=== PATIENT | male | born 1965 | race Caucasian/White ===

== ENCOUNTER 2017-10-17 20:46 | Inpatient (IN) ==
--- NOTE | 2017-10-17 21:05 | ED ---
HPI General Chief complaint: Abdominal Pain Stated complaint: Evac/Leg Pain Time Seen by Provider: 10/17/17 20:58 Source: patient and EMS Mode of arrival: EMS Limitations: no limitations History of Present Illness HPI narrative: 52-year-old male presents to the emergency department by EMS transport from home due to complaint of severe left lower extremity pain and inability to ambulate with walker assistance. Patient reportedly has had 3 weeks of progressively worsening back pain and left lower extremity pain. Patient has been under the care of his primary care provider his pain management doctor and sports medicine provider. Patient is undergone epidural injections and nerve block injections without symptom relief. Patient is on chronic pain medication. Patient states that in July he had a trip and fall over his dog without any known injury at the time other than some mild mid back pain subsequently had been doing fairly well until progressive worsening of bilateral hip pain and low back pain and left lower extremity pain. Patient is noted some swelling to the left lower extremity. Patient was seen by his pain management doctor this week and had an injection for pain management. Patient does not report any fever or chills nausea vomiting chest pain abdominal pain does complain of some mild shortness of breath. Patient was able to get up with a walker to go the bathroom as recently as last night but fell at the bedside at that time and since then has had increasing pain. Household family members helped him to stand upright and get back to the bed. Patient does not think he hit his head but does not know states he did not have loss of consciousness but everything hurt since that fall. Today he has been able to ambulate with his walker to the bathroom a couple different times with this evening pain was increasing and decided come to the emergency room as he is not getting any relief or improvement of his symptoms. Related Data Home Medications Medication Instructions Recorded Confirmed amlodipine 10 mg PO DAILY 09/30/17 10/17/17 atorvastatin 40 mg PO HS 09/30/17 10/17/17 cabergoline 0.5 mg PO WEEKLY 09/30/17 10/17/17 duloxetine 60 mg PO HS 09/30/17 10/17/17 hydrocodone-acetaminophen 1 tab PO TID PRN 09/30/17 10/17/17 losartan 50 mg PO DAILY 09/30/17 10/17/17 meloxicam 15 mg PO HS 09/30/17 10/17/17 tamsulosin 0.4 mg PO 2XWEEK 09/30/17 10/17/17 tizanidine 4 mg PO HS 09/30/17 10/17/17 triamterene-hydrochlorothiazid 1 cap PO DAILY 09/30/17 10/17/17 Previous Rx's Medication Instructions Recorded ibuprofen 600 mg PO QID PRN #10 tab 09/30/17 Allergies Allergy/AdvReac Type Severity Reaction Status Date / Time penicillin G Allergy Mild Swelling Verified 09/30/17 03:33 of Lip/Tongue/Throat lisinopril AdvReac Mild HEADACHE Verified 09/30/17 03:34 Review of Systems ROS: all other systems reviewed are negative [facility] Medical History Medical History Pituitary abnormality (Acute) Hypertension (Acute) High cholesterol (Acute) Chronic pain (Acute) Surgical History Surgical History Hx of tonsillectomy (Acute) H/O laminectomy (Acute) Social History Social History Substance History: No History of Abuse Second Hand Smoke Exposure: Yes Smoking Status: Current every day smoker Tobacco Type: Cigarettes How Often Do You Have a Drink Containing Alcohol: Monthly or less Recent Travel in [facility] within the Last 8 Weeks: No Recent Out of Country Travel within the Last 8 Weeks: No Immunization History Tetanus Immunization: >5 Years Hx Influenza Vaccine This Season: Yes Exam Narrative Exam Narrative: GENERAL: Well-nourished, well-developed patient. GCS 15. No acute distress no respiratory distress SKIN: Focused skin assessment warm/dry. HEAD: Normocephalic. EYES: No scleral icterus. No injection or drainage. NECK: Supple, trachea midline. No JVD or lymphadenopathy. CARDIOVASCULAR: Regular rate and rhythm without murmurs, gallops, or rubs. RESPIRATORY: Breath sounds equal bilaterally. No accessory muscle use. GASTROINTESTINAL: Abdomen soft, non-tender, nondistended. MUSCULOSKELETAL: No cyanosis, or edema. Patient able to demonstrate straight leg raising to right lower extremity. Patient reports unable to lift his left leg secondary to leg pain and hip pain. Bilateral dorsalis pedis pulses 2+ to palpation capillary refill brisk and less than 2 seconds per digit bilaterally mild swelling of the left lower extremity and calf pain with dorsiflexion and plantarflexion of all of the left foot. Pelvic rock stable. BACK: Nontender without obvious deformity. No CVA tenderness. Course Initial Documented Vital Signs Temperature 98.2 F 10/17/17 20:52 Pulse Rate 100 H 10/17/17 20:52 Respiratory Rate 20 10/17/17 20:52 Blood Pressure 120/70 10/17/17 20:52 Pulse Oximetry 96 10/17/17 20:52 Last Documented Vital Signs Temperature 98.0 F 10/17/17 20:55 Pulse Rate 110 H 10/17/17 20:55 Respiratory Rate 20 10/17/17 20:55 Blood Pressure 146/67 H 10/17/17 20:55 Pulse Oximetry 98 10/17/17 20:55 Medical Decision Making MDM Narrative Medical decision making narrative: 52-year-old male with progressively worsening back pain and left lower extremity pain 3 weeks. Patient undergoing epidural injections by pain management being followed by primary care and sports medicine providers has had MRI was recently seen 10/02/17 for same complaint imaging studies revealed no acute process and now returns after non- syncopal slip and fall onto the floor by his bed last night. Patient has been up today ambulating with walker as his only mode of ambulation with assistance. Due to persistent pain decided to come to the emergency room tonight. Imaging studies ordered. Patient administered Toradol. Patient takes morphine daily. Imaging studies --no acute fractures large left knee effusion Discussed with DR Clement admit to Dr Heredia Medical Screen Exam Complete: Yes Emergency Medical Condition: Yes Differential Diagnosis Differential Diagnosis: Lumbar disc disease, sciatica, DVT; no findings for limb ischemia or cauda equina Medical Records Medical records reviewed: Yes I reviewed the patient's medical records. Imaging Data Radiologist's impression: Venous Doppler Study 10/17/17 20:58 CONCLUSION: 1. The study is negative for lower extremity deep venous thrombosis. Lumbar Spine X-Ray 10/17/17 21:00 CONCLUSION: Chronic changes. Pelvis X-Ray 10/17/17 21:00 CONCLUSION: No definite fracture is identified for technique. Femur X-Ray 10/18/17 01:02 CONCLUSION: 1. No fracture is identified. 2. Large knee joint effusion. 3. Recent MRI performed on 10/12/2017 documented severe edema in the proximal thigh. Tibia/Fibula X-Ray 10/18/17 01:02 CONCLUSION: Large knee joint effusion. No acute osseous abnormality is visualized. Discharge Plan Discharge Disposition Patient Disposition: 30 Still Patient Discharge Condition Condition: Stable Discharge Details Diagnosis: Intractable pain, Chronic pain, Effusion of left knee, Intractable neuropathic pain of lower extremity Physicians Team ED Provider: Paradise Agarwal Primary Care Provider: Rell Walls Attending Provider: Mirza Heredia Status ED Status: Admitted Patient
--- NOTE | 2017-10-17 21:59 | XR ---
EXAM DATE: 10/17/2017 9:56 PM EDT AGE/SEX: 52 years / Male INDICATIONS: Trauma, Patient Fell CLINICAL DATA: This is the patient's initial encounter. Patient reports that signs and symptoms have been present for 2 months and indicates a pain score of 10/10. MEDICAL/SURGICAL HISTORY: None. . L1 laminectomy. COMPARISON: No prior exams available for comparison. FINDINGS: No definite fractures, or dislocations are identified. No definite lytic or sclerotic les ion is seen. The joint spaces are well maintained. There are chronic calcifications bilaterally in the region of the acetabular labrum. CONCLUSION: No definite fracture is identified for technique. Electronically signed by: True Allen MD 10/17/2017 9:58 PM EDT
--- NOTE | 2017-10-17 22:09 | XR ---
EXAM DATE: 10/17/2017 10:00 PM EDT AGE/SEX: 52 years / Male INDICATIONS: Low back pain, post fall CLINICAL DATA: This is the patient's initial encounter. Patient reports that signs and symptoms have been present for 2 months and indicates a pain score of 10/10. MEDICAL/SURGICAL HISTORY: None. . L1 laminectomy. COMPARISON: No prior exams available for comparison. FINDINGS: No appreciable compression deformities, spondylolisthesis, or spondylolysis is seen. Slight degenerative changes are seen with mild osteophyte formation and hypertrophic change. There is moder ate facet arthrosis L5-S1 bilaterally. CONCLUSION: Chronic changes. Electronically signed by: True Allen MD 10/17/2017 10:07 PM EDT
[2017-10-17] MEDS ORDERED: Ketorolac Inj 30 MG/ML (IVP) Vial IV.PUSH ONE (22:13)
--- NOTE | 2017-10-17 22:40 | US ---
EXAM DATE: 10/17/2017 10:37 PM EDT AGE/SEX: 52 years / Male INDICATIONS: Left lower leg pain. CLINICAL DATA: This is the patient's initial encounter. Patient reports that signs and symptoms have been present for 3 weeks and indicates a pain score of 10/10. MEDICAL/SURGICAL HISTORY: Hypercholesterolemia. Hypertension. Chronic pain. Pituitary abnormal ity. Tonsillectomy. Laminectomy. COMPARISON: No prior exams available for comparison. TECHNIQUE: Venous ultrasound of both lower extremities was performed from the inguinal ligament to t he proximal calf. Real-time, color Doppler and spectral tracing, compression and augmentation techni ques were used. FINDINGS: Normal compression of the deep venous system from the inguinal region to the proximal calf . No echogenic clot is seen. Normal response of the venous system to augmentation and respiration. CONCLUSION: 1. The study is negative for lower extremity deep venous thrombosis. Electronically signed by: True Allen MD 10/17/2017 10:38 PM EDT
--- NOTE | 2017-10-18 01:45 | XR ---
EXAM DATE: 10/18/2017 1:39 AM EDT AGE/SEX: 52 years / Male INDICATIONS: Left leg pain after falling. CLINICAL DATA: This is the patient's initial encounter. Patient reports that signs and symptoms have been present for 4 - 6 days and indicates a pain score of 4/10. MEDICAL/SURGICAL HISTORY: None. None. COMPARISON: TLI, MR HIP W/O CONTRAST, LEFT, 10/12/2017. . FINDINGS: 4 views of the left femur demonstrate no fracture or dislocation. A large joint effusion is identifie d at the knee joint. Mineralization is normal. Acetabular osteophytes are present at the hip joint. V isualized pelvic bones demonstrate no acute finding. No soft tissue abnormality is identified. CONCLUSION: 1. No fracture is identified. 2. Large knee joint effusion. 3. Recent MRI performed on 10/12/2017 documented severe edema in the proximal thigh. Electronically signed by: Aditya Rodriguez MD 10/18/2017 1:43 AM EDT
--- NOTE | 2017-10-18 01:47 | XR ---
EXAM DATE: 10/18/2017 1:40 AM EDT AGE/SEX: 52 years / Male INDICATIONS: Left leg pain after falling. CLINICAL DATA: This is the patient's initial encounter. Patient reports that signs and symptoms have been present for 4 - 6 days and indicates a pain score of 4/10. MEDICAL/SURGICAL HISTORY: None. None. COMPARISON: No prior exams available for comparison. FINDINGS: 4 views of the left leg demonstrate no fracture or dislocation. Mineralization is within normal limit s. There is a large knee joint effusion. No soft tissue abnormality or radiopaque foreign body is félix ntified. CONCLUSION: Large knee joint effusion. No acute osseous abnormality is visualized. Electronically signed by: Aditya Rodriguez MD 10/18/2017 1:46 AM EDT
--- NOTE | 2017-10-18 07:35 | P.HP ---
<Raymond Wood - Last Filed: 10/18/17 18:45> History of Present Illness Primary Care Physician: Rell Walls MD, PhD - Diagnosis (1) Effusion of left knee PMFSH - Medical History Medical History: Medical History (Last Reviewed 10/18/17 @ 11:01 by Jonathon Dolan MD) Pituitary abnormality (Acute) Hypertension (Acute) High cholesterol (Acute) Chronic pain (Acute) - Surgical History Surgical History: Surgical History (Last Reviewed 10/18/17 @ 11:01 by Jonathon Dolan MD) Hx of tonsillectomy (Acute) H/O laminectomy (Acute) Medications and Allergies Allergies Allergy/AdvReac Type Severity Reaction Status Date / Time penicillin G Allergy Mild Swelling Verified 09/30/17 03:33 of Lip/Tongue/Throat lisinopril AdvReac Mild HEADACHE Verified 09/30/17 03:34 Home Medications Medication Instructions Recorded Confirmed Type amlodipine 10 mg PO DAILY 09/30/17 10/17/17 History atorvastatin 40 mg PO HS 09/30/17 10/17/17 History cabergoline 0.5 mg PO WEEKLY 09/30/17 10/17/17 History duloxetine 60 mg PO HS 09/30/17 10/17/17 History hydrocodone-acetaminophen 1 tab PO TID PRN 09/30/17 10/17/17 History losartan 50 mg PO BID 09/30/17 10/18/17 History tamsulosin 0.4 mg PO 2XWEEK 09/30/17 10/17/17 History tizanidine 12 mg PO HS 09/30/17 10/18/17 History triamterene-hydrochlorothiazid 1 cap PO DAILY 09/30/17 10/17/17 History morphine 15 mg PO Q12H 10/18/17 10/18/17 History tizanidine 8 mg PO DAILY 10/18/17 10/18/17 History Active Medications: Active Medications Hydrocodone Bitart/Acetaminophen (Alexis 10/325) 1 tab PO Q8H PRN PRN Reason: Pain 1-10 Al Hydroxide/Mg Hydroxide (Milk Of Magnesia Liq) 30 ml PO Q12H PRN PRN Reason: Mild Constipation Atorvastatin Calcium (Lipitor) 40 mg PO HS [facility] Duloxetine HCl (Cymbalta) 60 mg PO HS [facility] Sodium Chloride (Ns Inj) 500 mls @ 0 mls/hr IV.SIG BOLUS [facility] Last Infusion: 10/18/17 12:50 Dose: Infused Sodium Chloride (Ns Inj) 1,000 mls @ 100 mls/hr IV.CONT .Q10H [facility] Stop: 10/18/17 22:32 Last Infusion: 10/18/17 17:51 Dose: 0 mls/hr Sodium Chloride (Ns Inj) 500 mls @ 500 mls/hr IV.SIG ONCE ONE Stop: 10/18/17 19:59 Last Admin: 10/18/17 18:00 Dose: 500 mls/hr Aztreonam 1,000 mg/ Sodium (Chloride) 100 mls @ 200 mls/hr IV.SIG Q8H [facility] Daptomycin 580 mg/ Sodium (Chloride) 100 mls @ 200 mls/hr IV.SIG ONCE ONE Stop: 10/18/17 19:11 Morphine Sulfate (Oramorph Sr) 15 mg PO Q12H [facility] Last Admin: 10/18/17 12:08 Dose: Not Given Ondansetron HCl (Zofran Inj) 4 mg IV.PUSH Q6H PRN PRN Reason: NAUSEA OR VOMITING Pt Own Med ( (Cabergoline 0.5 Mg )) 0 each PO Mo [facility] Senna/Docusate Sodium (Mary-Colace) 1 tab PO BID [facility] Last Admin: 10/18/17 12:31 Dose: 1 tab Sodium Polystyrene Sulfonate (Kayexalate Liq) 15 gm PO ONCE ONE Stop: 10/18/17 18:33 Tamsulosin HCl (Flomax) 0.4 mg PO MoFr [facility] Last Admin: 10/18/17 12:32 Dose: 0.4 mg Tizanidine HCl (Zanaflex) 8 mg PO DAILY [facility] Last Admin: 10/18/17 12:32 Dose: 8 mg Tizanidine HCl (Zanaflex) [address] [facility] Exam Vital signs: Vital Signs 10/17/17 20:52 10/17/17 20:55 10/18/17 00:55 Temperature 98.2 F 98.0 F 98.6 F Pulse Rate 100 H 110 H 89 Respiratory Rate 20 20 20 Blood Pressure 120/70 146/67 H 136/72 Pulse Oximetry 96 98 10/18/17 06:09 10/18/17 08:00 10/18/17 11:24 Temperature 97.7 F 98.3 F Pulse Rate 71 63 Respiratory Rate 20 16 16 Blood Pressure 87/53 L 76/47 L Pulse Oximetry 96 93 L 10/18/17 11:40 10/18/17 11:41 10/18/17 13:00 Temperature Pulse Rate Respiratory Rate Blood Pressure 80/60 L 84/62 L 89/46 L Pulse Oximetry 10/18/17 13:05 10/18/17 16:00 10/18/17 16:38 Temperature 97.9 F Pulse Rate 64 Respiratory Rate 16 Blood Pressure 78/48 L 91/52 L 73/42 L Pulse Oximetry 94 L 10/18/17 17:10 10/18/17 17:11 Temperature Pulse Rate Respiratory Rate Blood Pressure 86/59 L 73/49 L Pulse Oximetry Intake & Output 10/17/17 10/18/17 10/18/17 18:59 06:59 18:59 Intake Total 500 / 500 Balance 500 / 500 Weight 136.078 kg 97.069 kg Intake: IV 500 / 500 NS Inj 500 ML @ Wide Open IV. 500 / 500 SIG BOLUS [facility] Rx#:[id number] Other: # Voids 1 Weight On Admission 97.069 kg Results - Labs CBC & Chem 7: 10/18/17 11:40 10/18/17 16:34 Labs: Laboratory Results - last 24 hr 10/18/17 10/18/17 10/18/17 11:40 11:40 11:40 WBC 12.7 H RBC 3.57 L Hgb 10.0 L Hct 30.7 L MCV 86.0 MCH 28.1 MCHC 32.7 RDW 14.0 Plt Count 365 MPV 7.6 Neut % (Auto) 94.3 H Lymph % (Auto) 2.5 L [place] % (Auto) 3.0 Eos % (Auto) 0.2 Baso % (Auto) 0.0 Neut # (Auto) 12.0 H Lymph # (Auto) 0.3 L [place] # (Auto) 0.4 Eos # (Auto) 0.0 Baso # (Auto) 0.0 WBC Differential . Differential Comment Auto diff final Sodium 138 Potassium 5.4 H Chloride 105 Carbon Dioxide 23.1 Anion Gap 10 BUN 81 H Creatinine 1.94 H Estimated GFR 36 L Random Glucose 209 H Calcium 8.9 Total Creatine Kinase 37 L C-Reactive Protein Synovial Crystals 10/18/17 10/18/17 10/18/17 16:34 16:34 16:34 WBC RBC Hgb Hct MCV MCH MCHC RDW Plt Count MPV Neut % (Auto) Lymph % (Auto) [place] % (Auto) Eos % (Auto) Baso % (Auto) Neut # (Auto) Lymph # (Auto) [place] # (Auto) Eos # (Auto) Baso # (Auto) WBC Differential Differential Comment Sodium 136 Cancelled Potassium 5.7 H Cancelled Chloride 105 Cancelled Carbon Dioxide 23.1 Cancelled Anion Gap 8 Cancelled BUN 82 H Cancelled Creatinine 2.08 H Cancelled Estimated GFR 33 L Cancelled Random Glucose 203 H Cancelled Calcium 8.7 Cancelled Total Creatine Kinase C-Reactive Protein 22.00 H Synovial Crystals 10/18/17 17:35 WBC RBC Hgb Hct MCV MCH MCHC RDW Plt Count MPV Neut % (Auto) Lymph % (Auto) [place] % (Auto) Eos % (Auto) Baso % (Auto) Neut # (Auto) Lymph # (Auto) [place] # (Auto) Eos # (Auto) Baso # (Auto) WBC Differential Differential Comment Sodium Potassium Chloride Carbon Dioxide Anion Gap BUN Creatinine Estimated GFR Random Glucose Calcium Total Creatine Kinase C-Reactive Protein Synovial Crystals None - Imaging Impressions Venous Doppler Study 10/17/17 20:58 CONCLUSION: 1. The study is negative for lower extremity deep venous thrombosis. Lumbar Spine X-Ray 10/17/17 21:00 CONCLUSION: Chronic changes. Pelvis X-Ray 10/17/17 21:00 CONCLUSION: No definite fracture is identified for technique. Femur X-Ray 10/18/17 01:02 CONCLUSION: 1. No fracture is identified. 2. Large knee joint effusion. 3. Recent MRI performed on 10/12/2017 documented severe edema in the proximal thigh. Tibia/Fibula X-Ray 10/18/17 01:02 CONCLUSION: Large knee joint effusion. No acute osseous abnormality is visualized. Caprini VTE Risk Assessment Caprini Risk Assessment Model: Point Value = 1 Point Value = 2 Point Value = 3 Point Value = 5 Age 41-60 Minor surgery BMI > 25 kg/m2 Swollen legs Varicose veins or History of unexplained or recurrent spontaneous Oral contraceptives or hormone replacement Sepsis (< 1 month) Serious lung disease, including pneumonia (< 1 month) Abnormal pulmonary function Acute myocardial infarction Congestive heart failure (< 1 month) History of inflammatory bowel disease Medical patient at bed rest Age 61-74 Arthroscopic surgery Major open surgery (> 45 min) Laparoscopic surgery (> 45 min) Malignancy Confined to bed (> 72 hours) Immobilizing plaster cast Central venous access Age >= 75 History of VTE Family history of VTE Factor V Leiden Prothrombin [id number] Lupus anticoagulant Anticardiolipin antibodies Elevated serum homocysteine Heparin-induced thrombocytopenia Other congenital or acquired thrombophilia Stroke (< 1 month) Elective arthroplasty Hip, pelvis, or leg fracture Acute spinal cord injury (< 1 month) Prophylaxis Regimen: Total Risk Factor Score Risk Level Prophylaxis Regimen 0-1 Low Early ambulation 2 Moderate Order ONE of the following: *Sequential Compression Device (SCD) *Heparin 5000 units SQ BID 3-4 Higher Order ONE of the following medications: *Heparin 5000 units SQ TID *Enoxaparin/Lovenox 40 mg SQ daily (WT < 150 kg, CrCl > 30 mL/min) *Enoxaparin/Lovenox 30 mg SQ daily (WT < 150 kg, CrCl > 10-29 mL/min) *Enoxaparin/Lovenox 30 mg SQ BID (WT < 150 kg, CrCl > 30 mL/min) AND/OR *Sequential Compression Device (SCD) 5 or more Highest Order ONE of the following medications: *Heparin 5000 units SQ TID (Preferred with Epidurals) *Enoxaparin/Lovenox 40 mg SQ daily (WT < 150 kg, CrCl > 30 mL/min) *Enoxaparin/Lovenox 30 mg SQ daily (WT < 150 kg, CrCl > 10-29 mL/min) *Enoxaparin/Lovenox 30 mg SQ BID (WT < 150 kg, CrCl > 30 mL/min) AND *Sequential Compression Device (SCD) Assessment and Plan - Assessment (1) Effusion of left knee Code(s): M25.462 - Effusion, left knee Status: Acute Plan: The exam, history, and the medical decision-making described in the above note were completed with the assistance of the mid-level provider. I reviewed and agree with the findings presented. I attest that I had a [id number] encounter with the patient on the same day, and personally performed and documented my assessment and findings in the medical record. atiya. baseline bun/cr 39/1.1 on 10/04 ..could be related to hypotension/atn, sepsis from septic knee, dehydration, atn from nsaids(was using motrin 800mg bid plus meloxicam, then later celebrex. Pt describing recent falls with lightheaded spells prior..probably was hypotensive Reviewed Lumbar mri with Dr Dolan. no need to repeat. But pt described some pain higher in thoracic spine and after discussion with Dr Dolan we decided to order MRI T spine to exclude any spinal pathology to account for darby sx's. Left knee effusion. no obvious direct trauma or overlying disruption of skin. Unclear why he has this effusion but need to exclude septic knee given the persistent hypotension. Dr Herrera just came by and drained 60cc of "chocolate milk" type fluid. sent for analysis I will emperically give dapto for gpc and aztreonam for gnr cover until blood and knee cx's return. I will avoid vanco/rocephin given the atiya and pcn allergy in past. I spoke to his . I want to move him to ICU overnight for closer observation given peristent hypotension despite IV NS boluses today. Leather Production Worker agrees. Orders written. <Pura Talamantes W - Last Filed: 10/19/17 10:51> History of Present Illness Primary Care Physician: Rell Walls MD, PhD Chief Complaint: Lower back pain and left lower extremity pain 3 weeks History of Present Illness: This is a 52-year-old male patient with past medical history which includes hypertension, hyperlipidemia, anxiety/depression, BPH, hyperprolactinemia and chronic lower back pain, lumbar degenerative disc disease with long-term current use of opioid analgesic. Patient presents to the emergency department by EMS transport from home due to complaint of severe left lower extremity pain. Patient reportedly has had 3 weeks of progressively worsening back pain and left lower extremity pain. Patient has been under the care of his primary care provider Dr. Walls and his pain management Dr. Bridges and sports medicine Dr. Dickson. Patient is undergone epidural injections and nerve block injections without symptom relief. Patient is on chronic Morphine ER 15 mg BID and Alexis 10-325 mg Q8H. Patient states that in July he had a trip and fall over his dog without any known injury at the time other than some mild mid back pain. Patient was seen by his pain management doctor this week and had an injection for pain management. Patient fell at his bedside 10/16/17 walking with his walker to go the bathroom and since then has had increasing pain. Household family members helped him to stand upright and get back to the bed. Patient denies head trauma and states he did not have loss of consciousness but everything hurt since that fall. Yesterday he has been able to ambulate with his walker to the bathroom a couple different times with this evening pain was increased and decided come to the emergency room as he is not getting any relief or improvement of his symptoms. Patient denies fever, chills, nausea, vomiting or chest pain. PMH: hypertension, hyperlipidemia, anxiety/depression, BPH, hyperprolactinemia chronic lower back pain, lumbar degenerative disc disease with long-term current use of opioid analgesic. PSxH: Colonoscopy, EGD Lumbar laminectomy L1-L2 laminectomy 12/13/2015 cervical thoracic and lumbar spinal injections by sports medicine Nerve block paravertebral facet joint Tonsillectomy adenoidectomy Social history: Patient is lives with his Rare EtOH use Denies tobacco use now or in the past Family medical history: Reviewed and noncontributory - Diagnosis (1) Effusion of left knee Review of Systems All other systems reviewed negative except as stated in HPI PMFSH - History History Provided By: Patient - Medical History Medical History: Medical History (Last Reviewed 10/18/17 @ 11:01 by Jonathon Dolan MD) Pituitary abnormality (Acute) Hypertension (Acute) High cholesterol (Acute) Chronic pain (Acute) - Surgical History Surgical History: Surgical History (Last Reviewed 10/18/17 @ 11:01 by Jonathon Dolan MD) Hx of tonsillectomy (Acute) H/O laminectomy (Acute) - Tobacco History Second Hand Smoke Exposure: Yes Tobacco Use In Past 30 Days: Yes Smoking Status: Current every day smoker Tobacco Type: Cigarettes - Alcohol History How Often Do You Have a Drink Containing Alcohol: Monthly or less - Substance Use History Substance History: No History of Abuse - Travel History Recent Travel in the [facility] Within the Last 8 Weeks: No Recent Travel Out of the Country Within the Last 8 Weeks: No - Immunization History Tetanus Immunization: >5 Years Hx Influenza Vaccine This Season: Yes Medications and Allergies Active Medications: Active Medications Hydrocodone Bitart/Acetaminophen (Alexis 10/325) 1 tab PO Q8H PRN PRN Reason: Pain Amlodipine Besylate (Norvasc) 10 mg PO DAILY [facility] Atorvastatin Calcium (Lipitor) 40 mg PO HS [facility] Duloxetine HCl (Cymbalta) 60 mg PO HS [facility] Losartan Potassium (Cozaar) 50 mg PO DAILY [facility] Tamsulosin HCl (Flomax) 0.4 mg PO 2XWEEK [facility] Triamterene/HCTZ (Dyazide 37.5/25 Mg) 1 cap PO DAILY [facility] Exam Vital signs: Vital Signs 10/17/17 20:52 10/17/17 20:55 10/18/17 00:55 Temperature 98.2 F 98.0 F 98.6 F Pulse Rate 100 H 110 H 89 Respiratory Rate 20 20 20 Blood Pressure 120/70 146/67 H 136/72 Pulse Oximetry 96 98 10/18/17 06:09 Temperature Pulse Rate Respiratory Rate 20 Blood Pressure Pulse Oximetry Intake & Output 10/17/17 10/18/17 10/18/17 18:59 06:59 18:59 Weight 136.078 kg Narrative: GENERAL: This is a well-nourished, well-developed patient, in no apparent distress. CARDIOVASCULAR: Regular rate and rhythm RESPIRATORY: Clear to auscultation. Breath sounds equal bilaterally. GASTROINTESTINAL: Abdomen soft, non-tender, nondistended. Normal active bowel sounds MUSCULOSKELETAL: edema noted left lower extremity and left knee NEURO: Alert & Oriented. Moves all ext x4. LLE weaker than right Results - Labs CBC & Chem 7: 10/19/17 04:23 10/19/17 04:23 - Imaging Impressions Venous Doppler Study 10/17/17 20:58 CONCLUSION: 1. The study is negative for lower extremity deep venous thrombosis. Lumbar Spine X-Ray 10/17/17 21:00 CONCLUSION: Chronic changes. Pelvis X-Ray 10/17/17 21:00 CONCLUSION: No definite fracture is identified for technique. Femur X-Ray 10/18/17 01:02 CONCLUSION: 1. No fracture is identified. 2. Large knee joint effusion. 3. Recent MRI performed on 10/12/2017 documented severe edema in the proximal thigh. Tibia/Fibula X-Ray 10/18/17 01:02 CONCLUSION: Large knee joint effusion. No acute osseous abnormality is visualized. Caprini VTE Risk Assessment Caprini VTE Risk Assessment: No/Low Risk (score <= 1) Caprini Risk Assessment Model: Point Value = 1 Point Value = 2 Point Value = 3 Point Value = 5 Age 41-60 Minor surgery BMI > 25 kg/m2 Swollen legs Varicose veins or History of unexplained or recurrent spontaneous Oral contraceptives or hormone replacement Sepsis (< 1 month) Serious lung disease, including pneumonia (< 1 month) Abnormal pulmonary function Acute myocardial infarction Congestive heart failure (< 1 month) History of inflammatory bowel disease Medical patient at bed rest Age 61-74 Arthroscopic surgery Major open surgery (> 45 min) Laparoscopic surgery (> 45 min) Malignancy Confined to bed (> 72 hours) Immobilizing plaster cast Central venous access Age >= 75 History of VTE Family history of VTE Factor V Leiden Prothrombin [id number] Lupus anticoagulant Anticardiolipin antibodies Elevated serum homocysteine Heparin-induced thrombocytopenia Other congenital or acquired thrombophilia Stroke (< 1 month) Elective arthroplasty Hip, pelvis, or leg fracture Acute spinal cord injury (< 1 month) Prophylaxis Regimen: Total Risk Factor Score Risk Level Prophylaxis Regimen 0-1 Low Early ambulation 2 Moderate Order ONE of the following: *Sequential Compression Device (SCD) *Heparin 5000 units SQ BID 3-4 Higher Order ONE of the following medications: *Heparin 5000 units SQ TID *Enoxaparin/Lovenox 40 mg SQ daily (WT < 150 kg, CrCl > 30 mL/min) *Enoxaparin/Lovenox 30 mg SQ daily (WT < 150 kg, CrCl > 10-29 mL/min) *Enoxaparin/Lovenox 30 mg SQ BID (WT < 150 kg, CrCl > 30 mL/min) AND/OR *Sequential Compression Device (SCD) 5 or more Highest Order ONE of the following medications: *Heparin 5000 units SQ TID (Preferred with Epidurals) *Enoxaparin/Lovenox 40 mg SQ daily (WT < 150 kg, CrCl > 30 mL/min) *Enoxaparin/Lovenox 30 mg SQ daily (WT < 150 kg, CrCl > 10-29 mL/min) *Enoxaparin/Lovenox 30 mg SQ BID (WT < 150 kg, CrCl > 30 mL/min) AND *Sequential Compression Device (SCD) Assessment and Plan - Assessment (1) Effusion of left knee Code(s): M25.462 - Effusion, left knee Status: Acute Plan: This is a 52-year-old male patient with past medical history which includes hypertension, hyperlipidemia, anxiety/depression, BPH, hyperprolactinemia and chronic lower back pain, lumbar degenerative disc disease with long-term current use of opioid analgesic. Patient presents to the emergency department by EMS transport from home due to complaint of severe left lower extremity pain. Patient has been under the care of his primary care provider Dr. Walls and his pain management Dr. Bridges and sports medicine Dr. Dickson. Patient is undergone epidural injections and nerve block injections without symptom relief. Patient is on chronic Morphine ER 15 mg BID and Alexis 10-325 mg Q8H. Patient fell at his bedside 10/16/17 walking with his walker to go the bathroom and since then has had increasing pain. Chronic lower back pain, Now with decreased mobility Lumbar degenerative disc disease with long-term current use of opioid analgesic Left knee effusion Venous Doppler Study 10/17/17 The study is negative for lower extremity deep venous thrombosis. Lumbar Spine X-Ray 10/17/17 Chronic changes. Pelvis X-Ray 10/17/17 No definite fracture is identified for technique. Femur X-Ray 10/18/17 1. No fracture is identified. 2. Large knee joint effusion. 3. Recent MRI performed on 10/12/2017 documented severe edema in the proximal thigh. Tibia/Fibula X-Ray 10/18/17 Large knee joint effusion. No acute osseous abnormality is visualized. Continue patient's home pain management regimen with morphine ER15 mg twice daily and Alexis 10/325 every 8 hours as needed for breakthrough pain Outpatient lumbar MRI reviewed by Dr. Dolan MRI thoracic spine- ordered and pending consult Neurosurgery Consult orthopedic surgery for evaluation and possible drainage of left knee effusion Consult physical therapy Hypertension currently hypotensive, patient asymptomatic Stat CBC and BMP- pending Hold patient's home amlodipine 10 mg p.o. daily, losartan 50 mg, triamterene hydrochlorothiazide daily 500ml NS bolus Nurse to recheck BP after bolus and call if SBP < 100 transfer to med/surg floor Hyperlipidemia Continue patient's home atorvastatin Anxiety/depression Continue patient's home fluoxetine 60 mg p.o. nightly BPH Continue patient's home tamsulosin Hyperprolactinemia Continue patient's home cabergoline weekly DVT prophylaxis with teds and SCDs
[2017-10-18] MEDS ORDERED: CABERGOLINE 0.5 MG PO SCH (09:00)
[2017-10-18] MEDS ORDERED: amLODIPine 10 MG Tablet PO SCH (09:00)
--- NOTE | 2017-10-18 11:09 | P.CONNS ---
History of Present Illness Service: neurosurgery Consult date: 10/18/17 Requesting Physician: Paradise Agarwal Reason for Consult: intractable pain Primary Care Provider: Rell Walls MD, PhD Chief Complaint: Lower back pain and left lower extremity pain 3 weeks History of Present Illness: This is a 52-year-old male patient with history of arterial hypertension, hyperlipidemia, anxiety/depression, BPH, hyperprolactinemia and chronic lower back pain, due to lumbar degenerative disc disease and a schwanoma, opioid analgesic dependency and tolerance, who presents to the emergency department brought in by EMS with severe left lower extremity pain. He reports 3 weeks of progressively worsening back pain and left lower extremity pain. Patient has been managed by his primary care provider Dr. Walls and Dr. Bridges from pain management and Dr. Dickson. He has undergone epidural injections and nerve block injections without symptom relief. He is taking Morphine ER 15 mg BID and [place] 10-325 mg Q8H. He reports that in July he suffered a fall when he tripped over his dog. At that time he experienced mild mid back pain. Patient was seen by his pain management doctor this week and had an injection for pain management. He then fell again at his bedside on 10/16/17, walking with his walker to go the bathroom and since then has reports increasing, intractable pain. Household family members helped him to stand upright and get back to the bed. He denies any head trauma and states he did not have loss of consciousness. No seizure activity. No tongue bitting. No incontinence of stool or urine. Yesterday he has been able to ambulate with his walker to the bathroom but by the evening, his pain was increased and decided come to the emergency room as he is not getting any relief of his symptoms. Patient denies fever, chills, nausea, vomiting or chest pain. Denies incontinence of stool or urine. Denies tingling and numbness on his eft lower extremity. Neurosurgery consultation was requested. His family history was reviewed and it is not contributory to the present admission Review of Systems All other systems reviewed negative except as stated in HPI Constitutional: Denies anorexia, Denies body ache(s), Denies chills, Denies daytime sleepiness, Denies excessive sweating, Denies fatigue, Denies fever(s), Denies headache(s), Denies increased appetite, Denies lack of energy, Denies malaise, Denies night sweats, Denies weakness, Denies weight gain, Denies weight loss, Denies other Eyes: Denies blind spots, Denies blurry vision, Denies bulging eyes, Denies change in vision, Denies double vision, Denies discharge, Denies dry eyes, Denies floaters, Denies irritation, Denies itchy eyes, Denies loss of vision, Denies pain, Denies requires corrective lenses, Denies sensitivity to light, Denies other Ears, Nose, Mouth, and Throat: Denies abnormal hearing, Denies bleeding gums, Denies bad breath, Denies change in voice, Denies dental pain, Denies difficulty swallowing, Denies dizziness, Denies dry mouth, Denies ear discharge , Denies ear pain, Denies facial pain, Denies headache(s), Denies hearing loss, Denies hoarseness, Denies lip swelling, Denies nosebleed, Denies mouth lesions, Denies mouth pain, Denies nasal congestion, Denies nasal discharge, Denies nasal obstruction, Denies nasal trauma, Denies neck lump, Denies neck pain, Denies nose pain, Denies pain with swallowing, Denies poor balance, Denies post nasal drip, Denies ringing in the ears, Denies sinus pain, Denies sinus pressure , Denies sore throat, Denies throat swelling, Denies tongue swelling, Denies other Cardiovascular: Denies chest pain, Denies chest pain at rest, Denies chest pain with activity, Denies excessive sweating, Denies fainting, Denies fast heart rate, Denies foot swelling, Denies generalized swelling, Denies irregular heart rhythm, Denies leg pain with activity, Denies leg sores, Denies leg swelling, Denies lightheadedness, Denies radiating jaw, neck or arm pain, Denies rapid, pounding, or irregular heartbeat, Denies shortness of breath, Denies shortness of breath with activity, Denies shortness of breath when lying down, Denies shortness of breath causing sudden awakening, Denies slow heart rate, Denies other Respiratory: Denies change in phlegm color, Denies chest congestion, Denies cough, Denies coughing up blood, Denies excessive phlegm production, Denies pain on inspiration, Denies pain with cough, Denies shortness of breath, Denies shortness of breath with activity, Denies snoring, Denies stridor, Denies wheezing, Denies other Gastrointestinal: Denies abdominal pain, Denies belching, Denies black, tarry stools, Denies bloating, Denies bright, red blood in stools, Denies change in bowel habits, Denies constant urge to pass stool, Denies change in stools, Denies coffee ground vomit, Denies constipation, Denies cramping, Denies difficulty swallowing, Denies excessive passing of gas, Denies feeling full early, Denies heartburn, Denies incontinent of stools, Denies loose stools, Denies nausea, Denies pain with swallowing, Denies vomiting, Denies vomiting blood, Denies other Genitourinary: Denies blood in semen, Denies blood in urine, Denies decreased urination, Denies difficulty urinating, Denies difficulty with ejaculations, Denies erectile dysfunction, Denies genital lesions, Denies genital pain, Denies painful urination, Denies side pain, Denies frequent nighttime urination , Denies painful ejaculations, Denies penile discharge, Denies scrotal swelling , Denies testicle lump, Denies testicle pain, Denies urinary frequency, Denies urinary hesitancy, Denies urinary incontinence, Denies urinary urgency, Denies other Musculoskeletal: Reports radiating pain into limb, Denies abnormal walking, Denies back pain, Denies body aches, Denies decreased muscle mass, Denies deformity, Denies joint pain, Denies joint swelling, Denies limited joint movement, Denies loss of height, Denies muscle cramps, Denies muscle weakness, Denies neck pain, Denies numbness, Denies stiffness, Denies tingling, Denies other Skin/Breast: Denies acne, Denies bleeding lesions, Denies boil, Denies breast swelling, Denies breast skin changes, Denies breast pain, Denies breast lump, Denies change in breast shape, Denies change in hair, Denies change in skin color, Denies changing lesions, Denies dry skin, Denies excessive hair growth, Denies hair loss, Denies itching, Denies lesions, Denies nail changes, Denies new lesions, Denies nipple discharge, Denies non-healing lesions, Denies redness , Denies sensitivity to light, Denies rash, Denies skin pain, Denies skin ulcer , Denies sores, Denies stretch ortega, Denies unusual bruising, Denies wounds, Denies yellowing of the skin, Denies other Neurologic: Denies abnormal hearing, Denies abnormal movements, Denies abnormal speech, Denies abnormal walking, Denies behavioral changes, Denies burning sensations, Denies confusion, Denies dizziness, Denies fainting, Denies frequent falls, Denies headache(s), Denies lack of coordination, Denies localized weakness, Denies loss of vision, Denies memory loss, Denies numbness, Denies other visual disturbances, Denies radiating pain, Denies restless legs, Denies convulsions, Denies seizure-like activity, Denies sensory deficit, Denies tingling, Denies tingling/numbness/burning sensations, Denies tremor(s), Denies unsteadiness, Denies weakness, Denies other Psychiatric: Denies abnormal sleep pattern, Denies anxiety, Denies behavioral changes, Denies change in appetite, Denies change in sex drive, Denies confusion , Denies depression, Denies difficulty concentrating, Denies hearing things others do not hear, Denies hopelessness, Denies irritability, Denies lack of enjoyment, Denies memory loss, Denies mood swings, Denies panic attacks, Denies paranoia, Denies seeing things others do not see, Denies sensing things others do not sense, Denies tactile hallucinations, Denies thoughts of hurting/killing others, Denies thoughts of hurting/killing yourself, Denies other Endocrine: Denies cold intolerance, Denies excessive sweating, Denies flushing, Denies heat intolerance, Denies increased hunger, Denies increased thirst, Denies increased urination, Denies rapid, pounding, or irregular heartbeat, Denies other Hematologic/Lymphatic: Denies easy bleeding, Denies easy bruising, Denies enlarged lymph nodes, Denies other Allergic/Immunologic: Denies GI upset with certain foods, Denies hives, Denies itchy eyes, Denies lip swelling, Denies seasonal runny nose, Denies throat swelling, Denies tongue swelling, Denies wheezing, Denies other PMFSH - Medical History Medical History: Medical History (Last Reviewed 10/18/17 @ 11:01 by Jonathon Dolan MD) Pituitary abnormality (Acute) Hypertension (Acute) High cholesterol (Acute) Chronic pain (Acute) - Surgical History Surgical History: Surgical History (Last Reviewed 10/18/17 @ 11:01 by Jonathon Dolan MD) Hx of tonsillectomy (Acute) H/O laminectomy (Acute) - Tobacco History Second Hand Smoke Exposure: Yes Tobacco Use In Past 30 Days: Yes Smoking Status: Current every day smoker Tobacco Type: Cigarettes - Alcohol History How Often Do You Have a Drink Containing Alcohol: Monthly or less - Substance Use History Substance History: No History of Abuse - Travel History Recent Travel in the [place] Within the Last 8 Weeks: No Recent Travel Out of the Country Within the Last 8 Weeks: No - Immunization History Tetanus Immunization: >5 Years Hx Influenza Vaccine This Season: Yes Medications and Allergies Active Medications: Active Medications Hydrocodone Bitart/Acetaminophen ([place] 10/325) 1 tab PO Q8H PRN PRN Reason: Pain 1-10 Al Hydroxide/Mg Hydroxide (Milk Of Liza Solis) 30 ml PO Q12H PRN PRN Reason: Mild Constipation Amlodipine Besylate (Norvasc) 10 mg PO DAILY EMILIO Atorvastatin Calcium (Lipitor) 40 mg PO HS EMILIO Duloxetine HCl (Cymbalta) 60 mg PO HS EMILIO Losartan Potassium (Cozaar) 50 mg PO DAILY EMILIO Morphine Sulfate (Oramorph Sr) 15 mg PO Q12H EMILIO Ondansetron HCl (Zofran Inj) 4 mg IV.PUSH Q6H PRN PRN Reason: NAUSEA OR VOMITING Pt Own Med ( (Cabergoline 0.5 Mg )) 0 each PO Mo EMILIO Senna/Docusate Sodium (Mary-Colace) 1 tab PO BID EMILIO Tamsulosin HCl (Flomax) 0.4 mg PO MoFr EMILIO Tizanidine HCl (Zanaflex) 8 mg PO DAILY EMILIO Tizanidine HCl (Zanaflex) 12 mg PO HS EMILIO Triamterene/HCTZ (Dyazide 37.5/25 Mg) 1 cap PO DAILY EMILIO Allergies Allergy/AdvReac Type Severity Reaction Status Date / Time penicillin G Allergy Mild Swelling Verified 09/30/17 03:33 of Lip/Tongue/Throat lisinopril AdvReac Mild HEADACHE Verified 09/30/17 03:34 Home Medications Medication Instructions Recorded Confirmed Type amlodipine 10 mg PO DAILY 09/30/17 10/17/17 History atorvastatin 40 mg PO HS 09/30/17 10/17/17 History cabergoline 0.5 mg PO WEEKLY 09/30/17 10/17/17 History duloxetine 60 mg PO HS 09/30/17 10/17/17 History hydrocodone-acetaminophen 1 tab PO TID PRN 09/30/17 10/17/17 History losartan 50 mg PO BID 09/30/17 10/18/17 History tamsulosin 0.4 mg PO 2XWEEK 09/30/17 10/17/17 History tizanidine 12 mg PO HS 09/30/17 10/18/17 History triamterene-hydrochlorothiazid 1 cap PO DAILY 09/30/17 10/17/17 History morphine 15 mg PO Q12H 10/18/17 10/18/17 History tizanidine 8 mg PO DAILY 10/18/17 10/18/17 History Exam Vital signs: Vital Signs 10/17/17 20:52 10/17/17 20:55 10/18/17 00:55 Temperature 98.2 F 98.0 F 98.6 F Pulse Rate 100 H 110 H 89 Respiratory Rate 20 20 20 Blood Pressure 120/70 146/67 H 136/72 Pulse Oximetry 96 98 10/18/17 06:09 10/18/17 08:00 Temperature 97.7 F Pulse Rate 71 Respiratory Rate 20 16 Blood Pressure 87/53 L Pulse Oximetry 96 Intake & Output 10/17/17 10/18/17 10/18/17 18:59 06:59 18:59 Weight 136.078 kg Narrative: The patient is alert, awake. Comfortable, in no acute distress. Speech is fluent. Cranial nerve examination: pupils to be equal, round and reactive to light. Extra-ocular movements are intact. Facial motor and sensory function are normal and symmetrical. Gross hearing appears intact. Sternocleidomastoid and trapezius muscles are symmetrical. Other cranial nerves are intact. Neck is soft and supple with a good range of motion without pain. Muscle strength is normal in all muscle groups of both upper and lower extremities. Sensory examination is intact to light touch and pin prick in both the upper and lower extremities. Deep tendon reflexes are symmetrical in both upper and lower extremities. There is a bilateral plantar flexion response. Cerebellar examination is unremarkable, without deficits. Lungs are clear Heart regular rhythm is regular rate Skin warm and dry MUSCULOSKELETAL: edema noted left lower extremity and left knee Results - Laboratory Findings CBC and BMP: 10/18/17 11:40 10/18/17 11:40 Assessment and Plan - Plan 52 year old male with increasing pain since a fall . I reviewed his clinical and radiologicval studies, including Venous Doppler Study 10/17/17 20:58 CONCLUSION: 1. The study is negative for lower extremity deep venous thrombosis. Lumbar Spine X-Ray 10/17/17 21:00 CONCLUSION: Chronic changes. Pelvis X-Ray 10/17/17 21:00 CONCLUSION: No definite fracture is identified for technique. Femur X-Ray 10/18/17 01:02 CONCLUSION: 1. No fracture is identified. 2. Large knee joint effusion. 3. Recent MRI performed on 10/12/2017 documented severe edema in the proximal thigh. Tibia/Fibula X-Ray 10/18/17 01:02 CONCLUSION: Large knee joint effusion. No acute osseous abnormality is visualized. Effusion of left knee Code(s): M25.462 - Effusion, left knee Status: Acute Chronic lower back pain, lumbar degenerative disc disease with long-term current use of opioid analgesic He has been under the care of his primary care provider Dr. Walls and his pain management Dr. Bridges and sports medicine Dr. Dickson. Patient is undergone epidural injections and nerve block injections without symptom relief. Patient is on chronic Morphine ER 15 mg BID and [place] 10-325 mg Q8H. Xrays may not be appropriated for his workup and they could miss a subtle fracture. I reviewed his prior MRI done prior to his fall.he has multilevel degenerative disk disease, and an incidental schwanoma on his right side., which is stable and asymptomatic, and unrelated to the lower extremity pain and edema. he does not have axial pain which would suggest a fracture. Consider a follow up MRI of the thoracic spine electively, as he reports his pain as higher An EMG and nerve conduction velocities study could be beneficial Continue patient's home pain management regimen with morphine ER15 mg twice daily and [place] 10/325 every 8 hours as needed for breakthrough pain Consult physical therapy Left knee effusion Consider consulting orthopedics. MRI left knee Pelvis X-Ray 10/17/17 No definite fracture is identified for technique. Femur X-Ray 10/18/17 1. No fracture is identified. 2. Large knee joint effusion. 3. Recent MRI performed on 10/12/2017 documented severe edema in the proximal thigh. Tibia/Fibula X-Ray 10/18/17 Large knee joint effusion. No acute osseous abnormality is visualized. Hypertension Continue patient's home amlodipine 10 mg p.o. daily, losartan 50 mg, triamterene hydrochlorothiazide daily Hyperlipidemia Continue patient's home atorvastatin Anxiety/depression Continue patient's home fluoxetine 60 mg p.o. nightly BPH Continue patient's home tamsulosin Hyperprolactinemia Continue patient's home cabergoline weekly ID. Monitor for sigs of infection Protonix for stress ulcer prophylaxis DVT prophylaxis with teds and SCDs. Venous Doppler Study 10/17/17 The study is negative for lower extremity deep venous thrombosis. Caprini VTE Risk Assessment Caprini VTE Risk Assessment: No/Low Risk (score <= 1) Caprini Risk Assessment Model: Point Value = 1 Point Value = 2 Point Value = 3 Point Value = 5 Age 41-60 Minor surgery BMI > 25 kg/m2 Swollen legs Varicose veins or History of unexplained or recurrent spontaneous Oral contraceptives or hormone replacement Sepsis (< 1 month) Serious lung disease, including pneumonia (< 1 month) Abnormal pulmonary function Acute myocardial infarction Congestive heart failure (< 1 month) History of inflammatory bowel disease Medical patient at bed rest Age 61-74 Arthroscopic surgery Major open surgery (> 45 min) Laparoscopic surgery (> 45 min) Malignancy Confined to bed (> 72 hours) Immobilizing plaster cast Central venous access Age >= 75 History of VTE Family history of VTE Factor V Leiden Prothrombin [id number] Lupus anticoagulant Anticardiolipin antibodies Elevated serum homocysteine Heparin-induced thrombocytopenia Other congenital or acquired thrombophilia Stroke (< 1 month) Elective arthroplasty Hip, pelvis, or leg fracture Acute spinal cord injury (< 1 month) Prophylaxis Regimen: Total Risk Factor Score Risk Level Prophylaxis Regimen 0-1 Low Early ambulation 2 Moderate Order ONE of the following: *Sequential Compression Device (SCD) *Heparin 5000 units SQ BID 3-4 Higher Order ONE of the following medications: *Heparin 5000 units SQ TID *Enoxaparin/Lovenox 40 mg SQ daily (WT < 150 kg, CrCl > 30 mL/min) *Enoxaparin/Lovenox 30 mg SQ daily (WT < 150 kg, CrCl > 10-29 mL/min) *Enoxaparin/Lovenox 30 mg SQ BID (WT < 150 kg, CrCl > 30 mL/min) AND/OR *Sequential Compression Device (SCD) 5 or more Highes t Order ONE of the following medications: *Heparin 5000 units SQ TID (Preferred with Epidurals) *Enoxaparin/Lovenox 40 mg SQ daily (WT < 150 kg, CrCl > 30 mL/min) *Enoxaparin/Lovenox 30 mg SQ daily (WT < 150 kg, CrCl > 10-29 mL/min) *Enoxaparin/Lovenox 30 mg SQ BID (WT < 150 kg, CrCl > 30 mL/min) AND *Sequential Compression Device (SCD)
[2017-10-18] MEDS ORDERED: Sodium Chlor 0.9% Inj 500 ML IV.SIG SCH (12:00)
[2017-10-18 12:06] LABS: Eos % (Auto) 0.2 % (0.0-4.0); Hematocrit 30.7 % (39.0-51.0); Lymph # (Auto) 0.3 th/mm3 (1.0-4.8); Lymph % (Auto) 2.5 % (9.0-44.0); Mean Corpuscular HGB Conc 32.7 % (32.0-36.0); Mean Corpuscular Hemoglobin 28.1 pg (27.0-34.0); Mean Platelet Volume 7.6 fL (7.0-11.0); Mono # (Auto) 0.4 th/mm3 (0.0-0.9); Neut % (Auto) 94.3 % (16.0-70.0); Platelet Count 365 th/mm3 (150-450); Red Blood Count 3.57 mil/mm3 (4.50-5.90); White Blood Count 12.7 th/mm3 (4.0-11.0)
[2017-10-18] MEDS: Morphine Sulfate 15 MG SR Tablet PO SCH ×2 (12:08→20:57)
[2017-10-18 12:19] LABS: Calcium 8.9 mg/dL (8.5-10.1); Carbon Dioxide 23.1 meq/L (21.0-32.0); Potassium 5.4 meq/L (3.5-5.1)
[2017-10-18] MEDS: Senna/Docusate Sodium 8.6/50 MG Tablet PO SCH ×2 (12:31→20:58)
[2017-10-18] MEDS ORDERED: Sod Chloride 0.9% Inj 1,000 ML IV.CONT SCH (12:33)
[2017-10-18] MEDS ORDERED: Lidocaine PF 1% Inj 30 ML Vial ONE (17:08)
[2017-10-18 17:18] LABS: Potassium 5.7 meq/L (3.5-5.1)
[2017-10-18 17:35] LABS: Calcium 8.7 mg/dL (8.5-10.1); Carbon Dioxide 23.1 meq/L (21.0-32.0)
--- NOTE | 2017-10-18 17:42 | P.CONOP ---
[facility] Orthopedics Consult Note - [facility] Consult date: 10/18/17 Requesting physician: Pura Talamantes Consult reason: joint pain Chief complaint: intractable pain, LLE knee effusion, chronic Narrative: This is a 52-year-old male patient with past medical history which includes hypertension, hyperlipidemia, anxiety/depression, BPH, hyperprolactinemia and chronic lower back pain, lumbar degenerative disc disease with long-term current use of opioid analgesic. Patient presents to the emergency department by EMS transport from home due to complaint of severe left lower extremity pain. Patient reportedly has had 3 weeks of progressively worsening back pain and left lower extremity pain. Patient has been under the care of his primary care provider Dr. Walls and his pain management Dr. Bridges and sports medicine Dr. Dickson. Patient is undergone epidural injections and nerve block injections without symptom relief. Patient is on chronic Morphine ER 15 mg BID and [place] 10-325 mg Q8H. Patient states that in July he had a trip and fall over his dog without any known injury at the time other than some mild mid back pain. Patient was seen by his pain management doctor this week and had an injection for pain management. Patient fell at his bedside 10/16/17 walking with his walker to go the bathroom and since then has had increasing pain. Household family members helped him to stand upright and get back to the bed. Patient denies head trauma and states he did not have loss of consciousness but everything hurt since that fall. Yesterday he has been able to ambulate with his walker to the bathroom a couple different times with this evening pain was increased and decided come to the emergency room as he is not getting any relief or improvement of his symptoms. He did undergo x-ray evaluation with no acute findings noted although a large knee effusion was seen. Orthopedic consultation was requested for aspiration. Patient denies fever, chills, nausea, vomiting or chest pain. Review of Systems All other systems reviewed negative except as stated in [facility] - History History Provided By: Patient, Significant Other - Medical History Medical History: Medical History (Last Reviewed 10/18/17 @ 11:01 by Jonathon Dolan MD) Pituitary abnormality (Acute) Hypertension (Acute) High cholesterol (Acute) Chronic pain (Acute) - Surgical History Surgical History: Surgical History (Last Reviewed 10/18/17 @ 11:01 by Jonathon Dolan MD) Hx of tonsillectomy (Acute) H/O laminectomy (Acute) - Tobacco History Second Hand Smoke Exposure: No Tobacco Use In Past 30 Days: Yes Smoking Status: Never smoker Tobacco Type: Cigarettes - Alcohol History How Often Do You Have a Drink Containing Alcohol: 2 to 3 times a week - Substance Use History Substance History: No History of Abuse - Travel History Recent Travel in the [place] Within the Last 8 Weeks: No Recent Travel Out of the Country Within the Last 8 Weeks: No - Immunization History Tetanus Immunization: >5 Years Hx Influenza Vaccine This Season: Yes Medications and Allergies Active Medications: Active Medications Hydrocodone Bitart/Acetaminophen ([place] 10/325) 1 tab PO Q8H PRN PRN Reason: Pain 1-10 Al Hydroxide/Mg Hydroxide (Milk Of Magnsigrid Liq) 30 ml PO Q12H PRN PRN Reason: Mild Constipation Atorvastatin Calcium (Lipitor) 40 mg PO HS [facility] Duloxetine HCl (Cymbalta) 60 mg PO HS [facility] Sodium Chloride (Ns Inj) 500 mls @ 0 mls/hr IV.SIG BOLUS [facility] Last Infusion: 10/18/17 12:50 Dose: Infused Sodium Chloride (Ns Inj) 1,000 mls @ 100 mls/hr IV.CONT .Q10H [facility] Stop: 10/18/17 22:32 Last Admin: 10/18/17 13:07 Dose: 100 mls/hr Morphine Sulfate (Oramorph Sr) 15 mg PO Q12H [facility] Last Admin: 10/18/17 12:08 Dose: Not Given Ondansetron HCl (Zofran Inj) 4 mg IV.PUSH Q6H PRN PRN Reason: NAUSEA OR VOMITING Pt Own Med ( (Cabergoline 0.5 Mg )) 0 each PO Mo [facility] Senna/Docusate Sodium (Mary-Colace) 1 tab PO BID [facility] Last Admin: 10/18/17 12:31 Dose: 1 tab Tamsulosin HCl (Flomax) 0.4 mg PO MoFr [facility] Last Admin: 10/18/17 12:32 Dose: 0.4 mg Tizanidine HCl (Zanaflex) 8 mg PO DAILY [facility] Last Admin: 10/18/17 12:32 Dose: 8 mg Tizanidine HCl (Zanaflex) 12 mg PO HS [facility] Allergies Allergy/AdvReac Type Severity Reaction Status Date / Time penicillin G Allergy Mild Swelling Verified 09/30/17 03:33 of Lip/Tongue/Throat lisinopril AdvReac Mild HEADACHE Verified 09/30/17 03:34 Home Medications Medication Instructions Recorded Confirmed Type amlodipine 10 mg PO DAILY 09/30/17 10/17/17 History atorvastatin 40 mg PO HS 09/30/17 10/17/17 History cabergoline 0.5 mg PO WEEKLY 09/30/17 10/17/17 History duloxetine 60 mg PO HS 09/30/17 10/17/17 History hydrocodone-acetaminophen 1 tab PO TID PRN 09/30/17 10/17/17 History losartan 50 mg PO BID 09/30/17 10/18/17 History tamsulosin 0.4 mg PO 2XWEEK 09/30/17 10/17/17 History tizanidine 12 mg PO HS 09/30/17 10/18/17 History triamterene-hydrochlorothiazid 1 cap PO DAILY 09/30/17 10/17/17 History morphine 15 mg PO Q12H 10/18/17 10/18/17 History tizanidine 8 mg PO DAILY 10/18/17 10/18/17 History Exam Vital signs: Vital Signs 10/17/17 20:52 10/17/17 20:55 10/18/17 00:55 Temperature 98.2 F 98.0 F 98.6 F Pulse Rate 100 H 110 H 89 Respiratory Rate 20 20 20 Blood Pressure 120/70 146/67 H 136/72 Pulse Oximetry 96 98 10/18/17 06:09 10/18/17 08:00 10/18/17 11:24 Temperature 97.7 F 98.3 F Pulse Rate 71 63 Respiratory Rate 20 16 16 Blood Pressure 87/53 L 76/47 L Pulse Oximetry 96 93 L 10/18/17 11:40 10/18/17 11:41 10/18/17 13:00 Temperature Pulse Rate Respiratory Rate Blood Pressure 80/60 L 84/62 L 89/46 L Pulse Oximetry 10/18/17 13:05 10/18/17 16:00 10/18/17 16:38 Temperature 97.9 F Pulse Rate 64 Respiratory Rate 16 Blood Pressure 78/48 L 91/52 L 73/42 L Pulse Oximetry 94 L Intake & Output 10/17/17 10/18/17 10/18/17 18:59 06:59 18:59 Intake Total 500 / 500 Balance 500 / 500 Weight 136.078 kg 97.069 kg Intake: IV 500 / 500 NS Inj 500 ML @ Wide Open IV. 500 / 500 SIG BOLUS [facility] Rx#:[id number] Other: # Voids 2 Weight On Admission 97.069 kg - Constitutional no acute distress - Routine HEENT Exam Head: Present: normocephalic - Routine Extremities Exam Present: pulses intact, normal capillary refill, joint swelling. Absent: cyanosis, clubbing, edema, calf tenderness, Yesi's sign - Detailed Lower Extremity Exam Hip: Bilateral normal inspection, Bilateral full ROM Upper leg: Left: swelling (Distal thigh) Knee: Left normal inspection, Left joint effusion, Left tenderness, Left intact knee extension, Left decreased ROM, Left pain with active ROM, Left pain with passive ROM Comments: There is no erythema or increased warmth. His examination limited secondary to guarding. He has no obvious ligamentous instability. - Routine Skin Exam Present: intact - Routine Neurological Exam Present: alert, oriented X3. Absent: sensory deficit, motor deficit Results - Labs Result Diagrams: 10/18/17 11:40 10/18/17 11:40 Labs: Laboratory Results - last 24 hr 10/18/17 10/18/17 10/18/17 11:40 11:40 11:40 WBC 12.7 H RBC 3.57 L Hgb 10.0 L Hct 30.7 L MCV 86.0 MCH 28.1 MCHC 32.7 RDW 14.0 Plt Count 365 MPV 7.6 Neut % (Auto) 94.3 H Lymph % (Auto) 2.5 L [place] % (Auto) 3.0 Eos % (Auto) 0.2 Baso % (Auto) 0.0 Neut # (Auto) 12.0 H Lymph # (Auto) 0.3 L [place] # (Auto) 0.4 Eos # (Auto) 0.0 Baso # (Auto) 0.0 WBC Differential . Differential Comment Auto diff final Sodium 138 Potassium 5.4 H Chloride 105 Carbon Dioxide 23.1 Anion Gap 10 BUN 81 H Creatinine 1.94 H Estimated GFR 36 L Random Glucose 209 H Calcium 8.9 Total Creatine Kinase 37 L - Diagnostic results Imaging: Impressions Venous Doppler Study 10/17/17 20:58 CONCLUSION: 1. The study is negative for lower extremity deep venous thrombosis. Lumbar Spine X-Ray 10/17/17 21:00 CONCLUSION: Chronic changes. Pelvis X-Ray 10/17/17 21:00 CONCLUSION: No definite fracture is identified for technique. Femur X-Ray 10/18/17 01:02 CONCLUSION: 1. No fracture is identified. 2. Large knee joint effusion. 3. Recent MRI performed on 10/12/2017 documented severe edema in the proximal thigh. Tibia/Fibula X-Ray 10/18/17 01:02 CONCLUSION: Large knee joint effusion. No acute osseous abnormality is visualized. Knee x-ray: image reviewed Assessment and Plan - Problem List (1) Chronic pain Code(s): G89.29 - Other chronic pain Status: Acute (2) Effusion of left knee Code(s): M25.462 - Effusion, left knee Status: Acute (3) Intractable neuropathic pain of lower extremity Code(s): G57.90 - Unspecified mononeuropathy of unspecified lower limb Status : Acute (4) Pituitary abnormality Code(s): E23.7 - Disorder of pituitary gland, unspecified Status: Acute (5) Hypertension Code(s): I10 - Essential (primary) hypertension Status: Acute - Assessment and Plan The findings were discussed. The patient's clinical picture does not suggest a septic joint however the fluid is concerning. As above it will be sent for culture and sensitivity, Gram stain, cell count and crystal exam. Depending on the results for the disposition will be rendered and may require surgical debridement if it represents a septic joint. They acknowledge full understanding. Date of procedure: 10/18/17 Pre-op diagnosis: Effusion left knee Post-op diagnosis: same Procedure: Left knee aspiration After sterile prep with Betadine and alcohol the knee was aspirated of approximately 60 cc of fluid with the appearance of chocolate milk. It will be sent for culture, Gram stain, cell count and crystal exam. Anesthesia: local Surgeon: Raymond Herrera Pathology: other (Culture and sensitivity, Gram stain, cell count, crystal exam) Condition: stable Disposition: no change (The possibility of a septic joint was discussed with the patient and his . Further disposition will be rendered upon results.)
[2017-10-18] MEDS ORDERED: Sodium Polystyrene Sulfonate/Sorbitol Liq 15 GM/60 ML UDC PO ONE (18:32)
[2017-10-18] MEDS ORDERED: Sodium Chlor 0.9% Inj 500 ML IV.SIG ONE (19:00)
[2017-10-18] MEDS ORDERED: SODIUM CHLOR 0.9% IV.SIG ONE (20:00)
[2017-10-18] MEDS ORDERED: DAPTOMYCIN IV.SIG ONE (20:00)
[2017-10-18] MEDS ORDERED: Sodium Chlor 0.9% Inj 500 ML IV.SIG PRN (21:01)
[2017-10-18 21:30] LABS: Appearance,Synovial Fluid Marked (Clear); Color,Synovial Fluid Brown (Straw); Neutrophils,Synovial Fluid 100 % (0-25)
[2017-10-18] MEDS: Duloxetine 60 MG DR Capsule PO SCH (22:22)
[2017-10-19 05:00] LABS: Hematocrit 31.3 % (39.0-51.0); Hemoglobin 10.4 gm/dL (13.0-17.0); Mean Corpuscular HGB Conc 33.1 % (32.0-36.0); Mean Corpuscular Hemoglobin 28.4 pg (27.0-34.0); Mean Corpuscular Volume 85.8 fL (80.0-100.0); Mean Platelet Volume 7.3 fL (7.0-11.0); Platelet Count 369 th/mm3 (150-450); Red Blood Count 3.65 mil/mm3 (4.50-5.90); Red Cell Distribution Width 14.4 % (11.6-17.2); White Blood Count 12.2 th/mm3 (4.0-11.0)
[2017-10-19 05:24] LABS: Calcium 8.7 mg/dL (8.5-10.1)
[2017-10-19 06:59] LABS: Eosinophils 1 % (0-4); Lymphocytes 5 % (9-44); Metamyelocytes 1 % (0-1); Monocytes 1 % (0-8); Myelocytes 1 % (0-0); Platelet Estimate Normal (Normal); Platelet Morphology Normal (Normal)
[2017-10-19] MEDS: Morphine Sulfate 15 MG SR Tablet PO SCH (08:14)
[2017-10-19] MEDS: Senna/Docusate Sodium 8.6/50 MG Tablet PO SCH (08:15)
--- NOTE | 2017-10-19 08:33 | P.PNIM ---
Subjective Interval history: pt c/o more left knee and leg pain. difficulty dorsi/plantar flexion of left foot more sciatica type pain on right also no sob. Physical Exam Vital signs: Vital Signs 10/18/17 11:24 10/18/17 11:40 10/18/17 11:41 Temperature 98.3 F Pulse Rate 63 Respiratory Rate 16 Blood Pressure 76/47 L 80/60 L 84/62 L Pulse Oximetry 93 L 10/18/17 13:00 10/18/17 13:05 10/18/17 16:00 Temperature 97.9 F Pulse Rate 64 Respiratory Rate 16 Blood Pressure 89/46 L 78/48 L 91/52 L Pulse Oximetry 94 L 10/18/17 16:38 10/18/17 17:10 10/18/17 17:11 Temperature Pulse Rate Respiratory Rate Blood Pressure 73/42 L 86/59 L 73/49 L Pulse Oximetry 10/18/17 20:00 10/19/17 00:00 10/19/17 04:00 Temperature 97.8 F 97.7 F 97.8 F Pulse Rate 67 78 85 Respiratory Rate 13 25 H 14 Blood Pressure 84/52 L 102/74 108/71 Pulse Oximetry 96 10/19/17 04:32 10/19/17 06:30 Temperature Pulse Rate Respiratory Rate 14 25 H Blood Pressure Pulse Oximetry Intake & Output 10/18/17 10/19/17 10/19/17 18:59 06:59 18:59 Intake Total 1000 / 1000 1560 / 1560 Output Total 1650 / 1650 Balance 1000 / 1000 -90 / -90 Weight 97.069 kg 100.6 kg Intake: IV 1000 / 1000 1200 / 1200 NS Inj 1,000 ML @ 100 mls/hr IV 1000 / 1000 .CONT .Q10H EM[facility] Rx#:[id number] Azactam Inj 1,000 MG In NS Inj 100 / 100 100 ML @ 200 mls/hr IV.SIG Q8H [facility] Rx#:[id number] Cubicin Inj 580 MG In NS Inj 100 / 100 100 ML @ 200 mls/hr IV.SIG ONCE ONE Rx#:[id number] NS Inj 500 ML @ 500 mls/hr IV. 1000 / 1000 SIG ONCE ONE Rx#:[id number] Oral 360 / 360 Output: Urine 1650 / 1650 Other: # Voids 1 Weight On Admission 97.069 kg heart reg lung cta abd s/nt ext left knee effusion. left thigh/knee tenderness pain with plantar and dorsiflexion on left foot. ice pack over the left knee. Results - Labs CBC & Chem 7: 10/19/17 04:23 10/19/17 04:23 Laboratory Results - last 24 hr 10/18/17 10/18/17 10/18/17 11:40 11:40 11:40 WBC 12.7 H RBC 3.57 L Hgb 10.0 L Hct 30.7 L MCV 86.0 MCH 28.1 MCHC 32.7 RDW 14.0 Plt Count 365 MPV 7.6 Prelim Diff (Auto) Neut % (Auto) 94.3 H Lymph % (Auto) 2.5 L [place] % (Auto) 3.0 Eos % (Auto) 0.2 Baso % (Auto) 0.0 Neut # (Auto) 12.0 H Lymph # (Auto) 0.3 L [place] # (Auto) 0.4 Eos # (Auto) 0.0 Baso # (Auto) 0.0 WBC Differential . Seg Neuts % (Manual) Band Neuts % (Manual) Lymphocytes % (Manual) Monocytes % (Manual) Eosinophils % (Manual) Metamyelocytes % (Man) Myelocytes % (Man) Abs Neuts (Manual) Differential Comment Auto diff final Platelet Estimate Platelet Morphology Sodium 138 Potassium 5.4 H Chloride 105 Carbon Dioxide 23.1 Anion Gap 10 BUN 81 H Creatinine 1.94 H Estimated GFR 36 L Random Glucose 209 H Calcium 8.9 Total Creatine Kinase 37 L C-Reactive Protein Urine Eosinophils Ur Random Sodium Synovial Color Synovial Appearance Synovial RBC Synovial Nuc Cells Synovial Neutrophils Synovial Crystals 10/18/17 10/18/17 10/18/17 16:34 16:34 16:34 WBC RBC Hgb Hct MCV MCH MCHC RDW Plt Count MPV Prelim Diff (Auto) Neut % (Auto) Lymph % (Auto) [place] % (Auto) Eos % (Auto) Baso % (Auto) Neut # (Auto) Lymph # (Auto) [place] # (Auto) Eos # (Auto) Baso # (Auto) WBC Differential Seg Neuts % (Manual) Band Neuts % (Manual) Lymphocytes % (Manual) Monocytes % (Manual) Eosinophils % (Manual) Metamyelocytes % (Man) Myelocytes % (Man) Abs Neuts (Manual) Differential Comment Platelet Estimate Platelet Morphology Sodium 136 Cancelled Potassium 5.7 H Cancelled Chloride 105 Cancelled Carbon Dioxide 23.1 Cancelled Anion Gap 8 Cancelled BUN 82 H Cancelled Creatinine 2.08 H Cancelled Estimated GFR 33 L Cancelled Random Glucose 203 H Cancelled Calcium 8.7 Cancelled Total Creatine Kinase C-Reactive Protein 22.00 H Urine Eosinophils Ur Random Sodium Synovial Color Synovial Appearance Synovial RBC Synovial Nuc Cells Synovial Neutrophils Synovial Crystals 10/18/17 10/18/17 10/18/17 17:35 17:35 21:00 WBC RBC Hgb Hct MCV MCH MCHC RDW Plt Count MPV Prelim Diff (Auto) Neut % (Auto) Lymph % (Auto) [place] % (Auto) Eos % (Auto) Baso % (Auto) Neut # (Auto) Lymph # (Auto) [place] # (Auto) Eos # (Auto) Baso # (Auto) WBC Differential Seg Neuts % (Manual) Band Neuts % (Manual) Lymphocytes % (Manual) Monocytes % (Manual) Eosinophils % (Manual) Metamyelocytes % (Man) Myelocytes % (Man) Abs Neuts (Manual) Differential Comment Platelet Estimate Platelet Morphology Sodium Potassium Chloride Carbon Dioxide Anion Gap BUN Creatinine Estimated GFR Random Glucose Calcium Total Creatine Kinase C-Reactive Protein Urine Eosinophils Ur Random Sodium 42 Synovial Color Brown H Synovial Appearance Marked H Synovial RBC 7500 H Synovial Nuc Cells 891977 H Synovial Neutrophils 100 H Synovial Crystals None 10/18/17 10/19/17 10/19/17 21:00 04:23 04:23 WBC 12.2 H RBC 3.65 L Hgb 10.4 L Hct 31.3 L MCV 85.8 MCH 28.4 MCHC 33.1 RDW 14.4 Plt Count 369 MPV 7.3 Prelim Diff (Auto) Manual diff required Neut % (Auto) Lymph % (Auto) [place] % (Auto) Eos % (Auto) Baso % (Auto) Neut # (Auto) Lymph # (Auto) [place] # (Auto) Eos # (Auto) Baso # (Auto) WBC Differential Manual diff final Seg Neuts % (Manual) 68 Band Neuts % (Manual) 23 H Lymphocytes % (Manual) 5 L Monocytes % (Manual) 1 Eosinophils % (Manual) 1 Metamyelocytes % (Man) 1 Myelocytes % (Man) 1 H Abs Neuts (Manual) 11.3 H Differential Comment . Platelet Estimate Normal Platelet Morphology Normal Sodium 140 Potassium 5.0 Chloride 107 Carbon Dioxide 22.0 Anion Gap 11 BUN 71 H Creatinine 1.53 H Estimated GFR 48 L Random Glucose 160 H Calcium 8.7 Total Creatine Kinase C-Reactive Protein Urine Eosinophils None seen Ur Random Sodium Synovial Color Synovial Appearance Synovial RBC Synovial Nuc Cells Synovial Neutrophils Synovial Crystals Assessment and Plan - Assessment (1) Effusion of left knee Code(s): M25.462 - Effusion, left knee Status: Acute Plan: This is a 52-year-old male patient with past medical history which includes hypertension, hyperlipidemia, anxiety/depression, BPH, hyperprolactinemia and chronic lower back pain, lumbar degenerative disc disease with long-term current use of opioid analgesic. Patient presents to the emergency department by EMS transport from home due to complaint of severe left lower extremity pain. Patient has been under the care of his primary care provider Dr. Walls and his pain management Dr. Bridges and sports medicine Dr. Dickson. Patient is undergone epidural injections and nerve block injections without symptom relief. Patient is on chronic Morphine ER 15 mg BID and [place] 10-325 mg Q8H. Patient fell at his bedside 10/16/17 walking with his walker to go the bathroom and since then has had increasing pain. Left knee effusion Venous Doppler Study 10/17/17 The study is negative for lower extremity deep venous thrombosis. Femur X-Ray 10/18/17 1. No fracture is identified. 2. Large knee joint effusion. 3. Recent MRI performed on 10/12/2017 documented severe edema in the proximal thigh. Tibia/Fibula X-Ray 10/18/17 Large knee joint effusion. No acute osseous abnormality is visualized. Arthrocentesis left knee 10/18. 60cc "chocolate milk" colored fluid Continue patient's home pain management regimen with morphine ER15 mg twice daily and [place] 10/325 prn breakthrough pain dilaudid f/u left knee fluid gs/cx. f/u blood cx's Pt given daptomycin and aztreonam to cover broadly possible septic knee and sepsis. Ortho following. Acute on Chronic back pain with lower ext sciatica type sx's Outpt lumbar MRI reviewed with DR Dolan from 10/04 MRI thoracic spine ordered and pending to exclude spinal pathology that could account for his lower ext sx's pain control as above. PT evaluation Hypotension Pt with persistent hypotension on 10/18. moved to ICU for closer monitoring Could be related to dehydration/volume depletion. Consider sepsis. holding his 3 bp meds. cautious use of pain meds. ALEXANDREA could be related to heavy nsaid use(motrin, celebrex, mobic) , hypotension, dehydration, sepsis. baseline bun/cr 39/1.1 on 10/04 hold arb and diuretic cont ivf renal consulted urine eos and urine na noted renal u/s pending. renal dose abx. avoided vanco due to poor renal function yesterday. Hypertension holding losartan, norvasc,triamterene hydrochlorothiazide see above Hyperlipidemia Continue patient's home atorvastatin Anxiety/depression Continue patient's home fluoxetine 60 mg p.o. nightly BPH Continue patient's home tamsulosin Hyperprolactinemia Continue patient's home cabergoline weekly
--- NOTE | 2017-10-19 09:46 | US ---
EXAM DATE: 10/19/2017 9:40 AM EDT AGE/SEX: 52 years / Male INDICATIONS: Increased Bun and Creatinine. CLINICAL DATA: This is the patient's initial encounter. Patient reports that signs and symptoms have been present for 1 day and indicates a pain score of 7/10. MEDICAL/SURGICAL HISTORY: . Hypercholesterol. HTN. Pituitary abnormality. Tonsillectomy. [place] inectomy, COMPARISON: No prior exams available for comparison. MEASUREMENTS: Right Kidney:__10.9 x 5.1 x 5.7 cm Left Kidney:__13.0 x 5.4 x 7.0 cm FINDINGS: Right Kidney: Normal echotexture and cortical thickness. No mass or hydronephrosis. Left Kidney: Normal echotexture and cortical thickness. No mass or hydronephrosis. Bladder: Within normal limits given the degree of distension. Other: None. CONCLUSION: 1. Normal renal sonogram. Electronically signed by: Ravin Arce MD 10/19/2017 9:44 AM EDT
--- NOTE | 2017-10-19 10:04 | P.PNOP ---
Subjective Interval history: POD #1 Left knee aspiration Pt awake and alert. Finishing breakfast. Admits to continued pain in left knee. Pt in ICU d/t concern for sepsis. Physical Exam Vital signs: Vital Signs 10/18/17 11:24 10/18/17 11:40 10/18/17 11:41 Temperature 98.3 F Pulse Rate 63 Respiratory Rate 16 Blood Pressure 76/47 L 80/60 L 84/62 L Pulse Oximetry 93 L 10/18/17 13:00 10/18/17 13:05 10/18/17 16:00 Temperature 97.9 F Pulse Rate 64 Respiratory Rate 16 Blood Pressure 89/46 L 78/48 L 91/52 L Pulse Oximetry 94 L 10/18/17 16:38 10/18/17 17:10 10/18/17 17:11 Temperature Pulse Rate Respiratory Rate Blood Pressure 73/42 L 86/59 L 73/49 L Pulse Oximetry 10/18/17 20:00 10/19/17 00:00 10/19/17 04:00 Temperature 97.8 F 97.7 F 97.8 F Pulse Rate 67 78 85 Respiratory Rate 13 25 H 14 Blood Pressure 84/52 L 102/74 108/71 Pulse Oximetry 96 10/19/17 04:32 10/19/17 06:30 10/19/17 08:23 Temperature Pulse Rate Respiratory Rate 14 25 H 20 Blood Pressure Pulse Oximetry Intake & Output 10/18/17 10/19/17 10/19/17 18:59 06:59 18:59 Intake Total 1000 / 1000 1560 / 1560 Output Total 1650 / 1650 Balance 1000 / 1000 -90 / -90 Weight 97.069 kg 100.6 kg Intake: IV 1000 / 1000 1200 / 1200 NS Inj 1,000 ML @ 100 mls/hr IV 1000 / 1000 .CONT .Q10H [facility] Rx#:[id number] Azactam Inj 1,000 MG In NS Inj 100 / 100 100 ML @ 200 mls/hr IV.SIG Q8H [facility] Rx#:[id number] Cubicin Inj 580 MG In NS Inj 100 / 100 100 ML @ 200 mls/hr IV.SIG ONCE ONE Rx#:[id number] NS Inj 500 ML @ 500 mls/hr IV. 1000 / 1000 SIG ONCE ONE Rx#:[id number] Oral 360 / 360 Output: Urine 1650 / 1650 Other: # Voids 1 Weight On Admission 97.069 kg Narrative: Hip: Bilateral normal inspection, Bilateral full ROM Upper leg: Left: swelling (Distal thigh) Knee: Left normal inspection, Left joint effusion, Left tenderness, Left intact knee extension, Left decreased ROM, Left pain with active ROM, Left pain with passive ROM Comments: There is no erythema or increased warmth. His examination limited secondary to guarding. He has no obvious ligamentous instability. Results - Labs CBC & Chem 7: 10/19/17 04:23 10/19/17 04:23 Laboratory Results - last 24 hr 10/18/17 10/18/17 10/18/17 11:40 11:40 11:40 WBC 12.7 H RBC 3.57 L Hgb 10.0 L Hct 30.7 L MCV 86.0 MCH 28.1 MCHC 32.7 RDW 14.0 Plt Count 365 MPV 7.6 Prelim Diff (Auto) Neut % (Auto) 94.3 H Lymph % (Auto) 2.5 L [place] % (Auto) 3.0 Eos % (Auto) 0.2 Baso % (Auto) 0.0 Neut # (Auto) 12.0 H Lymph # (Auto) 0.3 L [place] # (Auto) 0.4 Eos # (Auto) 0.0 Baso # (Auto) 0.0 WBC Differential . Seg Neuts % (Manual) Band Neuts % (Manual) Lymphocytes % (Manual) Monocytes % (Manual) Eosinophils % (Manual) Metamyelocytes % (Man) Myelocytes % (Man) Abs Neuts (Manual) Differential Comment Auto diff final Platelet Estimate Platelet Morphology Sodium 138 Potassium 5.4 H Chloride 105 Carbon Dioxide 23.1 Anion Gap 10 BUN 81 H Creatinine 1.94 H Estimated GFR 36 L Random Glucose 209 H Calcium 8.9 Total Creatine Kinase 37 L C-Reactive Protein Urine Eosinophils Ur Random Sodium Synovial Color Synovial Appearance Synovial RBC Synovial Nuc Cells Synovial Neutrophils Synovial Crystals 10/18/17 10/18/17 10/18/17 16:34 16:34 16:34 WBC RBC Hgb Hct MCV MCH MCHC RDW Plt Count MPV Prelim Diff (Auto) Neut % (Auto) Lymph % (Auto) [place] % (Auto) Eos % (Auto) Baso % (Auto) Neut # (Auto) Lymph # (Auto) [place] # (Auto) Eos # (Auto) Baso # (Auto) WBC Differential Seg Neuts % (Manual) Band Neuts % (Manual) Lymphocytes % (Manual) Monocytes % (Manual) Eosinophils % (Manual) Metamyelocytes % (Man) Myelocytes % (Man) Abs Neuts (Manual) Differential Comment Platelet Estimate Platelet Morphology Sodium 136 Cancelled Potassium 5.7 H Cancelled Chloride 105 Cancelled Carbon Dioxide 23.1 Cancelled Anion Gap 8 Cancelled BUN 82 H Cancelled Creatinine 2.08 H Cancelled Estimated GFR 33 L Cancelled Random Glucose 203 H Cancelled Calcium 8.7 Cancelled Total Creatine Kinase C-Reactive Protein 22.00 H Urine Eosinophils Ur Random Sodium Synovial Color Synovial Appearance Synovial RBC Synovial Nuc Cells Synovial Neutrophils Synovial Crystals 10/18/17 10/18/17 10/18/17 17:35 17:35 21:00 WBC RBC Hgb Hct MCV MCH MCHC RDW Plt Count MPV Prelim Diff (Auto) Neut % (Auto) Lymph % (Auto) [place] % (Auto) Eos % (Auto) Baso % (Auto) Neut # (Auto) Lymph # (Auto) [place] # (Auto) Eos # (Auto) Baso # (Auto) WBC Differential Seg Neuts % (Manual) Band Neuts % (Manual) Lymphocytes % (Manual) Monocytes % (Manual) Eosinophils % (Manual) Metamyelocytes % (Man) Myelocytes % (Man) Abs Neuts (Manual) Differential Comment Platelet Estimate Platelet Morphology Sodium Potassium Chloride Carbon Dioxide Anion Gap BUN Creatinine Estimated GFR Random Glucose Calcium Total Creatine Kinase C-Reactive Protein Urine Eosinophils Ur Random Sodium 42 Synovial Color Brown H Synovial Appearance Marked H Synovial RBC 7500 H Synovial Nuc Cells [id number] H Synovial Neutrophils 100 H Synovial Crystals None 10/18/17 10/19/17 10/19/17 21:00 04:23 04:23 WBC 12.2 H RBC 3.65 L Hgb 10.4 L Hct 31.3 L MCV 85.8 MCH 28.4 MCHC 33.1 RDW 14.4 Plt Count 369 MPV 7.3 Prelim Diff (Auto) Manual diff required Neut % (Auto) Lymph % (Auto) [place] % (Auto) Eos % (Auto) Baso % (Auto) Neut # (Auto) Lymph # (Auto) [place] # (Auto) Eos # (Auto) Baso # (Auto) WBC Differential Manual diff final Seg Neuts % (Manual) 68 Band Neuts % (Manual) 23 H Lymphocytes % (Manual) 5 L Monocytes % (Manual) 1 Eosinophils % (Manual) 1 Metamyelocytes % (Man) 1 Myelocytes % (Man) 1 H Abs Neuts (Manual) 11.3 H Differential Comment . Platelet Estimate Normal Platelet Morphology Normal Sodium 140 Potassium 5.0 Chloride 107 Carbon Dioxide 22.0 Anion Gap 11 BUN 71 H Creatinine 1.53 H Estimated GFR 48 L Random Glucose 160 H Calcium 8.7 Total Creatine Kinase C-Reactive Protein Urine Eosinophils None seen Ur Random Sodium Synovial Color Synovial Appearance Synovial RBC Synovial Nuc Cells Synovial Neutrophils Synovial Crystals - Imaging Impressions Abdomen/Bladder Ultrasound 10/19/17 00:00 CONCLUSION: 1. Normal renal sonogram. Assessment and Plan - Problem List (1) Chronic pain Code(s): G89.29 - Other chronic pain Status: Acute (2) Effusion of left knee Code(s): M25.462 - Effusion, left knee Status: Acute (3) Intractable neuropathic pain of lower extremity Code(s): G57.90 - Unspecified mononeuropathy of unspecified lower limb Status : Acute (4) Pituitary abnormality Code(s): E23.7 - Disorder of pituitary gland, unspecified Status: Acute (5) Hypertension Code(s): I10 - Essential (primary) hypertension Status: Acute - Assessment and Plan The findings were discussed with the patient. Results of left knee aspiration are concerning for a septic joint, WBC over 78k with a left shift. Recommendations are given for surgical management, to allow for mobilization and pain control; Left knee arthroscopic irrigation and debridement. The nature of the planned surgical procedure, the risks, the benefits as well as postoperative expectations have been discussed with the patient in detail. In addition, alternatives of the treatment and risks were discussed. The patient acknowledges full understanding and consents to it. NPO after breakfast. Pt marked. Consents on chart.
--- NOTE | 2017-10-19 10:14 | P.PNNS ---
Subjective Interval history: 10/19: continues to complain of left knee pain, left thigh pain, generalized weakness in both legs. denies urinary incontinence, c/o constipation. found with left knee effusion s/p arthrocentesis pending cultures. MRI thoracic spine pending. <Cindy Banks - Last Filed: 10/19/17 10:15> Physical Exam Vital signs: Vital Signs 10/18/17 11:24 10/18/17 11:40 10/18/17 11:41 Temperature 98.3 F Pulse Rate 63 Respiratory Rate 16 Blood Pressure 76/47 L 80/60 L 84/62 L Pulse Oximetry 93 L 10/18/17 13:00 10/18/17 13:05 10/18/17 16:00 Temperature 97.9 F Pulse Rate 64 Respiratory Rate 16 Blood Pressure 89/46 L 78/48 L 91/52 L Pulse Oximetry 94 L 10/18/17 16:38 10/18/17 17:10 10/18/17 17:11 Temperature Pulse Rate Respiratory Rate Blood Pressure 73/42 L 86/59 L 73/49 L Pulse Oximetry 10/18/17 20:00 10/19/17 00:00 10/19/17 04:00 Temperature 97.8 F 97.7 F 97.8 F Pulse Rate 67 78 85 Respiratory Rate 13 25 H 14 Blood Pressure 84/52 L 102/74 108/71 Pulse Oximetry 96 10/19/17 04:32 10/19/17 06:30 10/19/17 08:23 Temperature Pulse Rate Respiratory Rate 14 25 H 20 Blood Pressure Pulse Oximetry Intake & Output 10/18/17 10/19/17 10/19/17 18:59 06:59 18:59 Intake Total 1000 / 1000 1560 / 1560 Output Total 1650 / 1650 Balance 1000 / 1000 -90 / -90 Weight 97.069 kg 100.6 kg Intake: IV 1000 / 1000 1200 / 1200 NS Inj 1,000 ML @ 100 mls/hr IV 1000 / 1000 .CONT .Q10H [facility] Rx#:[id number] Azactam Inj 1,000 MG In NS Inj 100 / 100 100 ML @ 200 mls/hr IV.SIG Q8H [facility] Rx#:[id number] Cubicin Inj 580 MG In NS Inj 100 / 100 100 ML @ 200 mls/hr IV.SIG ONCE ONE Rx#:[id number] NS Inj 500 ML @ 500 mls/hr IV. 1000 / 1000 SIG ONCE ONE Rx#:[id number] Oral 360 / 360 Output: Urine 1650 / 1650 Other: # Voids 1 Weight On Admission 97.069 kg Narrative: GENERAL: In bed in no acute distress. SKIN: Warm and dry. HEAD: Normocephalic. EYES: No scleral icterus. No injection or drainage. NECK: Supple, trachea midline. No JVD or lymphadenopathy. CARDIOVASCULAR: Regular rate and rhythm RESPIRATORY: Breath sounds equal bilaterally. No accessory muscle use. GASTROINTESTINAL: Abdomen soft, non-tender, nondistended. MUSCULOSKELETAL: No cyanosis, or edema. NEURO: Awake, alert, speech fluent. follows commands without difficulties. pupils equal, facial motor symmetric. moves upper extremities well. grossly 3/5 lower extremities. <Cindy Banks - Last Filed: 10/19/17 10:15> Vital signs: Vital Signs 10/21/17 12:00 10/21/17 14:00 10/21/17 15:45 Temperature 99.0 F Pulse Rate 130 H 132 H Respiratory Rate 17 18 Blood Pressure Pulse Oximetry 94 L 10/21/17 16:00 10/21/17 18:00 10/21/17 20:00 Temperature 98.0 F 98.2 F Pulse Rate 108 H 88 96 H Respiratory Rate 15 13 Blood Pressure 98/57 L 108/62 Pulse Oximetry 93 L 94 L 10/21/17 21:00 10/21/17 22:00 10/22/17 00:00 Temperature 98.1 F Pulse Rate 74 74 Respiratory Rate 24 23 Blood Pressure 85/53 L Pulse Oximetry 95 10/22/17 02:00 10/22/17 04:00 10/22/17 06:00 Temperature 98.2 F Pulse Rate 74 78 83 Respiratory Rate 15 Blood Pressure 120/59 L Pulse Oximetry 94 L 10/22/17 08:00 10/22/17 10:00 Temperature 98.4 F Pulse Rate 79 77 Respiratory Rate 14 Blood Pressure 148/76 H Pulse Oximetry 99 Intake & Output 10/21/17 10/22/17 10/22/17 18:59 06:59 18:59 Intake Total 2500 / 2500 1136 / 1136 Output Total 950 / 950 700 / 700 Balance 1550 / 1550 436 / 436 Weight 100.1 kg Intake: IV 2500 / 2500 1136 / 1136 NS Inj 1,000 ML @ 100 mls/hr IV 2400 / 2400 1000 / 1000 .CONT .Q10H [facility] Rx#:[id number] Pitressin Inj 40 UNIT In NS Inj 36 / 36 98 ML @ 0.2 UNITS/MIN 30 mls/ hr IV.CONT CONT [facility] Rx#: [id number] Maxipime Inj 2,000 MG In NS Inj 100 / 100 100 / 100 100 ML @ 200 mls/hr IV.SIG Q12H [facility] Rx#:[id number] Output: Urine 925 / 925 650 / 650 Wound Drainage 50 / 50 Hemovac 50 / 50 Other: # Voids 2 2 Date of Last Bowel Movement 10/21/17 10/21/17 10/21/17 # Bowel Movements 1 Narrative: GENERAL: Mr Rosales is in no acute distress. SKIN: Warm and dry. HEAD: Normocephalic. EYES: No scleral icterus. No injection or drainage. NECK: Supple, trachea midline. No JVD or lymphadenopathy. CARDIOVASCULAR: Regular rate and rhythm RESPIRATORY: Breath sounds equal bilaterally. No accessory muscle use. GASTROINTESTINAL: Abdomen soft, non-tender, nondistended. MUSCULOSKELETAL: No cyanosis, or edema. NEURO: Awake, alert, speech fluent. follows commands without difficulties. pupils equal, facial motor symmetric. moves upper extremities well. grossly 3/5 lower extremities due to give away secondary to pain. <Jonathon Dolan - Last Filed: 10/22/17 11:15> Assessment and Plan - Plan Impression: 52 y/o male with back pain and left knee pain chronic low back pain - has been under the care of his primary care provider Dr. Walls and his pain management Dr. Bridges and sports medicine Dr. Dickson. on chronic Morphine ER 15 mg BID and [place] 10-325 mg Q8H. large left knee joint effusion Venous Doppler Study 10/17/17 20:58 CONCLUSION: 1. The study is negative for lower extremity deep venous thrombosis. Lumbar Spine X-Ray 10/17/17 21:00 CONCLUSION: Chronic changes. Pelvis X-Ray 10/17/17 21:00 CONCLUSION: No definite fracture is identified for technique. Femur X-Ray 10/18/17 01:02 CONCLUSION: 1. No fracture is identified. 2. Large knee joint effusion. 3. Recent MRI performed on 10/12/2017 documented severe edema in the proximal thigh. Tibia/Fibula X-Ray 10/18/17 01:02 CONCLUSION: Large knee joint effusion. No acute osseous abnormality is visualized. Plan: pending MRI Thoracic spine orthopedic management of left knee joint effusion PT cont home pain regimen for pain control An EMG and nerve conduction velocities study could be beneficial Protonix for stress ulcer prophylaxis DVT prophylaxis with teds and SCDs <Cindy Banks - Last Filed: 10/19/17 10:15> - Plan Lumbar Spine X-Ray 10/17/17 21:00 CONCLUSION: Chronic changes. Pelvis X-Ray 10/17/17 21:00 CONCLUSION: No definite fracture is identified for technique. Femur X-Ray 10/18/17 01:02 CONCLUSION: 1. No fracture is identified. 2. Large knee joint effusion. 3. Recent MRI performed on 10/12/2017 documented severe edema in the proximal thigh. Tibia/Fibula X-Ray 10/18/17 01:02 CONCLUSION: Large knee joint effusion. No acute osseous abnormality is visualized. Neuro: neuro checks in a serial fashion. Recommend MRI of his knee, as he has a large amount of fluid. he may need aspiration from his knee to rule out infection. He reports pain not into his lumbar spine but rather into his thoracic spine. Recommend MRI thoracic spine His shwanoma is unrelated to his current symptoms Pulmonary: Continue aggressive pulmonary toilette, nasotracheal suction, and breathing treatments with nebulizers. Daily PT and OT Renal: Continue to monitor closely urine output, BUN and creatinine Endocrine: Continue to Monitor serial Acu checks and SSI as needed in detail ID continue to monitor for signs of infection Continue Protonix for stress ulcer prophylaxis Continue Christos hose and SCD's for DVT prophylaxis Further recommendations will be provided depending on the patient's clinical evaluation and follow up studies. discussed with primary phtsician The exam, history, and the medical decision-making described in the above note were completed with the assistance of the mid-level provider. I reviewed and agree with the findings presented. I attest that I had a [id number] encounter with the patient on the same day, and personally performed and documented my assessment and findings in the medical record. <Jonathon Dolan - Last Filed: 10/22/17 11:15>
[2017-10-19] MEDS: HYDROmorphone PF Inj 2 MG/ML Vial IV.PUSH PRN ×3 (11:19→17:22)
[2017-10-19] MEDS ORDERED: Sodium Chloride 0.45 % Inj 1,000 ML IV.CONT SCH (12:15)
--- NOTE | 2017-10-19 12:27 | P.CONNP ---
History of Present Illness Service: Nephrology Consult date: 10/19/17 Reason for Consult: ALEXANDREA Primary Care Provider: Rell Walls MD, PhD Chief Complaint: Lower back pain and left lower extremity pain 3 weeks History of Present Illness: This is a 52 y/o male who has chronic pain, anxiety, BPH who came to ER for leg pain. He was in renal failure on arrival. Creatinine was 1.9, increased to 2.50 , is 1.5 today. He is awake and alert, not in distress. No baseline labs are available. He is making urine. Prior to admission he was taking Mobic, Motrin, and Celebrex. He denies vomiting or diarrhea. He is a full code. We were consulted for management. He has been seen by ID and ortho, is currently on Aztreonam. Review of Systems All other systems reviewed negative except as stated in HPI PMFSH - History History Provided By: Patient - Medical History Medical History: Medical History (Last Reviewed 10/18/17 @ 11:01 by Jonathon Dolan MD) Pituitary abnormality (Acute) Hypertension (Acute) High cholesterol (Acute) Chronic pain (Acute) - Surgical History Surgical History: Surgical History (Last Reviewed 10/18/17 @ 11:01 by Jonathon Dolan MD) Hx of tonsillectomy (Acute) H/O laminectomy (Acute) - Tobacco History Second Hand Smoke Exposure: Yes Tobacco Use In Past 30 Days: Yes Smoking Status: Current every day smoker Tobacco Type: Cigarettes - Alcohol History How Often Do You Have a Drink Containing Alcohol: Monthly or less - Substance Use History Substance History: No History of Abuse - Travel History Recent Travel in the [place] Within the Last 8 Weeks: No Recent Travel Out of the Country Within the Last 8 Weeks: No - Immunization History Tetanus Immunization: >5 Years Hx Influenza Vaccine This Season: Yes Medications and Allergies Active Medications: Active Medications Hydrocodone Bitart/Acetaminophen ([place] 10/325) 1 tab PO Q4H PRN PRN Reason: Pain 1-10 Last Admin: 10/19/17 06:30 Dose: 1 tab Al Hydroxide/Mg Hydroxide (Milk Of Magnesia Liq) 30 ml PO Q12H PRN PRN Reason: Mild Constipation Atorvastatin Calcium (Lipitor) 40 mg PO HS [facility] Last Admin: 10/18/17 20:57 Dose: 40 mg Duloxetine HCl (Cymbalta) 60 mg PO HS [facility] Last Admin: 10/18/17 22:22 Dose: 60 mg Hydromorphone HCl (Dilaudid Pf Inj) 1 mg IV.PUSH Q3H PRN PRN Reason: breakthrough pain over 7 Last Admin: 10/19/17 11:19 Dose: 1 mg Sodium Chloride (Ns Inj) 500 mls @ 0 mls/hr IV.SIG BOLUS [facility] Last Infusion: 10/18/17 12:50 Dose: Infused Sodium Chloride (Ns Inj) 500 mls @ 500 mls/hr IV.SIG .Q1H PRN PRN Reason: MAP <60 Sodium Chloride (1/2 Normal Saline Inj) 1,000 mls @ 42 mls/hr IV.CONT .[id number] [facility] Morphine Sulfate (Oramorph Sr) 15 mg PO Q12H [facility] Last Admin: 10/19/17 08:14 Dose: 15 mg Ondansetron HCl (Zofran Inj) 4 mg IV.PUSH Q6H PRN PRN Reason: NAUSEA OR VOMITING Pt Own Med ( (Cabergoline 0.5 Mg )) 0 each PO Mo [facility] Senna/Docusate Sodium (Mary-Colace) 1 tab PO BID [facility] Last Admin: 10/19/17 08:15 Dose: 1 tab Tamsulosin HCl (Flomax) 0.4 mg PO MoFr [facility] Last Admin: 10/18/17 12:32 Dose: 0.4 mg Tizanidine HCl (Zanaflex) 8 mg PO DAILY [facility] Last Admin: 10/19/17 08:15 Dose: 8 mg Tizanidine HCl (Zanaflex) 12 mg PO [facility] Last Admin: 10/18/17 22:22 Dose: 12 mg Allergies Allergy/AdvReac Type Severity Reaction Status Date / Time penicillin G Allergy Mild Swelling Verified 09/30/17 03:33 of Lip/Tongue/Throat lisinopril AdvReac Mild HEADACHE Verified 09/30/17 03:34 Home Medications Medication Instructions Recorded Confirmed Type amlodipine 10 mg PO DAILY 09/30/17 10/17/17 History atorvastatin 40 mg PO HS 09/30/17 10/17/17 History cabergoline 0.5 mg PO WEEKLY 09/30/17 10/17/17 History duloxetine 60 mg PO HS 09/30/17 10/17/17 History hydrocodone-acetaminophen 1 tab PO TID PRN 09/30/17 10/17/17 History losartan 50 mg PO BID 09/30/17 10/18/17 History tamsulosin 0.4 mg PO 2XWEEK 09/30/17 10/17/17 History tizanidine 12 mg PO HS 09/30/17 10/18/17 History triamterene-hydrochlorothiazid 1 cap PO DAILY 09/30/17 10/17/17 History morphine 15 mg PO Q12H 10/18/17 10/18/17 History tizanidine 8 mg PO DAILY 10/18/17 10/18/17 History Exam Vital signs: Vital Signs 10/18/17 13:00 10/18/17 13:05 10/18/17 16:00 Temperature 97.9 F Pulse Rate 64 Respiratory Rate 16 Blood Pressure 89/46 L 78/48 L 91/52 L Pulse Oximetry 94 L 10/18/17 16:38 10/18/17 17:10 10/18/17 17:11 Temperature Pulse Rate Respiratory Rate Blood Pressure 73/42 L 86/59 L 73/49 L Pulse Oximetry 10/18/17 20:00 10/19/17 00:00 10/19/17 04:00 Temperature 97.8 F 97.7 F 97.8 F Pulse Rate 67 78 85 Respiratory Rate 13 25 H 14 Blood Pressure 84/52 L 102/74 108/71 Pulse Oximetry 96 10/19/17 04:32 10/19/17 06:30 10/19/17 08:23 Temperature Pulse Rate Respiratory Rate 14 25 H 20 Blood Pressure Pulse Oximetry 10/19/17 11:20 Temperature Pulse Rate Respiratory Rate 22 Blood Pressure Pulse Oximetry Intake & Output 10/18/17 10/19/17 10/19/17 18:59 06:59 18:59 Intake Total 1000 / 1000 1560 / 1560 Output Total 1650 / 1650 Balance 1000 / 1000 -90 / -90 Weight 97.069 kg 100.6 kg Intake: IV 1000 / 1000 1200 / 1200 NS Inj 1,000 ML @ 100 mls/hr IV 1000 / 1000 .CONT .Q10H [facility] Rx#:[id number] Azactam Inj 1,000 MG In NS Inj 100 / 100 100 ML @ 200 mls/hr IV.SIG Q8H [facility] Rx#:[id number] Cubicin Inj 580 MG In NS Inj 100 / 100 100 ML @ 200 mls/hr IV.SIG ONCE ONE Rx#:[id number] NS Inj 500 ML @ 500 mls/hr IV. 1000 / 1000 SIG ONCE ONE Rx#:[id number] Oral 360 / 360 Output: Urine 1650 / 1650 Other: # Voids 1 Weight On Admission 97.069 kg - Constitutional no acute distress, obese, cooperative - Routine HEENT Exam Head: Present: normocephalic - Routine Neck Exam Present: supple, full ROM - Routine Respiratory Exam Present: CTA bilaterally. Absent: accessory muscle use - Routine Cardiovascular Exam Present: RRR, S1, S2. Absent: murmur - Routine Abdominal Exam Present: soft, normoactive bowel sounds - Routine Extremities Exam Present: edema, full ROM, pulses intact Comments: minor edema left knee - Routine Skin Exam Present: intact, dry, warm - Routine Neurological Exam Present: alert, oriented X3, CN II-XII intact, moving all extremities Results - Lab Results 10/19/17 04:23 10/19/17 04:23 Most recent lab results Calcium 8.7 mg/dL (8.5-10.1) 10/19/17 04:23 - Image Kidney/bladder ultrasound: report reviewed Assessment and Plan - Assessment (1) ALEXANDREA (acute kidney injury) Code(s): N17.9 - Acute kidney failure, unspecified Status: Acute Plan: ALEXANDREA most likely due to infection and NSAID use. HE was also hypotensive, may have suffered renal hypoperfusion injury. Currently improving. BP is better. Imaging negative for obstruction. PO fluids encouraged. Avoid nephrotoxic agents. Repeat labs in AM. UA ordered. (2) Effusion of left knee Code(s): M25.462 - Effusion, left knee Status: Acute Plan: s/p left knee aspiration Ortho following.
[2017-10-19] MEDS ORDERED: Vancomycin Consult Pharmacy OTHER PRN (14:50)
[2017-10-19] MEDS ORDERED: Metoprolol Inj 5 MG/5 ML Vial IV.PUSH PRN (15:59)
[2017-10-19] MEDS ORDERED: Sodium Chlor 0.9% Inj 500 ML IV.SIG ONE ×2 (16:39→16:44)
--- NOTE | 2017-10-19 17:59 | ECHRPT ---
Indication: Sepsis Possible Endocarditis CONCLUSIONS The left ventricular systolic function is hyperdynamic with an estimated ejection fraction in the ra nge of 65- 70%. Normal left ventricular size. Mild concentric left ventricular hypertrophy. No regional wall motion abnormalities are present. There is trace tricuspid valve regurgitation. The estimated pulmonary arterial pressure is 29.5 mmHg. There is a trivial pericardial effusion present. BP: / HR: Rhythm: MEASUREMENTS (Male / Female) Normal Values Technical Quality:Fair 2D ECHO LV Diastolic Diameter PLAX 5.1 cm 4.2 - 5.9 / 3.9 - 5.3 cm LV Systolic Diameter PLAX 3.5 cm IVS Diastolic Thickness 1.1 cm 0.6 - 1.0 / 0.6 - 0.9 cm LVPW Diastolic Thickness 1.2 cm 0.6 - 1.0 / 0.6 - 0.9 cm LV Relative Wall Thickness 0.5 LVOT Diameter 2.0 cm Aortic Root Diameter 3.0 cm LA Systolic Diameter LX 3.0 cm 3.0 - 4.0 / 2.7 - 3.8 cm DOPPLER AV Peak Velocity 189.0 cm/s AV Peak Gradient 14.3 mmHg LVOT Peak Velocity 143.0 cm/s LVOT Peak Gradient 8.2 mmHg AV Area Cont Eq pk 2.4 cm Mitral E Point Velocity 100.0 cm/s Mitral A Point Velocity 56.3 cm/s Mitral E to A Ratio 1.8 LV E' Lateral Velocity 12.2 cm/s Mitral E to LV E' Lateral Ratio 8.2 LV E' Septal Velocity 9.5 cm/s Mitral E to LV E' Septal Ratio 10.5 TR Peak Velocity 221.0 cm/s TR Peak Gradient 20.0 mmHg Right Atrial Pressure 10.0 mmHg Pulmonary Artery Systolic Pressu 29.5 mmHg Right Ventricular Systolic Press 29.5 mmHg PV Peak Velocity 205.0 cm/s PV Peak Gradient 16.8 mmHg FINDINGS LEFT VENTRICLE The left ventricular systolic function is hyperdynamic with an estimated ejection fraction in the ra nge of 65- 70%. Normal left ventricular size. Mild concentric left ventricular hypertrophy. No regional wall motion abnormalities are present. RIGHT VENTRICLE Normal right ventricular size and systolic function. LEFT ATRIUM The left atrial size is normal. RIGHT ATRIUM The right atrial size is normal. ATRIAL SEPTUM Normal atrial septal thickness without atrial level shunting by limited color doppler interrogation. AORTA The aortic root and proximal ascending aorta are normal in size on limited imaging. MITRAL VALVE Structurally normal mitral valve. No mitral valve stenosis or regurgitation. AORTIC VALVE Trileaflet aortic valve. No aortic valve stenosis or regurgitation. TRICUSPID VALVE Structurally normal tricuspid valve. There is trace tricuspid valve regurgitation. The estimated pulmonary arterial pressure is 29.5 mmHg. PULMONARY VALVE No pulmonary valve regurgitation or stenosis. VESSELS The inferior vena cava is normal in size. PERICARDIUM There is a trivial pericardial effusion present. Humphrey Martin MD, FACC (Electronically Signed) Final Date:19 October 2017 17:57
[2017-10-19] MEDS ORDERED: Metoprolol Tartrate 50 MG Tablet PO SCH (21:00)
[2017-10-19] MEDS ORDERED: Lidocaine PF 1% Inj 5 ML Syringe INFILTRATN ONE (21:55)
[2017-10-19] MEDS ORDERED: Phenylephrine/NS 1000 MCG/10ML Syringe IV.PUSH ONE (21:55)
[2017-10-19] MEDS ORDERED: Metoprolol Inj 5 MG/5 ML Vial IV.PUSH ONE (21:55)
[2017-10-19] MEDS ORDERED: *Meperidine Inj 25 MG/ML Vial PERIprocedural Use ONLY ONE (22:50)
--- NOTE | 2017-10-19 22:51 | P.OP ---
- Preoperative Diagnosis (1) Septic arthritis of knee, left - Postoperative Diagnosis (1) Septic arthritis of knee, left Date of procedure: 10/19/17 Procedure: Left knee arthroscopy, irrigation & debridement, synovectomy, chondroplasty Anesthesia: ELEUTERIO Surgeon: Raymond Herrera MD Manager Staffing: OR staff Estimated blood loss (mL): 50 Tourniquet time (min): 56 Pathology: other (Culture and sensitivity) Operation and Findings: Indications: This 52-year-old male has a several month history of left knee pain. It was initially related to an injury. Because of increasing pain he presented to the emergency department recently. An aspiration completed revealed a significantly elevated white count in the fluid aspirate with cultures pending at the present time. Recommendations are for arthroscopic lavage and debridement. Procedure and findings: The patient was taken to the operative suite and after undergoing an adequate level of general anesthesia was kept supine on the operating table. He maintained his regular antibiotic schedule. The left lower extremity was prepped and draped in usual sterile fashion with alcohol and Hibiclens. Standard arthroscopic portals were established with a superior medial inflow portal. A large cloudy joint effusion was evacuated. Cultures were taken. Distention of the joint was maintained with arthroscopic pump. 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 There is diffuse synovitis in the suprapatellar pouch. Copious amounts of irrigant with antibiotics was lavaged to the joint. A complete synovectomy was completed in the suprapatellar pouch, medial lateral gutters and anterior aspect of the joint. Under direct vision and anteromedial aspect portal was established. Medial compartment revealed evidence of grade III and IV chondromalacia. The meniscus was intact. The intercondylar notch was inspected. He had a deficiency of the anterior cruciate ligament with a few lax fibers remaining. Lateral compartment similarly showed chondromalacia and an intact lateral meniscus. After thorough debridement with copious amounts of antibiotic irrigant and synovectomy the instrument taste was removed. A Hemovac drain was left in place. The portals were sutured. Sterile dressings were applied, the patient was awakened, transferred to the hospital bed and taken to the recovery room in stable condition.
[2017-10-19] MEDS ORDERED: *morphine SULFATE 10 MG/ML PERIprocedure ONLY ONE (22:56)
[2017-10-19] MEDS ORDERED: fentaNYL Citrate Inj 100 MCG/2 ML Ampul ONE (23:01)
[2017-10-19] MEDS ORDERED: *morphine SULFATE 4 MG/ML PERIprocedure ONLY ONE (23:17)
[2017-10-20] MEDS: Senna/Docusate Sodium 8.6/50 MG Tablet PO SCH ×3 (01:00→20:20)
[2017-10-20] MEDS: Duloxetine 60 MG DR Capsule PO SCH ×2 (01:00→20:21)
[2017-10-20] MEDS: Morphine Sulfate 15 MG SR Tablet PO SCH ×3 (01:00→20:21)
[2017-10-20] MEDS: HYDROmorphone PF Inj 2 MG/ML Vial IV.PUSH PRN (01:00)
[2017-10-20 04:16] LABS: Hematocrit 33.9 % (39.0-51.0); Mean Corpuscular HGB Conc 32.4 % (32.0-36.0); Mean Corpuscular Hemoglobin 28.1 pg (27.0-34.0); Mean Corpuscular Volume 86.7 fL (80.0-100.0); Mean Platelet Volume 7.6 fL (7.0-11.0); Platelet Count 385 th/mm3 (150-450); Red Blood Count 3.91 mil/mm3 (4.50-5.90); White Blood Count 21.9 th/mm3 (4.0-11.0)
[2017-10-20 04:39] LABS: Calcium 8.4 mg/dL (8.5-10.1); Carbon Dioxide 21.3 meq/L (21.0-32.0); Potassium 5.6 meq/L (3.5-5.1)
[2017-10-20] MEDS ORDERED: Sodium Polystyrene Sulfonate/Sorbitol Liq 15 GM/60 ML UDC PO ONE (09:00)
[2017-10-20] MEDS ORDERED: Gadobutrol PF 10 MMOL/10 ML Vial (for RAD) IV.SIG ONE (09:34)
[2017-10-20 09:54] LABS: Lymphocytes 1 % (9-44); Metamyelocytes 1 % (0-1); Monocytes 3 % (0-8)
[2017-10-20 09:55] LABS: Platelet Estimate Normal (Normal); Platelet Morphology Normal (Normal)
[2017-10-20 09:56] LABS: Toxic Granulation 1+; Toxic Vacuolation Present
--- NOTE | 2017-10-20 10:17 | MR ---
EXAM DATE: 10/20/2017 9:48 AM EDT AGE/SEX: 52 years / Male INDICATIONS: Pain. CLINICAL DATA: This is the patient's subsequent encounter. Patient reports that signs and symptoms h ave been present for 1 day and indicates a pain score of 4/10. MEDICAL/SURGICAL HISTORY: Hypertension. Pituitary gland tumor. Discectomy, lumbar. Tonsillect sharon. Left knee debridement. COMPARISON: PO[facility], MR THORACIC SPINE W/O CONTRAST, 06/03/2017.. . TECHNIQUE: Multiplanar, multisequence MRI of the thoracic spine was performed without and with 9 ml Gadavist (gadobutrol) contrast as a single exam dose. FINDINGS: Vertebrae: Abnormal signal involving the marrow of T7 and T8. This is low in signal on T1 and high i n signal on T2. No vertebral body collapse observed at any level. The remaining marrow signal is homo geneous.. Alignment: Normal. Cord: Normal position and configuration. Post Contrast: There is abnormal enhancement involving the marrow and disc space at T7-T8. This is a new finding from the prior MRI. No paraspinal fluid collections.. Tiny bilateral pleural effusions. T1-T2: The thecal sac has a normal diameter. No evidence of disc bulge or protrusion. T2-T3: The thecal sac has a normal diameter. No evidence of disc bulge or protrusion. T3-T4: The thecal sac has a normal diameter. No evidence of disc bulge or protrusion. T4-T5: The thecal sac has a normal diameter. No evidence of disc bulge or protrusion. T5-T6: The thecal sac has a normal diameter. No evidence of disc bulge or protrusion. T6-T7: The thecal sac has a normal diameter. No evidence of disc bulge or protrusion. T7-T8: The thecal sac has a normal diameter. No evidence of disc bulge or protrusion. T8-T9: The thecal sac has a normal diameter. No evidence of disc bulge or protrusion. T9-T10: The thecal sac has a normal diameter. No evidence of disc bulge or protrusion. T10-T11: The thecal sac has a normal diameter. No evidence of disc bulge or protrusion. T11-T12: The thecal sac has a normal diameter. No evidence of disc bulge or protrusion. T12-L1: The thecal sac has a normal diameter. No evidence of disc bulge or protrusion. CONCLUSION: 1. Discitis with osteomyelitis involving T7-T8. No paraspinal fluid collections or vertebral body co llapse at this point. 2. Small bilateral pleural effusions. Electronically signed by: Devin Ambrocio MD 10/20/2017 10:16 AM EDT
[2017-10-20] MEDS ORDERED: Sodium Chlor 0.9% Inj 500 ML IV.SIG ONE ×2 (10:58→12:45)
--- NOTE | 2017-10-20 11:37 | P.PNOP ---
Subjective Interval history: Pt sitting upright in chair. BP dropped and RN at bedside. Pt still in critical care unit. RN admits MRI of T spine found discitis with osteomyelitis of T7/T8. Physical Exam Vital signs: Vital Signs 10/19/17 12:00 10/19/17 15:00 10/19/17 16:00 Temperature 99.6 F 99.6 F Pulse Rate 96 H 140 H Respiratory Rate 13 20 14 Blood Pressure 99/63 L 130/63 Pulse Oximetry 96 93 L 10/19/17 17:20 10/19/17 17:23 10/19/17 20:00 Temperature Pulse Rate Respiratory Rate 24 24 16 Blood Pressure Pulse Oximetry 10/19/17 22:44 10/19/17 23:15 10/19/17 23:30 Temperature 97.7 F 97.7 F 98.4 F Pulse Rate 124 H 118 H 118 H Respiratory Rate 14 14 14 Blood Pressure 118/71 114/68 122/72 Pulse Oximetry 94 L 94 L 94 L 10/20/17 04:00 10/20/17 08:00 Temperature 98.6 F Pulse Rate 93 H Respiratory Rate 21 23 Blood Pressure 96/61 L Pulse Oximetry 96 Intake & Output 10/19/17 10/20/17 10/20/17 18:59 06:59 18:59 Intake Total 440 / 440 1400 / 1400 Output Total 1000 / 1000 775 / 775 Balance -560 / -560 625 / 625 Weight 100.9 kg Intake: IV 600 / 600 Zyvox 600 mg Premix 300 ML @ 600 / 600 300 mls/hr IV.SIG Q12H [facility] Rx#: [id number] Oral 440 / 440 0 / 0 Anesthesia Amount 800 / 800 Output: Urine 1000 / 1000 725 / 725 Estimated Blood Loss 50 / 50 Other: Date of Last Bowel Movement 10/19/17 10/19/17 Narrative: Dressing dry and intact. drain in place. Tender to palpation with mild swelling around incision site and upper thigh. Appropriate range of motion expected post operatively. Freely able to move distal digits. No calf pain. Negative Yesi's sign. Good cap refill. 2+ pedal pulses. Neurovascular intact. Results - Labs CBC & Chem 7: 10/20/17 03:20 10/20/17 03:50 Laboratory Results - last 24 hr 10/20/17 10/20/17 03:20 03:50 WBC 21.9 H D RBC 3.91 L Hgb 11.0 L Hct 33.9 L MCV 86.7 MCH 28.1 MCHC 32.4 RDW 14.0 Plt Count 385 MPV 7.6 Prelim Diff (Auto) Manual diff required WBC Differential Manual diff final Seg Neuts % (Manual) 43 Band Neuts % (Manual) 52 H Lymphocytes % (Manual) 1 L Monocytes % (Manual) 3 Metamyelocytes % (Man) 1 Abs Neuts (Manual) 21.0 H Differential Comment . Toxic Granulation 1+ H Toxic Vacuolation Present H Platelet Estimate Normal Platelet Morphology Normal Sodium 140 Potassium 5.6 H Chloride 107 Carbon Dioxide 21.3 Anion Gap 12 BUN 56 H Creatinine 1.94 H Estimated GFR 36 L Random Glucose 179 H Calcium 8.4 L Microbiology 10/18/17 20:20 Blood - Peripheral Aerobic Blood Culture - Preliminary No growth in 2 days 10/18/17 20:20 Blood - Peripheral Anaerobic Blood Culture - Preliminary No growth in 2 days 10/18/17 20:40 Blood - Peripheral Aerobic Blood Culture - Preliminary No growth in 2 days 10/18/17 20:40 Blood - Peripheral Anaerobic Blood Culture - Preliminary No growth in 2 days 10/18/17 17:35 Fluid - Synovial Fluid Gram Stain - Final 10/18/17 17:35 Fluid - Synovial Fluid Body Fluid Culture - Final Viridans streptococcus grp 10/19/17 22:10 Wound - Knee Fungal Smear - Final No fungal elements seen 10/19/17 22:10 Wound - Knee Gram Stain - Final - Imaging Impressions Thoracic Spine MRI 10/20/17 00:00 CONCLUSION: 1. Discitis with osteomyelitis involving T7-T8. No paraspinal fluid collections or vertebral body collapse at this point. 2. Small bilateral pleural effusions. - Procedures Left knee arthroscopy, irrigation & debridement, synovectomy, chondroplasty Assessment and Plan - Problem List (1) Chronic pain Code(s): G89.29 - Other chronic pain Status: Acute (2) Effusion of left knee Code(s): M25.462 - Effusion, left knee Status: Acute (3) Intractable neuropathic pain of lower extremity Code(s): G57.90 - Unspecified mononeuropathy of unspecified lower limb Status : Acute (4) Pituitary abnormality Code(s): E23.7 - Disorder of pituitary gland, unspecified Status: Acute (5) Hypertension Code(s): I10 - Essential (primary) hypertension Status: Acute - Assessment and Plan POD #1 Left knee arthroscopy, irrigation & debridement, synovectomy, chondroplasty Ortho status stable Daily dressing changes POD #2 D/C drain when <30cc a shift ASA for DVT prophylaxis Cx of synovial fluid grew out strep. Abx per ID. Discharge planning
--- NOTE | 2017-10-20 13:19 | ECG ---
Date Performed: 10/19/2017 Time Performed: 15:42:58 PTAGE: 52 years EKG: --- Warning: Data quality may affect interpretation --- Sinus tachycardia with PVC(s). Infe rior/lateral ST-T changes may be due to myocardial ischemia Abnormal ECG NO PREVIOUS TRACING DOCTOR: Humphrey Martin Interpretating Date/Time 10/20/2017 13:15:41
--- NOTE | 2017-10-20 13:45 | P.PNNP ---
Subjective Interval history: Renal function is worse. He is hyperkalemic. Non oliguric overnight but minimal urine output this AM. Hypotensive. <Tiffany Decker - Last Filed: 10/20/17 13:41> Physical Exam Vital signs: Vital Signs 10/19/17 15:00 10/19/17 16:00 10/19/17 17:20 Temperature 99.6 F Pulse Rate 140 H Respiratory Rate 20 14 24 Blood Pressure 130/63 Pulse Oximetry 93 L 10/19/17 17:23 10/19/17 20:00 10/19/17 22:44 Temperature 97.7 F Pulse Rate 124 H Respiratory Rate 24 16 14 Blood Pressure 118/71 Pulse Oximetry 94 L 10/19/17 23:15 10/19/17 23:30 10/20/17 04:00 Temperature 97.7 F 98.4 F 98.6 F Pulse Rate 118 H 118 H 93 H Respiratory Rate 14 14 21 Blood Pressure 114/68 122/72 96/61 L Pulse Oximetry 94 L 94 L 96 10/20/17 08:00 Temperature 97.6 F Pulse Rate 106 H Respiratory Rate 23 Blood Pressure 91/56 L Pulse Oximetry Intake & Output 10/19/17 10/20/17 10/20/17 18:59 06:59 18:59 Intake Total 440 / 440 1400 / 1400 Output Total 1000 / 1000 775 / 775 Balance -560 / -560 625 / 625 Weight 100.9 kg Intake: IV 600 / 600 Zyvox 600 mg Premix 300 ML @ 600 / 600 300 mls/hr IV.SIG Q12H [facility] Rx#: [id number] Oral 440 / 440 0 / 0 Anesthesia Amount 800 / 800 Output: Urine 1000 / 1000 725 / 725 Estimated Blood Loss 50 / 50 Other: Date of Last Bowel Movement 10/19/17 10/19/17 - Constitutional no acute distress, disheveled, cooperative - Routine HEENT Exam Head: Present: normocephalic - Routine Neck Exam Present: supple, full ROM - Routine Respiratory Exam Present: CTA bilaterally - Routine Cardiovascular Exam Present: S1, S2 - Routine Abdominal Exam Present: soft, normoactive bowel sounds - Routine Extremities Exam Present: pulses intact, normal capillary refill Comments: s/p I&D left knee yesterday, wrapped - Routine Skin Exam Present: dry, warm - Routine Neurological Exam Present: alert, oriented X3, CN II-XII intact, moving all extremities - Detailed Neurological Exam: Coma Scale Eye Opening: Spontaneous Verbal Response: Oriented Motor Response: Obey commands [place] Coma Scale Total: 15 <Tiffany Decker - Last Filed: 10/20/17 13:41> Vital signs: Vital Signs 10/21/17 00:00 10/21/17 03:20 10/21/17 04:00 Temperature 98.2 F 98.3 F Pulse Rate 102 H 104 H Respiratory Rate 20 12 12 Blood Pressure 125/74 104/66 Pulse Oximetry 94 L 94 L 10/21/17 08:00 10/21/17 09:20 10/21/17 10:00 Temperature 97.8 F Pulse Rate 96 H 102 H Respiratory Rate 12 22 Blood Pressure 137/66 Pulse Oximetry 94 L 10/21/17 12:00 10/21/17 14:00 10/21/17 15:45 Temperature 99.0 F Pulse Rate 130 H 132 H Respiratory Rate 17 18 Blood Pressure Pulse Oximetry 94 L 10/21/17 16:00 10/21/17 18:00 Temperature 98.0 F Pulse Rate 108 H 88 Respiratory Rate 15 Blood Pressure 98/57 L Pulse Oximetry 93 L Intake & Output 10/21/17 10/21/17 10/22/17 06:59 18:59 06:59 Intake Total 1100 / 1100 2500 / 2500 36 / 36 Output Total 175 / 175 950 / 950 Balance 925 / 925 1550 / 1550 36 / 36 Weight 101.8 kg Intake: IV 1100 / 1100 2500 / 2500 36 / 36 NS Inj 1,000 ML @ 100 mls/hr IV 1000 / 1000 2400 / 2400 .CONT .Q10H [facility] Rx#:[id number] Pitressin Inj 40 UNIT In NS Inj 36 / 36 98 ML @ 0.2 UNITS/MIN 30 mls/ hr IV.CONT CONT [facility] Rx#: [id number] Maxipime Inj 2,000 MG In NS Inj 100 / 100 100 / 100 100 ML @ 200 mls/hr IV.SIG Q12H [facility] Rx#:[id number] Output: Urine 925 / 925 Wound Drainage 175 / 175 25 / 25 Hemovac 175 / 175 25 / 25 Other: # Voids 5 2 Date of Last Bowel Movement 10/21/17 10/21/17 # Bowel Movements 3 1 <Satish Crowley - Last Filed: 10/21/17 20:37> Assessment and Plan - Assessment (1) ALEXANDREA (acute kidney injury) Code(s): N17.9 - Acute kidney failure, unspecified Status: Acute Plan: ALEXANDREA most likely due to infection and NSAID use. H Recent decline in renal function may be due to hypotension. Ordered Kayexalate for hyperkalemia. IVF to continue when IV access is obtained. Awaiting UA. Imaging negative for obstruction. PO fluids encouraged. Avoid nephrotoxic agents. Repeat labs daily. (2) Effusion of left knee Code(s): M25.462 - Effusion, left knee Status: Acute Plan: s/p left knee aspiration Ortho following. I&D yesterday. On Daptomycin. <Tiffany Decker - Last Filed: 10/20/17 13:41> - Assessment (1) ALEXANDREA (acute kidney injury) Code(s): N17.9 - Acute kidney failure, unspecified Status: Acute (2) Effusion of left knee Code(s): M25.462 - Effusion, left knee Status: Acute - Attending Attestation patient was seen and examined. on 10/20/17. Agree with above assessment and plan. Monitor urine output, continue IVF. Avoid nephrotoxic agents, avoid hypotension. <Satish Crowley - Last Filed: 10/21/17 20:37>
[2017-10-20] MEDS ORDERED: SODIUM CHLOR 0.9% IV.SIG SCH (14:00)
[2017-10-20] MEDS ORDERED: DAPTOMYCIN IV.SIG SCH (14:00)
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
--- NOTE | 2017-10-20 14:39 | P.PNNS ---
Subjective Interval history: 10/20: s/p debridement of left knee with ortho, + cultures. MRI T spine showed osteomyelitis, discitis. <Cindy Banks - Last Filed: 10/21/17 16:39> Physical Exam Vital signs: Vital Signs 10/19/17 15:00 10/19/17 16:00 10/19/17 17:20 Temperature 99.6 F Pulse Rate 140 H Respiratory Rate 20 14 24 Blood Pressure 130/63 Pulse Oximetry 93 L 10/19/17 17:23 10/19/17 20:00 10/19/17 22:44 Temperature 97.7 F Pulse Rate 124 H Respiratory Rate 24 16 14 Blood Pressure 118/71 Pulse Oximetry 94 L 10/19/17 23:15 10/19/17 23:30 10/20/17 04:00 Temperature 97.7 F 98.4 F 98.6 F Pulse Rate 118 H 118 H 93 H Respiratory Rate 14 14 21 Blood Pressure 114/68 122/72 96/61 L Pulse Oximetry 94 L 94 L 96 10/20/17 08:00 Temperature 97.6 F Pulse Rate 106 H Respiratory Rate 23 Blood Pressure 91/56 L Pulse Oximetry Intake & Output 10/19/17 10/20/17 10/20/17 18:59 06:59 18:59 Intake Total 440 / 440 1400 / 1400 Output Total 1000 / 1000 775 / 775 Balance -560 / -560 625 / 625 Weight 100.9 kg Intake: IV 600 / 600 Zyvox 600 mg Premix 300 ML @ 600 / 600 300 mls/hr IV.SIG Q12H [facility] Rx#: [id number] Oral 440 / 440 0 / 0 Anesthesia Amount 800 / 800 Output: Urine 1000 / 1000 725 / 725 Estimated Blood Loss 50 / 50 Other: Date of Last Bowel Movement 10/19/17 10/19/17 Narrative: GENERAL: In bed in no acute distress. SKIN: Warm and dry. HEAD: Normocephalic. EYES: No scleral icterus. No injection or drainage. NECK: Supple, trachea midline. No JVD or lymphadenopathy. CARDIOVASCULAR: Regular rate and rhythm RESPIRATORY: Breath sounds equal bilaterally. No accessory muscle use. GASTROINTESTINAL: Abdomen soft, non-tender, nondistended. MUSCULOSKELETAL: No cyanosis, or edema. Left knee bandaged with drain in place. NEURO: Awake, alert, speech fluent. follows commands without difficulties. pupils equal, facial motor symmetric. moves upper extremities well. grossly 3/5 lower extremities. <Cindy Banks - Last Filed: 10/21/17 16:39> Vital signs: Vital Signs 10/27/17 20:00 10/28/17 00:00 10/28/17 01:55 Temperature 98 F 98.0 F Pulse Rate 98 H 77 Respiratory Rate 18 18 18 Blood Pressure 150/76 H 114/73 Pulse Oximetry 96 97 10/28/17 04:00 10/28/17 08:00 10/28/17 12:00 Temperature 98.1 F 97.8 F 98.2 F Pulse Rate 75 90 85 Respiratory Rate 18 17 17 Blood Pressure 147/77 H 155/81 H 143/75 H Pulse Oximetry 95 97 96 Intake & Output 10/27/17 10/28/17 10/28/17 18:59 06:59 18:59 Intake Total 1500 / 1500 1200 / 1200 Output Total 825 / 825 800 / 800 Balance 675 / 675 400 / 400 Weight 111.3 kg Intake: IV 1100 / 1100 1200 / 1200 NS Inj 1,000 ML @ 100 mls/hr IV 1000 / 1000 1000 / 1000 .CONT .Q10H [facility] Rx#:[id number] Cubicin Inj 1,000 MG In NS Inj 100 / 100 100 ML @ 200 mls/hr IV.SIG Q24H [facility] Rx#:[id number] Rocephin Inj 2,000 MG In NS Inj 100 / 100 100 / 100 100 ML @ 200 mls/hr IV.SIG Q12H [facility] Rx#:[id number] Oral 400 / 400 Output: Urine 825 / 825 800 / 800 Other: Date of Last Bowel Movement 10/26/17 # Bowel Movements 1 Narrative: NEUROLOGICAL EXAMINATION GENERAL: mr Rosales is In bed in no acute distress. SKIN: Warm and dry. HEAD: Normocephalic. EYES: No scleral icterus. No injection or drainage. NECK: Supple, trachea midline. No JVD or lymphadenopathy. CARDIOVASCULAR: Regular rate and rhythm RESPIRATORY: Breath sounds equal bilaterally. No accessory muscle use. GASTROINTESTINAL: Abdomen soft, non-tender, nondistended. MUSCULOSKELETAL: No cyanosis, or edema. Left knee bandaged with drain in place. NEURO: Awake, alert, speech fluent. follows commands without difficulties. pupils equal, facial motor symmetric. moves upper extremities well. good strenght in his lower extremities. <Jonathon Dolan - Last Filed: 10/28/17 16:21> Assessment and Plan - Plan Impression: 52 y/o male with back pain and left knee pain chronic low back pain - has been under the care of his primary care provider Dr. Walls and his pain management Dr. Bridges and sports medicine Dr. Dickson. on chronic Morphine ER 15 mg BID and [place] 10-325 mg Q8H. Septic knee Osteomyelitis, Discitis at T7-T8, no epidural abscess seen, no significant stenosis or cord compression Thoracic Spine MRI 10/20/17 00:00 CONCLUSION: 1. Discitis with osteomyelitis involving T7-T8. No paraspinal fluid collections or vertebral body collapse at this point. 2. Small bilateral pleural effusions. Venous Doppler Study 10/17/17 20:58 CONCLUSION: 1. The study is negative for lower extremity deep venous thrombosis. Lumbar Spine X-Ray 10/17/17 21:00 CONCLUSION: Chronic changes. Pelvis X-Ray 10/17/17 21:00 CONCLUSION: No definite fracture is identified for technique. Femur X-Ray 10/18/17 01:02 CONCLUSION: 1. No fracture is identified. 2. Large knee joint effusion. 3. Recent MRI performed on 10/12/2017 documented severe edema in the proximal thigh. Tibia/Fibula X-Ray 10/18/17 01:02 CONCLUSION: Large knee joint effusion. No acute osseous abnormality is visualized. Plan: MRI Thoracic spine reviewed by Dr. Dolan, nonoperative management start TLSO when out of bed cont antibiotics treatment per ID orthopedic management of left knee joint effusion <Cindy Banks - Last Filed: 10/21/17 16:39> - Plan MEDICAL DECISION MAKING Neuro: Continue neuro checks in a serial fashion. MRI thoracic spine with discitis. non operative treatment with IV antibiotics His lumbar shwanoma is unrelated to his current symptoms STATUS POST debridement of his knee infection Pulmonary: Continue aggressive pulmonary toilette, nasotracheal suction, and breathing treatments with nebulizers. Daily PT and OT Renal: Continue to monitor closely urine output, BUN and creatinine Endocrine: Continue to Monitor serial Acu checks and SSI as needed in detail ID continue to monitor for signs of infection Continue Protonix for stress ulcer prophylaxis Continue Christos hose and SCD's for DVT prophylaxis The exam, history, and the medical decision-making described in the above note were completed with the assistance of the mid-level provider. I reviewed and agree with the findings presented. I attest that I had a [id number] encounter with the patient on the same day, and personally performed and documented my assessment and findings in the medical record. <Jonathon Dolan - Last Filed: 10/28/17 16:21>
[2017-10-20] MEDS ORDERED: Midazolam Inj 5 MG/ML 1 ML Vial ONE (14:45)
--- NOTE | 2017-10-20 15:14 | P.PNIM ---
Subjective Interval history: pt became hypotensive again after getting up with PT Physical Exam Vital signs: Vital Signs 10/19/17 16:00 10/19/17 17:20 10/19/17 17:23 Temperature 99.6 F Pulse Rate 140 H Respiratory Rate 14 24 24 Blood Pressure 130/63 Pulse Oximetry 93 L 10/19/17 20:00 10/19/17 22:44 10/19/17 23:15 Temperature 97.7 F 97.7 F Pulse Rate 124 H 118 H Respiratory Rate 16 14 14 Blood Pressure 118/71 114/68 Pulse Oximetry 94 L 94 L 10/19/17 23:30 10/20/17 04:00 10/20/17 08:00 Temperature 98.4 F 98.6 F 97.6 F Pulse Rate 118 H 93 H 106 H Respiratory Rate 14 21 23 Blood Pressure 122/72 96/61 L 91/56 L Pulse Oximetry 94 L 96 10/20/17 12:00 Temperature 97.7 F Pulse Rate 75 Respiratory Rate 23 Blood Pressure 72/45 L Pulse Oximetry Intake & Output 10/19/17 10/20/17 10/20/17 18:59 06:59 18:59 Intake Total 440 / 440 1400 / 1400 Output Total 1000 / 1000 775 / 775 Balance -560 / -560 625 / 625 Weight 100.9 kg Intake: IV 600 / 600 Zyvox 600 mg Premix 300 ML @ 600 / 600 300 mls/hr IV.SIG Q12H [facility] Rx#: [id number] Oral 440 / 440 0 / 0 Anesthesia Amount 800 / 800 Output: Urine 1000 / 1000 725 / 725 Estimated Blood Loss 50 / 50 Other: Date of Last Bowel Movement 10/19/17 10/19/17 heart reg lung cta abd s/nt ext left knee swelling/drain Results - Labs CBC & Chem 7: 10/20/17 03:20 10/20/17 03:50 Laboratory Results - last 24 hr 10/20/17 10/20/17 03:20 03:50 WBC 21.9 H D RBC 3.91 L Hgb 11.0 L Hct 33.9 L MCV 86.7 MCH 28.1 MCHC 32.4 RDW 14.0 Plt Count 385 MPV 7.6 Prelim Diff (Auto) Manual diff required WBC Differential Manual diff final Seg Neuts % (Manual) 43 Band Neuts % (Manual) 52 H Lymphocytes % (Manual) 1 L Monocytes % (Manual) 3 Metamyelocytes % (Man) 1 Abs Neuts (Manual) 21.0 H Differential Comment . Toxic Granulation 1+ H Toxic Vacuolation Present H Platelet Estimate Normal Platelet Morphology Normal Sodium 140 Potassium 5.6 H Chloride 107 Carbon Dioxide 21.3 Anion Gap 12 BUN 56 H Creatinine 1.94 H Estimated GFR 36 L Random Glucose 179 H Calcium 8.4 L Microbiology 10/19/17 22:10 Wound - Knee Gram Stain - Final 10/19/17 22:10 Wound - Knee Wound Culture - Preliminary 10/18/17 17:35 Fluid - Synovial Fluid Gram Stain - Final 10/18/17 17:35 Fluid - Synovial Fluid Body Fluid Culture - Preliminary Viridans streptococcus grp 10/18/17 20:20 Blood - Peripheral Aerobic Blood Culture - Preliminary No growth in 2 days 10/18/17 20:20 Blood - Peripheral Anaerobic Blood Culture - Preliminary No growth in 2 days 10/18/17 20:40 Blood - Peripheral Aerobic Blood Culture - Preliminary No growth in 2 days 10/18/17 20:40 Blood - Peripheral Anaerobic Blood Culture - Preliminary No growth in 2 days 10/19/17 22:10 Wound - Knee Fungal Smear - Final No fungal elements seen - Imaging Impressions Thoracic Spine MRI 10/20/17 00:00 CONCLUSION: 1. Discitis with osteomyelitis involving T7-T8. No paraspinal fluid collections or vertebral body collapse at this point. 2. Small bilateral pleural effusions. - Procedures Left knee arthroscopy, irrigation & debridement, synovectomy, chondroplasty Assessment and Plan - Assessment (1) Effusion of left knee Code(s): M25.462 - Effusion, left knee Status: Acute Plan: This is a 52-year-old male patient with past medical history which includes hypertension, hyperlipidemia, anxiety/depression, BPH, hyperprolactinemia and chronic lower back pain, lumbar degenerative disc disease with long-term current use of opioid analgesic. Patient presents to the emergency department by EMS transport from home due to complaint of severe left lower extremity pain. Patient has been under the care of his primary care provider Dr. Walls and his pain management Dr. Bridges and sports medicine Dr. Dickson. Patient is undergone epidural injections and nerve block injections without symptom relief. Patient is on chronic Morphine ER 15 mg BID and [place] 10-325 mg Q8H. Patient fell at his bedside 10/16/17 walking with his walker to go the bathroom and since then has had increasing pain. Chronic lower back pain, Now with decreased mobility Lumbar degenerative disc disease with long-term current use of opioid analgesic Left knee effusion Venous Doppler Study 10/17/17 The study is negative for lower extremity deep venous thrombosis. Lumbar Spine X-Ray 10/17/17 Chronic changes. Pelvis X-Ray 10/17/17 No definite fracture is identified for technique. Femur X-Ray 10/18/17 1. No fracture is identified. 2. Large knee joint effusion. 3. Recent MRI performed on 10/12/2017 documented severe edema in the proximal thigh. Tibia/Fibula X-Ray 10/18/17 Large knee joint effusion. No acute osseous abnormality is visualized. Continue patient's home pain management regimen with morphine ER15 mg twice daily and [place] 10/325 every 8 hours as needed for breakthrough pain Outpatient lumbar MRI reviewed by Dr. Dolan -Arthrocentesis_ 10/18 60cc "chocolate milk" color fluid. - 10/19/17 ...Left knee arthroscopy, irrigation & debridement, synovectomy, chondroplasty -MRI thoracic spine- 1. Discitis with osteomyelitis involving T7-T8. No paraspinal fluid collections or vertebral body collapse at this point. 2. Small bilateral pleural effusions. -left knee cultures 10/18 arthrocentesis. strep viridans. -change back to daptomycin -discussed with ID. will add cefepime. T7 and T8 discitis and osteo reviewed images with Dr Dolan. no surgery. spoke with ID. consult for CT guided bx disc for cx/path. above abx. Hypertension hx currently hypotensive, patient asymptomatic Hold patient's home amlodipine 10 mg p.o. daily, losartan 50 mg, triamterene hydrochlorothiazide daily spoke with olive picker. pt failing to respond to fluid boluses. will get central line for pressors. Hyperlipidemia Continue patient's home atorvastatin Anxiety/depression Continue patient's home fluoxetine 60 mg p.o. nightly BPH Continue patient's home tamsulosin Hyperprolactinemia Continue patient's home cabergoline weekly DVT prophylaxis with teds and SCDs
--- NOTE | 2017-10-20 15:38 | XR ---
EXAM DATE: 10/20/2017 3:32 PM EDT AGE/SEX: 52 years / Male INDICATIONS: Central line placement CLINICAL DATA: This is the patient's initial encounter. Patient reports that signs and symptoms have been present for 1 day and indicates a pain score of 0/10. MEDICAL/SURGICAL HISTORY: None. None. COMPARISON: No prior exams available for comparison. FINDINGS: Right IJ central line with tip at the atriocaval junction. No significant pneumothorax. Visualized miguelangel ngs are clear. Cardiomediastinal contours are within normal limits for portable technique. Bony thora x is intact. CONCLUSION: 1. Right IJ central line in good position without pneumothorax. Electronically signed by: Orion Gallagher MD 10/20/2017 3:37 PM EDT
[2017-10-20] MEDS: Sod Chloride 0.9% Inj 1,000 ML IV.CONT SCH ×2 (15:40→20:29)
[2017-10-20 16:10] LABS: Albumin 1.1 g/dL (3.4-5.0)
[2017-10-20 16:11] LABS: Total Protein 4.8 g/dL (6.4-8.2)
--- NOTE | 2017-10-20 16:28 | P.CONCC ---
History of Present Illness Service: critical care medicine Consult date: 10/20/17 Requesting Physician: Raymond Wood Reason for Consult: SEPTIC SHOCK Primary Care Provider: Rell Walls MD, PhD Chief Complaint: Lower back pain and left lower extremity pain 3 weeks History of Present Illness: 52-year-old male with a medical history significant for hypertension, hyperlipidemia, chronic low back pain with lumbar degenerative disc disease with chronic opioid analgesic use who presented to the ER with severe left upper extremity pain with worsening back pain. Patient had undergone epidural injections and nerve block injections without improvement as outpatient. He is on morphine ER 15 mg twice daily and [place] 10/325 mg every 8 hourly. Patient reportedly fell at his bedside on 10/16 while using his walker with increasing pain. On evaluation in the ER on 10/18 he was noted to have a large left knee effusion on imaging studies and was evaluated by orthopedics Dr. Herrera who aspirated knee which showed elevated white cells. Patient underwent I&D with synovectomy and chondroplasty on 10/19 under general anesthesia for septic arthritis left knee by Dr. Herrera, tolerated procedure well was subsequently transferred to ICU for hypotension. He is growing strep noted on's from aspirated knee fluid. He was on IV antibiotics and has received multiple fluid boluses over the last 48 hours however remained hypotensive. He has also had an elevation of his creatinine for which nephrology has evaluated the patient. ID consult was requested today and patient has been evaluated by Dr. Freitas on the morning from ID. Patient systolic blood pressure was in the 70s and he was given 2 L normal saline bolus and I emergently placed a right IJ central line for initiation of pressors. Levo fed and vasopressin drips were ordered. Patient is awake and alert, complaining of significant pain in his back however not in any respiratory distress currently. Review of Systems All other systems reviewed negative except as stated in HPI PMFSH - History History Provided By: Patient - Medical History Medical History: Medical History (Last Reviewed 10/20/17 @ 07:48 by Samir Rob) Pituitary abnormality (Acute) Hypertension (Acute) High cholesterol (Acute) Chronic pain (Acute) - Surgical History Surgical History: Surgical History (Last Reviewed 10/20/17 @ 07:48 by Samir Rob) Hx of tonsillectomy (Acute) H/O laminectomy (Acute) - Tobacco History Second Hand Smoke Exposure: Yes Tobacco Use In Past 30 Days: Yes Smoking Status: Current every day smoker Tobacco Type: Cigarettes - Alcohol History How Often Do You Have a Drink Containing Alcohol: Monthly or less - Substance Use History Substance History: No History of Abuse - Travel History Recent Travel in the [place] Within the Last 8 Weeks: No Recent Travel Out of the Country Within the Last 8 Weeks: No - Immunization History Tetanus Immunization: >5 Years Hx Influenza Vaccine This Season: Yes Medications and Allergies Active Medications: Active Medications Hydrocodone Bitart/Acetaminophen ([place] 10/325) 1 tab PO Q4H PRN PRN Reason: Pain 1-10 Last Admin: 10/19/17 17:23 Dose: 1 tab Al Hydroxide/Mg Hydroxide (Milk Of Magnsigrid Liq) 30 ml PO Q12H PRN PRN Reason: Mild Constipation Aspirin (Aspirin Chew) 81 mg PO BID [facility] Last Admin: 10/20/17 08:44 Dose: 81 mg Atorvastatin Calcium (Lipitor) 40 mg PO [facility] Last Admin: 10/20/17 01:00 Dose: 40 mg Duloxetine HCl (Cymbalta) 60 mg PO HS [facility] Last Admin: 10/20/17 01:00 Dose: 60 mg Heparin Sodium (Porcine) (Heparin Inj) 5,000 units SQ Q12HR [facility] Hydromorphone HCl (Dilaudid Pf Inj) 1 mg IV.PUSH Q3H PRN PRN Reason: breakthrough pain over 7 Last Admin: 10/20/17 01:00 Dose: 1 mg Sodium Chloride (Ns Inj) 500 mls @ 0 mls/hr IV.SIG BOLUS [facility] Last Infusion: 10/18/17 12:50 Dose: Infused Sodium Chloride (Ns Inj) 500 mls @ 500 mls/hr IV.SIG .Q1H PRN PRN Reason: MAP <60 Sodium Chloride (Ns Inj) 1,000 mls @ 100 mls/hr IV.CONT .Q10H [facility] Last Admin: 10/20/17 15:40 Dose: 100 mls/hr Daptomycin 580 mg/ Sodium (Chloride) 100 mls @ 200 mls/hr IV.SIG Q24H [facility] Last Admin: 10/20/17 13:38 Dose: 200 mls/hr Norepinephrine Bitartrate (Levophed-Dextrose 4 Mg/250 Ml Drip) 4 mg in 250 mls @ 7.5 mls/hr IV.SIG TITRATE PRN; Protocol PRN Reason: Per Protocol Vasopressin 40 unit/ Sodium (Chloride) 100 mls @ 30 mls/hr IV.CONT CONT [facility]; Protocol Sodium Chloride (Ns Inj) 1,000 mls @ 0 mls/hr IV.SIG BOLUS ONE Stop: 10/20/17 14:30 Daptomycin 500 mg/ Sodium (Chloride) 100 mls @ 200 mls/hr IV.SIG ONCE ONE Stop: 10/20/17 15:07 Daptomycin 1,000 mg/ Sodium (Chloride) 100 mls @ 200 mls/hr IV.SIG Q48H [facility] Cefepime HCl 2,000 mg/ Sodium (Chloride) 100 mls @ 200 mls/hr IV.SIG Q8H [facility] Miscellaneous Information ([facility] [place] [facility]) 1 each OTHER UNSCH PRN PRN Reason: SEE LABEL COMMENTS Stop: 10/20/17 23:28 Morphine Sulfate (Oramorph Sr) 15 mg PO Q12H [facility] Last Admin: 10/20/17 08:42 Dose: 15 mg Ondansetron HCl (Zofran Inj) 4 mg IV.PUSH Q6H PRN PRN Reason: NAUSEA OR VOMITING Pt Own Med ( (Cabergoline 0.5 Mg )) 0 each PO Mo [facility] Senna/Docusate Sodium (Mary-Colace) 1 tab PO BID [facility] Last Admin: 10/20/17 11:23 Dose: Not Given Tamsulosin HCl (Flomax) 0.4 mg PO MoFr [facility] Last Admin: 10/18/17 12:32 Dose: 0.4 mg Terbutaline Sulfate (Brethine Inj) 1 mg SQ UNSCH PRN PRN Reason: For Extravasation Tizanidine HCl (Zanaflex) 8 mg PO DAILY [facility] Last Admin: 10/20/17 08:43 Dose: 8 mg Tizanidine HCl (Zanaflex) 12 mg PO [facility] Last Admin: 10/20/17 01:00 Dose: 12 mg Allergies Allergy/AdvReac Type Severity Reaction Status Date / Time penicillin G Allergy Mild Swelling Verified 09/30/17 03:33 of Lip/Tongue/Throat lisinopril AdvReac Mild HEADACHE Verified 09/30/17 03:34 Home Medications Medication Instructions Recorded Confirmed Type amlodipine 10 mg PO DAILY 09/30/17 10/17/17 History atorvastatin 40 mg PO HS 09/30/17 10/17/17 History cabergoline 0.5 mg PO WEEKLY 09/30/17 10/17/17 History duloxetine 60 mg PO HS 09/30/17 10/17/17 History hydrocodone-acetaminophen 1 tab PO TID PRN 09/30/17 10/17/17 History losartan 50 mg PO BID 09/30/17 10/18/17 History tamsulosin 0.4 mg PO 2XWEEK 09/30/17 10/17/17 History tizanidine 12 mg PO HS 09/30/17 10/18/17 History triamterene-hydrochlorothiazid 1 cap PO DAILY 09/30/17 10/17/17 History morphine 15 mg PO Q12H 10/18/17 10/18/17 History tizanidine 8 mg PO DAILY 10/18/17 10/18/17 History Physical Exam Vital signs: Vital Signs 10/19/17 17:20 10/19/17 17:23 10/19/17 20:00 Temperature Pulse Rate Respiratory Rate 24 24 16 Blood Pressure Pulse Oximetry 10/19/17 22:44 10/19/17 23:15 10/19/17 23:30 Temperature 97.7 F 97.7 F 98.4 F Pulse Rate 124 H 118 H 118 H Respiratory Rate 14 14 14 Blood Pressure 118/71 114/68 122/72 Pulse Oximetry 94 L 94 L 94 L 10/20/17 04:00 10/20/17 08:00 10/20/17 12:00 Temperature 98.6 F 97.6 F 97.7 F Pulse Rate 93 H 106 H 75 Respiratory Rate 21 23 23 Blood Pressure 96/61 L 91/56 L 72/45 L Pulse Oximetry 96 Intake & Output 10/19/17 10/20/17 10/20/17 18:59 06:59 18:59 Intake Total 440 / 440 1400 / 1400 Output Total 1000 / 1000 775 / 775 Balance -560 / -560 625 / 625 Weight 100.9 kg Intake: IV 600 / 600 Zyvox 600 mg Premix 300 ML @ 600 / 600 300 mls/hr IV.SIG Q12H [facility] Rx#: [id number] Oral 440 / 440 0 / 0 Anesthesia Amount 800 / 800 Output: Urine 1000 / 1000 725 / 725 Estimated Blood Loss 50 / 50 Other: Date of Last Bowel Movement 10/19/17 10/19/17 Narrative: HEENT/Neuro: No pallor or icterus, tongue moist, TORO, Awake alert oriented 3 , nonfocal grossly, moving all 4 extremities the limited movement of left lower extremity due to recent surgery Neck: No JVD Chest/pulmonary: CTA bilaterally Cardiovascular: S1-S2 regular no gallop or murmur GI/abdomen: Soft, nontender, bowel sounds present Extremities: Warm bilaterally, no edema. Dressing around left knee surgical site with drain in place Assessment and Plan - Assessment and Plan Plan: 52-year-old male with: Septic shock Left knee septic arthritis status post arthroscopy I&D Discitis/osteomyelitis T7-8 History of prolactinoma History of hypertension Chronic pain Plan: Neuro: Continue pain medications including narcotics as needed. Neurosurgery following for T7/8 discitis/osteomyelitis. Cardiovascular: 2 L normal saline bolus ordered. Vasopressin low-dose/Levophed for pressor support as needed. Check lactic acid. Pulmonary: Supplemental O2 as needed GI/liver: P.o. diet as tolerated Renal/: IV hydration, strict intake output, monitor and replete electrodes, follow BN creatinine. Nephrology following for elevated creatinine. ID: Strep viridans growing from knee aspirate. ID consult by Dr. Ruffin for adjusting antibiotics, being switched to Daptomycin/ Cefepime IV. Follow- up cultures. Patient is being scheduled for biopsy/ cultures for T7-8 diskitis / osteomyelitis. Endocrine: Watch for hyperglycemia, SSI for glycemic control if needed. Check cortisol level. Patient has a history of prolactinoma. Prophylaxis: SCDs/subcu heparin. Right IJ central line placed 10/20 Condition critical Time spent on critical care excluding procedures 45 minutes
--- NOTE | 2017-10-20 16:29 | P.PCN ---
Date of procedure: 10/20/17 Pre-op diagnosis: Septic shock Post-op diagnosis: same Procedure: PROCEDURE PERFORMED Right internal jugular vein central venous catheter placement under ultrasound guidance. INFORMED CONSENT Informed consent obtained from patient and documented on chart. ANESTHESIA 1% Lidocaine for local infiltration anesthesia. PROCEDURE After sterile prepping and draping using 1% lidocaine for local infiltration anesthesia, the right internal jugular vein was visualized using an ultrasound vessel finder and under direct visualization was cannulated using an introducer Angiocath with dark non-pulsatile blood return. An Angiocath was advanced into the internal jugular vein without any resistance and the needle was then removed. Blood return was confirmed through the Angiocath following which a guidewire was passed through the Angiocath into the right internal jugular vein without any resistance and the Angiocath was then removed. After making a skin dixie and dilation of tract, a 20 cm antimicrobial coated triple lumen catheter was passed over the guidewire by modified Seldinger technique into the right internal jugular vein up to the 19 cm gilbert and the guidewire was then removed. Good blood return obtained through all three ports which were then flushed and capped. After securing the catheter in place with a StatLock, a Bio-occlusive dressing with Biopatch was applied to the site. The patient tolerated the procedure well with no immediate complications noted. A postprocedure chest x-ray was ordered and reviewed with good placement of right IJ central venous catheter with tip overlying SVC. No pneumothorax on post-procedure film.
[2017-10-20] MEDS ORDERED: Sod Chloride 0.9% Inj 1,000 ML IV.SIG ONE (16:30)
[2017-10-20] MEDS ORDERED: SODIUM CHLOR 0.9% IV.SIG ONE (17:30)
[2017-10-20] MEDS ORDERED: DAPTOMYCIN IV.SIG ONE (17:30)
[2017-10-20 18:20] LABS: Hepatitis A IgM Antibody Nonreactive (Nonreactive); Hepatitits B Surface Antigen Nonreactive (Nonreactive)
[2017-10-20] MEDS ORDERED: Diatrizoate Meglum/Diatrizoate Sod Liq 9 ML UDC PO ONE (18:45)
[2017-10-20 19:05] LABS: INR 1.1 Ratio; Prothrombin Time 10.7 sec (9.8-11.6)
[2017-10-20] MEDS: Heparin - SQ 10,000 UNITS/ML Vial SQ SCH (20:20)
[2017-10-21] MEDS: HYDROmorphone PF Inj 2 MG/ML Vial IV.PUSH PRN ×3 (02:51→15:09)
--- NOTE | 2017-10-21 03:06 | CT ---
EXAM DATE: 10/21/2017 2:41 AM EDT AGE/SEX: 52 years / Male INDICATIONS: Abdominal pain. Evaluate for abscess. CLINICAL DATA: This is the patient's initial encounter. Patient reports that signs and symptoms have been present for 1 day and indicates a pain score of 10/10. MEDICAL/SURGICAL HISTORY: Hypertension. thoracic spinal abscess Discectomy, lumbar. RADIATION DOSE: 19.90 CTDI (mGy) ; Combined studies COMPARISON: No prior exams available for comparison. TECHNIQUE: Multiple contiguous axial images were obtained through the abdomen. Images were obtained using multiple row detector helical technique. Using automated exposure control and adjustment of the mA and/or kV according to patient size, radiation dose was kept as low as reasonably achievable to o btain optimal diagnostic quality images. DICOM format image data is available electronically for rev iew and comparison. FINDINGS: Lower chest: Please refer to chest CT report for description of the supradiaphragmatic findings. Hepatobiliary: No focal liver lesion is identified on this noncontrast examination. No calcified gall stones are present. Kidneys: No hydronephrosis, stone, or mass. Adrenal Glands: Within normal limits. Spleen: Within normal limits. Pancreas: Within normal limits. Vascular: The aorta is nonaneurysmal. There is mild atherosclerotic disease. Bowel/Mesentery: The stomach and small bowel demonstrate no abnormality. No acute colon abnormality i s seen. There is no free intraperitoneal air or fluid. Abdominal Wall: There is a small fat-containing umbilical hernia. Mild subcutaneous edema is present along the flanks. Retroperitoneum: No lymphadenopathy. Bladder: No wall thickening or mass. Reproductive: Within normal limits. Inguinal: No lymphadenopathy or hernia. Musculoskeletal: No acute osseous abnormality is identified. There are degenerative changes of the miguelangel mbar spine. CONCLUSION: 1. No acute abnormality is identified within the abdomen or pelvis on this noncontrast examination. No abscess is visualized, as questioned. 2. Mild atherosclerotic disease. Electronically signed by: Aditya Rodriguez MD 10/21/2017 3:05 AM EDT
--- NOTE | 2017-10-21 03:12 | CT ---
EXAM DATE: 10/21/2017 2:41 AM EDT AGE/SEX: 52 years / Male INDICATIONS: Chest pain. Evaluate for abscess. CLINICAL DATA: This is the patient's initial encounter. Patient reports that signs and symptoms have been present for 1 day and indicates a pain score of 10/10. MEDICAL/SURGICAL HISTORY: Hypertension. thoracic spinal abscess Discectomy, lumbar. RADIATION DOSE: 19.90 CTDI (mGy) ; Combined studies COMPARISON: [facility] – [place], [place], MR THORACIC SPINE W & W/O CON, 10/20/2017. . TECHNIQUE: Multiple contiguous axial images were obtained through the chest without contrast. Image s were obtained in suspended respiration using multiple row detector helical technique. Using automa klaus exposure control and adjustment of the mA and/or kV according to patient size, radiation dose was kept as low as reasonably achievable to obtain optimal diagnostic quality images. DICOM format imag e data is available electronically for review and comparison. FINDINGS: Lungs: No consolidation or pneumothorax. There is respiratory motion artifact with mild atelectasis in the lower lobes. Mediastinum: The heart and great vessels demonstrate no acute abnormality. No lymphadenopathy is id entified. There is coronary artery calcification. Trace pericardial fluid is present. Right IJ line d istal tip is at the cavoatrial junction. Pleurae: There is trace right pleural fluid. No pleural thickening is present. Axillae: No lymphadenopathy. Musculoskeletal: There is endplate irregularity and decreased disc height at T7-T8. Remaining levels demonstrate degenerative change. There is mild soft tissue density in the posterior mediastinum naif cent to the endplate irregularity. Other: Please refer to abdomen and pelvis CT report for description of the subdiaphragmatic findings . CONCLUSION: 1. Endplate irregularity and decreased disc height at T7-T8 with abnormal soft tissue in the adjacen t prevertebral region on the right. Findings are consistent with a discitis and osteomyelitis documen klaus on yesterday's thoracic spine MRI. 2. No other source for infection is identified. Electronically signed by: Aditya Rodriguez MD 10/21/2017 3:11 AM EDT
[2017-10-21] MEDS: Vasopressin Inj 40 UNIT in Sodium Chlor 0.9% Inj 98 ML IV.CONT SCH ×2 (06:17→19:11)
[2017-10-21] MEDS: Sod Chloride 0.9% Inj 1,000 ML IV.CONT SCH ×3 (08:49→18:37)
[2017-10-21] MEDS: Heparin - SQ 10,000 UNITS/ML Vial SQ SCH ×2 (09:20→20:30)
[2017-10-21 09:41] LABS: Calcium 7.3 mg/dL (8.5-10.1); Carbon Dioxide 19.1 meq/L (21.0-32.0); Potassium 4.3 meq/L (3.5-5.1)
[2017-10-21 09:58] LABS: Total Protein 4.6 g/dL (6.4-8.2)
[2017-10-21] MEDS ORDERED: fentaNYL Citrate Inj 250 MCG/5 ML Ampul ONE (10:05)
--- NOTE | 2017-10-21 11:24 | P.PNNP ---
Subjective Interval history: Going down for MRI. Renal function improved. He is non oliguric. BP better. <Tiffany Decker - Last Filed: 10/21/17 11:18> Physical Exam Vital signs: Vital Signs 10/20/17 12:00 10/20/17 16:00 10/20/17 20:00 Temperature 97.7 F 97.7 F 97.9 F Pulse Rate 75 75 92 H Respiratory Rate 23 23 22 Blood Pressure 72/45 L 85/50 L 112/66 Pulse Oximetry 94 L 10/21/17 00:00 10/21/17 03:20 10/21/17 04:00 Temperature 98.2 F 98.3 F Pulse Rate 102 H 104 H Respiratory Rate 20 12 12 Blood Pressure 125/74 104/66 Pulse Oximetry 94 L 94 L 10/21/17 09:20 Temperature Pulse Rate Respiratory Rate 22 Blood Pressure Pulse Oximetry Intake & Output 10/20/17 10/21/17 10/21/17 18:59 06:59 18:59 Intake Total 640 / 640 1100 / 1100 1000 / 1000 Output Total 1000 / 1000 175 / 175 Balance -360 / -360 925 / 925 1000 / 1000 Weight 101.8 kg Intake: IV 200 / 200 1100 / 1100 1000 / 1000 NS Inj 1,000 ML @ 100 mls/hr IV 1000 / 1000 1000 / 1000 .CONT .Q10H [facility] Rx#:[id number] Maxipime Inj 2,000 MG In NS Inj 100 / 100 100 / 100 100 ML @ 200 mls/hr IV.SIG Q8H EM[facility] Rx#:[id number] Cubicin Inj 580 MG In NS Inj 100 / 100 100 ML @ 200 mls/hr IV.SIG Q24H EM[facility]IO Rx#:[id number] Oral 440 / 440 Output: Urine 1000 / 1000 Wound Drainage 175 / 175 Hemovac 175 / 175 Other: # Voids 5 Date of Last Bowel Movement 10/19/17 10/21/17 # Bowel Movements 3 - Constitutional no acute distress, cooperative - Routine HEENT Exam Head: Present: normocephalic - Routine Neck Exam Present: supple, full ROM - Routine Respiratory Exam Present: CTA bilaterally. Absent: accessory muscle use - Routine Cardiovascular Exam Present: RRR, S1, S2 - Routine Abdominal Exam Present: soft, normoactive bowel sounds - Routine Extremities Exam Absent: edema Comments: left knee wrapped. - Routine Skin Exam Present: dry, warm - Routine Neurological Exam Present: alert, oriented X3, CN II-XII intact, moving all extremities <Tiffany Decker - Last Filed: 10/21/17 11:18> Vital signs: Vital Signs 10/21/17 00:00 10/21/17 03:20 10/21/17 04:00 Temperature 98.2 F 98.3 F Pulse Rate 102 H 104 H Respiratory Rate 20 12 12 Blood Pressure 125/74 104/66 Pulse Oximetry 94 L 94 L 10/21/17 08:00 10/21/17 09:20 10/21/17 10:00 Temperature 97.8 F Pulse Rate 96 H 102 H Respiratory Rate 12 22 Blood Pressure 137/66 Pulse Oximetry 94 L 10/21/17 12:00 10/21/17 14:00 10/21/17 15:45 Temperature 99.0 F Pulse Rate 130 H 132 H Respiratory Rate 17 18 Blood Pressure Pulse Oximetry 94 L 10/21/17 16:00 10/21/17 18:00 Temperature 98.0 F Pulse Rate 108 H 88 Respiratory Rate 15 Blood Pressure 98/57 L Pulse Oximetry 93 L Intake & Output 10/21/17 10/21/17 10/22/17 06:59 18:59 06:59 Intake Total 1100 / 1100 2500 / 2500 36 / 36 Output Total 175 / 175 950 / 950 Balance 925 / 925 1550 / 1550 36 / 36 Weight 101.8 kg Intake: IV 1100 / 1100 2500 / 2500 36 / 36 NS Inj 1,000 ML @ 100 mls/hr IV 1000 / 1000 2400 / 2400 .CONT .Q10H [facility] Rx#:[id number] Pitressin Inj 40 UNIT In NS Inj 36 / 36 98 ML @ 0.2 UNITS/MIN 30 mls/ hr IV.CONT CONT [facility] Rx#: [id number] Maxipime Inj 2,000 MG In NS Inj 100 / 100 100 / 100 100 ML @ 200 mls/hr IV.SIG Q12H [facility]IO Rx#:[id number] Output: Urine 925 / 925 Wound Drainage 175 / 175 25 / 25 Hemovac 175 / 175 25 / 25 Other: # Voids 5 2 Date of Last Bowel Movement 10/21/17 10/21/17 # Bowel Movements 3 1 <Satish Crowley - Last Filed: 10/21/17 21:36> Assessment and Plan - Assessment (1) ALEXANDREA (acute kidney injury) Code(s): N17.9 - Acute kidney failure, unspecified Status: Acute Plan: ALEXANDREA most likely due to infection and NSAID use. Renal function has improved. Repeat potassium is better. Imaging negative for obstruction. PO fluids encouraged. Avoid hypotension. Avoid nephrotoxic agents. Repeat labs daily. (2) Effusion of left knee Code(s): M25.462 - Effusion, left knee Status: Acute Plan: s/p left knee aspiration Ortho following. I&D yesterday. On Daptomycin. - Plan Renal function improved. Provided UA is unremarkable, we will sign off at this time. <Tiffany Decker - Last Filed: 10/21/17 11:18> - Assessment (1) ALEXANDREA (acute kidney injury) Code(s): N17.9 - Acute kidney failure, unspecified Status: Acute (2) Effusion of left knee Code(s): M25.462 - Effusion, left knee Status: Acute - Attending Attestation patient was seen and examined. Renal function has improved. We will sign off at this time. <Satish Crowley - Last Filed: 10/21/17 21:36>
--- NOTE | 2017-10-21 11:42 | P.RAD ---
Post Procedure Progress Note - Procedure Information Procedure Date: 10/21/17 Supervising Radiologist: Orion Gallagher MD Estimated blood loss (mL): 0 Anesthesia: Conscious Sedation - Plan of Activity Patient to Unit: ROPU Patient Condition: Good See PACS Report for procedural detail/treatment.
[2017-10-21] MEDS ORDERED: Gadobutrol PF 10 MMOL/10 ML Vial (for RAD) IV.SIG ONE (12:13)
--- NOTE | 2017-10-21 12:46 | MR ---
EXAM DATE: 10/21/2017 12:32 PM EDT AGE/SEX: 52 years / Male INDICATIONS: Osteomyelitis. CLINICAL DATA: This is the patient's subsequent encounter. Patient reports that signs and symptoms h ave been present for 3 days and indicates a pain score of 4/10. MEDICAL/SURGICAL HISTORY: Hypertension. Pituitary tumor. Discectomy, lumbar. Tonsillectomy. L eft knee debridement. COMPARISON: No prior exams available for comparison. TECHNIQUE: Multiplanar, multisequence MRI examination of the lumbar spine was performed without and with 9 ml Gadavist (gadobutrol) contrast as a single exam dose. FINDINGS: Sagittal images demonstrate normal vertebral body alignment and curvature. No focal areas of marrow r eplacement are identified. The conus terminates normally. Axial images were performed from T12-L1 thr ough L5-S1.There is a hemangioma in the vertebral body at L2. T12-L1: No significant abnormalities identified. L1-L2: On the right at L1-L2 there is a extradural enhancing soft tissue mass measuring 1.9 x 1.2 cm similar to the prior study characteristic of schwannoma or neurofibroma. This compromises the exitin g right L1 nerve root and expands the foramen. There is mild annular bulge of the disc. There is mild facet arthritis bilaterally. There is mild spinal canal stenosis. L2-L3: There is broad-based annular bulge of disc. There is moderate facet arthritis bilaterally wit h ligamentum flavum hypertrophy. There is mild to moderate spinal canal stenosis. There is mild fuentes ral foraminal narrowing bilaterally. L3-L4: There is mild annular bulge of the disc. There is mild facet arthritis and ligamentum flavum hypertrophy bilaterally. There is mild to moderate spinal canal stenosis. There is mild neural fora beronica narrowing bilaterally. L4-L5: There is mild annular bulge of the disc. There is moderate facet arthritis bilaterally with l igamentum flavum hypertrophy. There is moderate spinal canal stenosis. There is mild neural foramina l narrowing bilaterally. L5-S1: No significant abnormalities identified. CONCLUSION: Multilevel spinal canal stenosis most prominent at L4-L5 moderate nature. 1.9 x 1.2 cm mass in the neural foramen on the right as seen on the prior examination characteristic of schwannoma or neurofibroma compromising the nerve root exit zone and lateral recess. The findings are similar to the prior exam. There are no findings of osteomyelitis Electronically signed by: Herbert Rudolph MD 10/21/2017 12:44 PM EDT
--- NOTE | 2017-10-21 13:16 | P.PNCC ---
Subjective Subjective Remarks/Hospital Course: 10/20: 52-year-old male with a medical history significant for hypertension, hyperlipidemia, chronic low back pain with lumbar degenerative disc disease with chronic opioid analgesic use who presented to the ER with severe left upper extremity pain with worsening back pain. Patient had undergone epidural injections and nerve block injections without improvement as outpatient. He is on morphine ER 15 mg twice daily and Sharon 10/325 mg every 8 hourly. Patient reportedly fell at his bedside on 10/16 while using his walker with increasing pain. On evaluation in the ER on 10/18 he was noted to have a large left knee effusion on imaging studies and was evaluated by orthopedics Dr. Herrera who aspirated knee which showed elevated white cells. Patient underwent I&D with synovectomy and chondroplasty on 10/19 under general anesthesia for septic arthritis left knee by Dr. Herrera, tolerated procedure well was subsequently transferred to ICU for hypotension. He is growing strep noted on's from aspirated knee fluid. He was on IV antibiotics and has received multiple fluid boluses over the last 48 hours however remained hypotensive. He has also had an elevation of his creatinine for which nephrology has evaluated the patient. ID consult was requested today and patient has been evaluated by Dr. Freitas on the morning from ID. Patient systolic blood pressure was in the 70s and he was given 2 L normal saline bolus and I emergently placed a right IJ central line for initiation of pressors. Levo fed and vasopressin drips were ordered. Patient is awake and alert, complaining of significant pain in his back however not in any respiratory distress currently. 10/21: Resting comfortably in bed. On low-dose vasopressin. Not in any acute distress. Objective Vital Signs / I&O: Vital Signs 10/20/17 16:00 10/20/17 20:00 10/21/17 00:00 Temperature 97.7 F 97.9 F 98.2 F Pulse Rate 75 92 H 102 H Respiratory Rate 23 22 20 Blood Pressure 85/50 L 112/66 125/74 Pulse Oximetry 94 L 94 L 10/21/17 03:20 10/21/17 04:00 10/21/17 09:20 Temperature 98.3 F Pulse Rate 104 H Respiratory Rate 12 12 22 Blood Pressure 104/66 Pulse Oximetry 94 L Intake & Output 10/20/17 10/21/17 10/21/17 18:59 06:59 18:59 Intake Total 640 / 640 1100 / 1100 1000 / 1000 Output Total 1000 / 1000 175 / 175 Balance -360 / -360 925 / 925 1000 / 1000 Weight 101.8 kg Intake: IV 200 / 200 1100 / 1100 1000 / 1000 NS Inj 1,000 ML @ 100 mls/hr IV 1000 / 1000 1000 / 1000 .CONT .Q10H [facility] Rx#:[id number] Maxipime Inj 2,000 MG In NS Inj 100 / 100 100 / 100 100 ML @ 200 mls/hr IV.SIG Q8H [facility] Rx#:[id number] Cubicin Inj 580 MG In NS Inj 100 / 100 100 ML @ 200 mls/hr IV.SIG Q24H [facility] Rx#:[id number] Oral 440 / 440 Output: Urine 1000 / 1000 Wound Drainage 175 / 175 Hemovac 175 / 175 Other: # Voids 5 Date of Last Bowel Movement 10/19/17 10/21/17 # Bowel Movements 3 Result Diagrams: 10/20/17 03:20 10/21/17 05:18 Imaging: Venous Doppler Study 10/17/17 20:58 CONCLUSION: 1. The study is negative for lower extremity deep venous thrombosis. Lumbar Spine X-Ray 10/17/17 21:00 CONCLUSION: Chronic changes. Pelvis X-Ray 10/17/17 21:00 CONCLUSION: No definite fracture is identified for technique. Femur X-Ray 10/18/17 01:02 CONCLUSION: 1. No fracture is identified. 2. Large knee joint effusion. 3. Recent MRI performed on 10/12/2017 documented severe edema in the proximal thigh. Tibia/Fibula X-Ray 10/18/17 01:02 CONCLUSION: Large knee joint effusion. No acute osseous abnormality is visualized. Abdomen/Bladder Ultrasound 10/19/17 00:00 CONCLUSION: 1. Normal renal sonogram. Thoracic Spine MRI 10/20/17 00:00 CONCLUSION: 1. Discitis with osteomyelitis involving T7-T8. No paraspinal fluid collections or vertebral body collapse at this point. 2. Small bilateral pleural effusions. Chest X-Ray 10/20/17 15:06 CONCLUSION: 1. Right IJ central line in good position without pneumothorax. Lumbar Spine MRI 10/21/17 00:00 CONCLUSION: Multilevel spinal canal stenosis most prominent at L4-L5 moderate nature. 1.9 x 1.2 cm mass in the neural foramen on the right as seen on the prior examination characteristic of schwannoma or neurofibroma compromising the nerve root exit zone and lateral recess. The findings are similar to the prior exam. There are no findings of osteomyelitis Abdomen/Pelvis CT 10/21/17 00:03 CONCLUSION: 1. No acute abnormality is identified within the abdomen or pelvis on this noncontrast examination. No abscess is visualized, as questioned. 2. Mild atherosclerotic disease. Chest CT 10/21/17 00:03 CONCLUSION: 1. Endplate irregularity and decreased disc height at T7-T8 with abnormal soft tissue in the adjacent prevertebral region on the right. Findings are consistent with a discitis and osteomyelitis documented on yesterday's thoracic spine MRI. 2. No other source for infection is identified. Objective Remarks: HEENT/Neuro: No pallor or icterus, tongue moist, TORO, Awake alert oriented 3 , nonfocal grossly, moving all 4 extremities the limited movement of left lower extremity due to recent surgery Neck: No JVD Chest/pulmonary: CTA bilaterally Cardiovascular: S1-S2 regular no gallop or murmur GI/abdomen: Soft, nontender, bowel sounds present Extremities: Warm bilaterally, no edema. Dressing around left knee surgical site with drain in place Assessment and Plan - Assessment and Plan Plan: 52-year-old male with: Septic shock Left knee septic arthritis status post arthroscopy I&D Discitis/osteomyelitis T7-8 History of prolactinoma History of hypertension Chronic pain Plan: Neuro: Continue pain medications including narcotics as needed. Neurosurgery following for T7/8 discitis/osteomyelitis. Cardiovascular: 2 L normal saline bolus ordered. Vasopressin low-dose/Levophed for pressor support as needed. Check lactic acid. Pulmonary: Supplemental O2 as needed GI/liver: P.o. diet as tolerated Renal/: IV hydration, strict intake output, monitor and replete electrolytes, follow BUN creatinine. Nephrology following for elevated creatinine. ID: Strep viridans growing from knee aspirate. ID consult by Dr. Ruffin for adjusting antibiotics, being switched to Daptomycin/ Cefepime IV. Follow- up cultures. Patient is being scheduled for biopsy/ cultures for T7-8 diskitis / osteomyelitis and LP. Endocrine: Watch for hyperglycemia, SSI for glycemic control if needed. Check cortisol level. Patient has a history of prolactinoma. Prophylaxis: SCDs/subcu heparin. Right IJ central line placed 10/20 Condition critical Time spent on critical care excluding procedures 30 minutes
[2017-10-21 13:39] LABS: Neutrophils,CSF 0 %; RBC on Tube 4 5 /mm3
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
[2017-10-21] MEDS: Morphine Sulfate 15 MG SR Tablet PO SCH ×2 (15:11→20:30)
[2017-10-21] MEDS: Senna/Docusate Sodium 8.6/50 MG Tablet PO SCH ×2 (15:13→20:29)
--- NOTE | 2017-10-21 16:45 | P.PNNS ---
Subjective Interval history: 10/21: c/o back pain, mid and low back. MRI L spine ordered this morning, no evidence of osteomyelitis or epidural abscess. Physical Exam Vital signs: Vital Signs 10/20/17 20:00 10/21/17 00:00 10/21/17 03:20 Temperature 97.9 F 98.2 F Pulse Rate 92 H 102 H Respiratory Rate 22 20 12 Blood Pressure 112/66 125/74 Pulse Oximetry 94 L 94 L 10/21/17 04:00 10/21/17 09:20 Temperature 98.3 F Pulse Rate 104 H Respiratory Rate 12 22 Blood Pressure 104/66 Pulse Oximetry 94 L Intake & Output 10/20/17 10/21/17 10/21/17 18:59 06:59 18:59 Intake Total 640 / 640 1100 / 1100 1000 / 1000 Output Total 1000 / 1000 175 / 175 Balance -360 / -360 925 / 925 1000 / 1000 Weight 101.8 kg Intake: IV 200 / 200 1100 / 1100 1000 / 1000 NS Inj 1,000 ML @ 100 mls/hr IV 1000 / 1000 1000 / 1000 .CONT .Q10H EM[facility] Rx#:[id number] Maxipime Inj 2,000 MG In NS Inj 100 / 100 100 / 100 100 ML @ 200 mls/hr IV.SIG Q8H EMILIO Rx#:[id number] Cubicin Inj 580 MG In NS Inj 100 / 100 100 ML @ 200 mls/hr IV.SIG Q24H EMILIO Rx#:[id number] Oral 440 / 440 Output: Urine 1000 / 1000 Wound Drainage 175 / 175 Hemovac 175 / 175 Other: # Voids 5 Date of Last Bowel Movement 10/19/17 10/21/17 # Bowel Movements 3 Narrative: GENERAL: In bed in no acute distress. SKIN: Warm and dry. HEAD: Normocephalic. EYES: No scleral icterus. No injection or drainage. NECK: Supple, trachea midline. No JVD or lymphadenopathy. CARDIOVASCULAR: Regular rate and rhythm RESPIRATORY: Breath sounds equal bilaterally. No accessory muscle use. GASTROINTESTINAL: Abdomen soft, non-tender, nondistended. MUSCULOSKELETAL: No cyanosis, or edema. Left knee bandaged. NEURO: Awake, alert, speech fluent. follows commands without difficulties. pupils equal, facial motor symmetric. moves upper extremities well. grossly 3/5 lower extremities. Assessment and Plan - Plan Impression: 52 y/o male with back pain and left knee pain chronic low back pain - has been under the care of his primary care provider Dr. Walls and his pain management Dr. Bridges and sports medicine Dr. Dickson. on chronic Morphine ER 15 mg BID and [place] 10-325 mg Q8H. Septic knee Osteomyelitis, Discitis at T7-T8, no epidural abscess seen, no significant stenosis or cord compression Lumbar Spine MRI 10/21/17 00:00 CONCLUSION: Multilevel spinal canal stenosis most prominent at L4-L5 moderate nature. 1.9 x 1.2 cm mass in the neural foramen on the right as seen on the prior examination characteristic of schwannoma or neurofibroma compromising the nerve root exit zone and lateral recess. The findings are similar to the prior exam. There are no findings of osteomyelitis Thoracic Spine MRI 10/20/17 00:00 CONCLUSION: 1. Discitis with osteomyelitis involving T7-T8. No paraspinal fluid collections or vertebral body collapse at this point. 2. Small bilateral pleural effusions. Venous Doppler Study 10/17/17 20:58 CONCLUSION: 1. The study is negative for lower extremity deep venous thrombosis. Lumbar Spine X-Ray 10/17/17 21:00 CONCLUSION: Chronic changes. Pelvis X-Ray 10/17/17 21:00 CONCLUSION: No definite fracture is identified for technique. Femur X-Ray 10/18/17 01:02 CONCLUSION: 1. No fracture is identified. 2. Large knee joint effusion. 3. Recent MRI performed on 10/12/2017 documented severe edema in the proximal thigh. Tibia/Fibula X-Ray 10/18/17 01:02 CONCLUSION: Large knee joint effusion. No acute osseous abnormality is visualized. Plan: TLSO when out of bed cont antibiotics treatment per ID orthopedic management of left knee joint effusion
--- NOTE | 2017-10-21 17:24 | IR ---
EXAM DATE: 10/21/2017 11:57 AM EDT AGE/SEX: 52 years / Male INDICATIONS: Patient presents with back pain in need of lumbar puncture with opening pressures to ru le out infection. CLINICAL DATA: This is the patient's initial encounter. Patient reports that signs and symptoms have been present for 3 days and indicates a pain score of 9/10. MEDICAL/SURGICAL HISTORY: Hypertension. Pituitary abnormality, High cholesterol, Chronic pain, Tonsillectomy. Laminectomy. COMPARISON: No prior exams available for comparison. FLUORO TIME (min): 0.4 IMAGE SERIES: 1 ACCESS SITE: L3-4 SEDATION TIME (min): 45 LUMBAR PUNCTURE TIME: 1044 hours OPENING PRESSURE: 35 cm of water CLOSING PRESSURE: not requested FLUID: Total volume of 12 cc of clear fluid was removed. Fluid was sent to lab for ordered studies. MEDICATION(S): 5 mg midazolam (Versed) IV ; 250 mcg fentanyl (Sublimaze) IV . . PROCEDURE: 1. Fluoroscopic guided lumbar puncture. The risks, benefits and alternatives to the procedure were explained and verbal and written consent w as obtained. The site was prepped in sterile fashion. Full sterile technique was used, including ca p, mask, sterile gloves and gown and a large sterile sheet. Hand hygiene and 2% chlorhexidine and/or betadine/alcohol prep was utilized per protocol for cutaneous antisepsis. The skin and subcutaneous tissues were infiltrated with local anesthetic solution. With fluoroscopic guidance the lumbar thecal sac was punctured at the level above. The fluid describ ed above was removed without difficulty. The patient tolerated the procedure well and there were no complications. CONCLUSION: 1. Uncomplicated fluoroscopically guided lumbar puncture. Electronically signed by: Orion Gallagher MD 10/21/2017 5:22 PM EDT
--- NOTE | 2017-10-21 17:24 | IR ---
EXAM DATE: 10/21/2017 11:57 AM EDT AGE/SEX: 52 years / Male INDICATIONS: Patient with back pain in need of Thoracic level 8 biopsy to rule out infection. CLINICAL DATA: This is the patient's initial encounter. Patient reports that signs and symptoms have been present for 3 days and indicates a pain score of 9/10. MEDICAL/SURGICAL HISTORY: Hypertension. Pituitary abnormality, High cholesterol, Chronic pain, Tonsillectomy. Laminectomy. COMPARISON: [facility] [place], CT CHEST W/O CONTRAST, 10/21/2017. . FLUORO TIME (min): 1.8 IMAGE SERIES: 5 SEDATION TIME (min): 45 MEDICATION(S): 5 mg midazolam (Versed) IV 250 mcg fentanyl (Sublimaze) IV DEVICE(s): 11 gauge Payton Max bone biopsy needle SPECIMEN(S): Core specimen(s) obtained and submitted to laboratory for pathologic evaluation. . . PROCEDURE: 1. Fluoroscopically guided needle biopsy. 2. Conscious sedation with continuous EKG and Oximetry monitoring. The risks, benefits and alternatives to the procedure were explained and verbal and written consent w as obtained. The site was prepped in sterile fashion. Full sterile technique was used, including cap, mask, steri le gloves and gown and a large sterile sheet. Hand hygiene and 2% chlorhexidine and/or betadine/alco hol prep was utilized per protocol for cutaneous antisepsis. The skin and subcutaneous tissues were infiltrated with local anesthetic solution. With fluoroscopic guidance an 11-gauge trocar was advanced via the right transpedicular approach into the superior endplate of the T8 vertebral body. Core specimen and aspirations were then performed. A ll samples were submitted for Gram stain and C&S.. Conscious sedation was performed with the prescribed dosages and duration as above in the presence of an independent trained radiology nurse to assist in the monitoring of the patient. EKG and oximetry remained stable throughout the procedure. CONCLUSION: 1. Uncomplicated needle biopsy of the T8 superior endplate, as above. Electronically signed by: Orion Gallagher MD 10/21/2017 5:22 PM EDT
[2017-10-21 17:48] LABS: Bilirubin,Urine Negative (Negative); Clarity,Urine Hazy (Clear); Color,Urine Yellow (Yellw/Straw); Glucose,Urine (UA) Negative (Negative); Leukocyte Esterase,Urine Negative (Negative); Mucus,Urine Few /lpf (Occasional); Nitrite,Urine Negative (Negative); Specific Gravity,Urine 1.016 (1.002-1.035); Squamous Epithelial Cell,Urine <1 /hpf (0-5)
--- NOTE | 2017-10-21 18:04 | P.CON ---
History of Present Illness Service: Ophthalmology Reason for Consult: blurry vision Primary Care Provider: Rell Walls MD, PhD Chief Complaint: Lower back pain and left lower extremity pain 3 weeks History of Present Illness: History obtained from medical chart - patient had significant altered mental status which limited his ability to answer questions or participate with the exam. 52-year-old male with past medical history significant for hypertension hyperlipidemia, anxiety, depression, BPH, hyperprolactinemia presents to the ED with inability to ambulate. Patient's reports that he tripped and fell over his dog sometime in the last for 5 weeks. Subsequently over the last 3 weeks especially has been using a walker at home. Orthopedic took his for left knee arthroscopy and he was found to have septic arthritis - fluid was positive for Strep Viridans. Earlier he was complaining of blurry vision, blind spots, and photophobia per the Infectious Disease notes. He currently states he has mild intermittent blurred vision. PENDING SALE TO [facility] - History History Provided By: Patient - Medical History Medical History: Medical History (Last Reviewed 10/20/17 @ 07:48 by Samir Rob) Pituitary abnormality (Acute) Hypertension (Acute) High cholesterol (Acute) Chronic pain (Acute) - Surgical History Surgical History: Surgical History (Last Reviewed 10/20/17 @ 07:48 by Samir Rob) Hx of tonsillectomy (Acute) H/O laminectomy (Acute) - Tobacco History Second Hand Smoke Exposure: Yes Tobacco Use In Past 30 Days: Yes Smoking Status: Current every day smoker Tobacco Type: Cigarettes - Alcohol History How Often Do You Have a Drink Containing Alcohol: Monthly or less - Substance Use History Substance History: No History of Abuse - Travel History Recent Travel in the [place] Within the Last 8 Weeks: No Recent Travel Out of the Country Within the Last 8 Weeks: No - Immunization History Tetanus Immunization: >5 Years Hx Influenza Vaccine This Season: Yes Medications and Allergies Active Medications: Active Medications Hydrocodone Bitart/Acetaminophen ([place] 10/325) 1 tab PO Q4H PRN PRN Reason: Pain 1-10 Last Admin: 10/19/17 17:23 Dose: 1 tab Al Hydroxide/Mg Hydroxide (Milk Of Magnesia Liq) 30 ml PO Q12H PRN PRN Reason: Mild Constipation Aspirin (Aspirin Chew) 81 mg PO BID [facility] Last Admin: 10/21/17 15:11 Dose: Not Given Atorvastatin Calcium (Lipitor) 40 mg PO HS [facility] Last Admin: 10/20/17 20:20 Dose: 40 mg Duloxetine HCl (Cymbalta) 60 mg PO HS [facility]IO Last Admin: 10/20/17 20:21 Dose: 60 mg Heparin Sodium (Porcine) (Heparin Inj) 5,000 units SQ Q12H [facility]IO Last Admin: 10/21/17 09:20 Dose: Not Given Hydromorphone HCl (Dilaudid Pf Inj) 1 mg IV.PUSH Q3H PRN PRN Reason: breakthrough pain over 7 Last Admin: 10/21/17 15:09 Dose: 1 mg Sodium Chloride (Ns Inj) 500 mls @ 0 mls/hr IV.SIG BOLUS [facility]IO Last Infusion: 10/18/17 12:50 Dose: Infused Sodium Chloride (Ns Inj) 500 mls @ 500 mls/hr IV.SIG .Q1H PRN PRN Reason: MAP <60 Sodium Chloride (Ns Inj) 1,000 mls @ 100 mls/hr IV.CONT .Q10H EM[facility]IO Last Admin: 10/21/17 17:46 Dose: Not Given Norepinephrine Bitartrate (Levophed-Dextrose 4 Mg/250 Ml Drip) 4 mg in 250 mls @ 7.5 mls/hr IV.SIG TITRATE PRN; Protocol PRN Reason: Per Protocol Vasopressin 40 unit/ Sodium (Chloride) 100 mls @ 30 mls/hr IV.CONT CONT EMILIO; Protocol Last Infusion: 10/21/17 12:00 Dose: 0 units/min, 0 mls/hr Daptomycin 1,000 mg/ Sodium (Chloride) 100 mls @ 200 mls/hr IV.SIG Q24H [facility] Cefepime HCl 2,000 mg/ Sodium (Chloride) 100 mls @ 200 mls/hr IV.SIG Q12H [facility]IO Last Infusion: 10/21/17 15:44 Dose: Infused Morphine Sulfate (Oramorph Sr) 15 mg PO Q12H [facility]IO Last Admin: 10/21/17 15:11 Dose: 15 mg Ondansetron HCl (Zofran Inj) 4 mg IV.PUSH Q6H PRN PRN Reason: NAUSEA OR VOMITING Last Admin: 10/21/17 02:51 Dose: 4 mg Pt Own Med ( (Cabergoline 0.5 Mg )) 0 each PO Mo [facility] Senna/Docusate Sodium (Mary-Colace) 1 tab PO BID [facility] Last Admin: 10/21/17 15:13 Dose: Not Given Tamsulosin HCl (Flomax) 0.4 mg PO MoFr [facility] Last Admin: 10/18/17 12:32 Dose: 0.4 mg Terbutaline Sulfate (Brethine Inj) 1 mg SQ UNSCH PRN PRN Reason: For Extravasation Tizanidine HCl (Zanaflex) 8 mg PO DAILY [facility] Last Admin: 10/21/17 15:12 Dose: 8 mg Tizanidine HCl (Zanaflex) 12 mg PO [facility] Last Admin: 10/20/17 20:20 Dose: 12 mg Allergies Allergy/AdvReac Type Severity Reaction Status Date / Time penicillin G Allergy Mild Swelling Verified 09/30/17 03:33 of Lip/Tongue/Throat lisinopril AdvReac Mild HEADACHE Verified 09/30/17 03:34 Home Medications Medication Instructions Recorded Confirmed Type amlodipine 10 mg PO DAILY 09/30/17 10/17/17 History atorvastatin 40 mg PO HS 09/30/17 10/17/17 History cabergoline 0.5 mg PO WEEKLY 09/30/17 10/17/17 History duloxetine 60 mg PO HS 09/30/17 10/17/17 History hydrocodone-acetaminophen 1 tab PO TID PRN 09/30/17 10/17/17 History losartan 50 mg PO BID 09/30/17 10/18/17 History tamsulosin 0.4 mg PO 2XWEEK 09/30/17 10/17/17 History tizanidine 12 mg PO HS 09/30/17 10/18/17 History triamterene-hydrochlorothiazid 1 cap PO DAILY 09/30/17 10/17/17 History morphine 15 mg PO Q12H 10/18/17 10/18/17 History tizanidine 8 mg PO DAILY 10/18/17 10/18/17 History Physical Exam Vital signs: Vital Signs 10/20/17 20:00 10/21/17 00:00 10/21/17 03:20 Temperature 97.9 F 98.2 F Pulse Rate 92 H 102 H Respiratory Rate 22 20 12 Blood Pressure 112/66 125/74 Pulse Oximetry 94 L 94 L 10/21/17 04:00 10/21/17 09:20 10/21/17 15:45 Temperature 98.3 F Pulse Rate 104 H Respiratory Rate 12 22 18 Blood Pressure 104/66 Pulse Oximetry 94 L Intake & Output 10/20/17 10/21/17 10/21/17 18:59 06:59 18:59 Intake Total 640 / 640 1100 / 1100 1500 / 1500 Output Total 1000 / 1000 175 / 175 Balance -360 / -360 925 / 925 1500 / 1500 Weight 101.8 kg Intake: IV 200 / 200 1100 / 1100 1500 / 1500 NS Inj 1,000 ML @ 100 mls/hr IV 1000 / 1000 1400 / 1400 .CONT .Q10H [facility] Rx#:[id number] Maxipime Inj 2,000 MG In NS Inj 100 / 100 100 / 100 100 / 100 100 ML @ 200 mls/hr IV.SIG Q12H [facility] Rx#:[id number] Cubicin Inj 580 MG In NS Inj 100 / 100 100 ML @ 200 mls/hr IV.SIG Q24H [facility] Rx#:[id number] Oral 440 / 440 Output: Urine 1000 / 1000 Wound Drainage 175 / 175 Hemovac 175 / 175 Other: # Voids 5 Date of Last Bowel Movement 10/19/17 10/21/17 # Bowel Movements 3 - Detailed Eye Exam Comments: Va unable - pt says he is too sleepy to read the chart EOM full OU CVF unable Pupils 2-1 no APD OU IOP normal to palpation OU Anterior exam OD - normal eyelid, C/S W&Q, K clear, AC deep, pupil round, lens clear OS - normal eyelid, C/S W&Q, K clear, AC deep, pupil round, lens clear Dilated exam OD - ON s/p/f, ves normal, vit clear, retina flat OS - ON s/p/f, ves normal, vit clear, retina flat Assessment and Plan - Assessment (1) Blurred vision, bilateral Code(s): H53.8 - Other visual disturbances Status: Acute Plan: Normal dilated exam. Advised to follow up as outpatient.
[2017-10-21] MEDS: Duloxetine 60 MG DR Capsule PO SCH (20:29)
[2017-10-22] MEDS: Sod Chloride 0.9% Inj 1,000 ML IV.CONT SCH ×2 (03:54→14:44)
--- NOTE | 2017-10-22 07:50 | P.PNOP ---
Subjective Interval history: Postoperative day 3 arthroscopic I&D left knee. The patient is awake and alert and answers questions appropriately. He does complain of left knee pain. He is also complaining of back pain. Physical Exam Vital signs: Vital Signs 10/21/17 08:00 10/21/17 09:20 10/21/17 10:00 Temperature 97.8 F Pulse Rate 96 H 102 H Respiratory Rate 12 22 Blood Pressure 137/66 Pulse Oximetry 94 L 10/21/17 12:00 10/21/17 14:00 10/21/17 15:45 Temperature 99.0 F Pulse Rate 130 H 132 H Respiratory Rate 17 18 Blood Pressure Pulse Oximetry 94 L 10/21/17 16:00 10/21/17 18:00 10/21/17 20:00 Temperature 98.0 F 98.2 F Pulse Rate 108 H 88 96 H Respiratory Rate 15 13 Blood Pressure 98/57 L 108/62 Pulse Oximetry 93 L 94 L 10/21/17 21:00 10/21/17 22:00 10/22/17 00:00 Temperature 98.1 F Pulse Rate 74 74 Respiratory Rate 24 23 Blood Pressure 85/53 L Pulse Oximetry 95 10/22/17 02:00 10/22/17 04:00 10/22/17 06:00 Temperature 98.2 F Pulse Rate 74 78 83 Respiratory Rate 15 Blood Pressure 120/59 L Pulse Oximetry 94 L Intake & Output 10/21/17 10/22/17 10/22/17 18:59 06:59 18:59 Intake Total 2500 / 2500 1036 / 1036 Output Total 950 / 950 700 / 700 Balance 1550 / 1550 336 / 336 Weight 100.1 kg Intake: IV 2500 / 2500 1036 / 1036 NS Inj 1,000 ML @ 100 mls/hr IV 2400 / 2400 1000 / 1000 .CONT .Q10H [facility] Rx#:[id number] Pitressin Inj 40 UNIT In NS Inj 36 / 36 98 ML @ 0.2 UNITS/MIN 30 mls/ hr IV.CONT CONT [facility]IO Rx#: [id number] Maxipime Inj 2,000 MG In NS Inj 100 / 100 100 ML @ 200 mls/hr IV.SIG Q12H EM[facility]IO Rx#:[id number] Output: Urine 925 / 925 650 / 650 Wound Drainage 25 / 25 50 / 50 Hemovac 25 / 25 50 / 50 Other: # Voids 2 2 Date of Last Bowel Movement 10/21/17 10/21/17 # Bowel Movements 1 Narrative: The left knee dressing is dry and intact. There is swelling of the thigh and lower leg. He has mild palpable tenderness in the calf. He is a negative Homans sign. Neurologically no focal deficit. Results - Labs CBC & Chem 7: 10/20/17 03:20 10/21/17 05:18 Laboratory Results - last 24 hr 10/21/17 10/21/17 10/21/17 05:18 10:44 10:44 Sodium 143 Potassium 4.3 D Chloride 113 H Carbon Dioxide 19.1 L Anion Gap 11 BUN 56 H Creatinine 1.13 Estimated GFR 68 L Random Glucose 186 H Calcium 7.3 L* D Prot Corrected Calcium 8.7 Total Protein 4.6 L Urine Color Urine Clarity Urine pH Ur Specific [place] Urine Protein Urine Glucose (UA) Urine Ketones Urine Occult Blood Urine Nitrate Urine Bilirubin Urine Urobilinogen Ur Leukocyte Esterase Urine WBC Ur Squamous Epith Cells Urine Mucus Micro UA Comment Ur Microscopic Review Urine Culture Comments CSF Volume (1) 2.2 CSF Supernat Color (1) Clear CSF Gross Blood (1) 0 CSF Volume (2) 2.0 CSF Supernat Color (2) Clear CSF Gross Blood (2) 0 CSF Volume (3) 2.0 CSF Supernat Color (3) Clear CSF Gross Blood (3) ND CSF Volume (4) 5.0 CSF Supernat Color (4) Clear CSF Gross Blood (4) 0 CSF WBC (4) 0 CSF RBC (4) 5 H CSF Neutrophils % 0 CSF Glucose CSF Total Protein CSF N.mening B/E.coli K1 Cancelled CSF N.meningitidis A/Y Cancelled Bacterial Ag Source Cancelled H.influenzae Type B Ag Cancelled N. meningitidis C/W 135 Cancelled Group B Strep Antigen Cancelled S. pneumoniae Antigen Cancelled 10/21/17 10/21/17 10/21/17 10:44 10:44 17:00 Sodium Potassium Chloride Carbon Dioxide Anion Gap BUN Creatinine Estimated GFR Random Glucose Calcium Prot Corrected Calcium Total Protein Urine Color Yellow Urine Clarity Hazy H Urine pH 5.0 Ur Specific [place] 1.016 Urine Protein Negative Urine Glucose (UA) Negative Urine Ketones Negative Urine Occult Blood Small H Urine Nitrate Negative Urine Bilirubin Negative Urine Urobilinogen Less than 2 Ur Leukocyte Esterase Negative Urine WBC 3 Ur Squamous Epith Cells <1 Urine Mucus Few H Micro UA Comment Culture not ind Ur Microscopic Review Not Reportable Urine Culture Comments Culture not ind CSF Volume (1) CSF Supernat Color (1) CSF Gross Blood (1) CSF Volume (2) CSF Supernat Color (2) CSF Gross Blood (2) CSF Volume (3) CSF Supernat Color (3) CSF Gross Blood (3) CSF Volume (4) CSF Supernat Color (4) CSF Gross Blood (4) CSF WBC (4) CSF RBC (4) CSF Neutrophils % CSF Glucose 97 H CSF Total Protein 69.4 H CSF N.mening B/E.coli K1 CSF N.meningitidis A/Y Bacterial Ag Source H.influenzae Type B Ag N. meningitidis C/W 135 Group B Strep Antigen S. pneumoniae Antigen Microbiology 10/21/17 12:33 Cerebral Spinal Fluid - Lumbar Puncture Fungal Smear - Final No fungal elements seen 10/19/17 22:10 Wound - Knee Acid Fast Bacilli Smear - Final No acid fast bacilli seen 10/21/17 12:33 Lumbar Puncture Gram Stain - Final 10/18/17 20:20 Blood - Peripheral Aerobic Blood Culture - Preliminary No growth in 3 days 10/18/17 20:20 Blood - Peripheral Anaerobic Blood Culture - Preliminary gram positive cocci 10/18/17 20:40 Blood - Peripheral Aerobic Blood Culture - Preliminary No growth in 3 days 10/18/17 20:40 Blood - Peripheral Anaerobic Blood Culture - Preliminary gram positive cocci 10/18/17 17:35 Fluid - Synovial Fluid Gram Stain - Final 10/18/17 17:35 Fluid - Synovial Fluid Body Fluid Culture - Preliminary Viridans streptococcus grp 10/19/17 22:10 Wound - Knee Gram Stain - Final 10/19/17 22:10 Wound - Knee Wound Culture - Final Viridans streptococcus grp - Imaging Impressions Lumbar Puncture Fluoroscopy 10/21/17 00:00 CONCLUSION: 1. Uncomplicated fluoroscopically guided lumbar puncture. Lumbar Spine MRI 10/21/17 00:00 CONCLUSION: Multilevel spinal canal stenosis most prominent at L4-L5 moderate nature. 1.9 x 1.2 cm mass in the neural foramen on the right as seen on the prior examination characteristic of schwannoma or neurofibroma compromising the nerve root exit zone and lateral recess. The findings are similar to the prior exam. There are no findings of osteomyelitis Needle Biopsy/Aspiration X-Ray 10/21/17 00:00 CONCLUSION: 1. Uncomplicated needle biopsy of the T8 superior endplate, as above. - Procedures Left knee arthroscopy, irrigation & debridement, synovectomy, chondroplasty Assessment and Plan - Problem List (1) Chronic pain Code(s): G89.29 - Other chronic pain Status: Acute (2) Intractable neuropathic pain of lower extremity Code(s): G57.90 - Unspecified mononeuropathy of unspecified lower limb Status : Acute (3) Pituitary abnormality Code(s): E23.7 - Disorder of pituitary gland, unspecified Status: Acute (4) Hypertension Code(s): I10 - Essential (primary) hypertension Status: Acute (5) Septic arthritis of knee, left Code(s): M00.9 - Pyogenic arthritis, unspecified Status: Acute - Assessment and Plan POD #1 Left knee arthroscopy, irrigation & debridement, synovectomy, chondroplasty Ortho status stable D/C drain when <30cc a shift ASA, heparin currently for DVT prophylaxis. Cx of synovial fluid grew out strep. Abx per ID. Discharge planning. The possibly requiring further surgical management depending on his clinical course was discussed.
[2017-10-22] MEDS: Senna/Docusate Sodium 8.6/50 MG Tablet PO SCH ×2 (08:49→20:52)
[2017-10-22] MEDS: Morphine Sulfate 15 MG SR Tablet PO SCH ×2 (08:49→20:52)
[2017-10-22] MEDS: Heparin - SQ 10,000 UNITS/ML Vial SQ SCH ×2 (08:50→23:19)
--- NOTE | 2017-10-22 10:34 | P.PNNS ---
Subjective Interval history: 10/22: stable back pain, c/o of moderate left knee pain. Physical Exam Vital signs: Vital Signs 10/21/17 12:00 10/21/17 14:00 10/21/17 15:45 Temperature 99.0 F Pulse Rate 130 H 132 H Respiratory Rate 17 18 Blood Pressure Pulse Oximetry 94 L 10/21/17 16:00 10/21/17 18:00 10/21/17 20:00 Temperature 98.0 F 98.2 F Pulse Rate 108 H 88 96 H Respiratory Rate 15 13 Blood Pressure 98/57 L 108/62 Pulse Oximetry 93 L 94 L 10/21/17 21:00 10/21/17 22:00 10/22/17 00:00 Temperature 98.1 F Pulse Rate 74 74 Respiratory Rate 24 23 Blood Pressure 85/53 L Pulse Oximetry 95 10/22/17 02:00 10/22/17 04:00 10/22/17 06:00 Temperature 98.2 F Pulse Rate 74 78 83 Respiratory Rate 15 Blood Pressure 120/59 L Pulse Oximetry 94 L 10/22/17 08:00 10/22/17 10:00 Temperature 98.4 F Pulse Rate 79 77 Respiratory Rate 14 Blood Pressure 148/76 H Pulse Oximetry 99 Intake & Output 10/21/17 10/22/17 10/22/17 18:59 06:59 18:59 Intake Total 2500 / 2500 1136 / 1136 Output Total 950 / 950 700 / 700 Balance 1550 / 1550 436 / 436 Weight 100.1 kg Intake: IV 2500 / 2500 1136 / 1136 NS Inj 1,000 ML @ 100 mls/hr IV 2400 / 2400 1000 / 1000 .CONT .Q10H [facility] Rx#:[id number] Pitressin Inj 40 UNIT In NS Inj 36 / 36 98 ML @ 0.2 UNITS/MIN 30 mls/ hr IV.CONT CONT [facility] Rx#: [id number] Maxipime Inj 2,000 MG In NS Inj 100 / 100 100 / 100 100 ML @ 200 mls/hr IV.SIG Q12H [facility]IO Rx#:[id number] Output: Urine 925 / 925 650 / 650 Wound Drainage 25 / 25 50 / 50 Hemovac 25 / 25 50 / 50 Other: # Voids 2 2 Date of Last Bowel Movement 10/21/17 10/21/17 10/21/17 # Bowel Movements 1 Narrative: GENERAL: In bed in no acute distress. SKIN: Warm and dry. HEAD: Normocephalic. EYES: No scleral icterus. No injection or drainage. NECK: Supple, trachea midline. No JVD or lymphadenopathy. CARDIOVASCULAR: Regular rate and rhythm RESPIRATORY: No accessory muscle use. GASTROINTESTINAL: Abdomen soft, non-tender, nondistended. MUSCULOSKELETAL: No cyanosis, or edema. Left knee bandaged with drain in place. NEURO: Awake, alert, speech fluent. follows commands without difficulties. pupils equal, facial motor symmetric. moves upper extremities well. grossly 3/5 lower extremities. Assessment and Plan - Plan Impression: 52 y/o male with back pain and left knee pain chronic low back pain - has been under the care of his primary care provider Dr. Walls and his pain management Dr. Bridges and sports medicine Dr. Dickson. on chronic Morphine ER 15 mg BID and Wendel 10-325 mg Q8H. Septic knee Osteomyelitis, Discitis at T7-T8, no epidural abscess seen, no significant stenosis or cord compression, s/p CT guided needle biopsy at T8 Lumbar Spine MRI 10/21/17 00:00 CONCLUSION: Multilevel spinal canal stenosis most prominent at L4-L5 moderate nature. 1.9 x 1.2 cm mass in the neural foramen on the right as seen on the prior examination characteristic of schwannoma or neurofibroma compromising the nerve root exit zone and lateral recess. The findings are similar to the prior exam. There are no findings of osteomyelitis Thoracic Spine MRI 10/20/17 00:00 CONCLUSION: 1. Discitis with osteomyelitis involving T7-T8. No paraspinal fluid collections or vertebral body collapse at this point. 2. Small bilateral pleural effusions. Venous Doppler Study 10/17/17 20:58 CONCLUSION: 1. The study is negative for lower extremity deep venous thrombosis. Lumbar Spine X-Ray 10/17/17 21:00 CONCLUSION: Chronic changes. Pelvis X-Ray 10/17/17 21:00 CONCLUSION: No definite fracture is identified for technique. Femur X-Ray 10/18/17 01:02 CONCLUSION: 1. No fracture is identified. 2. Large knee joint effusion. 3. Recent MRI performed on 10/12/2017 documented severe edema in the proximal thigh. Tibia/Fibula X-Ray 10/18/17 01:02 CONCLUSION: Large knee joint effusion. No acute osseous abnormality is visualized. Plan: cont nonsurgical management TLSO when out of bed cont antibiotics treatment per ID orthopedic management of left knee joint effusion
[2017-10-22 11:43] LABS: Hematocrit 24.6 % (39.0-51.0); Mean Corpuscular HGB Conc 32.8 % (32.0-36.0); Mean Corpuscular Volume 85.6 fL (80.0-100.0); Mean Platelet Volume 7.9 fL (7.0-11.0); Platelet Count 214 th/mm3 (150-450); Red Blood Count 2.87 mil/mm3 (4.50-5.90); Red Cell Distribution Width 14.5 % (11.6-17.2); White Blood Count 11.8 th/mm3 (4.0-11.0)
[2017-10-22 12:01] LABS: Calcium 7.6 mg/dL (8.5-10.1); Carbon Dioxide 20.3 meq/L (21.0-32.0); Potassium 3.8 meq/L (3.5-5.1)
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
[2017-10-22] MEDS: DAPTOmycin Inj 1,000 MG in Sodium Chlor 0.9% Inj 100 ML IV.SIG SCH (14:44)
--- NOTE | 2017-10-22 16:12 | P.PNCC ---
Subjective Subjective Remarks/Hospital Course: 10/20: 52-year-old male with a medical history significant for hypertension, hyperlipidemia, chronic low back pain with lumbar degenerative disc disease with chronic opioid analgesic use who presented to the ER with severe left upper extremity pain with worsening back pain. Patient had undergone epidural injections and nerve block injections without improvement as outpatient. He is on morphine ER 15 mg twice daily and [place] 10/325 mg every 8 hourly. Patient reportedly fell at his bedside on 10/16 while using his walker with increasing pain. On evaluation in the ER on 10/18 he was noted to have a large left knee effusion on imaging studies and was evaluated by orthopedics Dr. Herrera who aspirated knee which showed elevated white cells. Patient underwent I&D with synovectomy and chondroplasty on 10/19 under general anesthesia for septic arthritis left knee by Dr. Herrera, tolerated procedure well was subsequently transferred to ICU for hypotension. He is growing strep noted on's from aspirated knee fluid. He was on IV antibiotics and has received multiple fluid boluses over the last 48 hours however remained hypotensive. He has also had an elevation of his creatinine for which nephrology has evaluated the patient. ID consult was requested today and patient has been evaluated by Dr. Freitas on the morning from ID. Patient systolic blood pressure was in the 70s and he was given 2 L normal saline bolus and I emergently placed a right IJ central line for initiation of pressors. Levo fed and vasopressin drips were ordered. Patient is awake and alert, complaining of significant pain in his back however not in any respiratory distress currently. 10/21: Resting comfortably in bed. On low-dose vasopressin. Not in any acute distress. 10/22: Resting comfortably in bed. Complaining of left knee pain over surgical site. Off pressors today. Objective Vital Signs / I&O: Vital Signs 10/21/17 16:00 10/21/17 18:00 10/21/17 20:00 Temperature 98.0 F 98.2 F Pulse Rate 108 H 88 96 H Respiratory Rate 15 13 Blood Pressure 98/57 L 108/62 Pulse Oximetry 93 L 94 L 10/21/17 21:00 10/21/17 22:00 10/22/17 00:00 Temperature 98.1 F Pulse Rate 74 74 Respiratory Rate 24 23 Blood Pressure 85/53 L Pulse Oximetry 95 10/22/17 02:00 10/22/17 04:00 10/22/17 06:00 Temperature 98.2 F Pulse Rate 74 78 83 Respiratory Rate 15 Blood Pressure 120/59 L Pulse Oximetry 94 L 10/22/17 08:00 10/22/17 10:00 10/22/17 12:00 Temperature 98.4 F 98.0 F Pulse Rate 79 77 89 Respiratory Rate 14 27 H Blood Pressure 148/76 H 118/66 Pulse Oximetry 99 94 L 10/22/17 14:00 Temperature Pulse Rate 98 H Respiratory Rate Blood Pressure Pulse Oximetry Intake & Output 10/21/17 10/22/17 10/22/17 18:59 06:59 18:59 Intake Total 2500 / 2500 1136 / 1136 1200 / 1200 Output Total 950 / 950 700 / 700 Balance 1550 / 1550 436 / 436 1200 / 1200 Weight 100.1 kg Intake: IV 2500 / 2500 1136 / 1136 1200 / 1200 NS Inj 1,000 ML @ 100 mls/hr IV 2400 / 2400 1000 / 1000 1000 / 1000 .CONT .Q10H [facility] Rx#:[id number] Pitressin Inj 40 UNIT In NS Inj 36 / 36 98 ML @ 0.2 UNITS/MIN 30 mls/ hr IV.CONT CONT EMILIO Rx#: [id number] Maxipime Inj 2,000 MG In NS Inj 100 / 100 100 / 100 100 / 100 100 ML @ 200 mls/hr IV.SIG Q12H EMILIO Rx#:[id number] Cubicin Inj 1,000 MG In NS Inj 100 / 100 100 ML @ 200 mls/hr IV.SIG Q24H EMILIO Rx#:[id number] Output: Urine 925 / 925 650 / 650 Wound Drainage 25 / 25 50 / 50 Hemovac 25 / 25 50 / 50 Other: # Voids 2 2 Date of Last Bowel Movement 10/21/17 10/21/17 10/21/17 # Bowel Movements 1 Result Diagrams: 10/22/17 11:30 10/22/17 11:30 Imaging: Venous Doppler Study 10/17/17 20:58 CONCLUSION: 1. The study is negative for lower extremity deep venous thrombosis. Lumbar Spine X-Ray 10/17/17 21:00 CONCLUSION: Chronic changes. Pelvis X-Ray 10/17/17 21:00 CONCLUSION: No definite fracture is identified for technique. Femur X-Ray 10/18/17 01:02 CONCLUSION: 1. No fracture is identified. 2. Large knee joint effusion. 3. Recent MRI performed on 10/12/2017 documented severe edema in the proximal thigh. Tibia/Fibula X-Ray 10/18/17 01:02 CONCLUSION: Large knee joint effusion. No acute osseous abnormality is visualized. Abdomen/Bladder Ultrasound 10/19/17 00:00 CONCLUSION: 1. Normal renal sonogram. Thoracic Spine MRI 10/20/17 00:00 CONCLUSION: 1. Discitis with osteomyelitis involving T7-T8. No paraspinal fluid collections or vertebral body collapse at this point. 2. Small bilateral pleural effusions. Chest X-Ray 10/20/17 15:06 CONCLUSION: 1. Right IJ central line in good position without pneumothorax. Lumbar Puncture Fluoroscopy 10/21/17 00:00 CONCLUSION: 1. Uncomplicated fluoroscopically guided lumbar puncture. Lumbar Spine MRI 10/21/17 00:00 CONCLUSION: Multilevel spinal canal stenosis most prominent at L4-L5 moderate nature. 1.9 x 1.2 cm mass in the neural foramen on the right as seen on the prior examination characteristic of schwannoma or neurofibroma compromising the nerve root exit zone and lateral recess. The findings are similar to the prior exam. There are no findings of osteomyelitis Needle Biopsy/Aspiration X-Ray 10/21/17 00:00 CONCLUSION: 1. Uncomplicated needle biopsy of the T8 superior endplate, as above. Abdomen/Pelvis CT 10/21/17 00:03 CONCLUSION: 1. No acute abnormality is identified within the abdomen or pelvis on this noncontrast examination. No abscess is visualized, as questioned. 2. Mild atherosclerotic disease. Chest CT 10/21/17 00:03 CONCLUSION: 1. Endplate irregularity and decreased disc height at T7-T8 with abnormal soft tissue in the adjacent prevertebral region on the right. Findings are consistent with a discitis and osteomyelitis documented on yesterday's thoracic spine MRI. 2. No other source for infection is identified. Objective Remarks: HEENT/Neuro: No pallor or icterus, tongue moist, TORO, Awake alert oriented 3 , nonfocal grossly, moving all 4 extremities the limited movement of left lower extremity due to recent surgery Neck: No JVD Chest/pulmonary: CTA bilaterally Cardiovascular: S1-S2 regular no gallop or murmur GI/abdomen: Soft, nontender, bowel sounds present Extremities: Warm bilaterally, no edema. Dressing around left knee surgical site with drain in place Assessment and Plan - Assessment and Plan Plan: 52-year-old male with: Septic shock Left knee septic arthritis status post arthroscopy I&D Discitis/osteomyelitis T7-8 History of prolactinoma History of hypertension Chronic pain Plan: Neuro: Continue pain medications including narcotics as needed. Neurosurgery following for T7/8 discitis/osteomyelitis. Cardiovascular: Continue IV fluids. Vasopressin titrated off. Pulmonary: Supplemental O2 as needed GI/liver: P.o. diet as tolerated Renal/: IV hydration, strict intake output, monitor and replete electrolytes, follow BUN creatinine. Nephrology following for elevated creatinine. ID: Strep viridans growing from knee aspirate. ID consult by Dr. Ruffin for adjusting antibiotics, switched to Daptomycin/ Cefepime IV. Follow-up cultures. Patient underwent biopsy/ cultures for T7-8 diskitis/ osteomyelitis and LP on 10/21. Endocrine: Watch for hyperglycemia, SSI for glycemic control if needed. Check cortisol level. Patient has a history of prolactinoma. Prophylaxis: SCDs/subcu heparin. Right IJ central line placed 10/20 Consult and transfer to hospitalist service for further medical management, critical care will be signing off at this time, please reconsult if needed.
[2017-10-22] MEDS: Duloxetine 60 MG DR Capsule PO SCH (20:51)
[2017-10-23] MEDS: Sod Chloride 0.9% Inj 1,000 ML IV.CONT SCH ×4 (01:00→22:08)
[2017-10-23] MEDS: HYDROmorphone PF Inj 2 MG/ML Vial IV.PUSH PRN ×2 (03:33→16:30)
[2017-10-23] MEDS: Heparin - SQ 10,000 UNITS/ML Vial SQ SCH ×2 (08:15→22:04)
[2017-10-23] MEDS: Senna/Docusate Sodium 8.6/50 MG Tablet PO SCH ×2 (08:16→22:06)
[2017-10-23] MEDS: Morphine Sulfate 15 MG SR Tablet PO SCH ×2 (08:16→22:05)
--- NOTE | 2017-10-23 09:07 | P.PNIM ---
Subjective Interval history: no new complaints. mostly lbp and right hip pain with mvmt left knee still hurts also. Physical Exam Vital signs: Vital Signs 10/22/17 10:00 10/22/17 12:00 10/22/17 14:00 Temperature 98.0 F Pulse Rate 77 89 98 H Respiratory Rate 27 H Blood Pressure 118/66 Pulse Oximetry 94 L 10/22/17 16:00 10/22/17 18:00 10/22/17 20:00 Temperature 98.1 F 98.1 F Pulse Rate 101 H 100 H 112 H Respiratory Rate 13 13 Blood Pressure 138/82 140/77 Pulse Oximetry 97 98 10/22/17 22:00 10/23/17 00:00 10/23/17 02:00 Temperature 97.6 F Pulse Rate 109 H 70 78 Respiratory Rate 12 Blood Pressure 91/56 L Pulse Oximetry 96 10/23/17 04:00 10/23/17 06:00 10/23/17 08:00 Temperature 98.1 F 98.2 F Pulse Rate 86 91 H 85 Respiratory Rate 15 16 Blood Pressure 134/73 156/84 H Pulse Oximetry 95 98 Intake & Output 10/22/17 10/23/17 10/23/17 18:59 06:59 18:59 Intake Total 1550 / 1550 1175 / 1175 Output Total 700 / 700 800 / 800 Balance 850 / 850 375 / 375 Weight 100.1 kg Intake: IV 1200 / 1200 1175 / 1175 NS Inj 1,000 ML @ 100 mls/hr IV 1000 / 1000 1000 / 1000 .CONT .Q10H [facility] Rx#:[id number] Pitressin Inj 40 UNIT In NS Inj 75 / 75 98 ML @ 0.2 UNITS/MIN 30 mls/ hr IV.CONT CONT [facility]IO Rx#: [id number] Maxipime Inj 2,000 MG In NS Inj 100 / 100 100 / 100 100 ML @ 200 mls/hr IV.SIG Q12H [facility] Rx#:[id number] Cubicin Inj 1,000 MG In NS Inj 100 / 100 100 ML @ 200 mls/hr IV.SIG Q24H EM[facility]IO Rx#:[id number] Oral 350 / 350 Output: Urine 700 / 700 750 / 750 Wound Drainage 50 / 50 Hemovac 50 / 50 Other: # Voids 3 Date of Last Bowel Movement 10/21/17 10/21/17 10/22/17 # Bowel Movements 1 heart reg lung cta abd s/nt ext left knee swelling right IJ cvl Results - Labs CBC & Chem 7: 10/22/17 11:30 10/22/17 11:30 Laboratory Results - last 24 hr 10/22/17 10/22/17 11:30 11:30 WBC 11.8 H RBC 2.87 L Hgb 8.0 L Hct 24.6 L MCV 85.6 MCH 28.0 MCHC 32.8 RDW 14.5 Plt Count 214 D MPV 7.9 Sodium 144 Potassium 3.8 Chloride 111 H Carbon Dioxide 20.3 L Anion Gap 13 BUN 51 H Creatinine 1.12 Estimated GFR 68 L Random Glucose 206 H Calcium 7.6 L Microbiology 10/21/17 12:33 Lumbar Puncture Gram Stain - Final 10/21/17 12:33 Lumbar Puncture CSF Culture - Preliminary No growth in 48 hours 10/21/17 10:44 Tissue - Other Acid Fast Bacilli Smear - Final No acid fast bacilli seen 10/21/17 12:33 Cerebral Spinal Fluid - Lumbar Puncture Acid Fast Bacilli Smear - Final No acid fast bacilli seen 10/21/17 10:44 Fluid - Other Gram Stain - Final 10/21/17 10:44 Fluid - Other Body Fluid Culture - Preliminary No growth in 24 hours 10/21/17 14:13 Blood - Peripheral Aerobic Blood Culture - Preliminary No growth in 1 day 10/21/17 14:13 Blood - Peripheral Anaerobic Blood Culture - Preliminary No growth in 1 day 10/21/17 14:25 Blood - Peripheral Aerobic Blood Culture - Preliminary No growth in 1 day 10/21/17 14:25 Blood - Peripheral Anaerobic Blood Culture - Preliminary No growth in 1 day 10/18/17 20:20 Blood - Peripheral Aerobic Blood Culture - Preliminary No growth in 4 days 10/18/17 20:20 Blood - Peripheral Anaerobic Blood Culture - Final Viridans streptococcus grp 10/18/17 20:40 Blood - Peripheral Aerobic Blood Culture - Preliminary No growth in 4 days 10/18/17 20:40 Blood - Peripheral Anaerobic Blood Culture - Preliminary Viridans streptococcus grp 10/21/17 10:44 Tissue - Other Fungal Smear - Final No fungal elements seen - Procedures Left knee arthroscopy, irrigation & debridement, synovectomy, chondroplasty Assessment and Plan - Assessment (1) Effusion of left knee Code(s): M25.462 - Effusion, left knee Status: Acute Plan: This is a 52-year-old male patient with past medical history which includes hypertension, hyperlipidemia, anxiety/depression, BPH, hyperprolactinemia and chronic lower back pain, lumbar degenerative disc disease with long-term current use of opioid analgesic. Patient presents to the emergency department by EMS transport from home due to complaint of severe left lower extremity pain. Patient has been under the care of his primary care provider Dr. Walls and his pain management Dr. Bridges and sports medicine Dr. Dickson. Patient is undergone epidural injections and nerve block injections without symptom relief. Patient is on chronic Morphine ER 15 mg BID and [place] 10-325 mg Q8H. Patient fell at his bedside 10/16/17 walking with his walker to go the bathroom and since then has had increasing pain. Chronic lower back pain, Now with decreased mobility Lumbar degenerative disc disease with long-term current use of opioid analgesic Left knee effusion Venous Doppler Study 10/17/17 The study is negative for lower extremity deep venous thrombosis. Lumbar Spine X-Ray 10/17/17 Chronic changes. Pelvis X-Ray 10/17/17 No definite fracture is identified for technique. Femur X-Ray 10/18/17 1. No fracture is identified. 2. Large knee joint effusion. 3. Recent MRI performed on 10/12/2017 documented severe edema in the proximal thigh. Tibia/Fibula X-Ray 10/18/17 Large knee joint effusion. No acute osseous abnormality is visualized. Continue patient's home pain management regimen with morphine ER15 mg twice daily and [place] 10/325 every 8 hours as needed for breakthrough pain Outpatient lumbar MRI reviewed by Dr. Dolan -Arthrocentesis_ 10/18 60cc "chocolate milk" color fluid. strep viridans - 10/19/17 ...Left knee arthroscopy, irrigation & debridement, synovectomy, chondroplasty...surgical cx. strep viridans - 10/18 blood cx's strep viridans. -MRI thoracic spine- 1. Discitis with osteomyelitis involving T7-T8. No paraspinal fluid collections or vertebral body collapse at this point. 2. Small bilateral pleural effusions. - 10/21 CT guided needle bx T8 -CONCLUSION: 1. Uncomplicated needle biopsy of the T8 superior endplate ....cx's pending from needle bx. dapto and cefepime per ID repeat cx's pending. pain control PT consultation off pressors. if remains stable today..tranfer to med/surg. dvt prophylaxis. T7 and T8 discitis and osteo reviewed images with Dr Dolan. no surgery. spoke with ID. consulted for CT guided bx disc for cx/path. see above ALEXANDREA related to sepsis and hypotension resolved currently. Hypertension hx currently hypotensive, patient asymptomatic Hold patient's home amlodipine 10 mg p.o. daily, losartan 50 mg, triamterene hydrochlorothiazide daily Pt had CVL IJ place 10/20 for hypotension and pressors. Hyperlipidemia Continue patient's home atorvastatin Anxiety/depression Continue patient's home fluoxetine 60 mg p.o. nightly BPH Continue patient's home tamsulosin Hyperprolactinemia Continue patient's home cabergoline weekly DVT prophylaxis with teds and SCDs
--- NOTE | 2017-10-23 09:51 | P.PNNS ---
Subjective Interval history: Patient with stable back pain. denies any neurological symptoms Physical Exam Vital signs: Vital Signs 10/22/17 10:00 10/22/17 12:00 10/22/17 14:00 Temperature 98.0 F Pulse Rate 77 89 98 H Respiratory Rate 27 H Blood Pressure 118/66 Pulse Oximetry 94 L 10/22/17 16:00 10/22/17 18:00 10/22/17 20:00 Temperature 98.1 F 98.1 F Pulse Rate 101 H 100 H 112 H Respiratory Rate 13 13 Blood Pressure 138/82 140/77 Pulse Oximetry 97 98 10/22/17 22:00 10/23/17 00:00 10/23/17 02:00 Temperature 97.6 F Pulse Rate 109 H 70 78 Respiratory Rate 12 Blood Pressure 91/56 L Pulse Oximetry 96 10/23/17 04:00 10/23/17 06:00 10/23/17 08:00 Temperature 98.1 F 98.2 F Pulse Rate 86 91 H 85 Respiratory Rate 15 16 Blood Pressure 134/73 156/84 H Pulse Oximetry 95 98 Intake & Output 10/22/17 10/23/17 10/23/17 18:59 06:59 18:59 Intake Total 1550 / 1550 1175 / 1175 Output Total 700 / 700 800 / 800 Balance 850 / 850 375 / 375 Weight 100.1 kg Intake: IV 1200 / 1200 1175 / 1175 NS Inj 1,000 ML @ 100 mls/hr IV 1000 / 1000 1000 / 1000 .CONT .Q10H [facility] Rx#:[id number] Pitressin Inj 40 UNIT In NS Inj 75 / 75 98 ML @ 0.2 UNITS/MIN 30 mls/ hr IV.CONT CONT EMILIO Rx#: [id number] Maxipime Inj 2,000 MG In NS Inj 100 / 100 100 / 100 100 ML @ 200 mls/hr IV.SIG Q12H [facility] Rx#:[id number] Cubicin Inj 1,000 MG In NS Inj 100 / 100 100 ML @ 200 mls/hr IV.SIG Q24H [facility] Rx#:[id number] Oral 350 / 350 Output: Urine 700 / 700 750 / 750 Wound Drainage 50 / 50 Hemovac 50 / 50 Other: # Voids 3 Date of Last Bowel Movement 10/21/17 10/21/17 10/22/17 # Bowel Movements 1 Narrative: E4 AOx3 FC x4 5/5 strength in the lower extremities, except for gives way to pain in the left LE sensation intact denies any bb incontinence Assessment and Plan - Plan 52 yo with T7-8 osteomyelitis -recommend TLSO brace when OOB/weight bearing -no acute surgical intervention at this time, continue with medical therapy of infection
[2017-10-23] MEDS: DAPTOmycin Inj 1,000 MG in Sodium Chlor 0.9% Inj 100 ML IV.SIG SCH (16:33)
[2017-10-23] MEDS ORDERED: Cathflo Activase Inj 2 MG Vial I-CATHETER ONE (16:45)
--- NOTE | 2017-10-23 21:54 | P.PNOP ---
Subjective Interval history: The patient does continue to complain pain around the knee. He says it is about the same as it was before the surgery. Physical Exam Vital signs: Vital Signs 10/22/17 22:00 10/23/17 00:00 10/23/17 02:00 Temperature 97.6 F Pulse Rate 109 H 70 78 Respiratory Rate 12 Blood Pressure 91/56 L Pulse Oximetry 96 10/23/17 04:00 10/23/17 06:00 10/23/17 08:00 Temperature 98.1 F 98.2 F Pulse Rate 86 91 H 85 Respiratory Rate 15 16 Blood Pressure 134/73 156/84 H Pulse Oximetry 95 98 10/23/17 08:46 10/23/17 10:00 10/23/17 10:43 Temperature Pulse Rate 70 Respiratory Rate 14 14 Blood Pressure Pulse Oximetry 10/23/17 12:00 10/23/17 13:34 10/23/17 14:00 Temperature 98.2 F Pulse Rate 95 H 96 H Respiratory Rate 18 26 H Blood Pressure 136/77 Pulse Oximetry 98 10/23/17 15:02 Temperature 97.7 F Pulse Rate 110 H Respiratory Rate 18 Blood Pressure 127/69 Pulse Oximetry 97 Intake & Output 10/23/17 10/23/17 10/24/17 06:59 18:59 06:59 Intake Total 1175 / 1175 700 / 700 Output Total 800 / 800 300 / 300 Balance 375 / 375 400 / 400 Weight 100.1 kg Intake: IV 1175 / 1175 700 / 700 NS Inj 1,000 ML @ 100 mls/hr IV 1000 / 1000 600 / 600 .CONT .Q10H [facility] Rx#:[id number] Pitressin Inj 40 UNIT In NS Inj 75 / 75 98 ML @ 0.2 UNITS/MIN 30 mls/ hr IV.CONT CONT [facility]IO Rx#: [id number] Maxipime Inj 2,000 MG In NS Inj 100 / 100 100 / 100 100 ML @ 200 mls/hr IV.SIG Q12H [facility] Rx#:[id number] Output: Urine 750 / 750 300 / 300 Wound Drainage 50 / 50 Hemovac 50 / 50 Other: Date of Last Bowel Movement 10/21/17 10/22/17 # Bowel Movements 1 Narrative: The left knee arthroscopic portals are healing well with no signs of infection. There is no erythema. There is no drainage. He does not have a significant effusion at all. His range of motion is limited. He is tender however to light touch. There is no induration of the skin and there is no fluctuance. Results - Labs CBC & Chem 7: 10/22/17 11:30 10/22/17 11:30 Laboratory Results - last 24 hr 10/21/17 10/21/17 10:44 10:44 CSF VDRL Non-reactive CSF Cryptococcus Ag Not detected Microbiology 10/21/17 14:13 Blood - Peripheral Aerobic Blood Culture - Preliminary No growth in 2 days 10/21/17 14:13 Blood - Peripheral Anaerobic Blood Culture - Preliminary No growth in 2 days 10/21/17 14:25 Blood - Peripheral Aerobic Blood Culture - Preliminary No growth in 2 days 10/21/17 14:25 Blood - Peripheral Anaerobic Blood Culture - Preliminary No growth in 2 days 10/18/17 20:20 Blood - Peripheral Aerobic Blood Culture - Final No growth in 5 days 10/18/17 20:20 Blood - Peripheral Anaerobic Blood Culture - Final Viridans streptococcus [facility] 10/18/17 20:40 Blood - Peripheral Aerobic Blood Culture - Final No growth in 5 days 10/18/17 20:40 Blood - Peripheral Anaerobic Blood Culture - Preliminary Viridans streptococcus [facility] 10/21/17 10:44 Fluid - Other Gram Stain - Final 10/21/17 10:44 Fluid - Other Body Fluid Culture - Final Viridans streptococcus [facility] 10/21/17 12:33 Lumbar Puncture Gram Stain - Final 10/21/17 12:33 Lumbar Puncture CSF Culture - Preliminary No growth in 48 hours - Procedures Left knee arthroscopy, irrigation & debridement, synovectomy, chondroplasty Assessment and Plan - Problem List (1) Chronic pain Code(s): G89.29 - Other chronic pain Status: Acute (2) Intractable neuropathic pain of lower extremity Code(s): G57.90 - Unspecified mononeuropathy of unspecified lower limb Status : Acute (3) Pituitary abnormality Code(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 ASA, heparin currently for DVT prophylaxis. Cx of synovial fluid grew out strep viridans Abx per ID. Discharge planning. The possibly requiring further surgical management.
[2017-10-23] MEDS: Duloxetine 60 MG DR Capsule PO SCH (22:20)
[2017-10-24] MEDS: Sod Chloride 0.9% Inj 1,000 ML IV.CONT SCH ×4 (01:50→15:11)
[2017-10-24] MEDS: HYDROmorphone PF Inj 2 MG/ML Vial IV.PUSH PRN ×3 (05:31→16:13)
[2017-10-24 05:51] LABS: Anion Gap 8 meq/L (5-15); Blood Urea Nitrogen 28 mg/dL (7-18); Calcium 7.7 mg/dL (8.5-10.1); Carbon Dioxide 21.5 meq/L (21.0-32.0); Chloride 116 meq/L (98-107); Glomerular Filtration Rate Greater Than 89 mL/min (>89); Glucose,Random 128 mg/dL (74-106); Potassium 3.8 meq/L (3.5-5.1); Sodium 145 meq/L (136-145)
[2017-10-24] MEDS: Morphine Sulfate 15 MG SR Tablet PO SCH ×2 (08:11→21:20)
[2017-10-24] MEDS: Senna/Docusate Sodium 8.6/50 MG Tablet PO SCH ×2 (08:12→21:19)
[2017-10-24] MEDS: Heparin - SQ 10,000 UNITS/ML Vial SQ SCH ×2 (08:12→19:46)
--- NOTE | 2017-10-24 09:25 | P.PNIM ---
Subjective Interval history: doing better. transferred out of ICU> wants to get oob today. Physical Exam Vital signs: Vital Signs 10/23/17 10:00 10/23/17 10:43 10/23/17 12:00 Temperature 98.2 F Pulse Rate 70 95 H Respiratory Rate 14 18 Blood Pressure 136/77 Pulse Oximetry 98 10/23/17 13:34 10/23/17 14:00 10/23/17 15:02 Temperature 97.7 F Pulse Rate 96 H 110 H Respiratory Rate 26 H 18 Blood Pressure 127/69 Pulse Oximetry 97 10/23/17 20:00 10/24/17 00:00 10/24/17 04:00 Temperature 97.8 F 98.2 F 97.7 F Pulse Rate 117 H 98 H 95 H Respiratory Rate 18 18 18 Blood Pressure 141/71 H 109/32 L 140/72 Pulse Oximetry 97 95 96 10/24/17 08:00 Temperature 97.9 F Pulse Rate 96 H Respiratory Rate 18 Blood Pressure 155/80 H Pulse Oximetry 96 Intake & Output 10/23/17 10/24/17 10/24/17 18:59 06:59 18:59 Intake Total 700 / 700 1800 / 1800 Output Total 300 / 300 800 / 800 Balance 400 / 400 1000 / 1000 Intake: IV 700 / 700 1800 / 1800 NS Inj 1,000 ML @ 100 mls/hr IV 600 / 600 1600 / 1600 .CONT .Q10H [facility] Rx#:[id number] Maxipime Inj 2,000 MG In NS Inj 100 / 100 100 / 100 100 ML @ 200 mls/hr IV.SIG Q12H [facility]IO Rx#:[id number] Cubicin Inj 1,000 MG In NS Inj 100 / 100 100 ML @ 200 mls/hr IV.SIG Q24H [facility]IO Rx#:[id number] Output: Urine 300 / 300 800 / 800 Other: Date of Last Bowel Movement 10/22/17 10/22/17 heart reg lung cta abd s/nt ext left knee swelling IJ cvl Results - Labs CBC & Chem 7: 10/22/17 11:30 10/24/17 04:48 Laboratory Results - last 24 hr 10/21/17 10/21/17 10/24/17 10:44 10:44 04:48 Sodium 145 Potassium 3.8 Chloride 116 H Carbon Dioxide 21.5 Anion Gap 8 BUN 28 H Creatinine 0.80 Estimated GFR Greater than 89 Random Glucose 128 H Calcium 7.7 L CSF VDRL Non-reactive CSF Cryptococcus Ag Not detected Microbiology 10/21/17 14:13 Blood - Peripheral Aerobic Blood Culture - Preliminary No growth in 2 days 10/21/17 14:13 Blood - Peripheral Anaerobic Blood Culture - Preliminary No growth in 2 days 10/21/17 14:25 Blood - Peripheral Aerobic Blood Culture - Preliminary No growth in 2 days 10/21/17 14:25 Blood - Peripheral Anaerobic Blood Culture - Preliminary No growth in 2 days 10/18/17 20:20 Blood - Peripheral Aerobic Blood Culture - Final No growth in 5 days 10/18/17 20:20 Blood - Peripheral Anaerobic Blood Culture - Final Viridans streptococcus [facility] 10/18/17 20:40 Blood - Peripheral Aerobic Blood Culture - Final No growth in 5 days 10/18/17 20:40 Blood - Peripheral Anaerobic Blood Culture - Preliminary Viridans streptococcus [facility] 10/21/17 10:44 Fluid - Other Gram Stain - Final 10/21/17 10:44 Fluid - Other Body Fluid Culture - Final Viridans streptococcus [facility] 10/21/17 12:33 Lumbar Puncture Gram Stain - Final 10/21/17 12:33 Lumbar Puncture CSF Culture - Preliminary No growth in 48 hours - Procedures Left knee arthroscopy, irrigation & debridement, synovectomy, chondroplasty Assessment and Plan - Assessment (1) Effusion of left knee Code(s): M25.462 - Effusion, left knee Status: Acute Plan: This is a 52-year-old male patient with past medical history which includes hypertension, hyperlipidemia, anxiety/depression, BPH, hyperprolactinemia and chronic lower back pain, lumbar degenerative disc disease with long-term current use of opioid analgesic. Patient presents to the emergency department by EMS transport from home due to complaint of severe left lower extremity pain. Patient has been under the care of his primary care provider Dr. Walls and his pain management Dr. Bridges and sports medicine Dr. Dickson. Patient is undergone epidural injections and nerve block injections without symptom relief. Patient is on chronic Morphine ER 15 mg BID and [place] 10-325 mg Q8H. Patient fell at his bedside 10/16/17 walking with his walker to go the bathroom and since then has had increasing pain. Chronic lower back pain, Now with decreased mobility Lumbar degenerative disc disease with long-term current use of opioid analgesic Left knee effusion Venous Doppler Study 10/17/17 The study is negative for lower extremity deep venous thrombosis. Lumbar Spine X-Ray 10/17/17 Chronic changes. Pelvis X-Ray 10/17/17 No definite fracture is identified for technique. Femur X-Ray 10/18/17 1. No fracture is identified. 2. Large knee joint effusion. 3. Recent MRI performed on 10/12/2017 documented severe edema in the proximal thigh. Tibia/Fibula X-Ray 10/18/17 Large knee joint effusion. No acute osseous abnormality is visualized. Continue patient's home pain management regimen with morphine ER15 mg twice daily and [place] 10/325 every 8 hours as needed for breakthrough pain Outpatient lumbar MRI reviewed by Dr. Dolan -Arthrocentesis_ 10/18 60cc "chocolate milk" color fluid. strep viridans - 10/19/17 ...Left knee arthroscopy, irrigation & debridement, synovectomy, chondroplasty...surgical cx. strep viridans - 10/18 blood cx's strep viridans. -MRI thoracic spine- 1. Discitis with osteomyelitis involving T7-T8. No paraspinal fluid collections or vertebral body collapse at this point. 2. Small bilateral pleural effusions. - 10/21 CT guided needle bx T8 -CONCLUSION: 1. Uncomplicated needle biopsy of the T8 superior endplate ....cx's pending from needle bx. dapto and cefepime per ID repeat cx's ngtd pain control PT consultation for oob daily. off pressors. transferred from ICU on 10/23 dvt prophylaxis. T7 and T8 discitis and osteo reviewed images with Dr Dolan. no surgery. spoke with ID. consulted for CT guided bx disc for cx/path. see above ALEXANDREA related to sepsis and hypotension resolved currently. Hypertension hx currently hypotensive, patient asymptomatic Hold patient's home amlodipine 10 mg p.o. daily, losartan 50 mg, triamterene hydrochlorothiazide daily Pt had CVL IJ place 10/20 for hypotension and pressors. Hyperlipidemia Continue patient's home atorvastatin Anxiety/depression Continue patient's home fluoxetine 60 mg p.o. nightly BPH Continue patient's home tamsulosin Hyperprolactinemia Continue patient's home cabergoline weekly DVT prophylaxis with teds and SCDs
[2017-10-24 10:42] LABS: Hemoglobin A1c 7.7 % (4.3-6.0)
[2017-10-24] MEDS: DAPTOmycin Inj 1,000 MG in Sodium Chlor 0.9% Inj 100 ML IV.SIG SCH (15:12)
[2017-10-24] MEDS: Duloxetine 60 MG DR Capsule PO SCH (21:18)
[2017-10-25] MEDS: Sod Chloride 0.9% Inj 1,000 ML IV.CONT SCH ×4 (00:12→23:23)
[2017-10-25] MEDS: HYDROmorphone PF Inj 2 MG/ML Vial IV.PUSH PRN ×2 (06:36→15:35)
[2017-10-25] MEDS: Heparin - SQ 10,000 UNITS/ML Vial SQ SCH ×3 (09:05→22:05)
[2017-10-25] MEDS: Morphine Sulfate 15 MG SR Tablet PO SCH ×2 (09:06→21:53)
[2017-10-25] MEDS: Senna/Docusate Sodium 8.6/50 MG Tablet PO SCH ×2 (09:06→21:51)
--- NOTE | 2017-10-25 14:04 | P.PNIM ---
Subjective Interval history: Pt feeling well today He is tolerating oral intake Pt ambulated with PT this morning He reports that his is starting chemo this week for breast cancer and pt would most likely benefit from a stay at SNF after this hospitalization Physical Exam Vital signs: Vital Signs 10/24/17 16:00 10/24/17 18:17 10/24/17 20:00 Temperature 97.5 F L 98.0 F Pulse Rate 88 84 82 Respiratory Rate 16 18 Blood Pressure 156/84 H 157/80 H Pulse Oximetry 97 97 10/25/17 00:00 10/25/17 04:00 10/25/17 08:00 Temperature 98.0 F 98.1 F 97.2 F L Pulse Rate 87 92 H 82 Respiratory Rate 18 18 20 Blood Pressure 119/74 151/79 H 156/80 H Pulse Oximetry 95 96 96 10/25/17 10:00 10/25/17 12:00 Temperature 97.7 F Pulse Rate 80 84 Respiratory Rate 20 Blood Pressure 137/75 Pulse Oximetry 95 Intake & Output 10/24/17 10/25/17 10/25/17 18:59 06:59 18:59 Intake Total 800 / 800 1300 / 1300 600 / 600 Output Total 975 / 975 4 / 4 Balance -175 / -175 1300 / 1300 596 / 596 Weight 100.8 kg Intake: IV 800 / 800 1300 / 1300 600 / 600 NS Inj 1,000 ML @ 100 mls/hr IV 800 / 800 1000 / 1000 600 / 600 .CONT .Q10H [facility] Rx#:[id number] Maxipime Inj 2,000 MG In NS Inj 200 / 200 100 ML @ 200 mls/hr IV.SIG Q12H [facility] Rx#:[id number] Cubicin Inj 1,000 MG In NS Inj 100 / 100 100 ML @ 200 mls/hr IV.SIG Q24H [facility] Rx#:[id number] Output: Urine 975 / 975 2 / 2 Stool 2 / 2 Other: # Voids 2 Date of Last Bowel Movement 10/25/17 10/25/17 # Bowel Movements 3 Narrative: General: NAD, AAOx3 ENT: Broken molar in the upper right maxilla Chest: CTA Cardiac: Regular Abd: +BS, soft ND/NT Ext: Left knee surgical incisions are healing well with no signs of infection, tender however to light touch. There is no induration of the skin and there is no fluctuance. Results - Labs CBC & Chem 7: 11/04/17 05:00 11/04/17 05:00 Microbiology 10/18/17 17:35 Other - Final 10/21/17 14:13 Blood - Peripheral Aerobic Blood Culture - Preliminary No growth in 4 days 10/21/17 14:13 Blood - Peripheral Anaerobic Blood Culture - Preliminary No growth in 4 days 10/21/17 14:25 Blood - Peripheral Aerobic Blood Culture - Preliminary No growth in 4 days 10/21/17 14:25 Blood - Peripheral Anaerobic Blood Culture - Preliminary No growth in 4 days 10/18/17 20:40 Blood - Peripheral Aerobic Blood Culture - Final No growth in 5 days 10/18/17 20:40 Blood - Peripheral Anaerobic Blood Culture - Final Viridans streptococcus grp - Imaging Venous Doppler Study 10/17/17 20:58 CONCLUSION: 1. The study is negative for lower extremity deep venous thrombosis. Lumbar Spine X-Ray 10/17/17 21:00 CONCLUSION: Chronic changes. Pelvis X-Ray 10/17/17 21:00 CONCLUSION: No definite fracture is identified for technique. Femur X-Ray 10/18/17 01:02 CONCLUSION: 1. No fracture is identified. 2. Large knee joint effusion. 3. Recent MRI performed on 10/12/2017 documented severe edema in the proximal thigh. Tibia/Fibula X-Ray 10/18/17 01:02 CONCLUSION: Large knee joint effusion. No acute osseous abnormality is visualized. Abdomen/Bladder Ultrasound 10/19/17 00:00 CONCLUSION: 1. Normal renal sonogram. Thoracic Spine MRI 10/20/17 00:00 CONCLUSION: 1. Discitis with osteomyelitis involving T7-T8. No paraspinal fluid collections or vertebral body collapse at this point. 2. Small bilateral pleural effusions. Chest X-Ray 10/20/17 15:06 CONCLUSION: 1. Right IJ central line in good position without pneumothorax. Lumbar Puncture Fluoroscopy 10/21/17 00:00 CONCLUSION: 1. Uncomplicated fluoroscopically guided lumbar puncture. Lumbar Spine MRI 10/21/17 00:00 CONCLUSION: Multilevel spinal canal stenosis most prominent at L4-L5 moderate nature. 1.9 x 1.2 cm mass in the neural foramen on the right as seen on the prior examination characteristic of schwannoma or neurofibroma compromising the nerve root exit zone and lateral recess. The findings are similar to the prior exam. There are no findings of osteomyelitis Needle Biopsy/Aspiration X-Ray 10/21/17 00:00 CONCLUSION: 1. Uncomplicated needle biopsy of the T8 superior endplate, as above. Abdomen/Pelvis CT 10/21/17 00:03 CONCLUSION: 1. No acute abnormality is identified within the abdomen or pelvis on this noncontrast examination. No abscess is visualized, as questioned. 2. Mild atherosclerotic disease. Chest CT 10/21/17 00:03 CONCLUSION: 1. Endplate irregularity and decreased disc height at T7-T8 with abnormal soft tissue in the adjacent prevertebral region on the right. Findings are consistent with a discitis and osteomyelitis documented on yesterday's thoracic spine MRI. 2. No other source for infection is identified. - Procedures Left knee arthroscopy, irrigation & debridement, synovectomy, chondroplasty Assessment and Plan - Assessment (1) Effusion of left knee Code(s): M25.462 - Effusion, left knee Status: Acute Plan: This is a 52-year-old male patient with past medical history which includes hypertension, hyperlipidemia, anxiety/depression, BPH, hyperprolactinemia and chronic lower back pain, lumbar degenerative disc disease with long-term current use of opioid analgesic. Patient presents to the emergency department by EMS transport from home due to complaint of severe left lower extremity pain. Patient has been under the care of his primary care provider Dr. Walls and his pain management Dr. Bridges and sports medicine Dr. Dickson. Patient is undergone epidural injections and nerve block injections without symptom relief. Patient is on chronic Morphine ER 15 mg BID and [place] 10-325 mg Q8H. Patient fell at his bedside 10/16/17 walking with his walker to go the bathroom and since then has had increasing pain. Chronic lower back pain, Now with decreased mobility Lumbar degenerative disc disease with long-term current use of opioid analgesic Left knee effusion T7 and T8 discitis and osteo Strep Viridans bacteremia - Venous Doppler Study 10/17/17 The study is negative for lower extremity deep venous thrombosis. - Lumbar Spine X-Ray 10/17/17 Chronic changes. - Pelvis X-Ray 10/17/17 No definite fracture is identified for technique. - Femur X-Ray 10/18/17 1. No fracture is identified. 2. Large knee joint effusion. 3. Recent MRI performed on 10/12/2017 documented severe edema in the proximal thigh. - Tibia/Fibula X-Ray 10/18/17 Large knee joint effusion. No acute osseous abnormality is visualized. - Outpatient lumbar MRI reviewed by Dr. Dolan - Pt underwent arthrocentesis on 10/18 with removal of 60cc "chocolate milk" color fluid. Culture grew out Strep viridans - On 10/19/17 pt underwent Left knee arthroscopy, irrigation & debridement, synovectomy, chondroplasty, surgical cx. grew out strep viridans - Blood cultures drawn on 10/18 with 2/4 growing out strep viridans. - MRI thoracic spine (10/20/17): 1. Discitis with osteomyelitis involving T7-T8. No paraspinal fluid collections or vertebral body collapse at this point. 2. Small bilateral pleural effusions. - MRI Lumbar spine (10/21/17): - Multilevel spinal canal stenosis most prominent at L4-L5 moderate nature. - 1.9 x 1.2 cm mass in the neural foramen on the right as seen on the prior examination characteristic of schwannoma or neurofibroma compromising the nerve root exit zone and lateral recess. The findings are similar to the prior exam. - There are no findings of osteomyelitis - On 10/[address] guided needle bx T8 --> Uncomplicated needle biopsy of the T8 superior endplate....cx's pending from needle bx. - Pt has been on dapto and cefepime per ID - Repeat cx's (10/21/17) with NGTD - Pain control - PT consultation for oob daily. - Pt was transferred from ICU on 10/23 - The source for the bacteremia is unclear. Pt with a noted broken molar which does not appear infected. Discussed the case with Dr. Jones and recommended to have a GI evaluation - Consult GI ALEXANDREA - related to sepsis and hypotension - resolved currently. Hypertension hx Hypotensive, patient asymptomatic - Hold patient's home amlodipine 10 mg p.o. daily, losartan 50 mg, triamterene hydrochlorothiazide daily - Pt had CVL IJ place 10/20 for hypotension and pressors. - Pt is off pressors and BP is stable. Hyperlipidemia - Continue patient's home atorvastatin Anxiety/depression - Continue patient's home fluoxetine 60 mg p.o. nightly BPH - Continue patient's home tamsulosin Hyperprolactinemia - Continue patient's home cabergoline weekly DVT prophylaxis with teds and SCDs - Attending Attestation Patient examined. Assessment and plan formulated with Johanna Leong PA-C. I agree with the above.
[2017-10-25] MEDS: DAPTOmycin Inj 1,000 MG in Sodium Chlor 0.9% Inj 100 ML IV.SIG SCH (15:34)
[2017-10-25] MEDS ORDERED: PEG 3350/E-Lyte Soln 4000 ML Bottle PO ONE (18:00)
--- NOTE | 2017-10-25 18:08 | P.CONGI ---
History of Present Illness Consult date: 10/25/17 Consult reason: Strep Viridans Bacteremia, Eval for possible EGD/Colonoscopy Chief complaint: intractable pain, LLE knee effusion, chronic History of Present Illness: Pt is a 52 yo male patient with history of hypertension, high cholesterol and chronic pain. Patient reports that he presented to the ER on 10/18/17 with complaints of severe lower back pain and weakness with the inability to bear wt and ambulate. Pt reported worsening lower back and leg pain over a 2-3 week period . He states he received epidural injections for pain x 2 with no relief of symptoms.He reports tripping and falling while walking his dog 2 weeks prior to admission. Onset of left knee pain and swelling at that time. Left knee fluid aspiration done 10/18/17 reveal final culture result --> Viridans Streptococcus grp. . Anaerobic blood culture result done 10/18/17 revealed--> Viridans Streptococcus. GI has been consulted to evaluate need for EGD/ Colonoscopy in light of the presence of bacteremia. Pt currently receiving abx , Cefepime and Daptomycin IV.Patient denies fever, chills, diarrhea or constipation. Pt states stools are soft and brown without noted blood. States he has 2 bms daily without any noted change in bowel habits. Pt denies any known family history of gastrointestinal cancers. Pt endorses having EGD and Colonoscopy 2 years ago due to complaints of heartburn as well as hx of colon polyps. Pt states he has had a total of 3 colonoscopies where polyps were found. 2 years ago patient reports 2 polyps were discovered and he was told they were both benign. Pt denies difficulty or painful swallowing, he states that he has noted his voice to be " raspy" over the last few months. Denies heartburn. <Iona Key - Last Filed: 10/25/17 18:10> Review of Systems Constitutional: Denies chills, Denies fever(s), Denies night sweats Cardiovascular: Denies chest pain Respiratory: Denies shortness of breath Gastrointestinal: Denies abdominal pain, Denies black, tarry stools, Denies bright, red blood in stools, Denies change in bowel habits, Denies change in stools, Denies constipation, Denies difficulty swallowing, Denies heartburn, Denies pain with swallowing, Denies vomiting <Iona Key - Last Filed: 10/25/17 18:10> PMFSH - History History Provided By: Patient - Medical History Medical History: Medical History (Last Reviewed 10/24/17 @ 07:34 by Russ Neal, PT) Pituitary abnormality (Acute) Hypertension (Acute) High cholesterol (Acute) Chronic pain (Acute) - Surgical History Surgical History: Surgical History (Last Reviewed 10/24/17 @ 07:34 by Russ Neal, PT) Hx of tonsillectomy (Acute) H/O laminectomy (Acute) - Tobacco History Second Hand Smoke Exposure: Yes Tobacco Use In Past 30 Days: Yes Smoking Status: Current every day smoker Tobacco Type: Cigarettes - Alcohol History How Often Do You Have a Drink Containing Alcohol: Monthly or less - Substance Use History Substance History: No History of Abuse - Travel History [facility] Within the Last 8 Weeks: No Recent Travel Out of the Country Within the Last 8 Weeks: No - Immunization History Tetanus Immunization: >5 Years Hx Influenza Vaccine This Season: Yes <Iona Key - Last Filed: 10/25/17 18:10> - Medical History Medical History: Medical History (Last Reviewed 10/24/17 @ 07:34 by Russ Neal, PAULINE) Pituitary abnormality (Acute) Hypertension (Acute) High cholesterol (Acute) Chronic pain (Acute) - Surgical History Surgical History: Surgical History (Last Reviewed 10/24/17 @ 07:34 by Russ Neal, PAULINE) Hx of tonsillectomy (Acute) H/O laminectomy (Acute) <Blu Hernandez - Last Filed: 10/25/17 21:47> Medications and Allergies Active Medications: Active Medications Hydrocodone Bitart/Acetaminophen ([place] 10/325) 1 tab PO Q4H PRN PRN Reason: Pain 1-10 Last Admin: 10/25/17 12:38 Dose: 1 tab Al Hydroxide/Mg Hydroxide (Milk Of Magnesia Liq) 30 ml PO Q12H PRN PRN Reason: Mild Constipation Aspirin (Aspirin Chew) 81 mg PO BID [facility] Last Admin: 10/25/17 09:06 Dose: 81 mg Atorvastatin Calcium (Lipitor) 40 mg PO HS [facility] Last Admin: 10/24/17 21:18 Dose: 40 mg Duloxetine HCl (Cymbalta) 60 mg PO HS [facility] Last Admin: 10/24/17 21:18 Dose: 60 mg Heparin Sodium (Porcine) (Heparin Inj) 5,000 units SQ Q12H [facility] Last Admin: 10/25/17 09:05 Dose: 5,000 units Hydromorphone HCl (Dilaudid Pf Inj) 1 mg IV.PUSH Q3H PRN PRN Reason: breakthrough pain over 7 Last Admin: 10/25/17 15:35 Dose: 1 mg Sodium Chloride (Ns Inj) 500 mls @ 0 mls/hr IV.SIG BOLUS [facility]ILIO Last Infusion: 10/18/17 12:50 Dose: Infused Sodium Chloride (Ns Inj) 500 mls @ 500 mls/hr IV.SIG .Q1H PRN PRN Reason: MAP <60 Sodium Chloride (Ns Inj) 1,000 mls @ 100 mls/hr IV.CONT .Q10H [facility] Last Admin: 10/25/17 12:38 Dose: 100 mls/hr Norepinephrine Bitartrate (Levophed-Dextrose 4 Mg/250 Ml Drip) 4 mg in 250 mls @ 7.5 mls/hr IV.SIG TITRATE PRN; Protocol PRN Reason: Per Protocol Vasopressin 40 unit/ Sodium (Chloride) 100 mls @ 30 mls/hr IV.CONT CONT [facility]; Protocol Last Infusion: 10/23/17 03:20 Dose: Infused Daptomycin 1,000 mg/ Sodium (Chloride) 100 mls @ 200 mls/hr IV.SIG Q24H [facility] Last Infusion: 10/25/17 16:40 Dose: Infused Cefepime HCl 2,000 mg/ Sodium (Chloride) 100 mls @ 200 mls/hr IV.SIG Q12H [facility] Last Infusion: 10/25/17 13:45 Dose: Infused Morphine Sulfate (Oramorph Sr) 15 mg PO Q12H [facility] Last Admin: 10/25/17 09:06 Dose: 15 mg Ondansetron HCl (Zofran Inj) 4 mg IV.PUSH Q6H PRN PRN Reason: NAUSEA OR VOMITING Last Admin: 10/24/17 19:46 Dose: 4 mg Pt Own Med ( (Cabergoline 0.5 Mg )) 0 each PO Mo [facility] Polyethylene Glycol/Electrolytes (Colyte Liq) 4,000 ml PO ONCE ONE Stop: 10/25/17 17:13 Senna/Docusate Sodium (Mary-Colace) 1 tab PO BID [facility] Last Admin: 10/25/17 09:06 Dose: Not Given Tamsulosin HCl (Flomax) 0.4 mg PO MoFr [facility] Last Admin: 10/25/17 09:06 Dose: 0.4 mg Terbutaline Sulfate (Brethine Inj) 1 mg SQ UNSCH PRN PRN Reason: For Extravasation Tizanidine HCl (Zanaflex) 8 mg PO DAILY [facility] Last Admin: 10/25/17 09:06 Dose: 8 mg Tizanidine HCl (Zanaflex) 12 mg PO HS [facility] Last Admin: 10/24/17 21:18 Dose: 12 mg <Iona Key - Last Filed: 10/25/17 18:10> Active Medications: Active Medications Hydrocodone Bitart/Acetaminophen ([place] 10/325) 1 tab PO Q4H PRN PRN Reason: Pain 1-10 Last Admin: 10/25/17 18:16 Dose: 1 tab Al Hydroxide/Mg Hydroxide (Milk Of Liza Solis) 30 ml PO Q12H PRN PRN Reason: Mild Constipation Aspirin (Aspirin Chew) 81 mg PO BID [facility] Last Admin: 10/25/17 09:06 Dose: 81 mg Atorvastatin Calcium (Lipitor) 40 mg PO HS [facility] Last Admin: 10/24/17 21:18 Dose: 40 mg Duloxetine HCl (Cymbalta) 60 mg PO HS [facility] Last Admin: 10/24/17 21:18 Dose: 60 mg Heparin Sodium (Porcine) (Heparin Inj) 5,000 units SQ Q12H [facility] Last Admin: 10/25/17 09:05 Dose: 5,000 units Hydromorphone HCl (Dilaudid Pf Inj) 1 mg IV.PUSH Q3H PRN PRN Reason: breakthrough pain over 7 Last Admin: 10/25/17 15:35 Dose: 1 mg Sodium Chloride (Ns Inj) 500 mls @ 0 mls/hr IV.SIG BOLUS [facility] Last Infusion: 10/18/17 12:50 Dose: Infused Sodium Chloride (Ns Inj) 500 mls @ 500 mls/hr IV.SIG .Q1H PRN PRN Reason: MAP <60 Sodium Chloride (Ns Inj) 1,000 mls @ 100 mls/hr IV.CONT .Q10H [facility] Last Admin: 10/25/17 12:38 Dose: 100 mls/hr Norepinephrine Bitartrate (Levophed-Dextrose 4 Mg/250 Ml Drip) 4 mg in 250 mls @ 7.5 mls/hr IV.SIG TITRATE PRN; Protocol PRN Reason: Per Protocol Vasopressin 40 unit/ Sodium (Chloride) 100 mls @ 30 mls/hr IV.CONT CONT [facility]; Protocol Last Infusion: 10/23/17 03:20 Dose: Infused Daptomycin 1,000 mg/ Sodium (Chloride) 100 mls @ 200 mls/hr IV.SIG Q24H [facility] Last Infusion: 10/25/17 16:40 Dose: Infused Cefepime HCl 2,000 mg/ Sodium (Chloride) 100 mls @ 200 mls/hr IV.SIG Q12H [facility] Last Infusion: 10/25/17 13:45 Dose: Infused Lactated Ringer's (Lr 1000 Ml Inj) 1,000 mls @ 30 mls/hr IV.CONT .Q24H ONE Stop: 10/26/17 20:59 Sodium Chloride (Ns Inj) 500 mls @ 30 mls/hr IV.CONT .[id number] ONE Stop: 10/26/17 13:39 Morphine Sulfate (Oramorph Sr) 15 mg PO Q12H [facility] Last Admin: 10/25/17 09:06 Dose: 15 mg Ondansetron HCl (Zofran Inj) 4 mg IV.PUSH Q6H PRN PRN Reason: NAUSEA OR VOMITING Last Admin: 10/24/17 19:46 Dose: 4 mg Pt Own Med ( (Cabergoline 0.5 Mg )) 0 each PO Mo [facility] Senna/Docusate Sodium (Mary-Colace) 1 tab PO BID [facility] Last Admin: 10/25/17 09:06 Dose: Not Given Tamsulosin HCl (Flomax) 0.4 mg PO MoFr [facility] Last Admin: 10/25/17 09:06 Dose: 0.4 mg Terbutaline Sulfate (Brethine Inj) 1 mg SQ UNSCH PRN PRN Reason: For Extravasation Tizanidine HCl (Zanaflex) 8 mg PO DAILY [facility] Last Admin: 10/25/17 09:06 Dose: 8 mg Tizanidine HCl (Zanaflex) 12 mg PO HS [facility] Last Admin: 10/24/17 21:18 Dose: 12 mg <Blu Hernandez A - Last Filed: 10/25/17 21:47> Allergies Allergy/AdvReac Type Severity Reaction Status Date / Time penicillin G Allergy Mild Swelling Verified 09/30/17 03:33 of Lip/Tongue/Throat lisinopril AdvReac Mild HEADACHE Verified 09/30/17 03:34 Home Medications Medication Instructions Recorded Confirmed Type amlodipine 10 mg PO DAILY 09/30/17 10/17/17 History atorvastatin 40 mg PO HS 09/30/17 10/17/17 History cabergoline 0.5 mg PO WEEKLY 09/30/17 10/17/17 History duloxetine 60 mg PO HS 09/30/17 10/17/17 History hydrocodone-acetaminophen 1 tab PO TID PRN 09/30/17 10/17/17 History losartan 50 mg PO BID 09/30/17 10/18/17 History tamsulosin 0.4 mg PO 2XWEEK 09/30/17 10/17/17 History tizanidine 12 mg PO HS 09/30/17 10/18/17 History triamterene-hydrochlorothiazid 1 cap PO DAILY 09/30/17 10/17/17 History morphine 15 mg PO Q12H 10/18/17 10/18/17 History tizanidine 8 mg PO DAILY 10/18/17 10/18/17 History Exam Vital signs: Vital Signs 10/24/17 18:17 10/24/17 20:00 10/25/17 00:00 Temperature 98.0 F 98.0 F Pulse Rate 84 82 87 Respiratory Rate 18 18 Blood Pressure 157/80 H 119/74 Pulse Oximetry 97 95 10/25/17 04:00 10/25/17 08:00 10/25/17 10:00 Temperature 98.1 F 97.2 F L Pulse Rate 92 H 82 80 Respiratory Rate 18 20 Blood Pressure 151/79 H 156/80 H Pulse Oximetry 96 96 10/25/17 12:00 10/25/17 14:00 10/25/17 16:00 Temperature 97.7 F 98.2 F Pulse Rate 84 90 96 H Respiratory Rate 20 20 Blood Pressure 137/75 145/71 H Pulse Oximetry 95 98 Intake & Output 10/24/17 10/25/17 10/25/17 18:59 06:59 18:59 Intake Total 800 / 800 1300 / 1300 800 / 800 Output Total 975 / 975 4 / 4 Balance -175 / -175 1300 / 1300 796 / 796 Weight 100.8 kg Intake: IV 800 / 800 1300 / 1300 800 / 800 NS Inj 1,000 ML @ 100 mls/hr IV 800 / 800 1000 / 1000 600 / 600 .CONT .Q10H [facility] Rx#:[id number] Maxipime Inj 2,000 MG In NS Inj 200 / 200 100 / 100 100 ML @ 200 mls/hr IV.SIG Q12H [facility] Rx#:[id number] Cubicin Inj 1,000 MG In NS Inj 100 / 100 100 / 100 100 ML @ 200 mls/hr IV.SIG Q24H [facility] Rx#:[id number] Output: Urine 975 / 975 2 / 2 Stool 2 / 2 Other: # Voids 2 Date of Last Bowel Movement 10/25/17 10/25/17 # Bowel Movements 3 <Key,Iona - Last Filed: 10/25/17 18:10> Vital signs: Vital Signs 10/25/17 00:00 10/25/17 04:00 10/25/17 08:00 Temperature 98.0 F 98.1 F 97.2 F L Pulse Rate 87 92 H 82 Respiratory Rate 18 18 20 Blood Pressure 119/74 151/79 H 156/80 H Pulse Oximetry 95 96 96 10/25/17 10:00 10/25/17 12:00 10/25/17 14:00 Temperature 97.7 F Pulse Rate 80 84 90 Respiratory Rate 20 Blood Pressure 137/75 Pulse Oximetry 95 10/25/17 16:00 10/25/17 21:46 Temperature 98.2 F Pulse Rate 96 H Respiratory Rate 20 20 Blood Pressure 145/71 H Pulse Oximetry 98 Intake & Output 10/25/17 10/25/17 10/26/17 06:59 18:59 06:59 Intake Total 1300 / 1300 800 / 800 Output Total Balance 1300 / 1300 791 / 791 Weight 100.8 kg Intake: IV 1300 / 1300 800 / 800 NS Inj 1,000 ML @ 100 mls/hr IV 1000 / 1000 600 / 600 .CONT .Q10H [facility] Rx#:[id number] Maxipime Inj 2,000 MG In NS Inj 200 / 200 100 / 100 100 ML @ 200 mls/hr IV.SIG Q12H [facility] Rx#:[id number] Cubicin Inj 1,000 MG In NS Inj 100 / 100 100 / 100 100 ML @ 200 mls/hr IV.SIG Q24H [facility] Rx#:[id number] Output: Urine 6 / 6 Stool 3 / 3 Other: # Voids 2 Date of Last Bowel Movement 10/25/17 10/25/17 # Bowel Movements 3 <Blu Hernandez - Last Filed: 10/25/17 21:47> Results - Labs CBC & Chem 7: 10/22/17 11:30 10/24/17 04:48 <Iona Key - Last Filed: 10/25/17 18:10> - Labs CBC & Chem 7: 10/22/17 11:30 10/24/17 04:48 <Blu Hernandez - Last Filed: 10/25/17 21:47> Assessment and Plan (1) Streptococcus viridans infection Status: Acute Code(s): A49.1 - Streptococcal infection, unspecified site - Plan Pt is a 52 yo male patient with history of hypertension, high cholesterol and chronic pain. Patient reports that he presented to the ER on 10/18/17 with complaints of severe lower back pain and weakness with the inability to bear wt and ambulate. Pt reported worsening lower back and leg pain over a 2-3 week period . He states he received epidural injections for pain x 2 with no relief of symptoms.He reports tripping and falling while walking his dog 2 weeks prior to admission. Onset of left knee pain and swelling at that time. Left knee fluid aspiration done 10/18/17 reveal final culture result --> Viridans Streptococcus grp. . Anaerobic blood culture result done 10/18/17 revealed--> Viridans Streptococcus. GI has been consulted to evaluate need for EGD/ Colonoscopy in light of the presence of bacteremia. Pt currently receiving abx , Cefepime and Daptomycin IV.Patient denies fever, chills, diarrhea or constipation. Pt states stools are soft and brown without noted blood. States he has 2 bms daily without any noted change in bowel habits. Pt denies any known family history of gastrointestinal cancers. Pt endorses having EGD and Colonoscopy 2 years ago due to complaints of heartburn as well as hx of colon polyps. Pt states he has had a total of 3 colonoscopies where polyps were found. 2 years ago patient reports 2 polyps were discovered and he was told they were both benign. Pt denies difficulty or painful swallowing, he states that he has noted his voice to be " raspy" over the last few months. Denies heartburn. Plan: Clear liquids today Consent for EGD and Colonoscopy NPO after MN Golytely prep Continue IV abx per attending Supportive care Further recommendations to follow This patient has been seen and examined by myself and Dr. Hernandez. This note is written on his behalf. <Iona Key - Last Filed: 10/25/17 18:10> (1) Streptococcus viridans infection Status: Acute Code(s): A49.1 - Streptococcal infection, unspecified site - Attending Attestation Agree with above assessment and plan. Consent obtained for EGD and Colonoscopy in AM. Thank you for the consult <Blu Hernandez - Last Filed: 10/25/17 21:47>
[2017-10-25] MEDS ORDERED: Metoprolol Tartrate 25 MG Tablet PO ONE (21:00)
[2017-10-25] MEDS ORDERED: Sodium Chlor 0.9% Inj 500 ML IV.CONT ONE (21:00)
[2017-10-25] MEDS ORDERED: Chlorhexidine Gluconate 2% 1 Pack (2 Cloths) TOPICAL ONE (21:00)
[2017-10-25] MEDS: Duloxetine 60 MG DR Capsule PO SCH (21:55)
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
[2017-10-26] MEDS: HYDROmorphone PF Inj 2 MG/ML Vial IV.PUSH PRN ×3 (06:19→16:48)
[2017-10-26 07:01] LABS: Baso % (Auto) 0.2 % (0.0-2.0); Eos # (Auto) 0.3 th/mm3 (0.0-0.4); Eos % (Auto) 1.8 % (0.0-4.0); Hematocrit 24.7 % (39.0-51.0); Hemoglobin 8.3 gm/dL (13.0-17.0); Lymph # (Auto) 1.1 th/mm3 (1.0-4.8); Lymph % (Auto) 7.5 % (9.0-44.0); Mean Corpuscular HGB Conc 33.5 % (32.0-36.0); Mean Corpuscular Volume 83.8 fL (80.0-100.0); Mean Platelet Volume 7.2 fL (7.0-11.0); Mono # (Auto) 0.7 th/mm3 (0.0-0.9); Mono % (Auto) 4.7 % (0.0-8.0); Neut # (Auto) 12.5 th/mm3 (1.8-7.7); Neut % (Auto) 85.8 % (16.0-70.0); Platelet Count 357 th/mm3 (150-450); Red Blood Count 2.94 mil/mm3 (4.50-5.90); Red Cell Distribution Width 14.4 % (11.6-17.2); White Blood Count 14.5 th/mm3 (4.0-11.0)
[2017-10-26 08:04] LABS: Alanine Aminotransferase 66 U/L (12-78); Albumin 1.4 g/dL (3.4-5.0); Alkaline Phosphatase 136 U/L (45-117); Anion Gap 10 meq/L (5-15); Aspartate Aminotransferase 38 U/L (15-37); Blood Urea Nitrogen 15 mg/dL (7-18); Calcium 7.4 mg/dL (8.5-10.1); Chloride 112 meq/L (98-107); Glomerular Filtration Rate Greater Than 89 mL/min (>89); Glucose,Random 108 mg/dL (74-106); Potassium 3.7 meq/L (3.5-5.1); Sodium 144 meq/L (136-145); Total Protein 5.5 g/dL (6.4-8.2)
[2017-10-26 08:19] LABS: Eosinophils 2 % (0-4); Lymphocytes 6 % (9-44); Metamyelocytes 2 % (0-1); Monocytes 2 % (0-8); Myelocytes 1 % (0-0); Platelet Estimate Normal (Normal); Platelet Morphology Normal (Normal); Tallied Nucleated RBC 1 (0-0)
[2017-10-26] MEDS: Sod Chloride 0.9% Inj 1,000 ML IV.CONT SCH ×2 (08:39→16:48)
[2017-10-26] MEDS: Heparin - SQ 10,000 UNITS/ML Vial SQ SCH (08:41)
[2017-10-26] MEDS: Morphine Sulfate 15 MG SR Tablet PO SCH ×2 (08:42→21:29)
[2017-10-26] MEDS: Senna/Docusate Sodium 8.6/50 MG Tablet PO SCH ×2 (08:42→21:31)
--- NOTE | 2017-10-26 10:27 | P.PNIM ---
Subjective Interval history: Pt planned for EGD/colonoscopy today Pt remains afebrile Physical Exam Vital signs: Vital Signs 10/25/17 12:00 10/25/17 14:00 10/25/17 16:00 Temperature 97.7 F 98.2 F Pulse Rate 84 90 96 H Respiratory Rate 20 20 Blood Pressure 137/75 145/71 H Pulse Oximetry 95 98 10/25/17 20:00 10/25/17 21:46 10/25/17 23:13 Temperature 97.7 F Pulse Rate 86 Respiratory Rate 18 20 18 Blood Pressure 149/81 H Pulse Oximetry 97 10/25/17 23:21 10/26/17 00:00 10/26/17 00:18 Temperature 98.1 F Pulse Rate 74 Respiratory Rate 18 20 18 Blood Pressure 130/76 Pulse Oximetry 94 L 10/26/17 02:00 10/26/17 04:00 10/26/17 04:43 Temperature 97.3 F L Pulse Rate 80 82 Respiratory Rate 16 18 Blood Pressure 153/79 H Pulse Oximetry 96 10/26/17 06:16 10/26/17 08:00 Temperature 97.3 F L Pulse Rate 91 H Respiratory Rate 18 20 Blood Pressure 144/88 H Pulse Oximetry 95 Intake & Output 10/25/17 10/26/17 10/26/17 18:59 06:59 18:59 Intake Total 800 / 800 2842 / 2842 1000 / 1000 Output Total 1 Balance 791 / 791 2842 / 2842 999 / 999 Weight 108.6 kg Intake: IV 800 / 800 1400 / 1400 1000 / 1000 NS Inj 1,000 ML @ 100 mls/hr IV 600 / 600 1300 / 1300 1000 / 1000 .CONT .Q10H EMILIO Rx#:[id number] Maxipime Inj 2,000 MG In NS Inj 100 / 100 100 / 100 100 ML @ 200 mls/hr IV.SIG Q12H EMILIO Rx#:[id number] Cubicin Inj 1,000 MG In NS Inj 100 / 100 100 ML @ 200 mls/hr IV.SIG Q24H EMILIO Rx#:[id number] Oral 442 / 442 Other 1000 / 1000 Output: Urine 6 / 6 1 / 1 Stool 3 / 3 Other: Post Void Residual 200 # Voids 2 Date of Last Bowel Movement 10/25/17 10/25/17 Narrative: General: NAD, AAOx3 ENT: Broken molar in the upper right maxilla Chest: CTA Cardiac: Regular Abd: +BS, soft ND/NT Ext: Left knee surgical incisions are healing well with no signs of infection, tender however to light touch. There is no induration of the skin and there is no fluctuance. Results - Labs CBC & Chem 7: 11/04/17 05:00 11/04/17 05:00 Laboratory Results - last 24 hr 10/26/17 10/26/17 06:30 06:30 WBC 14.5 H RBC 2.94 L Hgb 8.3 L Hct 24.7 L MCV 83.8 MCH 28.0 MCHC 33.5 RDW 14.4 Plt Count 357 D MPV 7.2 Prelim Diff (Auto) Slide review pending Neut % (Auto) 85.8 H Lymph % (Auto) 7.5 L Larue % (Auto) 4.7 Eos % (Auto) 1.8 Baso % (Auto) 0.2 Neut # (Auto) 12.5 H Lymph # (Auto) 1.1 Larue # (Auto) 0.7 Eos # (Auto) 0.3 Baso # (Auto) 0.0 WBC Differential Manual diff final Seg Neuts % (Manual) 76 H Band Neuts % (Manual) 11 H Lymphocytes % (Manual) 6 L Monocytes % (Manual) 2 Eosinophils % (Manual) 2 Metamyelocytes % (Man) 2 H Myelocytes % (Man) 1 H Abs Neuts (Manual) 13.1 H Nucleated RBCs/100 WBC 1 H Differential Comment . Platelet Estimate Normal Platelet Morphology Normal Sodium 144 Potassium 3.7 Chloride 112 H Carbon Dioxide 22.0 Anion Gap 10 BUN 15 Creatinine 0.57 L Estimated GFR Greater than 89 Random Glucose 108 H Calcium 7.4 L* Prot Corrected Calcium 8.3 L Total Bilirubin 0.3 AST 38 H ALT 66 Alkaline Phosphatase 136 H Total Protein 5.5 L D Albumin 1.4 L Microbiology 10/18/17 17:35 Other - Final 10/21/17 14:13 Blood - Peripheral Aerobic Blood Culture - Preliminary No growth in 4 days 10/21/17 14:13 Blood - Peripheral Anaerobic Blood Culture - Preliminary No growth in 4 days 10/21/17 14:25 Blood - Peripheral Aerobic Blood Culture - Preliminary No growth in 4 days 10/21/17 14:25 Blood - Peripheral Anaerobic Blood Culture - Preliminary No growth in 4 days - Imaging General: NAD, AAOx3 ENT: Broken molar in the upper right maxilla Chest: CTA Cardiac: Regular Abd: +BS, soft ND/NT Ext: Left knee surgical incisions are healing well with no signs of infection, tender however to light touch. There is no induration of the skin and there is no fluctuance. - Procedures Left knee arthroscopy, irrigation & debridement, synovectomy, chondroplasty Assessment and Plan - Assessment (1) Effusion of left knee Code(s): M25.462 - Effusion, left knee Status: Acute Plan: This is a 52-year-old male patient with past medical history which includes hypertension, hyperlipidemia, anxiety/depression, BPH, hyperprolactinemia and chronic lower back pain, lumbar degenerative disc disease with long-term current use of opioid analgesic. Patient presents to the emergency department by EMS transport from home due to complaint of severe left lower extremity pain. Patient has been under the care of his primary care provider Dr. Walls and his pain management Dr. Bridges and sports medicine Dr. Dickson. Patient is undergone epidural injections and nerve block injections without symptom relief. Patient is on chronic Morphine ER 15 mg BID and [place] 10-325 mg Q8H. Patient fell at his bedside 10/16/17 walking with his walker to go the bathroom and since then has had increasing pain. Chronic lower back pain, Now with decreased mobility Lumbar degenerative disc disease with long-term current use of opioid analgesic Left knee effusion T7 and T8 discitis and osteo Strep Viridans bacteremia - Venous Doppler Study 10/17/17 The study is negative for lower extremity deep venous thrombosis. - Lumbar Spine X-Ray 10/17/17 Chronic changes. - Pelvis X-Ray 10/17/17 No definite fracture is identified for technique. - Femur X-Ray 10/18/17 1. No fracture is identified. 2. Large knee joint effusion. 3. Recent MRI performed on 10/12/2017 documented severe edema in the proximal thigh. - Tibia/Fibula X-Ray 10/18/17 Large knee joint effusion. No acute osseous abnormality is visualized. - Outpatient lumbar MRI reviewed by Dr. Dolan - Pt underwent arthrocentesis on 10/18 with removal of 60cc "chocolate milk" color fluid. Culture grew out Strep viridans - On 10/19/17 pt underwent Left knee arthroscopy, irrigation & debridement, synovectomy, chondroplasty, surgical cx. grew out strep viridans - Blood cultures drawn on 10/18 with 2/4 growing out strep viridans. - MRI thoracic spine (10/20/17): 1. Discitis with osteomyelitis involving T7-T8. No paraspinal fluid collections or vertebral body collapse at this point. 2. Small bilateral pleural effusions. - MRI Lumbar spine (10/21/17): - Multilevel spinal canal stenosis most prominent at L4-L5 moderate nature. - 1.9 x 1.2 cm mass in the neural foramen on the right as seen on the prior examination characteristic of schwannoma or neurofibroma compromising the nerve root exit zone and lateral recess. The findings are similar to the prior exam. - There are no findings of osteomyelitis - On 10/[address] guided needle bx T8 --> Uncomplicated needle biopsy of the T8 superior endplate....cx's pending from needle bx. - Pt has been on dapto and cefepime per ID - Repeat cx's (10/21/17) with NGTD - Pain control - PT consultation for oob daily. - Pt was transferred from ICU on 10/23 - The source for the bacteremia is unclear. Pt with a noted broken molar which does not appear infected. Discussed the case with Dr. Jones and recommended to have a GI evaluation - Appreciate consult from GI and pt is planned for EGD/colonoscopy today - ID awaiting results from further susceptibility of Strep Viridans to decide on final antibiotic recommendations. ALEXANDREA - related to sepsis and hypotension - resolved currently. Hypertension hx Hypotensive, patient asymptomatic - Hold patient's home amlodipine 10 mg p.o. daily, losartan 50 mg, triamterene hydrochlorothiazide daily - Pt had CVL IJ place 10/20 for hypotension and pressors. - Pt is off pressors and BP is stable. Hyperlipidemia - Continue patient's home atorvastatin Anxiety/depression - Continue patient's home fluoxetine 60 mg p.o. nightly BPH - Continue patient's home tamsulosin Hyperprolactinemia - Continue patient's home cabergoline weekly DVT prophylaxis with teds and SCDs - Attending Attestation Patient examined. Assessment and plan formulated with Johanna Leong PA-C. I agree with the above.
--- NOTE | 2017-10-26 12:22 | GIPROC ---
[facility] [address] [facility]. [facility], [address] COLONOSCOPY PROCEDURE REPORT EXAM DATE: 10/26/2017 PATIENT NAME: Devin Rosales MR #: [id number] BIRTHDATE: 1965 ENDOSCOPIST: Blu Hernandez MD ORDER #: [id number] DIRECTOR OF GROUP SALES: Katiana Richards and Elena Mcrae STATUS: inpatient INDICATIONS: The patient is a 52 yr old male here for a colonoscopy due to anemia, non-specific PROCEDURE PERFORMED: Colonoscopy, diagnostic MEDICATIONS: None and Per Anesthesia. PREP QUALITY: poor PREP TYPE:Magnesium Citrate ESTIMATED BLOOD LOSS: None CONSENT: The patient understands the risks and benefits of the procedure and understands that these risks include, but are not limited to: sedation, allergic reaction, infection, perforation and/or bleeding. Alternative means of evaluation and treatment include, among others: physical exam, x-rays, and/or surgical intervention. The patient elects to proceed with this endoscopic procedure. medical equipment was checked for proper function. Hand hygiene and appropriate measures for infection prevention was taken. After the risks, benefits and alternatives of the procedure were thoroughly explained, Informed consent was verified, confirmed and timeout was successfully executed by the treatment team. A digital exam revealed no abnormalities of the rectum The Pentax EC-[id number] endoscope was introduced through the anus and advanced to the cecum, which was identified by both the appendix and ileocecal valve. The instrument was then slowly withdrawn as the colon was fully examined. COLON FINDINGS: A significant amount of stool was present throughout the entire examined colon. Retroflexed views revealed no abnormalities The scope was then completely withdrawn from the patient and the procedure terminated. PROCEDURE WITHDRAWAL TIME:10minutes ADVERSE EVENTS: There were no complications. IMPRESSIONS: 1. Significant amount of stool was present throughout the entire examined colon 2. Limited study from poor bowel prep, No large polyps or lesions seen, no obstructing mass, small lesion would be missed easily with fecal material (poor bowel prep) . RECOMMENDATIONS: No treatment RECALL: Return 6 months Colonoscopy Blu Hernandez MD eSigned: Blu Hernandez MD 10/26/2017 12:21 PM cc:
--- NOTE | 2017-10-26 12:26 | GIPROC ---
[facility] [address] [facility]. [facility], [address] EGD PROCEDURE REPORT EXAM DATE: 10/26/2017 PATIENT NAME: Devin Rosales MR #: [id number] BIRTHDATE: 1965 ATTENDING: Blu Hernandez MD ORDER #: [id number] LONG LINE TEAMSTER: Katiana Richards and Elena Mcrae STATUS: inpatient INDICATIONS: The patient is a 52 yr old male here for an EGD due to anemia PROCEDURE PERFORMED: EGD w/ biopsy MEDICATIONS: None and Per Anesthesia. TOPICAL ANESTHETIC: none CONSENT: The patient understands the risks and benefits of the procedure and understands that these risks include, but are not limited to: sedation, allergic reaction, infection, perforation and/or bleeding. Alternative means of evaluation and treatment include, among others: physical exam, x-rays, and/or surgical intervention. The patient elects to proceed with this endoscopic procedure. medical equipment was checked for proper function. Hand hygiene and appropriate measures for infection prevention was taken. After the risks, benefits and alternatives of the procedure were thoroughly explained, Informed consent was verified, confirmed and timeout was successfully executed by the treatment team. The patient was anesthetized with topical anesthesia and the EC-[id number] (Pedi C) endoscope was introduced through the mouth and advanced to the second portion of the duodenum. Retroflexion was performed and was normal The gastroscope was then slowly withdrawn and removed. ESOPHAGUS: There was esophagitis noted. Multiple biopsies were performed using cold forceps. Sample sent for histology. STOMACH: There was chronic moderate and erosive gastritis in the gastric antrum. A biopsy was performed using cold forceps. Sample sent for histology. DUODENUM: Mild duodenal inflammation was found in the bulb and second portion of the duodenum and 3rd part duodenum. ADVERSE EVENTS: There were no complications. IMPRESSIONS: 1. There was esophagitis noted; likely Trish, multiple biopsies were performed 2. There was chronic gastritis in the gastric antrum; biopsy was performed 3. Duodenal inflammation was found in the bulb and second portion of the duodenum and 3rd part duodenum 4. Retroflexion was performed and was normal RECOMMENDATIONS: 1. Await biopsy results. Biopsy results will not be ready for 7-10 days. If you don't hear from us in two weeks, call our office for biopsy results. 2. Continue PPI PATIENT CONDITION: stable DISPOSITION: Observation REPEAT EXAM: NONE Blu Hernandez MD eSigned: Blu Hernandez MD 10/26/2017 12:26 PM cc: PATIENT NAME: Devin Rosales MR#: [id number]
[2017-10-26] MEDS: DAPTOmycin Inj 1,000 MG in Sodium Chlor 0.9% Inj 100 ML IV.SIG SCH (15:19)
[2017-10-26] MEDS: Duloxetine 60 MG DR Capsule PO SCH (21:29)
[2017-10-27] MEDS: Sod Chloride 0.9% Inj 1,000 ML IV.CONT SCH ×3 (03:00→18:49)
[2017-10-27] MEDS: HYDROmorphone PF Inj 2 MG/ML Vial IV.PUSH PRN ×2 (05:48→16:57)
[2017-10-27] MEDS: Senna/Docusate Sodium 8.6/50 MG Tablet PO SCH (09:01)
[2017-10-27] MEDS: Morphine Sulfate 15 MG SR Tablet PO SCH ×2 (09:02→21:24)
--- NOTE | 2017-10-27 13:54 | P.PNIM ---
Subjective Interval history: Follow up: Strep Viridans bacteremia, T7 and T8 discitis and osteo and Left knee effusion Strep Viridans Patient S/P EGD and colonoscopy 10/26 Patient reports Physical Exam Vital signs: Vital Signs 10/26/17 14:00 10/26/17 16:00 10/26/17 18:00 Temperature 97.2 F L Pulse Rate 75 93 H 80 Respiratory Rate 20 Blood Pressure 155/79 H Pulse Oximetry 96 10/26/17 20:00 10/27/17 00:00 10/27/17 04:00 Temperature 98.6 F 98.1 F Pulse Rate 91 H 75 83 Respiratory Rate 20 20 Blood Pressure 122/67 149/79 H Pulse Oximetry 94 L 93 L 10/27/17 08:00 10/27/17 12:00 Temperature 98.6 F 99.0 F Pulse Rate 101 H 76 Respiratory Rate 16 17 Blood Pressure 143/83 H 120/69 Pulse Oximetry 95 96 Intake & Output 10/26/17 10/27/17 10/27/17 18:59 06:59 18:59 Intake Total 2200 / 2200 2300 / 2300 1000 / 1000 Output Total 301 / 301 1801 / 1801 Balance 1899 / 1899 499 / 499 1000 / 1000 Weight 110.7 kg Intake: IV 2200 / 2200 1100 / 1100 1000 / 1000 NS Inj 1,000 ML @ 100 mls/hr IV 2000 / 2000 1000 / 1000 1000 / 1000 .CONT .Q10H [facility] Rx#:[id number] Cubicin Inj 1,000 MG In NS Inj 100 / 100 100 ML @ 200 mls/hr IV.SIG Q24H EMILIO Rx#:[id number] Rocephin Inj 2,000 MG In NS Inj 100 / 100 100 / 100 0 / 0 100 ML @ 200 mls/hr IV.SIG Q12H EMILIO Rx#:[id number] Oral 1200 / 1200 Output: Urine 301 / 301 1800 / 1800 Stool Other: Post Void Residual 200 # Voids 2 Date of Last Bowel Movement 10/26/17 10/26/17 10/26/17 Narrative: General: NAD, AAOx3 ENT: Broken molar in the upper right maxilla Chest: CTA Cardiac: Regular Abd: +BS, soft ND/NT Ext: Left knee surgical incisions are healing well with no signs of infection, tender however to light touch. There is no induration of the skin and there is no fluctuance. Results - Labs CBC & Chem 7: 11/04/17 05:00 11/04/17 05:00 Microbiology 10/19/17 22:10 Wound - Knee Fungal Smear - Final No fungal elements seen 10/19/17 22:10 Wound - Knee Fungal Culture - Preliminary No growth in 1 week 10/19/17 22:10 Wound - Knee Acid Fast Bacilli Smear - Final No acid fast bacilli seen 10/19/17 22:10 Wound - Knee Mycobacterial Culture - Preliminary No growth in 1 week 10/21/17 14:13 Blood - Peripheral Aerobic Blood Culture - Final No growth in 5 days 10/21/17 14:13 Blood - Peripheral Anaerobic Blood Culture - Final No growth in 5 days 10/21/17 14:25 Blood - Peripheral Aerobic Blood Culture - Final No growth in 5 days 10/21/17 14:25 Blood - Peripheral Anaerobic Blood Culture - Final No growth in 5 days - Procedures Left knee arthroscopy, irrigation & debridement, synovectomy, chondroplasty Assessment and Plan - Assessment (1) Effusion of left knee Code(s): M25.462 - Effusion, left knee Status: Acute Plan: This is a 52-year-old male patient with past medical history which includes hypertension, hyperlipidemia, anxiety/depression, BPH, hyperprolactinemia and chronic lower back pain, lumbar degenerative disc disease with long-term current use of opioid analgesic. Patient presents to the emergency department by EMS transport from home due to complaint of severe left lower extremity pain. Patient has been under the care of his primary care provider Dr. Walls and his pain management Dr. Bridges and sports medicine Dr. Dickson. Patient is undergone epidural injections and nerve block injections without symptom relief. Patient is on chronic Morphine ER 15 mg BID and [place] 10-325 mg Q8H. Patient fell at his bedside 10/16/17 walking with his walker to go the bathroom and since then has had increasing pain. Strep Viridans bacteremia T7 and T8 discitis and osteo Left knee effusion Chronic lower back pain, Now with decreased mobility Lumbar degenerative disc disease with long-term current use of opioid analgesia - Venous Doppler Study 10/17/17 The study is negative for lower extremity deep venous thrombosis. - Lumbar Spine X-Ray 10/17/17 Chronic changes. - Pelvis X-Ray 10/17/17 No definite fracture is identified for technique. - Femur X-Ray 10/18/17 1. No fracture is identified. 2. Large knee joint effusion. 3. Recent MRI performed on 10/12/2017 documented severe edema in the proximal thigh. - Tibia/Fibula X-Ray 10/18/17 Large knee joint effusion. No acute osseous abnormality is visualized. - Outpatient lumbar MRI reviewed by Dr. Dolan - Pt underwent arthrocentesis on 10/18 with removal of 60cc "chocolate milk" color fluid. Culture grew out Strep viridans - On 10/19/17 pt underwent Left knee arthroscopy, irrigation & debridement, synovectomy, chondroplasty, surgical cx. grew out strep viridans - Blood cultures drawn on 10/18 with 2/4 growing out strep viridans. - MRI thoracic spine (10/20/17): 1. Discitis with osteomyelitis involving T7-T8. No paraspinal fluid collections or vertebral body collapse at this point. 2. Small bilateral pleural effusions. - MRI Lumbar spine (10/21/17): - Multilevel spinal canal stenosis most prominent at L4-L5 moderate nature. - 1.9 x 1.2 cm mass in the neural foramen on the right as seen on the prior examination characteristic of schwannoma or neurofibroma compromising the nerve root exit zone and lateral recess. The findings are similar to the prior exam. - There are no findings of osteomyelitis - On 10/[address] guided needle bx T8 --> Uncomplicated needle biopsy of the T8 superior endplate....cx's pending from needle bx. - Pt has been on dapto and cefepime per ID - Repeat cx's (10/21/17) with NGTD - Pain control - PT consultation for oob daily. - Pt was transferred from ICU on 10/23 - The source for the bacteremia is unclear. Pt with a noted broken molar which does not appear infected. Discussed the case with Dr. Jones and recommended to have a GI evaluation - Appreciate consult from GI and pt is planned for EGD/colonoscopy 10/26 results of coloscopy limited due to large amount of retained stool EGD: 1. There was esophagitis noted; likely Trish, multiple biopsies were performed 2. There was chronic gastritis in the gastric antrum; biopsy was performed 3. Duodenal inflammation was found in the bulb and second portion of the duodenum and 3rd part duodenum 4. Retroflexion was performed and was normal Pathology pending - ID awaiting results from further susceptibility of Strep Viridans to decide on final antibiotic recommendations. ALEXANDREA - related to sepsis and hypotension - resolved currently. Hypertension hx Hypotensive, patient asymptomatic - Hold patient's home amlodipine 10 mg p.o. daily, losartan 50 mg, triamterene hydrochlorothiazide daily - Pt had CVL IJ place 10/20 for hypotension and pressors. - Pt is off pressors and BP is stable. Hyperlipidemia - Continue patient's home atorvastatin Anxiety/depression - Continue patient's home fluoxetine 60 mg p.o. nightly BPH - Continue patient's home tamsulosin Hyperprolactinemia - Continue patient's home cabergoline weekly DVT prophylaxis with teds and SCDs - Attending Attestation Patient examined. Assessment and plan formulated with Pura WANG I agree with the above.
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
--- NOTE | 2017-10-27 15:38 | P.PNGI ---
Subjective Interval history: Pt reports some mild abdominal discomfort. Denies nausea, vomiting. Tolerating PO but has had a poor appetite. <Kaci Lancaster - Last Filed: 10/27/17 15:33> Physical Exam Vital signs: Vital Signs 10/26/17 16:00 10/26/17 18:00 10/26/17 20:00 Temperature 97.2 F L 98.6 F Pulse Rate 93 H 80 91 H Respiratory Rate 20 20 Blood Pressure 155/79 H 122/67 Pulse Oximetry 96 94 L 10/27/17 00:00 10/27/17 04:00 10/27/17 08:00 Temperature 98.1 F 98.6 F Pulse Rate 75 83 101 H Respiratory Rate 20 16 Blood Pressure 149/79 H 143/83 H Pulse Oximetry 93 L 95 10/27/17 12:00 10/27/17 15:12 Temperature 99.0 F Pulse Rate 76 76 Respiratory Rate 17 Blood Pressure 120/69 Pulse Oximetry 96 Intake & Output 10/26/17 10/27/17 10/27/17 18:59 06:59 18:59 Intake Total 2200 / 2200 2300 / 2300 1000 / 1000 Output Total 301 / 301 1801 / 1801 Balance 1899 / 1899 499 / 499 1000 / 1000 Weight 110.7 kg Intake: IV 2200 / 2200 1100 / 1100 1000 / 1000 NS Inj 1,000 ML @ 100 mls/hr IV 2000 / 2000 1000 / 1000 1000 / 1000 .CONT .Q10H [facility] Rx#:[id number] Cubicin Inj 1,000 MG In NS Inj 100 / 100 100 ML @ 200 mls/hr IV.SIG Q24H [facility] Rx#:[id number] Rocephin Inj 2,000 MG In NS Inj 100 / 100 100 / 100 0 / 0 100 ML @ 200 mls/hr IV.SIG Q12H EM[facility] Rx#:[id number] Oral 1200 / 1200 Output: Urine 301 / 301 1800 / 1800 Stool Other: Post Void Residual 200 # Voids 2 Date of Last Bowel Movement 10/26/17 10/26/17 10/26/17 - Constitutional no acute distress - Routine HEENT Exam Head: Present: normocephalic, atraumatic - Routine Respiratory Exam Absent: accessory muscle use - Routine Abdominal Exam Present: soft, normoactive bowel sounds. Absent: tenderness, distended - Routine Skin Exam Present: dry, warm - Routine Neurological Exam Present: alert, oriented X3 <Kaci Lancaster - Last Filed: 10/27/17 15:33> Vital signs: Vital Signs 10/26/17 18:00 10/26/17 20:00 10/27/17 00:00 Temperature 98.6 F Pulse Rate 80 91 H 75 Respiratory Rate 20 Blood Pressure 122/67 Pulse Oximetry 94 L 10/27/17 04:00 10/27/17 08:00 10/27/17 12:00 Temperature 98.1 F 98.6 F 99.0 F Pulse Rate 83 101 H 76 Respiratory Rate 20 16 17 Blood Pressure 149/79 H 143/83 H 120/69 Pulse Oximetry 93 L 95 96 10/27/17 15:12 Temperature Pulse Rate 76 Respiratory Rate Blood Pressure Pulse Oximetry Intake & Output 10/26/17 10/27/17 10/27/17 18:59 06:59 18:59 Intake Total 2200 / 2200 2300 / 2300 1000 / 1000 Output Total 301 / 301 1801 / 1801 Balance 1899 / 1899 499 / 499 1000 / 1000 Weight 110.7 kg Intake: IV 2200 / 2200 1100 / 1100 1000 / 1000 NS Inj 1,000 ML @ 100 mls/hr IV 2000 / 2000 1000 / 1000 1000 / 1000 .CONT .Q10H [facility] Rx#:[id number] Cubicin Inj 1,000 MG In NS Inj 100 / 100 100 ML @ 200 mls/hr IV.SIG Q24H [facility] Rx#:[id number] Rocephin Inj 2,000 MG In NS Inj 100 / 100 100 / 100 0 / 0 100 ML @ 200 mls/hr IV.SIG Q12H EM[facility] Rx#:[id number] Oral 1200 / 1200 Output: Urine 301 / 301 1800 / 1800 Stool 1 / Other: Post Void Residual 200 # Voids 2 Date of Last Bowel Movement 10/26/17 10/26/17 10/26/17 <Blu Hernandez - Last Filed: 10/27/17 16:18> Results - Labs CBC & Chem 7: 10/26/17 06:30 10/26/17 06:30 Microbiology 10/19/17 22:10 Wound - Knee Fungal Smear - Final No fungal elements seen 10/19/17 22:10 Wound - Knee Fungal Culture - Preliminary No growth in 1 week 10/19/17 22:10 Wound - Knee Acid Fast Bacilli Smear - Final No acid fast bacilli seen 10/19/17 22:10 Wound - Knee Mycobacterial Culture - Preliminary No growth in 1 week - Procedures Left knee arthroscopy, irrigation & debridement, synovectomy, chondroplasty <Kaci Lancaster - Last Filed: 10/27/17 15:33> - Labs CBC & Chem 7: 10/26/17 06:30 10/26/17 06:30 Microbiology 10/19/17 22:10 Wound - Knee Fungal Smear - Final No fungal elements seen 10/19/17 22:10 Wound - Knee Fungal Culture - Preliminary No growth in 1 week 10/19/17 22:10 Wound - Knee Acid Fast Bacilli Smear - Final No acid fast bacilli seen 10/19/17 22:10 Wound - Knee Mycobacterial Culture - Preliminary No growth in 1 week <Blu Hernandez - Last Filed: 10/27/17 16:18> Assessment and Plan (1) Streptococcus viridans infection Status: Acute Code(s): A49.1 - Streptococcal infection, unspecified site - Plan Assessment: - Bacteremia with Streptococcus Viridans- Consult to evaluate for possible GI source EGD --> There was esophagitis noted; likely Trish, multiple biopsies were performed There was chronic gastritis in the gastric antrum; biopsy was performed. Duodenal inflammation was found in the bulb and second portion of the duodenum and 3rd part duodenum. Retroflexion was performed and was normal Colonoscopy --> Significant amount of stool was present throughout the entire examined colon. Limited study from poor bowel prep, No large polyps or lesions seen, no obstructing mass, small lesion would be missed easily with fecal material (poor bowel prep ) . Plan: Abx per ID Nystatin swish and swallow Protonix EGD biopsy pending Repeat colonoscopy in 6 months Our service will sign off, please reconsult as needed Have pt follow up with GI after DC Pt has been seen and examined by myself and Dr. Hernandez and this note is written on his behalf <Kaci Lancaster - Last Filed: 10/27/17 15:33> (1) Streptococcus viridans infection Status: Acute Code(s): A49.1 - Streptococcal infection, unspecified site - Attending Attestation As above, no source of occult infection in the GI tract. Will sign off for now. <Blu Hernandez - Last Filed: 10/27/17 16:18>
--- NOTE | 2017-10-27 16:51 | P.PNOP ---
Subjective Interval history: POD #8 Left Knee Arthroscopic Irrigation and Debridement Pt is awake and alert, at bedside. Admits to continued left knee pain and inability to walk on it. Pt states he mostly feels the pain in 'his muscles' when he tries to move knee. It is also noted central line dressing was peeling off - importance of covering dressing was discussed with RN. Pt also does note after initial fall in July he had epidurals performed in the thoracic region, and subsequently had signs/symptoms. Physical Exam Vital signs: Vital Signs 10/26/17 18:00 10/26/17 20:00 10/27/17 00:00 Temperature 98.6 F Pulse Rate 80 91 H 75 Respiratory Rate 20 Blood Pressure 122/67 Pulse Oximetry 94 L 10/27/17 04:00 10/27/17 08:00 10/27/17 12:00 Temperature 98.1 F 98.6 F 99.0 F Pulse Rate 83 101 H 76 Respiratory Rate 20 16 17 Blood Pressure 149/79 H 143/83 H 120/69 Pulse Oximetry 93 L 95 96 10/27/17 15:12 Temperature Pulse Rate 76 Respiratory Rate Blood Pressure Pulse Oximetry Intake & Output 18 10/27/17 10/27/17 18:59 06:59 18:59 Intake Total 2200 / 2200 2300 / 2300 1000 / 1000 Output Total 301 / 301 1801 / 1801 Balance 1899 / 1899 499 / 499 1000 / 1000 Weight 110.7 kg Intake: IV 2200 / 2200 1100 / 1100 1000 / 1000 NS Inj 1,000 ML @ 100 mls/hr IV 2000 / 2000 1000 / 1000 1000 / 1000 .CONT .Q10H [facility] Rx#:[id number] Cubicin Inj 1,000 MG In NS Inj 100 / 100 100 ML @ 200 mls/hr IV.SIG Q24H [facility] Rx#:[id number] Rocephin Inj 2,000 MG In NS Inj 100 / 100 100 / 100 0 / 0 100 ML @ 200 mls/hr IV.SIG Q12H [facility] Rx#:[id number] Oral 1200 / 1200 Output: Urine 301 / 301 1800 / 1800 Stool / Other: Post Void Residual 200 # Voids 2 Date of Last Bowel Movement 10/26/17 10/26/17 10/26/17 Narrative: LLE: incision lines well healed, sutures intact, mild effusion, mild tenderness around joint line, severe pain with ROM of hip/knee in quadricep region, moderate pain to palpation over quadricep/hamstring and calf muscle, only quivering felt when asked to perform quadricep holds, no erythema, no discharge , good pulses, NVI Results - Labs CBC & Chem 7: 10/26/17 06:30 10/26/17 06:30 Microbiology 10/19/17 22:10 Wound - Knee Fungal Smear - Final No fungal elements seen 10/19/17 22:10 Wound - Knee Fungal Culture - Preliminary No growth in 1 week 10/19/17 22:10 Wound - Knee Acid Fast Bacilli Smear - Final No acid fast bacilli seen 10/19/17 22:10 Wound - Knee Mycobacterial Culture - Preliminary No growth in 1 week - Procedures Left knee arthroscopy, irrigation & debridement, synovectomy, chondroplasty Assessment and Plan - Ortho Post Op Day # 8 - Problem List (1) Chronic pain Code(s): G89.29 - Other chronic pain Status: Acute (2) Intractable neuropathic pain of lower extremity Code(s): G57.90 - Unspecified mononeuropathy of unspecified lower limb Status : Acute (3) Pituitary abnormality Code(s): E23.7 - Disorder of pituitary gland, unspecified Status: Acute (4) Hypertension Code(s): I10 - Essential (primary) hypertension Status: Acute (5) Septic arthritis of knee, left Code(s): M00.9 - Pyogenic arthritis, unspecified Status: Acute - Assessment and Plan POD #8 Left knee arthroscopy, irrigation & debridement, synovectomy, chondroplasty Ortho status stable Ok to d/c sutures, apply steris. ASA DVT prophylaxis. Cx of synovial fluid grew out strep viridans, Abx per ID. There is still a possibility requiring further surgical management/ possible aspiration depending on progression. Suspicious for musculoskeletal progression at this time. Awaiting results of MRI LLE and Doppler. Ortho will follow
[2017-10-27] MEDS: DAPTOmycin Inj 1,000 MG in Sodium Chlor 0.9% Inj 100 ML IV.SIG SCH (16:57)
[2017-10-27] MEDS: Nystatin Liq 500,000 UNIT/5 ML UDC SWISH-SWAL SCH ×3 (16:58→21:25)
[2017-10-27] MEDS: Duloxetine 60 MG DR Capsule PO SCH (21:23)
--- NOTE | 2017-10-27 21:27 | P.PNNS ---
Subjective Interval history: NOTE REFLECTS ENCOUNTER FROM 10/26/201710/26. His pain is better controlled. no focal deficits. ReceivingIV ABX Physical Exam Vital signs: Vital Signs 10/27/17 00:00 10/27/17 04:00 10/27/17 08:00 Temperature 98.1 F 98.6 F Pulse Rate 75 83 101 H Respiratory Rate 20 16 Blood Pressure 149/79 H 143/83 H Pulse Oximetry 93 L 95 10/27/17 12:00 10/27/17 15:12 10/27/17 16:00 Temperature 99.0 F 97.7 F Pulse Rate 76 76 100 H Respiratory Rate 17 18 Blood Pressure 120/69 139/72 Pulse Oximetry 96 96 10/27/17 20:00 Temperature 98 F Pulse Rate 98 H Respiratory Rate 18 Blood Pressure 150/76 H Pulse Oximetry 96 Intake & Output 10/27/17 10/27/17 10/28/17 06:59 18:59 06:59 Intake Total 2300 / 2300 1400 / 1400 Output Total 1801 / 1801 825 / 825 Balance 499 / 499 575 / 575 Weight 110.7 kg Intake: IV 1100 / 1100 1000 / 1000 NS Inj 1,000 ML @ 100 mls/hr IV 1000 / 1000 1000 / 1000 .CONT .Q10H [facility] Rx#:[id number] Rocephin Inj 2,000 MG In NS Inj 100 / 100 0 / 0 100 ML @ 200 mls/hr IV.SIG Q12H [facility] Rx#:[id number] Oral 1200 / 1200 400 / 400 Output: Urine 1800 / 1800 825 / 825 Stool 1 / 1 Other: Date of Last Bowel Movement 10/26/17 10/26/17 # Bowel Movements 1 Narrative: NOTE REFLECTS ENCOUNTER FROM 10/26/2017 GENERAL: mr Rosales is In bed in no acute distress. SKIN: Warm and dry. HEAD: Normocephalic. EYES: No scleral icterus. No injection or drainage. NECK: Supple, trachea midline. No JVD or lymphadenopathy. CARDIOVASCULAR: Regular rate and rhythm RESPIRATORY: Breath sounds equal bilaterally. No accessory muscle use. GASTROINTESTINAL: Abdomen soft, non-tender, nondistended. MUSCULOSKELETAL: No cyanosis, or edema. Left knee bandaged with drain in place. NEURO: Awake, alert, speech fluent. follows commands without difficulties. pupils equal, facial motor symmetric. moves upper extremities well. good strenght in his lower extremities. 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 MRI thoracic spine with discitis. Continue non operative treatment with IV antibiotics TLSO brace His lumbar shwanoma is unrelated to his current symptoms debridement of his knee infection Pulmonary: Continue aggressive pulmonary toilette, nasotracheal suction, and breathing treatments with nebulizers. Daily PT and OT Renal: Continue to monitor closely urine output, BUN and creatinine Endocrine: Continue to Monitor serial Acu checks and SSI as needed in detail ID continue to monitor for signs of infection Continue Protonix for stress ulcer prophylaxis Continue Christos hose and SCD's for DVT prophylaxis Further recommendations will be provided depending on the patient's clinical evaluation and follow up studies.
--- NOTE | 2017-10-27 21:27 | P.PNNS ---
Subjective Interval history: 10/27. hE reports some mild abdominal discomfort. Denies nausea, vomiting. Tolerating PO WELL Physical Exam Vital signs: Vital Signs 10/27/17 00:00 10/27/17 04:00 10/27/17 08:00 Temperature 98.1 F 98.6 F Pulse Rate 75 83 101 H Respiratory Rate 20 16 Blood Pressure 149/79 H 143/83 H Pulse Oximetry 93 L 95 10/27/17 12:00 10/27/17 15:12 10/27/17 16:00 Temperature 99.0 F 97.7 F Pulse Rate 76 76 100 H Respiratory Rate 17 18 Blood Pressure 120/69 139/72 Pulse Oximetry 96 96 10/27/17 20:00 Temperature 98 F Pulse Rate 98 H Respiratory Rate 18 Blood Pressure 150/76 H Pulse Oximetry 96 Intake & Output 10/27/17 10/27/17 10/28/17 06:59 18:59 06:59 Intake Total 2300 / 2300 1400 / 1400 Output Total 1801 / 1801 825 / 825 Balance 499 / 499 575 / 575 Weight 110.7 kg Intake: IV 1100 / 1100 1000 / 1000 NS Inj 1,000 ML @ 100 mls/hr IV 1000 / 1000 1000 / 1000 .CONT .Q10H [facility] Rx#:[id number] Rocephin Inj 2,000 MG In NS Inj 100 / 100 0 / 0 100 ML @ 200 mls/hr IV.SIG Q12H [facility] Rx#:[id number] Oral 1200 / 1200 400 / 400 Output: Urine 1800 / 1800 825 / 825 Stool 1 / Other: Date of Last Bowel Movement 10/26/17 10/26/17 # Bowel Movements 1 Narrative: GENERAL: mr Rosales is In bed in no acute distress. SKIN: Warm and dry. HEAD: Normocephalic. EYES: No scleral icterus. No injection or drainage. NECK: Supple, trachea midline. No JVD or lymphadenopathy. CARDIOVASCULAR: Regular rate and rhythm RESPIRATORY: Breath sounds equal bilaterally. No accessory muscle use. GASTROINTESTINAL: Abdomen soft, non-tender, nondistended. MUSCULOSKELETAL: No cyanosis, or edema. Left knee bandaged with drain in place. NEURO: Awake, alert, speech fluent. follows commands without difficulties. pupils equal, facial motor symmetric. moves upper extremities well. good strenght in his lower extremities. 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 MRI thoracic spine with discitis. Continue non operative treatment with IV antibiotics TLSO brace His lumbar shwanoma is unrelated to his current symptoms debridement of his knee infection Pulmonary: Continue aggressive pulmonary toilette, nasotracheal suction, and breathing treatments with nebulizers. Daily PT and OT Renal: Continue to monitor closely urine output, BUN and creatinine Endocrine: Continue to Monitor serial Acu checks and SSI as needed in detail ID continue to monitor for signs of infection Continue Protonix for stress ulcer prophylaxis Continue Christos hose and SCD's for DVT prophylaxis Further recommendations will be provided depending on the patient's clinical evaluation and follow up studies.
--- NOTE | 2017-10-27 23:01 | US ---
EXAM DATE: 10/27/2017 10:58 PM EDT AGE/SEX: 52 years / Male INDICATIONS: Left lower extremity swelling. CLINICAL DATA: This is the patient's initial encounter. Patient reports that signs and symptoms have been present for 2 weeks and indicates a pain score of 6/10. MEDICAL/SURGICAL HISTORY: Hypercholesterolemia. Hypertension. Pituitary abnormality. Chronic pain. Left knee septic arthritis. Tonsillectomy. Irrigation debridement of left knee. [place] [facility] [place] 10/17/[place]. . TECHNIQUE: Venous ultrasound of both lower extremities was performed from the inguinal ligament to t he proximal calf. Real-time, color Doppler and spectral tracing, compression and augmentation techni ques were used. FINDINGS: Normal compression of the deep venous system from the inguinal region to the proximal calf . No echogenic clot is seen. Normal response of the venous system to augmentation and respiration. Th ere is a complex fluid collection left medial calf measuring 9.1 x 3.4 x 1.5 cm. CONCLUSION: 1. No evidence of deep venous thrombosis. 2. Complex fluid collection in the left medial calf. This could represent a Lozada's cyst, hematoma and/or seroma. Electronically signed by: Samir Blank MD 10/27/2017 11:00 PM EDT
[2017-10-28] MEDS: Sod Chloride 0.9% Inj 1,000 ML IV.CONT SCH (00:07)
[2017-10-28] MEDS: HYDROmorphone PF Inj 2 MG/ML Vial IV.PUSH PRN ×3 (04:50→18:11)
--- NOTE | 2017-10-28 07:36 | P.PNOP ---
Subjective Interval history: Postoperative day 9 arthroscopic I&D left knee. The patient complains of continued pain in the medial calf and lateral thigh. He has difficulty with active range of motion of the knee and straight leg raise. A Doppler ultrasound was completed yesterday which did not reveal any evidence of DVT. There was a fluid collection in the medial calf felt to be a possible seroma, hematoma or extension of a Lozada's cyst. A MRI was ordered and is pending. He denies any paresthesias. He specifically denies knee pain. Physical Exam Vital signs: Vital Signs 10/27/17 08:00 10/27/17 12:00 10/27/17 15:12 Temperature 98.6 F 99.0 F Pulse Rate 101 H 76 76 Respiratory Rate 16 17 Blood Pressure 143/83 H 120/69 Pulse Oximetry 95 96 10/27/17 16:00 10/27/17 20:00 10/28/17 00:00 Temperature 97.7 F 98 F 98.0 F Pulse Rate 100 H 98 H 77 Respiratory Rate 18 18 18 Blood Pressure 139/72 150/76 H 114/73 Pulse Oximetry 96 96 97 10/28/17 01:55 10/28/17 04:00 Temperature 98.1 F Pulse Rate 75 Respiratory Rate 18 18 Blood Pressure 147/77 H Pulse Oximetry 95 Intake & Output 10/27/17 10/28/17 10/28/17 18:59 06:59 18:59 Intake Total 1500 / 1500 1200 / 1200 Output Total 825 / 825 800 / 800 Balance 675 / 675 400 / 400 Weight 111.3 kg Intake: IV 1100 / 1100 1200 / 1200 NS Inj 1,000 ML @ 100 mls/hr IV 1000 / 1000 1000 / 1000 .CONT .Q10H [facility] Rx#:[id number] Cubicin Inj 1,000 MG In NS Inj 100 / 100 100 ML @ 200 mls/hr IV.SIG Q24H [facility] Rx#:[id number] Rocephin Inj 2,000 MG In NS Inj 100 / 100 100 / 100 100 ML @ 200 mls/hr IV.SIG Q12H [facility] Rx#:[id number] Oral 400 / 400 Output: Urine 825 / 825 800 / 800 Other: Date of Last Bowel Movement 10/26/17 # Bowel Movements 1 Narrative: The left knee has a small dressing over the anterior aspect. There is no increased warmth or erythema. There is no drainage. There is a small effusion. He has mild swelling of the cath and wrinkling of the skin consistent with decreasing swelling. The thigh has mild swelling. There is palpable tenderness. There is no erythema, increased warmth, fluctuance or induration. He is unable to do straight leg raise secondary to pain. He moves his toes and ankle freely. He has good capillary refill, pulses and sensation distally. He has a negative Homans sign. Results - Labs CBC & Chem 7: 10/26/17 06:30 10/26/17 06:30 - Imaging Impressions Venous Doppler Study 10/27/17 00:00 CONCLUSION: 1. No evidence of deep venous thrombosis. 2. Complex fluid collection in the left medial calf. This could represent a Lozada's cyst, hematoma and/or seroma. - Procedures Left knee arthroscopy, irrigation & debridement, synovectomy, chondroplasty Assessment and Plan - Problem List (1) Chronic pain Code(s): G89.29 - Other chronic pain Status: Acute (2) Intractable neuropathic pain of lower extremity Code(s): G57.90 - Unspecified mononeuropathy of unspecified lower limb Status : Acute (3) Pituitary abnormality Code(s): E23.7 - Disorder of pituitary gland, unspecified Status: Acute (4) Hypertension Code(s): I10 - Essential (primary) hypertension Status: Acute (5) Septic arthritis of knee, left Code(s): M00.9 - Pyogenic arthritis, unspecified Status: Acute - Assessment and Plan POD #8 Left knee arthroscopy, irrigation & debridement, synovectomy, chondroplasty Ortho status stable ASA DVT prophylaxis. Cx of synovial fluid grew out strep viridans, Abx per ID. Clinically, fluid collection does not appear to be an abscess or evidence of fasciitis. Awaiting results of MRI LLE. Depending on results further disposition will be rendered. Consider IR for aspiration of fluid collection if clinically indicated. Discussed with Dr. Heredia Will discuss with covering Ortho associate if any acute intervention required in the next 3 days.
[2017-10-28] MEDS: Morphine Sulfate 15 MG SR Tablet PO SCH ×2 (08:44→21:34)
[2017-10-28] MEDS: Nystatin Liq 500,000 UNIT/5 ML UDC SWISH-SWAL SCH ×4 (08:45→21:33)
--- NOTE | 2017-10-28 09:36 | P.PNIM ---
Subjective Interval history: pt c/o left calf and thigh pain Physical Exam Vital signs: Vital Signs 10/27/17 12:00 10/27/17 15:12 10/27/17 16:00 Temperature 99.0 F 97.7 F Pulse Rate 76 76 100 H Respiratory Rate 17 18 Blood Pressure 120/69 139/72 Pulse Oximetry 96 96 10/27/17 20:00 10/28/17 00:00 10/28/17 01:55 Temperature 98 F 98.0 F Pulse Rate 98 H 77 Respiratory Rate 18 18 18 Blood Pressure 150/76 H 114/73 Pulse Oximetry 96 97 10/28/17 04:00 10/28/17 08:00 Temperature 98.1 F 97.8 F Pulse Rate 75 90 Respiratory Rate 18 17 Blood Pressure 147/77 H 155/81 H Pulse Oximetry 95 97 Intake & Output 10/27/17 10/28/17 10/28/17 18:59 06:59 18:59 Intake Total 1500 / 1500 1200 / 1200 Output Total 825 / 825 800 / 800 Balance 675 / 675 400 / 400 Weight 111.3 kg Intake: IV 1100 / 1100 1200 / 1200 NS Inj 1,000 ML @ 100 mls/hr IV 1000 / 1000 1000 / 1000 .CONT .Q10H [facility] Rx#:[id number] Cubicin Inj 1,000 MG In NS Inj 100 / 100 100 ML @ 200 mls/hr IV.SIG Q24H [facility] Rx#:[id number] Rocephin Inj 2,000 MG In NS Inj 100 / 100 100 / 100 100 ML @ 200 mls/hr IV.SIG Q12H [facility]ILIO Rx#:[id number] Oral 400 / 400 Output: Urine 825 / 825 800 / 800 Other: Date of Last Bowel Movement 10/26/17 # Bowel Movements 1 nad heart reg lung cta abd s/nt ext left leg some thing/calf swelling. limited range of motion right IJ Results - Labs CBC & Chem 7: 10/26/17 06:30 10/26/17 06:30 - Imaging Impressions Venous Doppler Study 10/27/17 00:00 CONCLUSION: 1. No evidence of deep venous thrombosis. 2. Complex fluid collection in the left medial calf. This could represent a Lozada's cyst, hematoma and/or seroma. - Procedures Left knee arthroscopy, irrigation & debridement, synovectomy, chondroplasty Assessment and Plan - Assessment (1) Effusion of left knee Code(s): M25.462 - Effusion, left knee Status: Acute Plan: This is a 52-year-old male patient with past medical history which includes hypertension, hyperlipidemia, anxiety/depression, BPH, hyperprolactinemia and chronic lower back pain, lumbar degenerative disc disease with long-term current use of opioid analgesic. Patient presents to the emergency department by EMS transport from home due to complaint of severe left lower extremity pain. Patient has been under the care of his primary care provider Dr. Walls and his pain management Dr. Bridges and sports medicine Dr. Dickson. Patient is undergone epidural injections and nerve block injections without symptom relief. Patient is on chronic Morphine ER 15 mg BID and [place] 10-325 mg Q8H. Patient fell at his bedside 10/16/17 walking with his walker to go the bathroom and since then has had increasing pain. Strep Viridans bacteremia T7 and T8 discitis and osteo Left knee effusion Chronic lower back pain, Now with decreased mobility Lumbar degenerative disc disease with long-term current use of opioid analgesia - Venous Doppler Study 10/17/17 The study is negative for lower extremity deep venous thrombosis. - Lumbar Spine X-Ray 10/17/17 Chronic changes. - Pelvis X-Ray 10/17/17 No definite fracture is identified for technique. - Femur X-Ray 10/18/17 1. No fracture is identified. 2. Large knee joint effusion. 3. Recent MRI performed on 10/12/2017 documented severe edema in the proximal thigh. - Tibia/Fibula X-Ray 10/18/17 Large knee joint effusion. No acute osseous abnormality is visualized. - Outpatient lumbar MRI reviewed by Dr. Dolan - Pt underwent arthrocentesis on 10/18 with removal of 60cc "chocolate milk" color fluid. Culture grew out Strep viridans - On 10/19/17 pt underwent Left knee arthroscopy, irrigation & debridement, synovectomy, chondroplasty, surgical cx. grew out strep viridans - Blood cultures drawn on 10/18 with 2/4 growing out strep viridans. - MRI thoracic spine (10/20/17): 1. Discitis with osteomyelitis involving T7-T8. No paraspinal fluid collections or vertebral body collapse at this point. 2. Small bilateral pleural effusions. - MRI Lumbar spine (10/21/17): - Multilevel spinal canal stenosis most prominent at L4-L5 moderate nature. - 1.9 x 1.2 cm mass in the neural foramen on the right as seen on the prior examination characteristic of schwannoma or neurofibroma compromising the nerve root exit zone and lateral recess. The findings are similar to the prior exam. - There are no findings of osteomyelitis - On 10/[address] guided needle bx T8 --> Uncomplicated needle biopsy of the T8 superior endplate....cx's pending from needle bx. - Repeat cx's (10/21/17) with NGTD - Pain control - PT consultation for oob daily. - Pt was transferred from ICU on 10/23 - The source for the bacteremia is unclear. Pt with a noted broken molar which does not appear infected. Discussed the case with Dr. Jones and recommended to have a GI evaluation - Appreciate consult from GI and pt is planned for EGD/colonoscopy 10/26 results of coloscopy limited due to large amount of retained stool EGD: 1. There was esophagitis noted; likely Trish, multiple biopsies were performed 2. There was chronic gastritis in the gastric antrum; biopsy was performed 3. Duodenal inflammation was found in the bulb and second portion of the duodenum and 3rd part duodenum 4. Retroflexion was performed and was normal Pathology pending - ID awaiting results from further susceptibility of Strep Viridans to decide on final antibiotic recommendations. currently on dapto and rocephin. remove IJ and replace with picc when ok with ID - ongoing left thigh and calf pain. complex fluid collection in left calf on u/s MRI left leg pending. might need drained. ortho following. plan for snf once medically stable. ALEXANDREA - related to sepsis and hypotension - resolved currently. Hypertension hx Hypotensive, patient asymptomatic - Hold patient's home amlodipine 10 mg p.o. daily, losartan 50 mg, triamterene hydrochlorothiazide daily - Pt had CVL IJ place 10/20 for hypotension and pressors. - Pt is off pressors and BP is stable. Hyperlipidemia - Continue patient's home atorvastatin Anxiety/depression - Continue patient's home fluoxetine 60 mg p.o. nightly BPH - Continue patient's home tamsulosin Hyperprolactinemia - Continue patient's home cabergoline weekly DVT prophylaxis with teds and SCDs
[2017-10-28] MEDS ORDERED: Gadobutrol PF 7.5 MMOL/7.5 ML Vial (for RAD) IV.SIG ONE (12:02)
--- NOTE | 2017-10-28 13:22 | MR ---
EXAM DATE: 10/28/2017 12:19 PM EDT AGE/SEX: 52 years / Male INDICATIONS: Pain in lower leg. CLINICAL DATA: This is the patient's initial encounter. Patient reports that signs and symptoms have been present for 1 day and indicates a pain score of 7/10. MEDICAL/SURGICAL HISTORY: Hypertension. Tonsillectomy. COMPARISON: [facility], MR KNEE W/O CONTRAST, LEFT, 10/12/2017. . TECHNIQUE: Multiplanar, multisequence MRI examination was performed without and with 11 ml Gadavist (gadobutrol) contrast as single exam dose. FINDINGS: There is joint effusion present in the knee, however volume appears to be decreased compared to recen t previous. Cystic changes again present in the popliteus muscle. There is cystic intramuscular fluid present in portions of the medial gastrocnemius with intramuscular edema present. There is subfascia l fluid tracking along the anterior lateral deep margin of the medial gastroc medial to the soleus. T here is fluid also tracking along the superficial fascial elements of the anterior and lateral valdes r egion and there is moderate diffuse subcutaneous tissue edema, mainly distal. The bony elements are benign in appearance. CONCLUSION: Fluid tracking down the tissues of the leg most probably associated with known pathology in the knee. Electronically signed by: Aditya Gonzalez MD 10/28/2017 1:21 PM EDT
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
[2017-10-28] MEDS: DAPTOmycin Inj 1,000 MG in Sodium Chlor 0.9% Inj 100 ML IV.SIG SCH (14:38)
[2017-10-28] MEDS: Duloxetine 60 MG DR Capsule PO SCH (21:36)
[2017-10-29] MEDS: HYDROmorphone PF Inj 2 MG/ML Vial IV.PUSH PRN ×4 (05:44→17:07)
--- NOTE | 2017-10-29 06:57 | P.PNOP ---
Subjective Interval history: Devin has a history of right septic knee infection treated with irrigation and debridement by Dr. Herrera. He continues to have some knee pain. MRI reveals small knee joint effusion as well as left medial calf abscess. He has continued pain with motion of his knee and leg. Physical Exam Vital signs: Vital Signs 10/28/17 08:00 10/28/17 12:00 10/28/17 16:00 Temperature 97.8 F 98.2 F 98.1 F Pulse Rate 75 77 108 H Respiratory Rate 17 17 17 Blood Pressure 155/81 H 143/75 H 139/66 Pulse Oximetry 97 96 95 10/28/17 20:00 10/29/17 00:00 10/29/17 00:26 Temperature 98.6 F 97.3 F L Pulse Rate 92 H 83 Respiratory Rate 18 18 18 Blood Pressure 153/88 H 107/60 Pulse Oximetry 95 95 10/29/17 00:30 10/29/17 04:00 10/29/17 04:11 Temperature 97.7 F Pulse Rate 67 87 Respiratory Rate 18 18 Blood Pressure 141/74 H Pulse Oximetry 95 10/29/17 04:30 Temperature Pulse Rate 76 Respiratory Rate Blood Pressure Pulse Oximetry Intake & Output 10/28/17 10/28/17 10/29/17 06:59 18:59 06:59 Intake Total 1200 / 1200 1060 / 1060 200 / 200 Output Total 800 / 800 650 / 650 Balance 400 / 400 410 / 410 200 / 200 Weight 111.3 kg Intake: IV 1200 / 1200 100 / 100 200 / 200 NS Inj 1,000 ML @ 100 mls/hr IV 1000 / 1000 .CONT .Q10H [facility] Rx#:[id number] Cubicin Inj 1,000 MG In NS Inj 100 / 100 100 / 100 100 ML @ 200 mls/hr IV.SIG Q24H [facility] Rx#:[id number] Rocephin Inj 2,000 MG In NS Inj 100 / 100 200 / 200 100 ML @ 200 mls/hr IV.SIG Q12H EM[facility] Rx#:[id number] Oral 960 / 960 Output: Urine 800 / 800 650 / 650 Other: Date of Last Bowel Movement 10/26/17 # Bowel Movements 0 Narrative: Devin is awake and alert. Examination of left leg reveals a small knee joint effusion. Knee range of motion is from 20 to 30. He is very tender to palpation over the medial calf. Skin is intact. There is no erythema. Sensation is intact left foot. Dorsalis pedis pulse is palpable. Results - Labs CBC & Chem 7: 10/26/17 06:30 10/26/17 06:30 Laboratory Results - last 24 hr 10/28/17 16:55 Total Creatine Kinase 36 L Microbiology 10/21/17 12:33 Cerebral Spinal Fluid - Lumbar Puncture Acid Fast Bacilli Smear - Final No acid fast bacilli seen 10/21/17 12:33 Cerebral Spinal Fluid - Lumbar Puncture Mycobacterial Culture - Preliminary No growth in 1 week 10/21/17 12:33 Cerebral Spinal Fluid - Lumbar Puncture Fungal Smear - Final No fungal elements seen 10/21/17 12:33 Cerebral Spinal Fluid - Lumbar Puncture Fungal Culture - Preliminary No growth in 1 week 10/21/17 10:44 Tissue - Other Fungal Smear - Final No fungal elements seen 10/21/17 10:44 Tissue - Other Fungal Culture - Preliminary No growth in 1 week 10/21/17 10:44 Tissue - Other Acid Fast Bacilli Smear - Final No acid fast bacilli seen 10/21/17 10:44 Tissue - Other Mycobacterial Culture - Preliminary No growth in 1 week - Imaging Impressions Lower Extremity MRI 10/28/17 00:00 CONCLUSION: Fluid tracking down the tissues of the leg most probably associated with known pathology in the knee. - Procedures Left knee arthroscopy, irrigation & debridement, synovectomy, chondroplasty Assessment and Plan - Problem List (1) Chronic pain Code(s): G89.29 - Other chronic pain Status: Acute (2) Intractable neuropathic pain of lower extremity Code(s): G57.90 - Unspecified mononeuropathy of unspecified lower limb Status : Acute (3) Pituitary abnormality Code(s): E23.7 - Disorder of pituitary gland, unspecified Status: Acute (4) Hypertension Code(s): I10 - Essential (primary) hypertension Status: Acute (5) Septic arthritis of knee, left Code(s): M00.9 - Pyogenic arthritis, unspecified Status: Acute - Assessment and Plan POD #9 Left knee arthroscopy, irrigation & debridement, synovectomy, chondroplasty ASA DVT prophylaxis. Cx of synovial fluid grew out strep viridans, Abx per ID. Given the appearance of the left calf fluid collection and the continued knee pain, I would recommend surgical irrigation debridement. I will plan on irrigation debridement of the left calf abscess as well as repeat irrigation debridement of left knee joint. The risks and benefits of surgery were discussed in depth with patient. All questions were answered. I will plan on surgery today. N.p.o. Consent signed on chart A mid-level provider in my office (nurse practitioner or physician elementary assistant principal) may see this patient on follow-up visits and continue to implement the objectives of this plan including: Starting or adjusting medications, injections , cast application, orthotics, brace application, physical therapy, radiological studies (including x-ray, MRI, CT, ultrasound, bone scan), vascular studies, neurologic studies, specialist consultation, and proceeding with surgical management, as appropriate.
[2017-10-29] MEDS ORDERED: Metoprolol Tartrate 25 MG Tablet PO ONE (07:54)
[2017-10-29] MEDS ORDERED: Chlorhexidine Gluconate 2% 1 Pack (2 Cloths) TOPICAL ONE (07:54)
[2017-10-29] MEDS ORDERED: Sodium Chlor 0.9% Inj 500 ML IV.SIG SCH (08:00)
[2017-10-29] MEDS ORDERED: Post-op Orders (for Pharmacy) OTHER STA (09:27)
--- NOTE | 2017-10-29 09:37 | P.OP ---
- Preoperative Diagnosis (1) Abscess of left leg (2) Septic arthritis of knee, left - Postoperative Diagnosis (1) Abscess of left thigh (2) Septic arthritis of knee, left (3) Abscess of left leg Date of procedure: 10/29/17 Procedure: Left knee arthrotomy with irrigation debridement, left calf abscess irrigation and debridement, left thigh abscess irrigation and debridement Anesthesia: ELEUTERIO Surgeon: Isidoro Hawk MD Mail Clerk Bills: GORDO Navarro PA-C The surgical procedure was assisted by my physician human resource assistant. My P.A. presence was necessary throughout this case for the manipulation and positioning of the surgical extremity. My P.A. was assisting me throughout the duration of this procedure. The skill set of a physician human resource assistant was medically necessary to complete this procedure. During the surgical case the surgical services asst was working at the back table and the physician human resource assistant was directly assisting me. Operation and Findings: Devin has a history of previous septic left knee treated with irrigation and debridement by Dr. Herrera. He has had continued pain. MRI revealed small joint effusion with abscess of the left calf. Informed consent was obtained and operative site was marked. He is brought to operating room. Patient was given IV sedation and general anesthesia. Timeout procedure was performed. Left leg was prepped with alcohol followed by Hibiclens and draped in usual sterile fashion. Procedure began with attention turned towards the left knee. A 2 inch incision was made over the lateral knee. Soft tissues were dissected with Bovie. A lateral arthrotomy was created. A large volume of purulent drainage was obtained. This was obtained for cultures. Approximately 100 cc of purulent fluid was obtained from the knee. The knee was thoroughly debrided. A partial synovectomy was performed with rondure. At this point the knee joint was thoroughly irrigated with pulsatile lavage. 3 L of sterile saline were used to irrigate the joint. Next attention was turned towards the left calf. A 3 inch incision was made over the medial gastroc muscle. Subcu tissues were dissected Bovie. The fluid collection was identified deep to the gastroc muscle. Fluid was obtained for culture as well. The abscess was sharply debrided with rongeurs and curettes. Soft tissue was now thoroughly irrigated with pulsatile lavage. At this point the thigh was examined. There appeared to be fluctuance along the anterior distal thigh. Decision was made to proceed with irrigation treatment of the thigh. The lateral thigh incision was extended proximally along the lateral thigh. Iliotibial band was split in line with fibers. A large abscess was identified underneath the quadriceps muscle. There was thick purulent fluid. There is multiple loculations medial, anterior, and lateral to the femur. The abscess was sharply debrided with scalpel and curettes. Soft tissue and bone were thoroughly irrigated with pulsatile lavage. At this point a drain was placed into the thigh and into the calf. Incisions were closed with 0 PDS, 3-0 PDS, and dimas. Sterile dressings were applied. Patient was transferred to recovery room in stable condition.
[2017-10-29] MEDS ORDERED: *morphine SULFATE 4 MG/ML PERIprocedure ONLY ONE (09:55)
[2017-10-29] MEDS ORDERED: Morphine Inj 4 MG/ML Vial ONE (09:59)
[2017-10-29] MEDS ORDERED: fentaNYL Citrate Inj 100 MCG/2 ML Ampul ONE (09:59)
[2017-10-29] MEDS ORDERED: *morphine SULFATE 10 MG/ML PERIprocedure ONLY ONE ×2 (10:01→10:10)
[2017-10-29] MEDS: Nystatin Liq 500,000 UNIT/5 ML UDC SWISH-SWAL SCH ×4 (13:28→22:04)
[2017-10-29] MEDS: Morphine Sulfate 15 MG SR Tablet PO SCH ×2 (13:55→22:05)
--- NOTE | 2017-10-29 15:55 | P.PNIM ---
Subjective Interval history: No new complaints. Pt's pain is controlled. Physical Exam Vital signs: 10/29/17 12:00 Temperature 97.7 F Pulse Rate 120 H Respiratory Rate 20 Blood Pressure 121/64 Pulse Oximetry 90 L Narrative: GENERAL: This is a well-nourished, well-developed patient, in no apparent distress. CARDIOVASCULAR: Regular rate and rhythm without murmurs, gallops, or rubs. RESPIRATORY: Clear to auscultation. Breath sounds equal bilaterally. No wheezes , rales, or rhonchi. GASTROINTESTINAL: Abdomen soft, non-tender, nondistended. Normal active bowel sounds MUSCULOSKELETAL: Extremities without clubbing, cyanosis, or edema. NEURO: Alert & Oriented x4 to person, place, time, situation. Moves all ext x4 Results - Labs CBC & Chem 7: 11/04/17 05:00 11/04/17 05:00 Microbiology 10/21/17 12:33 Cerebral Spinal Fluid - Lumbar Puncture Acid Fast Bacilli Smear - Final No acid fast bacilli seen 10/21/17 12:33 Cerebral Spinal Fluid - Lumbar Puncture Mycobacterial Culture - Preliminary No growth in 1 week 10/21/17 12:33 Cerebral Spinal Fluid - Lumbar Puncture Fungal Smear - Final No fungal elements seen 10/21/17 12:33 Cerebral Spinal Fluid - Lumbar Puncture Fungal Culture - Preliminary No growth in 1 week 10/21/17 10:44 Tissue - Other Fungal Smear - Final No fungal elements seen 10/21/17 10:44 Tissue - Other Fungal Culture - Preliminary No growth in 1 week 10/21/17 10:44 Tissue - Other Acid Fast Bacilli Smear - Final No acid fast bacilli seen 10/21/17 10:44 Tissue - Other Mycobacterial Culture - Preliminary No growth in 1 week - Procedures Left knee arthroscopy, irrigation & debridement, synovectomy, chondroplasty Left knee arthrotomy with irrigation debridement, left calf abscess irrigation and debridement, left thigh abscess irrigation and debridement performed by Dr. Isidoro Lund (10/29/17) Assessment and Plan - Assessment (1) Effusion of left knee Code(s): M25.462 - Effusion, left knee Status: Acute Plan: This is a 52-year-old male patient with past medical history which includes hypertension, hyperlipidemia, anxiety/depression, BPH, hyperprolactinemia and chronic lower back pain, lumbar degenerative disc disease with long-term current use of opioid analgesic. Patient presents to the emergency department by EMS transport from home due to complaint of severe left lower extremity pain. Patient has been under the care of his primary care provider Dr. Walls and his pain management Dr. Bridges and sports medicine Dr. Dickson. Patient is undergone epidural injections and nerve block injections without symptom relief. Patient is on chronic Morphine ER 15 mg BID and Burdick 10-325 mg Q8H. Patient fell at his bedside 10/16/17 walking with his walker to go the bathroom and since then has had increasing pain. Strep Viridans bacteremia T7 and T8 discitis and osteo Left knee effusion Chronic lower back pain, Now with decreased mobility Lumbar degenerative disc disease with long-term current use of opioid analgesia - Venous Doppler Study 10/17/17 The study is negative for lower extremity deep venous thrombosis. - Lumbar Spine X-Ray 10/17/17 Chronic changes. - Pelvis X-Ray 10/17/17 No definite fracture is identified for technique. - Femur X-Ray 10/18/17 1. No fracture is identified. 2. Large knee joint effusion. 3. Recent MRI performed on 10/12/2017 documented severe edema in the proximal thigh. - Tibia/Fibula X-Ray 10/18/17 Large knee joint effusion. No acute osseous abnormality is visualized. - Outpatient lumbar MRI reviewed by Dr. Dolan - Pt underwent arthrocentesis on 10/18 with removal of 60cc "chocolate milk" color fluid. Culture grew out Strep viridans - On 10/19/17 pt underwent Left knee arthroscopy, irrigation & debridement, synovectomy, chondroplasty, surgical cx. grew out strep viridans - Blood cultures drawn on 10/18 with 2/4 growing out strep viridans. - MRI thoracic spine (10/20/17): 1. Discitis with osteomyelitis involving T7-T8. No paraspinal fluid collections or vertebral body collapse at this point. 2. Small bilateral pleural effusions. - MRI Lumbar spine (10/21/17): - Multilevel spinal canal stenosis most prominent at L4-L5 moderate nature. - 1.9 x 1.2 cm mass in the neural foramen on the right as seen on the prior examination characteristic of schwannoma or neurofibroma compromising the nerve root exit zone and lateral recess. The findings are similar to the prior exam. - There are no findings of osteomyelitis - On 10/[address] guided needle bx T8 --> Uncomplicated needle biopsy of the T8 superior endplate....cx's pending from needle bx. - Repeat cx's (10/21/17) with NGTD - Pain control - PT consultation for oob daily. - Pt was transferred from ICU on 10/23 - The source for the bacteremia is unclear. Pt with a noted broken molar which does not appear infected. Discussed the case with Dr. Jones and recommended to have a GI evaluation - coloscopy (10/26) limited due to large amount of retained stool - EGD (10/26) 1. There was esophagitis noted; likely Trish, multiple biopsies were performed 2. There was chronic gastritis in the gastric antrum; biopsy was performed 3. Duodenal inflammation was found in the bulb and second portion of the duodenum and 3rd part duodenum 4. Retroflexion was performed and was normal Pathology pending - Daptomycin (10/22 - present) - Rocephin (10/26 - present) - IV access: IJ vs PICC? - Left knee arthroscopy, irrigation & debridement, synovectomy, chondroplasty 10/19/[address] Herrera - Left knee arthrotomy with irrigation debridement, left calf abscess irrigation and debridement, left thigh abscess irrigation and debridement performed by Dr. Isidoro Lund (10/29/17) - Intraoperative cultures (10/29) pending -plan for snf once medically stable. ALEXANDREA - related to sepsis and hypotension - resolved currently. Hypertension hx Hypotensive, patient asymptomatic - Hold patient's home amlodipine 10 mg p.o. daily, losartan 50 mg, triamterene hydrochlorothiazide daily - Pt had CVL IJ place 10/20 for hypotension and pressors. - Pt is off pressors and BP is stable. Hyperlipidemia - Continue patient's home atorvastatin Anxiety/depression - Continue patient's home fluoxetine 60 mg p.o. nightly BPH - Continue patient's home tamsulosin Hyperprolactinemia - Continue patient's home cabergoline weekly DVT prophylaxis with teds and SCDs
[2017-10-29] MEDS: DAPTOmycin Inj 1,000 MG in Sodium Chlor 0.9% Inj 100 ML IV.SIG SCH (16:05)
[2017-10-29] MEDS: Ketorolac Inj 30 MG/ML (IVP) Vial IV.PUSH SCH ×2 (18:46→18:47)
[2017-10-29] MEDS: Duloxetine 60 MG DR Capsule PO SCH (22:04)
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
[2017-10-30] MEDS: HYDROmorphone PF Inj 2 MG/ML Vial IV.PUSH PRN ×2 (06:52→14:02)
--- NOTE | 2017-10-30 07:04 | P.PNOP ---
Subjective Interval history: Devin is status post irrigation and debridement of left thigh, left knee, and left calf on 10/29/2017. He is awake and alert. Pain is improving. Physical Exam Vital signs: Vital Signs 10/29/17 09:51 10/29/17 10:00 10/29/17 10:15 Temperature 97.5 F L Pulse Rate 132 H 128 H 119 H Respiratory Rate 20 20 14 Blood Pressure 149/81 H 161/81 H 156/80 H Pulse Oximetry 98 94 L 96 10/29/17 10:30 10/29/17 10:45 10/29/17 11:00 Temperature Pulse Rate 120 H 121 H 125 H Respiratory Rate 23 24 20 Blood Pressure 162/80 H 158/77 H 142/70 H Pulse Oximetry 95 95 95 10/29/17 11:15 10/29/17 12:00 10/29/17 16:00 Temperature 97.6 F 97.7 F 98.2 F Pulse Rate 122 H 120 H 89 Respiratory Rate 14 20 20 Blood Pressure 145/73 H 121/64 110/50 L Pulse Oximetry 94 L 90 L 92 L 10/29/17 20:00 10/29/17 21:50 10/29/17 22:01 Temperature 98.7 F Pulse Rate 107 H Respiratory Rate 18 18 18 Blood Pressure 111/59 L Pulse Oximetry 95 10/29/17 22:10 10/30/17 00:00 10/30/17 04:00 Temperature 98.0 F 98.5 F Pulse Rate 79 104 H Respiratory Rate 18 18 18 Blood Pressure 88/51 L 110/56 L Pulse Oximetry 95 95 10/30/17 04:35 Temperature Pulse Rate Respiratory Rate 18 Blood Pressure Pulse Oximetry Intake & Output 10/29/17 10/30/17 10/30/17 18:59 06:59 18:59 Intake Total 1000 / 1000 300 / 300 Output Total 135 / 135 600 / 600 Balance 865 / 865 -300 / -300 Intake: IV 300 / 300 Cubicin Inj 1,000 MG In NS Inj 100 / 100 100 ML @ 200 mls/hr IV.SIG Q24H [facility] Rx#:[id number] Rocephin Inj 2,000 MG In NS Inj 200 / 200 100 ML @ 200 mls/hr IV.SIG Q12H [facility] Rx#:[id number] Oral 0 / 0 Anesthesia Amount 500 / 500 Other 500 / 500 Output: Urine 0 / 0 600 / 600 Estimated Blood Loss 50 / 50 Wound Drainage 85 / 85 # 1 Left Knee ROGER Drain 70 / 70 # 2 Left Calf ROGER Drain 15 / 15 Other: Date of Last Bowel Movement 10/26/17 10/29/17 Narrative: Devin is awake and alert. No acute distress. Examination of left leg reveals clean dry dressings in place. [address]. Sensation is intact left foot. Left foot is warm and well-perfused Results - Labs CBC & Chem 7: 10/26/17 06:30 10/26/17 06:30 Laboratory Results - last 24 hr 10/29/17 07:20 POC Glucose 136 H Microbiology 10/29/17 09:00 Tissue - Knee Fungal Smear - Final No fungal elements seen 10/29/17 09:00 Tissue - Knee Gram Stain - Final 10/29/17 09:00 Fluid - Other Fungal Smear - Final No fungal elements seen 10/29/17 09:00 Fluid - Other Gram Stain - Final - Procedures Left knee arthroscopy, irrigation & debridement, synovectomy, chondroplasty Left knee arthrotomy with irrigation debridement, left calf abscess irrigation and debridement, left thigh abscess irrigation and debridement performed by Dr. Isidoro Lund (10/29/17) Assessment and Plan - Problem List (1) Chronic pain Code(s): G89.29 - Other chronic pain Status: Acute (2) Intractable neuropathic pain of lower extremity Code(s): G57.90 - Unspecified mononeuropathy of unspecified lower limb Status : Acute (3) Pituitary abnormality Code(s): E23.7 - Disorder of pituitary gland, unspecified Status: Acute (4) Hypertension Code(s): I10 - Essential (primary) hypertension Status: Acute (5) Septic arthritis of knee, left Code(s): M00.9 - Pyogenic arthritis, unspecified Status: Acute - Assessment and Plan POD #10Left knee arthroscopy, irrigation & debridement, synovectomy POD #1 status post open irrigation and debridement of left thigh, left knee, and left calf Cx of synovial fluid grew out strep viridans, Abx per ID. Physical therapy, weight-bear as tolerated, left knee range of motion Continue drains
[2017-10-30 07:05] LABS: Baso # (Auto) 0.1 th/mm3 (0.0-0.2); Baso % (Auto) 0.7 % (0.0-2.0); Eos # (Auto) 0.2 th/mm3 (0.0-0.4); Eos % (Auto) 1.8 % (0.0-4.0); Lymph # (Auto) 0.9 th/mm3 (1.0-4.8); Lymph % (Auto) 8.2 % (9.0-44.0); Mean Corpuscular HGB Conc 32.4 % (32.0-36.0); Mean Corpuscular Hemoglobin 27.7 pg (27.0-34.0); Mean Corpuscular Volume 85.4 fL (80.0-100.0); Mean Platelet Volume 6.9 fL (7.0-11.0); Mono # (Auto) 0.4 th/mm3 (0.0-0.9); Mono % (Auto) 3.5 % (0.0-8.0); Neut # (Auto) 9.9 th/mm3 (1.8-7.7); Neut % (Auto) 85.8 % (16.0-70.0); Platelet Count 495 th/mm3 (150-450); Red Blood Count 2.26 mil/mm3 (4.50-5.90); Red Cell Distribution Width 14.1 % (11.6-17.2); White Blood Count 11.6 th/mm3 (4.0-11.0)
[2017-10-30 07:22] LABS: Hematocrit 19.3 % (39.0-51.0); Hemoglobin 6.3 gm/dL (13.0-17.0)
[2017-10-30 07:34] LABS: Anion Gap 9 meq/L (5-15); Blood Urea Nitrogen 11 mg/dL (7-18); Calcium 7.3 mg/dL (8.5-10.1); Carbon Dioxide 26.2 meq/L (21.0-32.0); Chloride 109 meq/L (98-107); Glomerular Filtration Rate Greater Than 89 mL/min (>89); Glucose,Random 109 mg/dL (74-106); Magnesium 1.4 mg/dL (1.5-2.5); Potassium 3.7 meq/L (3.5-5.1); Sodium 144 meq/L (136-145)
[2017-10-30] MEDS ORDERED: Sodium Chlor 0.9% Inj 250 ML IV.SIG SCH (08:00)
[2017-10-30] MEDS: Nystatin Liq 500,000 UNIT/5 ML UDC SWISH-SWAL SCH ×4 (08:34→22:29)
[2017-10-30] MEDS: Morphine Sulfate 15 MG SR Tablet PO SCH ×2 (08:34→22:27)
[2017-10-30] MEDS: KCL 20 mEq/NACL 0.45% Inj 1,000 ML IV.CONT SCH ×2 (08:44→22:29)
[2017-10-30] MEDS: Mag Sulf 1 gm/100 ml Premix 100 ML IV.SIG SCH ×2 (08:44→11:52)
--- NOTE | 2017-10-30 10:58 | P.PNIM ---
Subjective Interval history: Nursing informed me of anemia and hypotension. 2 units of PRBCs & IVFs ordered. Pt denies Chest pain or SOB. Pt does c/o fatigue. Physical Exam Vital signs: 10/30/17 09:56 10/30/17 10:14 Temperature 97.1 F L 98.0 F Pulse Rate 90 84 Respiratory Rate 18 14 Blood Pressure 69/32 L 72/39 L Pulse Oximetry 91 L 90 L Intake & Output 10/29/17 10/30/17 10/30/17 18:59 06:59 18:59 Intake Total 1000 / 1000 300 / 300 1442 / 1442 Output Total 135 / 135 600 / 600 435 / 435 Balance 865 / 865 -300 / -300 1007 / 1007 Intake: IV 300 / 300 Cubicin Inj 1,000 MG In NS Inj 100 / 100 100 ML @ 200 mls/hr IV.SIG Q24H EMILIO Rx#:[id number] Rocephin Inj 2,000 MG In NS Inj 200 / 200 100 ML @ 200 mls/hr IV.SIG Q12H EMILIO Rx#:[id number] Oral 0 / 0 442 / 442 Anesthesia Amount 500 / 500 Other 500 / 500 1000 / 1000 Intake (Blood Product) Amt 0 / 0 Rbc As-3 Leukoreduced Unit 0 / 0 [id number] Output: Urine 0 / 0 600 / 600 300 / 300 Estimated Blood Loss 50 / 50 Wound Drainage 85 / 85 135 / 135 # 1 Left Knee ROGER Drain 70 / 70 120 / 120 # 2 Left Calf ROGER Drain Other: Other Intake Source Saline Solution Date of Last Bowel Movement 10/26/17 10/29/17 10/29/17 Narrative: GENERAL: This is a well-nourished, well-developed patient, in no apparent distress. CARDIOVASCULAR: Regular rate and rhythm without murmurs, gallops, or rubs. RESPIRATORY: Clear to auscultation. Breath sounds equal bilaterally. No wheezes , rales, or rhonchi. GASTROINTESTINAL: Abdomen soft, non-tender, nondistended. Normal active bowel sounds MUSCULOSKELETAL: Extremities without clubbing, cyanosis, or edema. NEURO: Alert & Oriented x4 to person, place, time, situation. Moves all ext x4 EXT: RLE bandaged, 2 ROGER drains: one at thigh, one at calf both with serosanguineous drainage. Results - Labs CBC & Chem 7: 10/31/17 05:30 10/31/17 05:30 Microbiology 10/29/17 09:00 Tissue - Knee Fungal Smear - Final No fungal elements seen 10/29/17 09:00 Tissue - Knee Gram Stain - Final 10/29/17 09:00 Fluid - Other Fungal Smear - Final No fungal elements seen 10/29/17 09:00 Fluid - Other Gram Stain - Final - Imaging Venous Doppler Study 10/17/17 20:58 CONCLUSION: 1. The study is negative for lower extremity deep venous thrombosis. Lumbar Spine X-Ray 10/17/17 21:00 CONCLUSION: Chronic changes. Pelvis X-Ray 10/17/17 21:00 CONCLUSION: No definite fracture is identified for technique. Femur X-Ray 10/18/17 01:02 CONCLUSION: 1. No fracture is identified. 2. Large knee joint effusion. 3. Recent MRI performed on 10/12/2017 documented severe edema in the proximal thigh. Tibia/Fibula X-Ray 10/18/17 01:02 CONCLUSION: Large knee joint effusion. No acute osseous abnormality is visualized. Abdomen/Bladder Ultrasound 10/19/17 00:00 CONCLUSION: 1. Normal renal sonogram. Thoracic Spine MRI 10/20/17 00:00 CONCLUSION: 1. Discitis with osteomyelitis involving T7-T8. No paraspinal fluid collections or vertebral body collapse at this point. 2. Small bilateral pleural effusions. Chest X-Ray 10/20/17 15:06 CONCLUSION: 1. Right IJ central line in good position without pneumothorax. Lumbar Puncture Fluoroscopy 10/21/17 00:00 CONCLUSION: 1. Uncomplicated fluoroscopically guided lumbar puncture. Lumbar Spine MRI 10/21/17 00:00 CONCLUSION: Multilevel spinal canal stenosis most prominent at L4-L5 moderate nature. 1.9 x 1.2 cm mass in the neural foramen on the right as seen on the prior examination characteristic of schwannoma or neurofibroma compromising the nerve root exit zone and lateral recess. The findings are similar to the prior exam. There are no findings of osteomyelitis Needle Biopsy/Aspiration X-Ray 10/21/17 00:00 CONCLUSION: 1. Uncomplicated needle biopsy of the T8 superior endplate, as above. Abdomen/Pelvis CT 10/21/17 00:03 CONCLUSION: 1. No acute abnormality is identified within the abdomen or pelvis on this noncontrast examination. No abscess is visualized, as questioned. 2. Mild atherosclerotic disease. Chest CT 10/21/17 00:03 CONCLUSION: 1. Endplate irregularity and decreased disc height at T7-T8 with abnormal soft tissue in the adjacent prevertebral region on the right. Findings are consistent with a discitis and osteomyelitis documented on yesterday's thoracic spine MRI. 2. No other source for infection is identified. Venous Doppler Study 10/27/17 00:00 CONCLUSION: 1. No evidence of deep venous thrombosis. 2. Complex fluid collection in the left medial calf. This could represent a Lozada's cyst, hematoma and/or seroma. Lower Extremity MRI 10/28/17 00:00 CONCLUSION: Fluid tracking down the tissues of the leg most probably associated with known pathology in the knee. - Procedures Left knee arthroscopy, irrigation & debridement, synovectomy, chondroplasty Left knee arthrotomy with irrigation debridement, left calf abscess irrigation and debridement, left thigh abscess irrigation and debridement performed by Dr. Isidoro Lund (10/29/17) Assessment and Plan - Assessment (1) Effusion of left knee Code(s): M25.462 - Effusion, left knee Status: Acute Plan: This is a 52-year-old male patient with past medical history which includes hypertension, hyperlipidemia, anxiety/depression, BPH, hyperprolactinemia and chronic lower back pain, lumbar degenerative disc disease with long-term current use of opioid analgesic. Patient presents to the emergency department by EMS transport from home due to complaint of severe left lower extremity pain. Patient has been under the care of his primary care provider Dr. Walls and his pain management Dr. Bridges and sports medicine Dr. Dickson. Patient is undergone epidural injections and nerve block injections without symptom relief. Patient is on chronic Morphine ER 15 mg BID and Twisp 10-325 mg Q8H. Patient fell at his bedside 10/16/17 walking with his walker to go the bathroom and since then has had increasing pain. Strep Viridans bacteremia T7 and T8 discitis and osteo Left knee effusion Chronic lower back pain, Now with decreased mobility Lumbar degenerative disc disease with long-term current use of opioid analgesia - Venous Doppler Study 10/17/17 The study is negative for lower extremity deep venous thrombosis. - Lumbar Spine X-Ray 10/17/17 Chronic changes. - Pelvis X-Ray 10/17/17 No definite fracture is identified for technique. - Femur X-Ray 10/18/17 1. No fracture is identified. 2. Large knee joint effusion. 3. Recent MRI performed on 10/12/2017 documented severe edema in the proximal thigh. - Tibia/Fibula X-Ray 10/18/17 Large knee joint effusion. No acute osseous abnormality is visualized. - Outpatient lumbar MRI reviewed by Dr. Dolan - Pt underwent arthrocentesis on 10/18 with removal of 60cc "chocolate milk" color fluid. Culture grew out Strep viridans - On 10/19/17 pt underwent Left knee arthroscopy, irrigation & debridement, synovectomy, chondroplasty, surgical cx. grew out strep viridans - Blood cultures drawn on 10/18 with 2/4 growing out strep viridans. - MRI thoracic spine (10/20/17): 1. Discitis with osteomyelitis involving T7-T8. No paraspinal fluid collections or vertebral body collapse at this point. 2. Small bilateral pleural effusions. - MRI Lumbar spine (10/21/17): - Multilevel spinal canal stenosis most prominent at L4-L5 moderate nature. - 1.9 x 1.2 cm mass in the neural foramen on the right as seen on the prior examination characteristic of schwannoma or neurofibroma compromising the nerve root exit zone and lateral recess. The findings are similar to the prior exam. - There are no findings of osteomyelitis - On 10/[address] guided needle bx T8 --> Uncomplicated needle biopsy of the T8 superior endplate....cx's pending from needle bx. - Repeat cx's (10/21/17) with NGTD - Pain control - PT consultation for oob daily. - Pt was transferred from ICU on 10/23 - The source for the bacteremia is unclear. Pt with a noted broken molar which does not appear infected. Discussed the case with Dr. Jones and recommended to have a GI evaluation - coloscopy (10/26) limited due to large amount of retained stool - EGD (10/26) 1. There was esophagitis noted; likely Trish, multiple biopsies were performed 2. There was chronic gastritis in the gastric antrum; biopsy was performed 3. Duodenal inflammation was found in the bulb and second portion of the duodenum and 3rd part duodenum 4. Retroflexion was performed and was normal Pathology pending - Daptomycin (10/22 - present) - Rocephin (10/26 - present) - IV access: IJ - Left knee arthroscopy, irrigation & debridement, synovectomy, chondroplasty 10/19/[address] Herrera - Left knee arthrotomy with irrigation debridement, left calf abscess irrigation and debridement, left thigh abscess irrigation and debridement performed by Dr. Isidoro Lund (10/29/17) - Intraoperative cultures (10/29) pending 10/30/17 - Pt is anemic and hypotensive - Pt readily conversing without complaints - palpebral conjunctiva pale - telemetry: NSR/sinus tach - Case informally d/c CCM - Pt receiving blood - IVFs at 150ml/hour - if BP does NOT improve with volume resuscitation, will transfer to ICU -plan for snf once medically stable. ALEXANDREA - related to sepsis and hypotension - resolved currently. Hypertension hx Hypotensive, patient asymptomatic - Hold patient's home amlodipine 10 mg p.o. daily, losartan 50 mg, triamterene hydrochlorothiazide daily - Pt had CVL IJ place 10/20 for hypotension and pressors. - Pt is off pressors and BP is stable. Hyperlipidemia - Continue patient's home atorvastatin Anxiety/depression - Continue patient's home fluoxetine 60 mg p.o. nightly BPH - Continue patient's home tamsulosin Hyperprolactinemia - Continue patient's home cabergoline weekly DVT prophylaxis with teds and SCDs
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
[2017-10-30] MEDS: DAPTOmycin Inj 1,000 MG in Sodium Chlor 0.9% Inj 100 ML IV.SIG SCH (14:02)
[2017-10-30 16:40] LABS: Baso # (Auto) 0.1 th/mm3 (0.0-0.2); Baso % (Auto) 0.5 % (0.0-2.0); Eos # (Auto) 0.4 th/mm3 (0.0-0.4); Eos % (Auto) 2.3 % (0.0-4.0); Hematocrit 27.4 % (39.0-51.0); Hemoglobin 9.2 gm/dL (13.0-17.0); Lymph # (Auto) 0.9 th/mm3 (1.0-4.8); Mean Corpuscular HGB Conc 33.5 % (32.0-36.0); Mean Corpuscular Hemoglobin 29.2 pg (27.0-34.0); Mean Corpuscular Volume 87.2 fL (80.0-100.0); Mean Platelet Volume 6.8 fL (7.0-11.0); Mono # (Auto) 0.7 th/mm3 (0.0-0.9); Mono % (Auto) 4.6 % (0.0-8.0); Neut # (Auto) 13.1 th/mm3 (1.8-7.7); Neut % (Auto) 86.6 % (16.0-70.0); Platelet Count 457 th/mm3 (150-450); Red Blood Count 3.15 mil/mm3 (4.50-5.90); Red Cell Distribution Width 14.7 % (11.6-17.2); White Blood Count 15.1 th/mm3 (4.0-11.0)
--- NOTE | 2017-10-30 22:13 | ECG ---
Date Performed: 10/29/2017 Time Performed: 17:14:53 PTAGE: 52 years EKG: SINUS TACHYCARDIA NONSPECIFIC T-WAVE ABNORMALITY ABNORMAL RHYTHM ECG PREVIOUS TRACING : 10/19/2017 15.42 DOCTOR: Wilfred Azar Interpretating Date/Time 10/30/2017 22:10:28
[2017-10-30] MEDS: Duloxetine 60 MG DR Capsule PO SCH (22:31)
[2017-10-31 06:00] LABS: Baso # (Auto) 0.1 th/mm3 (0.0-0.2); Baso % (Auto) 0.7 % (0.0-2.0); Eos # (Auto) 0.3 th/mm3 (0.0-0.4); Eos % (Auto) 2.8 % (0.0-4.0); Hematocrit 23.8 % (39.0-51.0); Hemoglobin 8.2 gm/dL (13.0-17.0); Lymph # (Auto) 1.1 th/mm3 (1.0-4.8); Lymph % (Auto) 9.1 % (9.0-44.0); Mean Corpuscular HGB Conc 34.4 % (32.0-36.0); Mean Corpuscular Hemoglobin 29.1 pg (27.0-34.0); Mean Corpuscular Volume 84.8 fL (80.0-100.0); Mean Platelet Volume 6.9 fL (7.0-11.0); Mono # (Auto) 0.7 th/mm3 (0.0-0.9); Mono % (Auto) 5.5 % (0.0-8.0); Neut # (Auto) 9.9 th/mm3 (1.8-7.7); Neut % (Auto) 81.9 % (16.0-70.0); Platelet Count 328 th/mm3 (150-450); Red Blood Count 2.81 mil/mm3 (4.50-5.90); Red Cell Distribution Width 14.6 % (11.6-17.2); White Blood Count 12.1 th/mm3 (4.0-11.0)
[2017-10-31 06:29] LABS: Anion Gap 8 meq/L (5-15); Blood Urea Nitrogen 12 mg/dL (7-18); Calcium 7.1 mg/dL (8.5-10.1); Carbon Dioxide 25.4 meq/L (21.0-32.0); Chloride 107 meq/L (98-107); Glomerular Filtration Rate Greater Than 89 mL/min (>89); Glucose,Random 114 mg/dL (74-106); Magnesium 1.6 mg/dL (1.5-2.5); Potassium 4.3 meq/L (3.5-5.1); Sodium 140 meq/L (136-145)
--- NOTE | 2017-10-31 06:36 | XR ---
EXAM DATE: 10/31/2017 6:24 AM EDT AGE/SEX: 52 years / Male INDICATIONS: Shortness of breath. Cough CLINICAL DATA: This is the patient's subsequent encounter. Patient reports that signs and symptoms h ave been present for 1 week and indicates a pain score of Nonresponsive. MEDICAL/SURGICAL HISTORY: . Hypertension. Pituitary abnormality, High cholesterol, Chronic pain , . Tonsillectomy. Laminectomy. [place] [facility] [place]/2017. . FINDINGS: Right IJ central line with tip in the caval junction. No significant focal pleural or parenchymal opa cities. Cardiomediastinal contours are within normal limits. Bony thorax is intact. CONCLUSION: 1. Right IJ central line in good position. 2. Lungs are clear. Electronically signed by: Orion Gallagher MD 10/31/2017 6:35 AM EDT
[2017-10-31] MEDS: Nystatin Liq 500,000 UNIT/5 ML UDC SWISH-SWAL SCH ×4 (08:59→20:51)
[2017-10-31] MEDS: Morphine Sulfate 15 MG SR Tablet PO SCH ×2 (09:00→20:52)
[2017-10-31] MEDS: KCL 20 mEq/NACL 0.45% Inj 1,000 ML IV.CONT SCH ×2 (09:00→22:13)
--- NOTE | 2017-10-31 10:31 | P.PNOP ---
Subjective Interval history: Resting comfortably with no new complaints Physical Exam Vital signs: Vital Signs 10/30/17 11:32 10/30/17 13:09 10/30/17 16:00 Temperature 99.1 F 98.7 F Pulse Rate 95 H 110 H Respiratory Rate 18 18 Blood Pressure 86/48 L 105/54 L 107/54 L Pulse Oximetry 98 97 10/30/17 20:00 10/31/17 00:00 10/31/17 04:00 Temperature 98.2 F 98.2 F 97.9 F Pulse Rate 99 H 88 84 Respiratory Rate 18 18 18 Blood Pressure 124/69 81/52 L 92/53 L Pulse Oximetry 99 99 97 10/31/17 08:00 Temperature 98.1 F Pulse Rate 73 Respiratory Rate 20 Blood Pressure 112/65 Pulse Oximetry 98 Intake & Output 10/30/17 10/31/17 10/31/17 18:59 06:59 18:59 Intake Total 2542 / 2542 1100 / 1100 1000 / 1000 Output Total 465 / 465 310 / 310 Balance 2077 / 2077 790 / 790 1000 / 1000 Intake: IV 300 / 300 1100 / 1100 1000 / 1000 Potassium Chlor 20 mEq/NACL 0. 1000 / 1000 1000 / 1000 45% Inj 1,000 ML @ 84 mls/hr IV .CONT .[id number] EMILIO Rx#:[id number] Cubicin Inj 1,000 MG In NS Inj 100 / 100 100 ML @ 200 mls/hr IV.SIG Q24H EMILIO Rx#:[id number] Magnesium Sulfate 1 gm/D5W 100 100 / 100 ml Premix 100 ML @ 100 mls/hr IV.SIG Q1H EMILIO Rx#:[id number] Rocephin Inj 2,000 MG In NS Inj 100 / 100 100 / 100 100 ML @ 200 mls/hr IV.SIG Q12H EMILIO Rx#:[id number] Oral 442 / 442 Other 1000 / 1000 Intake (Blood Product) Amt 800 / 800 Rbc As-3 Leukoreduced Unit 400 / 400 [id number] Rbc As-3 Leukoreduced Unit 400 / 400 [id number] Output: Urine 300 / 300 300 / 300 Wound Drainage 165 / 165 10 / 10 # 1 Left Knee ROGER Drain 150 / 150 10 / 10 # 2 Left Calf ROGER Drain 15 15 0 / 0 Other: Other Intake Source Saline Solution Date of Last Bowel Movement 10/29/17 Narrative: Left lower extremity: Clean dry dressings intact. [address]. Knee range of motion is from 10 short of extension to 70. He has intact sensation distally with active dorsiflexion plantar flexion foot. Results - Labs CBC & Chem 7: 10/31/17 05:30 10/31/17 05:30 Laboratory Results - last 24 hr 10/30/17 10/30/17 10/30/17 08:12 16:13 16:13 WBC 15.1 H RBC 3.15 L Hgb 9.2 L D Hct 27.4 L MCV 87.2 MCH 29.2 MCHC 33.5 RDW 14.7 Plt Count 457 H MPV 6.8 L Neut % (Auto) 86.6 H Lymph % (Auto) 6.0 L [place] % (Auto) 4.6 Eos % (Auto) 2.3 Baso % (Auto) 0.5 Neut # (Auto) 13.1 H Lymph # (Auto) 0.9 L [place] # (Auto) 0.7 Eos # (Auto) 0.4 Baso # (Auto) 0.1 WBC Differential . Differential Comment Auto diff final Sodium Potassium Chloride Carbon Dioxide Anion Gap BUN Creatinine Estimated GFR Random Glucose Lactic Acid 2.2 H Calcium Prot Corrected Calcium Magnesium Total Protein Blood Type A Positive Antibody Screen Negative MTS Gel Crossmatch See Detail 10/31/17 10/31/17 10/31/17 01:00 05:30 05:30 WBC 12.1 H RBC 2.81 L Hgb 8.2 L Hct 23.8 L MCV 84.8 MCH 29.1 MCHC 34.4 RDW 14.6 Plt Count 328 MPV 6.9 L Neut % (Auto) 81.9 H Lymph % (Auto) 9.1 [place] % (Auto) 5.5 Eos % (Auto) 2.8 Baso % (Auto) 0.7 Neut # (Auto) 9.9 H Lymph # (Auto) 1.1 [place] # (Auto) 0.7 Eos # (Auto) 0.3 Baso # (Auto) 0.1 WBC Differential . Differential Comment Auto diff final Sodium 140 Potassium 4.3 Chloride 107 Carbon Dioxide 25.4 Anion Gap 8 BUN 12 Creatinine 0.46 L Estimated GFR Greater than 89 Random Glucose 114 H Lactic Acid 1.2 Calcium 7.1 L* Prot Corrected Calcium 8.2 L Magnesium 1.6 Total Protein 5.0 L Blood Type Antibody Screen MTS Gel Crossmatch Microbiology 10/29/17 09:00 Tissue - Knee Gram Stain - Final 10/29/17 09:00 Tissue - Knee Wound Culture - Preliminary No growth in 48 hours 10/29/17 09:00 Fluid - Other Gram Stain - Final 10/29/17 09:00 Fluid - Other Wound Culture - Preliminary No growth in 48 hours 10/29/17 09:00 Tissue - Knee Acid Fast Bacilli Smear - Final No acid fast bacilli seen 10/29/17 09:00 Fluid - Other Acid Fast Bacilli Smear - Final No acid fast bacilli seen - Imaging Impressions Chest X-Ray 10/31/17 06:00 CONCLUSION: 1. Right IJ central line in good position. 2. Lungs are clear. - Procedures Left knee arthroscopy, irrigation & debridement, synovectomy, chondroplasty Left knee arthrotomy with irrigation debridement, left calf abscess irrigation and debridement, left thigh abscess irrigation and debridement performed by Dr. Isidoro Lund (10/29/17) Assessment and Plan - Problem List (1) Chronic pain Code(s): G89.29 - Other chronic pain Status: Acute (2) Intractable neuropathic pain of lower extremity Code(s): G57.90 - Unspecified mononeuropathy of unspecified lower limb Status : Acute (3) Pituitary abnormality Code(s): E23.7 - Disorder of pituitary gland, unspecified Status: Acute (4) Hypertension Code(s): I10 - Essential (primary) hypertension Status: Acute (5) Septic arthritis of knee, left Code(s): M00.9 - Pyogenic arthritis, unspecified Status: Acute - Assessment and Plan POD #11 Left knee arthroscopy, irrigation & debridement, synovectomy POD #2 status post open irrigation and debridement of left thigh, left knee, and left calf Cx of synovial fluid grew out strep viridans, Abx per ID. Physical therapy, weight-bear as tolerated, left knee range of motion Begin daily dressing changes with Xeroform 4 x 4's ABDs and Brannon wrap. Continue with drain care.
[2017-10-31] MEDS: HYDROmorphone PF Inj 2 MG/ML Vial IV.PUSH PRN ×3 (11:30→20:54)
--- NOTE | 2017-10-31 11:36 | P.PNIM ---
Subjective Interval history: Pt denies chest pain or SOB. Left leg remains painful, but improved from earlier in the week. Pt c/o abdominal distension without discomfort. Pt tolerating PO intake. Last BM yesterday evening. Physical Exam Vital signs: 10/31/17 00:00 10/31/17 04:00 10/31/17 08:00 Temperature 98.2 F 97.9 F 98.1 F Pulse Rate 88 84 73 Respiratory Rate 18 18 20 Blood Pressure 81/52 L 92/53 L 112/65 Pulse Oximetry 99 97 98 Narrative: GENERAL: This is a well-nourished, well-developed patient, in no apparent distress. CARDIOVASCULAR: Regular rate and rhythm without murmurs, gallops, or rubs. RESPIRATORY: Clear to auscultation. Breath sounds equal bilaterally. No wheezes , rales, or rhonchi. GASTROINTESTINAL: Abdomen soft, non-tender, nondistended. Normal active bowel sounds MUSCULOSKELETAL: Extremities without clubbing, cyanosis, or edema. NEURO: Alert & Oriented x4 to person, place, time, situation. Moves all ext x4 EXT: RLE bandaged, 2 ROGER drains: one at thigh, one at calf both with serosanguineous drainage. Results - Labs CBC & Chem 7: 10/31/17 05:30 10/31/17 05:30 Microbiology 10/29/17 09:00 Tissue - Knee Gram Stain - Final 10/29/17 09:00 Tissue - Knee Wound Culture - Preliminary No growth in 48 hours 10/29/17 09:00 Fluid - Other Gram Stain - Final 10/29/17 09:00 Fluid - Other Wound Culture - Preliminary No growth in 48 hours 10/29/17 09:00 Tissue - Knee Acid Fast Bacilli Smear - Final No acid fast bacilli seen 10/29/17 09:00 Fluid - Other Acid Fast Bacilli Smear - Final No acid fast bacilli seen - Imaging Lumbar Spine X-Ray 10/17/17 21:00 Chronic changes. Pelvis X-Ray 10/17/17 21:00 No definite fracture is identified for technique. Femur X-Ray 10/18/17 01:02 1. No fracture is identified. 2. Large knee joint effusion. 3. Recent MRI performed on 10/12/2017 documented severe edema in the proximal thigh. Tibia/Fibula X-Ray 10/18/17 01:02 Large knee joint effusion. No acute osseous abnormality is visualized. Abdomen/Bladder Ultrasound 10/19/17 00:00 1. Normal renal sonogram. Thoracic Spine MRI 10/20/17 00:00 1. Discitis with osteomyelitis involving T7-T8. No paraspinal fluid collections or vertebral body collapse at this point. 2. Small bilateral pleural effusions. Lumbar Puncture Fluoroscopy 10/21/17 00:00 1. Uncomplicated fluoroscopically guided lumbar puncture. Lumbar Spine MRI 10/21/17 00:00 Multilevel spinal canal stenosis most prominent at L4-L5 moderate nature. 1.9 x 1.2 cm mass in the neural foramen on the right as seen on the prior examination characteristic of schwannoma or neurofibroma compromising the nerve root exit zone and lateral recess. The findings are similar to the prior exam. There are no findings of osteomyelitis Needle Biopsy/Aspiration X-Ray 10/21/17 00:00 CONCLUSION: 1. Uncomplicated needle biopsy of the T8 superior endplate, as above. Abdomen/Pelvis CT 10/21/17 00:03 CONCLUSION: 1. No acute abnormality is identified within the abdomen or pelvis on this noncontrast examination. No abscess is visualized, as questioned. 2. Mild atherosclerotic disease. Chest CT 10/21/17 00:03 CONCLUSION: 1. Endplate irregularity and decreased disc height at T7-T8 with abnormal soft tissue in the adjacent prevertebral region on the right. Findings are consistent with a discitis and osteomyelitis documented on yesterday's thoracic spine MRI. 2. No other source for infection is identified. Venous Doppler Study 10/27/17 00:00 CONCLUSION: 1. No evidence of deep venous thrombosis. 2. Complex fluid collection in the left medial calf. This could represent a Lozada's cyst, hematoma and/or seroma. Lower Extremity MRI 10/28/17 00:00 CONCLUSION: Fluid tracking down the tissues of the leg most probably associated with known pathology in the knee. Chest X-Ray 10/31/17 06:00 CONCLUSION: 1. Right IJ central line in good position. 2. Lungs are clear. - Procedures Left knee arthroscopy, irrigation & debridement, synovectomy, chondroplasty Left knee arthrotomy with irrigation debridement, left calf abscess irrigation and debridement, left thigh abscess irrigation and debridement performed by Dr. Isidoro Lund (10/29/17) Assessment and Plan - Assessment (1) Effusion of left knee Code(s): M25.462 - Effusion, left knee Status: Acute Plan: This is a 52-year-old male patient with past medical history which includes hypertension, hyperlipidemia, anxiety/depression, BPH, hyperprolactinemia and chronic lower back pain, lumbar degenerative disc disease with long-term current use of opioid analgesic. Patient presents to the emergency department by EMS transport from home due to complaint of severe left lower extremity pain. Patient has been under the care of his primary care provider Dr. Walls and his pain management Dr. Bridges and sports medicine Dr. Dickson. Patient is undergone epidural injections and nerve block injections without symptom relief. Patient is on chronic Morphine ER 15 mg BID and Monson 10-325 mg Q8H. Patient fell at his bedside 10/16/17 walking with his walker to go the bathroom and since then has had increasing pain. Strep Viridans bacteremia T7 and T8 discitis and osteo Left knee effusion Chronic lower back pain, Now with decreased mobility Lumbar degenerative disc disease with long-term current use of opioid analgesia - Venous Doppler Study 10/17/17 The study is negative for lower extremity deep venous thrombosis. - Lumbar Spine X-Ray 10/17/17 Chronic changes. - Pelvis X-Ray 10/17/17 No definite fracture is identified for technique. - Femur X-Ray 10/18/17 1. No fracture is identified. 2. Large knee joint effusion. 3. Recent MRI performed on 10/12/2017 documented severe edema in the proximal thigh. - Tibia/Fibula X-Ray 10/18/17 Large knee joint effusion. No acute osseous abnormality is visualized. - Outpatient lumbar MRI reviewed by Dr. Dolan - Pt underwent arthrocentesis on 10/18 with removal of 60cc "chocolate milk" color fluid. Culture grew out Strep viridans - On 10/19/17 pt underwent Left knee arthroscopy, irrigation & debridement, synovectomy, chondroplasty, surgical cx. grew out strep viridans - Blood cultures drawn on 10/18 with 2/4 growing out strep viridans. - MRI thoracic spine (10/20/17): 1. Discitis with osteomyelitis involving T7-T8. No paraspinal fluid collections or vertebral body collapse at this point. 2. Small bilateral pleural effusions. - MRI Lumbar spine (10/21/17): - Multilevel spinal canal stenosis most prominent at L4-L5 moderate nature. - 1.9 x 1.2 cm mass in the neural foramen on the right as seen on the prior examination characteristic of schwannoma or neurofibroma compromising the nerve root exit zone and lateral recess. The findings are similar to the prior exam. - There are no findings of osteomyelitis - On 10/[address] guided needle bx T8 --> Uncomplicated needle biopsy of the T8 superior endplate....cx's pending from needle bx. - Repeat cx's (10/21/17) with NGTD - Pain control - PT consultation for oob daily. - Pt was transferred from ICU on 10/23 - The source for the bacteremia is unclear. Pt with a noted broken molar which does not appear infected. Discussed the case with Dr. Jones and recommended to have a GI evaluation - coloscopy (10/26) limited due to large amount of retained stool - EGD (10/26) 1. There was esophagitis noted; likely Trish, multiple biopsies were performed 2. There was chronic gastritis in the gastric antrum; biopsy was performed 3. Duodenal inflammation was found in the bulb and second portion of the duodenum and 3rd part duodenum 4. Retroflexion was performed and was normal Pathology pending - Daptomycin (10/22 - present) - Rocephin (10/26 - present) - IV access: IJ - Left knee arthroscopy, irrigation & debridement, synovectomy, chondroplasty 10/19/[address] Herrera - Left knee arthrotomy with irrigation debridement, left calf abscess irrigation and debridement, left thigh abscess irrigation and debridement performed by Dr. Isidoro Lund (10/29/17) - Intraoperative cultures (10/29) pending 10/30/17 - Pt is anemic and hypotensive - Pt readily conversing without complaints - palpebral conjunctiva pale - telemetry: NSR/sinus tach - Case informally d/c CCM - Pt receiving blood - IVFs at 150ml/hour - if BP does NOT improve with volume resuscitation, will transfer to ICU 10/31/17 - Pt again hypotensive overnight - pt transfused 2 units PRBC 10/30 - Hg 8.1 (10/31) - will transfuse additional 2 units PRBCs - continue IVFs - transfer to ICU for closer monitoring - repeat CBC in AM - Case d/w ID, Dr. Jones (10/30) - Case d/w Ortho, Dr. Lund 10/30 - Pt c/o abdominal distension --> obtain KUB - Pt has 2-3 mixed drinks several days a week - 1 - 2+ LE edema --> lasix 40mg IV x once - CBC, CMP, Mag in AM -plan for snf once medically stable. ALEXANDREA - related to sepsis and hypotension - resolved currently. Hypertension hx Hypotensive, patient asymptomatic - Hold patient's home amlodipine 10 mg p.o. daily, losartan 50 mg, triamterene hydrochlorothiazide daily - Pt had CVL IJ place 10/20 for hypotension and pressors. - Pt is off pressors and BP is stable. Hyperlipidemia - Continue patient's home atorvastatin Anxiety/depression - Continue patient's home fluoxetine 60 mg p.o. nightly BPH - Continue patient's home tamsulosin Hyperprolactinemia - Continue patient's home cabergoline weekly DVT prophylaxis with teds and SCDs
[2017-10-31] MEDS ORDERED: Sodium Chlor 0.9% Inj 250 ML IV.SIG SCH (12:00)
[2017-10-31] MEDS: DAPTOmycin Inj 1,000 MG in Sodium Chlor 0.9% Inj 100 ML IV.SIG SCH (15:26)
--- NOTE | 2017-10-31 16:57 | XR ---
EXAM DATE: 10/31/2017 4:45 PM EDT AGE/SEX: 52 years / Male INDICATIONS: Distention. CLINICAL DATA: This is the patient's initial encounter. Patient reports that signs and symptoms have been present for 4 - 6 days and indicates a pain score of 0/10. MEDICAL/SURGICAL HISTORY: . Hypertension. Pituitary abnormality, High cholesterol, Chronic pain , . . Tonsillectomy. Laminectomy. COMPARISON: No prior exams available for comparison. FINDINGS: 2 AP supine views of the abdomen. Mildly distended air-filled stomach. Scattered gas in nondilated c olon. Phleboliths in the pelvis. No abnormal abdominal calcification. CONCLUSION: Mildly distended stomach. Bowel gas pattern otherwise unremarkable. Electronically signed by: Anders Richards MD 10/31/2017 4:56 PM EDT
[2017-10-31] MEDS: Duloxetine 60 MG DR Capsule PO SCH (22:14)
[2017-11-01 00:10] LABS: Hematocrit 26.3 % (39.0-51.0); Hemoglobin 9.6 gm/dL (13.0-17.0)
[2017-11-01] MEDS: HYDROmorphone PF Inj 2 MG/ML Vial IV.PUSH PRN ×4 (03:40→18:47)
[2017-11-01 07:30] LABS: Baso # (Auto) 0.1 th/mm3 (0.0-0.2); Baso % (Auto) 0.6 % (0.0-2.0); Eos # (Auto) 0.3 th/mm3 (0.0-0.4); Eos % (Auto) 2.7 % (0.0-4.0); Hematocrit 30.2 % (39.0-51.0); Hemoglobin 10.1 gm/dL (13.0-17.0); Lymph # (Auto) 1.1 th/mm3 (1.0-4.8); Lymph % (Auto) 11.5 % (9.0-44.0); Mean Corpuscular HGB Conc 33.4 % (32.0-36.0); Mean Corpuscular Hemoglobin 29.3 pg (27.0-34.0); Mean Corpuscular Volume 87.7 fL (80.0-100.0); Mono # (Auto) 0.6 th/mm3 (0.0-0.9); Mono % (Auto) 6.6 % (0.0-8.0); Neut # (Auto) 7.4 th/mm3 (1.8-7.7); Neut % (Auto) 78.6 % (16.0-70.0); Platelet Count 413 th/mm3 (150-450); Red Blood Count 3.45 mil/mm3 (4.50-5.90); White Blood Count 9.4 th/mm3 (4.0-11.0)
[2017-11-01 07:46] LABS: Albumin 1.6 g/dL (3.4-5.0); Anion Gap 6 meq/L (5-15); Aspartate Aminotransferase 21 U/L (15-37); Calcium 7.8 mg/dL (8.5-10.1); Carbon Dioxide 28.7 meq/L (21.0-32.0); Chloride 106 meq/L (98-107); Glomerular Filtration Rate Greater Than 89 mL/min (>89); Glucose,Random 107 mg/dL (74-106); Magnesium 1.6 mg/dL (1.5-2.5); Potassium 4.3 meq/L (3.5-5.1); Sodium 141 meq/L (136-145)
[2017-11-01 07:57] LABS: Alanine Aminotransferase 34 U/L (12-78); Alkaline Phosphatase 103 U/L (45-117); Blood Urea Nitrogen 9 mg/dL (7-18); Total Protein 5.6 g/dL (6.4-8.2)
[2017-11-01] MEDS: KCL 20 mEq/NACL 0.45% Inj 1,000 ML IV.CONT SCH (08:32)
[2017-11-01] MEDS: Nystatin Liq 500,000 UNIT/5 ML UDC SWISH-SWAL SCH ×4 (08:34→21:02)
[2017-11-01] MEDS: Morphine Sulfate 15 MG SR Tablet PO SCH ×2 (08:36→21:02)
--- NOTE | 2017-11-01 10:02 | P.PNIM ---
Subjective Interval history: Follow up: Strep Viridans bacteremia, T7 and T8 discitis and osteo and Left knee effusion Hypotension resolved Patient reports feeling fatigued this AM, but no other new concerns/complaints Patient continues to endorse decreased mobility of LLE Physical Exam Vital signs: Vital Signs 10/31/17 12:00 10/31/17 14:44 10/31/17 15:19 Temperature 98.3 F 98.3 F 98.3 F Pulse Rate 70 72 98 H Respiratory Rate 20 19 16 Blood Pressure 114/66 101/57 L 100/53 L Pulse Oximetry 98 99 98 10/31/17 15:34 10/31/17 16:00 10/31/17 16:46 Temperature 98.1 F 98.1 F 98.1 F Pulse Rate 92 H 99 H 99 H Respiratory Rate 25 H 23 23 Blood Pressure 100/53 L 100/52 L 100/52 L Pulse Oximetry 99 99 99 10/31/17 17:02 10/31/17 20:00 10/31/17 22:00 Temperature 98.1 F 98.1 F Pulse Rate 83 86 70 Respiratory Rate 12 16 Blood Pressure 111/59 L 130/99 H Pulse Oximetry 100 99 11/01/17 00:00 11/01/17 02:00 11/01/17 04:00 Temperature 98 F 98.7 F Pulse Rate 66 64 75 Respiratory Rate 18 14 Blood Pressure 100/51 L 118/64 Pulse Oximetry 98 97 11/01/17 06:00 11/01/17 08:13 11/01/17 08:23 Temperature Pulse Rate 68 Respiratory Rate 24 24 Blood Pressure Pulse Oximetry Intake & Output 10/31/17 11/01/17 11/01/17 18:59 06:59 18:59 Intake Total 2350 / 2350 1700 / 1700 1000 / 1000 Output Total 1018 / 1018 2300 / 2300 25 / 25 Balance 1332 / 1332 -600 / -600 975 / 975 Intake: IV 1550 / 1550 1100 / 1100 1000 / 1000 Potassium Chlor 20 mEq/NACL 0. 1000 / 1000 1000 / 1000 1000 / 1000 45% Inj 1,000 ML @ 84 mls/hr IV .CONT .[id number] EMILIO Rx#:[id number] Cubicin Inj 1,000 MG In NS Inj 100 / 100 100 ML @ 200 mls/hr IV.SIG Q24H EMILIO Rx#:[id number] NS Inj 250 ML @ 15 mls/hr IV. 100 / 100 SIG ONCE EMILIO Rx#:[id number] Rocephin Inj 2,000 MG In NS Inj 100 / 100 100 / 100 100 ML @ 200 mls/hr IV.SIG Q12H EMILIO Rx#:[id number] Oral 600 / 600 Intake (Blood Product) Amt 800 / 800 Rbc As-3 Leukoreduced Unit 400 / 400 [id number] Rbc As-3 Leukoreduced Unit 400 / 400 [id number] Output: Urine 1000 / 1000 2300 / 2300 Wound Drainage # 1 Left Knee ROGER Drain # 2 Left Calf ROGER Drain Other: Date of Last Bowel Movement 10/31/17 10/31/17 # Bowel Movements 1 0 Narrative: GENERAL: This is a well-nourished, well-developed patient, in no apparent distress. CARDIOVASCULAR: Regular rate and rhythm RESPIRATORY: Clear to auscultation. Breath sounds equal bilaterally. No wheezes , rales, or rhonchi. GASTROINTESTINAL: Abdomen soft, non-tender, nondistended. Normal active bowel sounds MUSCULOSKELETAL: Extremities without clubbing, cyanosis, or edema. NEURO: Alert & Oriented x4 to person, place, time, situation. Moves all ext x4 EXT: RLE bandaged, 2 ROGER drains: one at thigh, one at calf both with serosanguineous drainage. Results - Labs CBC & Chem 7: 11/01/17 06:52 11/01/17 06:52 Laboratory Results - last 24 hr 10/30/17 10/31/17 10/31/17 08:12 11:49 17:25 WBC RBC Hgb Hct MCV MCH MCHC RDW Plt Count MPV Neut % (Auto) Lymph % (Auto) [place] % (Auto) Eos % (Auto) Baso % (Auto) Neut # (Auto) Lymph # (Auto) [place] # (Auto) Eos # (Auto) Baso # (Auto) WBC Differential Differential Comment Sodium Potassium Chloride Carbon Dioxide Anion Gap BUN Creatinine Estimated GFR Random Glucose Calcium Magnesium Total Bilirubin AST ALT Alkaline Phosphatase Total Protein Albumin Urine Occult Blood Negative MTS Gel Crossmatch See Detail See Detail 11/01/17 11/01/17 11/01/17 00:02 06:52 06:52 WBC 9.4 RBC 3.45 L Hgb 9.6 L 10.1 L Hct 26.3 L 30.2 L MCV 87.7 MCH 29.3 MCHC 33.4 RDW 15.0 Plt Count 413 MPV 7.0 Neut % (Auto) 78.6 H Lymph % (Auto) 11.5 [place] % (Auto) 6.6 Eos % (Auto) 2.7 Baso % (Auto) 0.6 Neut # (Auto) 7.4 Lymph # (Auto) 1.1 [place] # (Auto) 0.6 Eos # (Auto) 0.3 Baso # (Auto) 0.1 WBC Differential . Differential Comment Auto diff final Sodium 141 Potassium 4.3 Chloride 106 Carbon Dioxide 28.7 Anion Gap 6 BUN 9 Creatinine 0.47 L Estimated GFR Greater than 89 Random Glucose 107 H Calcium 7.8 L Magnesium 1.6 Total Bilirubin 0.3 AST 21 ALT 34 Alkaline Phosphatase 103 Total Protein 5.6 L D Albumin 1.6 L Urine Occult Blood MTS Gel Crossmatch Microbiology 10/31/17 17:30 Stool Stool Occult Blood (HAYES) - Final Hemoccult negative 10/29/17 09:00 Tissue - Knee Gram Stain - Final 10/29/17 09:00 Tissue - Knee Wound Culture - Preliminary No growth in 48 hours 10/29/17 09:00 Fluid - Other Gram Stain - Final 10/29/17 09:00 Fluid - Other Wound Culture - Preliminary No growth in 48 hours - Imaging Impressions Abdomen X-Ray 10/31/17 00:00 CONCLUSION: Mildly distended stomach. Bowel gas pattern otherwise unremarkable. - Procedures Left knee arthroscopy, irrigation & debridement, synovectomy, chondroplasty Left knee arthrotomy with irrigation debridement, left calf abscess irrigation and debridement, left thigh abscess irrigation and debridement performed by Dr. Isidoro Lund (10/29/17) Assessment and Plan - Assessment (1) Effusion of left knee Code(s): M25.462 - Effusion, left knee Status: Acute Plan: This is a 52-year-old male patient with past medical history which includes hypertension, hyperlipidemia, anxiety/depression, BPH, hyperprolactinemia and chronic lower back pain, lumbar degenerative disc disease with long-term current use of opioid analgesic. Patient presents to the emergency department by EMS transport from home due to complaint of severe left lower extremity pain. Patient has been under the care of his primary care provider Dr. Walls and his pain management Dr. Bridges and sports medicine Dr. Dickson. Patient is undergone epidural injections and nerve block injections without symptom relief. Patient is on chronic Morphine ER 15 mg BID and [place] 10-325 mg Q8H. Patient fell at his bedside 10/16/17 walking with his walker to go the bathroom and since then has had increasing pain. Strep Viridans bacteremia T7 and T8 discitis and osteo Left knee effusion Chronic lower back pain, Now with decreased mobility Lumbar degenerative disc disease with long-term current use of opioid analgesia - Venous Doppler Study 10/17/17 The study is negative for lower extremity deep venous thrombosis. - Lumbar Spine X-Ray 10/17/17 Chronic changes. - Pelvis X-Ray 10/17/17 No definite fracture is identified for technique. - Femur X-Ray 10/18/17 1. No fracture is identified. 2. Large knee joint effusion. 3. Recent MRI performed on 10/12/2017 documented severe edema in the proximal thigh. - Tibia/Fibula X-Ray 10/18/17 Large knee joint effusion. No acute osseous abnormality is visualized. - Outpatient lumbar MRI reviewed by Dr. Dolan - Pt underwent arthrocentesis on 10/18 with removal of 60cc "chocolate milk" color fluid. Culture grew out Strep viridans - On 10/19/17 pt underwent Left knee arthroscopy, irrigation & debridement, synovectomy, chondroplasty, surgical cx. grew out strep viridans - Blood cultures drawn on 10/18 with 2/4 growing out strep viridans. - MRI thoracic spine (10/20/17): 1. Discitis with osteomyelitis involving T7-T8. No paraspinal fluid collections or vertebral body collapse at this point. 2. Small bilateral pleural effusions. - MRI Lumbar spine (10/21/17): - Multilevel spinal canal stenosis most prominent at L4-L5 moderate nature. - 1.9 x 1.2 cm mass in the neural foramen on the right as seen on the prior examination characteristic of schwannoma or neurofibroma compromising the nerve root exit zone and lateral recess. The findings are similar to the prior exam. - There are no findings of osteomyelitis - On 10/[address] guided needle bx T8 --> Uncomplicated needle biopsy of the T8 superior endplate....cx's pending from needle bx. - Repeat cx's (10/21/17) with NG x 5 days - Pain control - PT consultation for oob daily. - Pt was transferred from ICU on 10/23 - The source for the bacteremia is unclear. Pt with a noted broken molar which does not appear infected. Discussed the case with Dr. Jones and recommended to have a GI evaluation - coloscopy (10/26) limited due to large amount of retained stool - EGD (10/26) 1. There was esophagitis noted; likely Trish, multiple biopsies were performed 2. There was chronic gastritis in the gastric antrum; biopsy was performed 3. Duodenal inflammation was found in the bulb and second portion of the duodenum and 3rd part duodenum 4. Retroflexion was performed and was normal Pathology pending - Daptomycin (10/22 - present) - Rocephin (10/26 - present) - IV access: IJ - Left knee arthroscopy, irrigation & debridement, synovectomy, chondroplasty 10/19/[address] Herrera - Left knee arthrotomy with irrigation debridement, left calf abscess irrigation and debridement, left thigh abscess irrigation and debridement performed by Dr. Isidoro Lund (10/29/17) - Intraoperative cultures (10/29) pending 10/30/17 - Pt is anemic and hypotensive - Pt readily conversing without complaints - palpebral conjunctiva pale - telemetry: NSR/sinus tach - Case informally d/c CCM - Pt receiving blood - IVFs at 150ml/hour - if BP does NOT improve with volume resuscitation, will transfer to ICU 10/31/17 - Pt again hypotensive overnight - pt transfused 2 units PRBC 10/30 - Hg 8.1 (10/31) - will transfuse additional 2 units PRBCs - continue IVFs - transfer to ICU for closer monitoring - repeat CBC in AM - Case d/w Dr. Robert BARNES (10/30) - Case d/w Dr. Kevon Marsh 10/30 - Pt c/o abdominal distension --> obtain KUB - Pt has 2-3 mixed drinks several days a week - 1 - 2+ LE edema --> lasix 40mg IV x once - CBC, CMP, Mag in AM 11/01/17 hypotension resolved hgb 10.2 today patient now with fluid accumulation in abdomen DC IVF - continue to monitor likely transfer out of ICU later today await IV abx recommendations per ID -plan for snf once medically stable. ALEXANDREA - related to sepsis and hypotension - resolved currently. Hypertension hx Hypotensive, patient asymptomatic - Hold patient's home amlodipine 10 mg p.o. daily, losartan 50 mg, triamterene hydrochlorothiazide daily - Pt had CVL IJ place 10/20 for hypotension and pressors. - Pt is off pressors and BP is stable. Hyperlipidemia - Continue patient's home atorvastatin Anxiety/depression - Continue patient's home fluoxetine 60 mg p.o. nightly BPH - Continue patient's home tamsulosin Hyperprolactinemia - Continue patient's home cabergoline weekly DVT prophylaxis with teds and SCDs The exam, history, and the medical decision-making described in the above note were completed with the assistance of the mid-level provider. I reviewed and agree with the findings presented. I attest that I had a lbco-cj-crio encounter with the patient on the same day, and personally performed and documented my assessment and findings in the medical record. will need snf. discuss with ID timing of picc line and removal of IJ cath. transfer out of ICU soon. cont abx per ID. pain control. wound care.
[2017-11-01] MEDS: Fluconazole 100 MG Tablet PO SCH (10:31)
[2017-11-01] MEDS: Ketorolac Inj 30 MG/ML (IVP) Vial IV.PUSH PRN ×2 (12:57→18:47)
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
[2017-11-01] MEDS: DAPTOmycin Inj 1,000 MG in Sodium Chlor 0.9% Inj 100 ML IV.SIG SCH (16:58)
[2017-11-01] MEDS: Duloxetine 60 MG DR Capsule PO SCH (21:03)
[2017-11-02] MEDS: Ketorolac Inj 30 MG/ML (IVP) Vial IV.PUSH PRN (03:35)
[2017-11-02] MEDS: HYDROmorphone PF Inj 2 MG/ML Vial IV.PUSH PRN ×4 (03:36→20:57)
--- NOTE | 2017-11-02 06:51 | P.PNOP ---
Subjective Interval history: POd 4 s/p I&D left knee and calf doing well. improving. states proximal drain has clotted off Physical Exam Vital signs: Vital Signs 11/01/17 08:00 11/01/17 08:13 11/01/17 08:23 Temperature 98.1 F Pulse Rate 106 H Respiratory Rate 10 L 24 24 Blood Pressure 132/62 Pulse Oximetry 99 11/01/17 09:15 11/01/17 10:00 11/01/17 10:31 Temperature Pulse Rate 110 H Respiratory Rate 21 22 Blood Pressure Pulse Oximetry 11/01/17 11:02 11/01/17 12:00 11/01/17 12:16 Temperature 98.1 F Pulse Rate 68 Respiratory Rate 21 21 Blood Pressure 105/57 L Pulse Oximetry 98 98 11/01/17 13:30 11/01/17 14:00 11/01/17 16:00 Temperature 98.0 F Pulse Rate 72 68 Respiratory Rate 20 47 H Blood Pressure 140/75 Pulse Oximetry 100 11/01/17 16:57 11/01/17 17:45 11/01/17 18:00 Temperature Pulse Rate 74 Respiratory Rate 18 20 Blood Pressure Pulse Oximetry 11/01/17 20:00 11/01/17 22:00 11/02/17 00:00 Temperature 98.7 F 98.6 F Pulse Rate 80 80 75 Respiratory Rate 17 17 Blood Pressure 150/67 H 132/75 Pulse Oximetry 100 98 11/02/17 02:00 11/02/17 04:00 11/02/17 06:00 Temperature 98.7 F Pulse Rate 71 73 75 Respiratory Rate 20 Blood Pressure 137/68 Pulse Oximetry 97 Intake & Output 11/01/17 11/01/17 11/02/17 06:59 18:59 06:59 Intake Total 1700 / 1700 1550 / 1550 450 / 450 Output Total 2300 / 2300 660 / 660 460 / 460 Balance -600 / -600 890 / 890 -10 / -10 Weight 109.5 kg Intake: IV 1100 / 1100 1200 / 1200 100 / 100 Potassium Chlor 20 mEq/NACL 0. 1000 / 1000 1000 / 1000 45% Inj 1,000 ML @ 84 mls/hr IV .CONT .[id number] [facility] Rx#:[id number] Cubicin Inj 1,000 MG In NS Inj 100 / 100 100 ML @ 200 mls/hr IV.SIG Q24H [facility] Rx#:[id number] Rocephin Inj 2,000 MG In NS Inj 100 / 100 100 / 100 100 / 100 100 ML @ 200 mls/hr IV.SIG Q12H [facility] Rx#:[id number] Oral 600 / 600 350 / 350 350 / 350 Output: Urine 2300 / 2300 575 / 575 450 / 450 Wound Drainage 85 / 85 10 / 10 # 1 Left Knee ROGER Drain 5 / 5 # 2 Left Calf ROGER Drain 20 / 20 0 / 0 Left Thigh 60 / 60 10 / 10 Other: # Voids 1 Date of Last Bowel Movement 10/31/17 10/31/17 10/31/17 # Bowel Movements 0 0 Narrative: LLE: dressings clean and dry. intact. NVI. proximal drain has clot at exit port Results - Labs CBC & Chem 7: 11/01/17 06:52 11/01/17 06:52 Laboratory Results - last 24 hr 11/01/17 11/01/17 06:52 06:52 WBC 9.4 RBC 3.45 L Hgb 10.1 L Hct 30.2 L MCV 87.7 MCH 29.3 MCHC 33.4 RDW 15.0 Plt Count 413 MPV 7.0 Neut % (Auto) 78.6 H Lymph % (Auto) 11.5 [place]itt % (Auto) 6.6 Eos % (Auto) 2.7 Baso % (Auto) 0.6 Neut # (Auto) 7.4 Lymph # (Auto) 1.1 [place]itt # (Auto) 0.6 Eos # (Auto) 0.3 Baso # (Auto) 0.1 WBC Differential . Differential Comment Auto diff final Sodium 141 Potassium 4.3 Chloride 106 Carbon Dioxide 28.7 Anion Gap 6 BUN 9 Creatinine 0.47 L Estimated GFR Greater than 89 Random Glucose 107 H Calcium 7.8 L Magnesium 1.6 Total Bilirubin 0.3 AST 21 ALT 34 Alkaline Phosphatase 103 Total Protein 5.6 L D Albumin 1.6 L Microbiology 10/29/17 09:00 Tissue - Knee Gram Stain - Final 10/29/17 09:00 Tissue - Knee Wound Culture - Final No growth in 72 hours (aerobically and anaerobically ) 10/29/17 09:00 Fluid - Other Gram Stain - Final 10/29/17 09:00 Fluid - Other Wound Culture - Final No growth in 72 hours (aerobically and anaerobically ) - Procedures Left knee arthroscopy, irrigation & debridement, synovectomy, chondroplasty Left knee arthrotomy with irrigation debridement, left calf abscess irrigation and debridement, left thigh abscess irrigation and debridement performed by Dr. Isidoro Lund (10/29/17) Assessment and Plan - Problem List (1) Chronic pain Code(s): G89.29 - Other chronic pain Status: Acute (2) Intractable neuropathic pain of lower extremity Code(s): G57.90 - Unspecified mononeuropathy of unspecified lower limb Status : Acute (3) Pituitary abnormality Code(s): E23.7 - Disorder of pituitary gland, unspecified Status: Acute (4) Hypertension Code(s): I10 - Essential (primary) hypertension Status: Acute (5) Septic arthritis of knee, left Code(s): M00.9 - Pyogenic arthritis, unspecified Status: Acute - Assessment and Plan POD #11 Left knee arthroscopy, irrigation & debridement, synovectomy POD #4 status post open irrigation and debridement of left thigh, left knee, and left calf Cx of synovial fluid grew out strep viridans, Abx per ID. Physical therapy, weight-bear as tolerated, left knee range of motion Begin daily dressing changes with Xeroform 4 x 4's ABDs and Brannon wrap. Continue with drain care removed clot in proximal drain today. will monitor. if minimal drainage tomorrow will plan on removal of drains
[2017-11-02] MEDS: Morphine Sulfate 15 MG SR Tablet PO SCH ×2 (09:17→20:54)
[2017-11-02] MEDS: Nystatin Liq 500,000 UNIT/5 ML UDC SWISH-SWAL SCH ×4 (09:18→20:53)
[2017-11-02] MEDS: Fluconazole 100 MG Tablet PO SCH (09:18)
--- NOTE | 2017-11-02 11:11 | P.PNIM ---
Subjective Interval history: c/o swelling of bilateral flanks. Physical Exam Vital signs: Vital Signs 11/01/17 12:00 11/01/17 12:16 11/01/17 13:30 Temperature 98.1 F Pulse Rate 68 Respiratory Rate 21 21 20 Blood Pressure 105/57 L Pulse Oximetry 98 11/01/17 14:00 11/01/17 16:00 11/01/17 16:57 Temperature 98.0 F Pulse Rate 72 68 Respiratory Rate 47 H 18 Blood Pressure 140/75 Pulse Oximetry 100 11/01/17 17:45 11/01/17 18:00 11/01/17 20:00 Temperature 98.7 F Pulse Rate 74 80 Respiratory Rate 20 17 Blood Pressure 150/67 H Pulse Oximetry 100 11/01/17 22:00 11/02/17 00:00 11/02/17 02:00 Temperature 98.6 F Pulse Rate 80 75 71 Respiratory Rate 17 Blood Pressure 132/75 Pulse Oximetry 98 11/02/17 04:00 11/02/17 06:00 11/02/17 06:30 Temperature 98.7 F Pulse Rate 73 75 Respiratory Rate 20 13 Blood Pressure 137/68 Pulse Oximetry 97 11/02/17 08:00 11/02/17 09:45 11/02/17 10:00 Temperature Pulse Rate 68 72 Respiratory Rate 22 Blood Pressure Pulse Oximetry 11/02/17 10:30 Temperature Pulse Rate Respiratory Rate 20 Blood Pressure Pulse Oximetry Intake & Output 11/01/17 11/02/17 11/02/17 18:59 06:59 18:59 Intake Total 1550 / 1550 450 / 450 100 / 100 Output Total 660 / 660 460 / 460 Balance 890 / 890 -10 / -10 100 / 100 Weight 109.5 kg Intake: IV 1200 / 1200 100 / 100 100 / 100 Potassium Chlor 20 mEq/NACL 0. 1000 / 1000 45% Inj 1,000 ML @ 84 mls/hr IV .CONT .[id number] [facility] Rx#:[id number] Cubicin Inj 1,000 MG In NS Inj 100 / 100 100 ML @ 200 mls/hr IV.SIG Q24H [facility] Rx#:[id number] Rocephin Inj 2,000 MG In NS Inj 100 / 100 100 / 100 100 / 100 100 ML @ 200 mls/hr IV.SIG Q12H [facility] Rx#:[id number] Oral 350 / 350 350 / 350 Output: Urine 575 / 575 450 / 450 Wound Drainage 85 / 85 10 / 10 # 1 Left Knee FLORES Drain 5 / 5 # 2 Left Calf FLORES Drain 20 / 20 0 / 0 Left Thigh 60 / 60 10 10 Other: # Voids 1 Date of Last Bowel Movement 10/31/17 10/31/17 # Bowel Movements 0 heart reg lung cta abd pitting edema bilateral flanks left knee bandaged. flores drains right IJ cvl. Results - Labs CBC & Chem 7: 11/01/17 06:52 11/01/17 06:52 Microbiology 10/29/17 09:00 Tissue - Knee Gram Stain - Final 10/29/17 09:00 Tissue - Knee Wound Culture - Final No growth in 72 hours (aerobically and anaerobically ) 10/29/17 09:00 Fluid - Other Gram Stain - Final 10/29/17 09:00 Fluid - Other Wound Culture - Final No growth in 72 hours (aerobically and anaerobically ) - Procedures Left knee arthroscopy, irrigation & debridement, synovectomy, chondroplasty Left knee arthrotomy with irrigation debridement, left calf abscess irrigation and debridement, left thigh abscess irrigation and debridement performed by Dr. Isidoro Lund (10/29/17) Assessment and Plan - Assessment (1) Effusion of left knee Code(s): M25.462 - Effusion, left knee Status: Acute Plan: This is a 52-year-old male patient with past medical history which includes hypertension, hyperlipidemia, anxiety/depression, BPH, hyperprolactinemia and chronic lower back pain, lumbar degenerative disc disease with long-term current use of opioid analgesic. Patient presents to the emergency department by EMS transport from home due to complaint of severe left lower extremity pain. Patient has been under the care of his primary care provider Dr. Walls and his pain management Dr. Bridges and sports medicine Dr. Dickson. Patient is undergone epidural injections and nerve block injections without symptom relief. Patient is on chronic Morphine ER 15 mg BID and [place] 10-325 mg Q8H. Patient fell at his bedside 10/16/17 walking with his walker to go the bathroom and since then has had increasing pain. Strep Viridans bacteremia T7 and T8 discitis and osteo Left knee effusion Chronic lower back pain, Now with decreased mobility Lumbar degenerative disc disease with long-term current use of opioid analgesia - Venous Doppler Study 10/17/17 The study is negative for lower extremity deep venous thrombosis. - Lumbar Spine X-Ray 10/17/17 Chronic changes. - Pelvis X-Ray 10/17/17 No definite fracture is identified for technique. - Femur X-Ray 10/18/17 1. No fracture is identified. 2. Large knee joint effusion. 3. Recent MRI performed on 10/12/2017 documented severe edema in the proximal thigh. - Tibia/Fibula X-Ray 10/18/17 Large knee joint effusion. No acute osseous abnormality is visualized. - Outpatient lumbar MRI reviewed by Dr. Dolan - Pt underwent arthrocentesis on 10/18 with removal of 60cc "chocolate milk" color fluid. Culture grew out Strep viridans - On 10/19/17 pt underwent Left knee arthroscopy, irrigation & debridement, synovectomy, chondroplasty, surgical cx. grew out strep viridans - Blood cultures drawn on 10/18 with 2/4 growing out strep viridans. - MRI thoracic spine (10/20/17): 1. Discitis with osteomyelitis involving T7-T8. No paraspinal fluid collections or vertebral body collapse at this point. 2. Small bilateral pleural effusions. - MRI Lumbar spine (10/21/17): - Multilevel spinal canal stenosis most prominent at L4-L5 moderate nature. - 1.9 x 1.2 cm mass in the neural foramen on the right as seen on the prior examination characteristic of schwannoma or neurofibroma compromising the nerve root exit zone and lateral recess. The findings are similar to the prior exam. - There are no findings of osteomyelitis - On 10/[address] guided needle bx T8 --> Uncomplicated needle biopsy of the T8 superior endplate....cx's pending from needle bx. - Repeat cx's (10/21/17) with NG x 5 days - Pain control - PT consultation for oob daily. - Pt was transferred from ICU on 10/23 - The source for the bacteremia is unclear. Pt with a noted broken molar which does not appear infected. Discussed the case with Dr. Jones and recommended to have a GI evaluation - coloscopy (10/26) limited due to large amount of retained stool - EGD (10/26) 1. There was esophagitis noted; likely Trish, multiple biopsies were performed 2. There was chronic gastritis in the gastric antrum; biopsy was performed 3. Duodenal inflammation was found in the bulb and second portion of the duodenum and 3rd part duodenum 4. Retroflexion was performed and was normal Pathology pending - Daptomycin (10/22 - present) - Rocephin (10/26 - present) - IV access: IJ - Left knee arthroscopy, irrigation & debridement, synovectomy, chondroplasty 10/19/[address] Herrera - Left knee arthrotomy with irrigation debridement, left calf abscess irrigation and debridement, left thigh abscess irrigation and debridement performed by Dr. Isidoro Lund (10/29/17) - Intraoperative cultures (10/29) pending -On 10/30 pt moved back to ICU for hypotension -10/31 2 units prbc -Pt continues to complain of severe flank and low back edema. I think the edema is related to severe hypoalbumenemia and alot of IVF resuscitation with third spacing. will give a few dose of iv albumen and iv lasix. monitor bp and bmp. - once dc abx plan in place and ok with ortho will get pt to snf. ALEXANDREA - related to sepsis and hypotension - resolved currently. Hypertension hx Hypotensive, patient asymptomatic - Hold patient's home amlodipine 10 mg p.o. daily, losartan 50 mg, triamterene hydrochlorothiazide daily - Pt had CVL IJ place 10/20 for hypotension and pressors. - Pt is off pressors and BP is stable. Hyperlipidemia - Continue patient's home atorvastatin Anxiety/depression - Continue patient's home fluoxetine 60 mg p.o. nightly BPH - Continue patient's home tamsulosin Hyperprolactinemia - Continue patient's home cabergoline weekly DVT prophylaxis with teds and SCDs
[2017-11-02] MEDS ORDERED: Albumin Human 25% Inj 100 ML IV.SIG ONE (11:30)
[2017-11-02] MEDS: Albumin Human 25% Inj 100 ML IV.SIG SCH (17:52)
[2017-11-02] MEDS: DAPTOmycin Inj 1,000 MG in Sodium Chlor 0.9% Inj 100 ML IV.SIG SCH (17:53)
[2017-11-02] MEDS: Duloxetine 60 MG DR Capsule PO SCH (20:57)
[2017-11-03] MEDS: HYDROmorphone PF Inj 2 MG/ML Vial IV.PUSH PRN ×5 (03:44→19:07)
[2017-11-03 07:44] LABS: Anion Gap 9 meq/L (5-15); Blood Urea Nitrogen 9 mg/dL (7-18); Calcium 8.4 mg/dL (8.5-10.1); Carbon Dioxide 28.2 meq/L (21.0-32.0); Chloride 104 meq/L (98-107); Glomerular Filtration Rate Greater Than 89 mL/min (>89); Glucose,Random 101 mg/dL (74-106); Sodium 141 meq/L (136-145)
[2017-11-03] MEDS: Albumin Human 25% Inj 100 ML IV.SIG SCH ×2 (08:47→16:40)
[2017-11-03] MEDS: Heparin - SQ 10,000 UNITS/ML Vial SQ SCH ×2 (08:53→22:14)
[2017-11-03] MEDS: Fluconazole 100 MG Tablet PO SCH (08:54)
[2017-11-03] MEDS: Nystatin Liq 500,000 UNIT/5 ML UDC SWISH-SWAL SCH ×4 (08:54→22:11)
[2017-11-03] MEDS: Morphine Sulfate 15 MG SR Tablet PO SCH ×2 (08:54→22:07)
--- NOTE | 2017-11-03 11:44 | P.PNIM ---
Subjective Interval history: Pt reports that he did not sleep well last night after transfer out of ICU as his bed was malfunctioning He has been urinating quite a but but does not feel that the swelling in his flanks has improved much yet. Physical Exam Vital signs: Vital Signs 11/02/17 12:00 11/02/17 14:00 11/02/17 16:00 Temperature 98.2 F 97.8 F Pulse Rate 72 75 92 H Respiratory Rate 21 18 Blood Pressure 146/71 H 146/74 H Pulse Oximetry 100 100 11/02/17 20:00 11/03/17 00:00 11/03/17 08:00 Temperature 98 F 98.1 F 98.0 F Pulse Rate 75 107 H 86 Respiratory Rate 20 20 18 Blood Pressure 172/82 H 169/94 H 173/80 H Pulse Oximetry 95 95 94 L Intake & Output 11/02/17 11/03/17 11/03/17 18:59 06:59 18:59 Intake Total 1950 / 1950 300 / 300 200 / 200 Output Total 511 / 511 550 / 550 1625 / 1625 Balance 1439 / 1439 -250 / -250 -1425 / -1425 Intake: IV 100 / 100 300 / 300 200 / 200 Flexbumin 25% Inj 100 ML @ 60 100 / 100 100 / 100 mls/hr IV.SIG BID@ [facility] Rx# :[id number] Rocephin Inj 2,000 MG In NS Inj 100 / 100 100 / 100 100 / 100 100 ML @ 200 mls/hr IV.SIG Q12H [facility] Rx#:[id number] Oral 350 / 350 Anesthesia Amount 500 / 500 Other 1000 / 1000 Output: Urine 450 / 450 550 / 550 1625 / 1625 Stool 1 / Estimated Blood Loss 50 / 50 Wound Drainage # 2 Left Calf FLORES Drain 0 / 0 Left Thigh 10 Other: Post Void Residual 200 Other Intake Source Saline Solution # Voids 1 Date of Last Bowel Movement 10/31/17 # Bowel Movements 0 Narrative: General: NAD, AAox3 Cardiac: Regular Chest: CTA bilaterally Abd: Pitting edema bilateral flanks, slightly less Ext: Left knee bandaged. floers drains Lines: right IJ cvl. Results - Labs CBC & Chem 7: 11/01/17 06:52 11/03/17 06:15 Laboratory Results - last 24 hr 11/03/17 06:15 Sodium 141 Potassium 4.0 Chloride 104 Carbon Dioxide 28.2 Anion Gap 9 BUN 9 Creatinine 0.56 L Estimated GFR Greater than 89 Random Glucose 101 Calcium 8.4 L Microbiology 10/19/17 22:10 Wound - Knee Fungal Smear - Final No fungal elements seen 10/19/17 22:10 Wound - Knee Fungal Culture - Preliminary No growth in 2 weeks 10/19/17 22:10 Wound - Knee Acid Fast Bacilli Smear - Final No acid fast bacilli seen 10/19/17 22:10 Wound - Knee Mycobacterial Culture - Preliminary No growth in 2 weeks - Imaging Venous Doppler Study 10/17/17 20:58 CONCLUSION: 1. The study is negative for lower extremity deep venous thrombosis. Lumbar Spine X-Ray 10/17/17 21:00 CONCLUSION: Chronic changes. Pelvis X-Ray 10/17/17 21:00 CONCLUSION: No definite fracture is identified for technique. Femur X-Ray 10/18/17 01:02 CONCLUSION: 1. No fracture is identified. 2. Large knee joint effusion. 3. Recent MRI performed on 10/12/2017 documented severe edema in the proximal thigh. Tibia/Fibula X-Ray 10/18/17 01:02 CONCLUSION: Large knee joint effusion. No acute osseous abnormality is visualized. Abdomen/Bladder Ultrasound 10/19/17 00:00 CONCLUSION: 1. Normal renal sonogram. Thoracic Spine MRI 10/20/17 00:00 CONCLUSION: 1. Discitis with osteomyelitis involving T7-T8. No paraspinal fluid collections or vertebral body collapse at this point. 2. Small bilateral pleural effusions. Chest X-Ray 10/20/17 15:06 CONCLUSION: 1. Right IJ central line in good position without pneumothorax. Lumbar Puncture Fluoroscopy 10/21/17 00:00 CONCLUSION: 1. Uncomplicated fluoroscopically guided lumbar puncture. Lumbar Spine MRI 10/21/17 00:00 CONCLUSION: Multilevel spinal canal stenosis most prominent at L4-L5 moderate nature. 1.9 x 1.2 cm mass in the neural foramen on the right as seen on the prior examination characteristic of schwannoma or neurofibroma compromising the nerve root exit zone and lateral recess. The findings are similar to the prior exam. There are no findings of osteomyelitis Needle Biopsy/Aspiration X-Ray 10/21/17 00:00 CONCLUSION: 1. Uncomplicated needle biopsy of the T8 superior endplate, as above. Abdomen/Pelvis CT 10/21/17 00:03 CONCLUSION: 1. No acute abnormality is identified within the abdomen or pelvis on this noncontrast examination. No abscess is visualized, as questioned. 2. Mild atherosclerotic disease. Chest CT 10/21/17 00:03 CONCLUSION: 1. Endplate irregularity and decreased disc height at T7-T8 with abnormal soft tissue in the adjacent prevertebral region on the right. Findings are consistent with a discitis and osteomyelitis documented on yesterday's thoracic spine MRI. 2. No other source for infection is identified. Venous Doppler Study 10/27/17 00:00 CONCLUSION: 1. No evidence of deep venous thrombosis. 2. Complex fluid collection in the left medial calf. This could represent a Lozada's cyst, hematoma and/or seroma. Lower Extremity MRI 10/28/17 00:00 CONCLUSION: Fluid tracking down the tissues of the leg most probably associated with known pathology in the knee. Abdomen X-Ray 10/31/17 00:00 CONCLUSION: Mildly distended stomach. Bowel gas pattern otherwise unremarkable. Chest X-Ray 10/31/17 06:00 CONCLUSION: 1. Right IJ central line in good position. 2. Lungs are clear. - Procedures Left knee arthroscopy, irrigation & debridement, synovectomy, chondroplasty Left knee arthrotomy with irrigation debridement, left calf abscess irrigation and debridement, left thigh abscess irrigation and debridement performed by Dr. Isidoro Lund (10/29/17) Assessment and Plan - Assessment (1) Effusion of left knee Code(s): M25.462 - Effusion, left knee Status: Acute Plan: This is a 52-year-old male patient with past medical history which includes hypertension, hyperlipidemia, anxiety/depression, BPH, hyperprolactinemia and chronic lower back pain, lumbar degenerative disc disease with long-term current use of opioid analgesic. Patient presents to the emergency department by EMS transport from home due to complaint of severe left lower extremity pain. Patient has been under the care of his primary care provider Dr. Walls and his pain management Dr. Bridges and sports medicine Dr. Dickson. Patient is undergone epidural injections and nerve block injections without symptom relief. Patient is on chronic Morphine ER 15 mg BID and [place] 10-325 mg Q8H. Patient fell at his bedside 10/16/17 walking with his walker to go the bathroom and since then has had increasing pain. Strep Viridans bacteremia T7 and T8 discitis and osteo Left knee effusion Chronic lower back pain, Now with decreased mobility Lumbar degenerative disc disease with long-term current use of opioid analgesia - Venous Doppler Study 10/17/17 The study is negative for lower extremity deep venous thrombosis. - Lumbar Spine X-Ray 10/17/17 Chronic changes. - Pelvis X-Ray 10/17/17 No definite fracture is identified for technique. - Femur X-Ray 10/18/17 1. No fracture is identified. 2. Large knee joint effusion. 3. Recent MRI performed on 10/12/2017 documented severe edema in the proximal thigh. - Tibia/Fibula X-Ray 10/18/17 Large knee joint effusion. No acute osseous abnormality is visualized. - Outpatient lumbar MRI reviewed by Dr. Dolan - Pt underwent arthrocentesis on 10/18 with removal of 60cc "chocolate milk" color fluid. Culture grew out Strep viridans - On 10/19/17 pt underwent Left knee arthroscopy, irrigation & debridement, synovectomy, chondroplasty, surgical cx. grew out strep viridans - Blood cultures drawn on 10/18 with 2/4 growing out strep viridans. - MRI thoracic spine (10/20/17): 1. Discitis with osteomyelitis involving T7-T8. No paraspinal fluid collections or vertebral body collapse at this point. 2. Small bilateral pleural effusions. - MRI Lumbar spine (10/21/17): - Multilevel spinal canal stenosis most prominent at L4-L5 moderate nature. - 1.9 x 1.2 cm mass in the neural foramen on the right as seen on the prior examination characteristic of schwannoma or neurofibroma compromising the nerve root exit zone and lateral recess. The findings are similar to the prior exam. - There are no findings of osteomyelitis - On 10/[address] guided needle bx T8 --> Uncomplicated needle biopsy of the T8 superior endplate....cx's pending from needle bx. - Repeat cx's (10/21/17) with NG x 5 days - Pt was transferred from ICU on 10/23 - The source for the bacteremia is unclear. Pt with a noted broken molar which does not appear infected. Discussed the case with Dr. Jones and recommended to have a GI evaluation - coloscopy (10/26) limited due to large amount of retained stool - EGD (10/26) 1. There was esophagitis noted; likely Trish, multiple biopsies were performed 2. There was chronic gastritis in the gastric antrum; biopsy was performed 3. Duodenal inflammation was found in the bulb and second portion of the duodenum and 3rd part duodenum 4. Retroflexion was performed and was normal - Daptomycin (10/22 - present) - Rocephin (10/26 - present) - IV access: IJ - Pt underwent left knee arthrotomy with irrigation debridement, left calf abscess irrigation and debridement, left thigh abscess irrigation and debridement performed by Dr. Isidoro Lund (10/29/17) - Intraoperative cultures (10/29) are negative. - On 10/30 pt was moved back to ICU for hypotension - He was given 2 units prbc on 10/31 - Pt continues to complain of severe flank and low back edema. I think the edema is related to severe hypoalbuminemia and having received a lot of IVF resuscitation with third spacing. Pt is receiving IV albumen and IV Lasix. monitor bp and bmp. - once dc abx plan in place and ok with ortho will get pt to snf.- Pain control PT - Cont. PT and OOB ALEXANDREA - related to sepsis and hypotension - resolved currently. Hypertension hx Hypotensive, patient asymptomatic - Hold patient's home amlodipine 10 mg p.o. daily, losartan 50 mg, triamterene hydrochlorothiazide daily - Pt had CVL IJ place 10/20 for hypotension and pressors. - Pt is off pressors and BP is stable. Hyperlipidemia - Continue patient's home atorvastatin Anxiety/depression - Continue patient's home fluoxetine 60 mg p.o. nightly BPH - Continue patient's home tamsulosin Hyperprolactinemia - Continue patient's home cabergoline weekly DVT prophylaxis with teds and SCDs
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
[2017-11-03] MEDS: Duloxetine 60 MG DR Capsule PO SCH (22:08)
[2017-11-04 05:21] LABS: Baso # (Auto) 0.1 th/mm3 (0.0-0.2); Baso % (Auto) 1.1 % (0.0-2.0); Eos # (Auto) 0.2 th/mm3 (0.0-0.4); Eos % (Auto) 2.5 % (0.0-4.0); Hematocrit 27.2 % (39.0-51.0); Hemoglobin 9.4 gm/dL (13.0-17.0); Lymph # (Auto) 1.5 th/mm3 (1.0-4.8); Lymph % (Auto) 21.4 % (9.0-44.0); Mean Corpuscular HGB Conc 34.5 % (32.0-36.0); Mean Corpuscular Hemoglobin 29.9 pg (27.0-34.0); Mean Corpuscular Volume 86.6 fL (80.0-100.0); Mean Platelet Volume 6.9 fL (7.0-11.0); Mono # (Auto) 0.6 th/mm3 (0.0-0.9); Mono % (Auto) 8.7 % (0.0-8.0); Neut # (Auto) 4.6 th/mm3 (1.8-7.7); Neut % (Auto) 66.3 % (16.0-70.0); Platelet Count 423 th/mm3 (150-450); Red Blood Count 3.14 mil/mm3 (4.50-5.90); Red Cell Distribution Width 15.5 % (11.6-17.2); White Blood Count 6.9 th/mm3 (4.0-11.0)
[2017-11-04 05:46] LABS: Anion Gap 10 meq/L (5-15); Blood Urea Nitrogen 8 mg/dL (7-18); Calcium 8.6 mg/dL (8.5-10.1); Carbon Dioxide 30.5 meq/L (21.0-32.0); Chloride 100 meq/L (98-107); Glomerular Filtration Rate Greater Than 89 mL/min (>89); Glucose,Random 99 mg/dL (74-106); Magnesium 1.2 mg/dL (1.5-2.5); Potassium 3.7 meq/L (3.5-5.1); Sodium 140 meq/L (136-145)
[2017-11-04] MEDS: HYDROmorphone PF Inj 2 MG/ML Vial IV.PUSH PRN ×5 (05:51→22:16)
[2017-11-04] MEDS: Albumin Human 25% Inj 100 ML IV.SIG SCH ×2 (08:09→16:04)
[2017-11-04] MEDS: Heparin - SQ 10,000 UNITS/ML Vial SQ SCH ×2 (08:14→21:06)
[2017-11-04] MEDS: Morphine Sulfate 15 MG SR Tablet PO SCH ×2 (08:15→21:05)
[2017-11-04] MEDS: Nystatin Liq 500,000 UNIT/5 ML UDC SWISH-SWAL SCH ×4 (08:16→21:07)
[2017-11-04] MEDS: Mag Sulf 1 gm/100 ml Premix 100 ML IV.SIG SCH ×2 (11:06→13:37)
--- NOTE | 2017-11-04 13:38 | P.PNIM ---
Subjective Interval history: Pt feeling well today. He is nervous about the IJ being removed and is requesting something for anxiety as needed prior to the IJ being removed. Physical Exam Vital signs: Vital Signs 11/03/17 15:36 11/03/17 20:00 11/04/17 00:00 Temperature 98.0 F 98.0 F 97.8 F Pulse Rate 113 H 72 75 Respiratory Rate 16 18 18 Blood Pressure 158/77 H 169/79 H 140/80 Pulse Oximetry 95 95 94 L 11/04/17 08:00 Temperature 97.9 F Pulse Rate 71 Respiratory Rate 17 Blood Pressure 164/88 H Pulse Oximetry 94 L Intake & Output 11/03/17 11/04/17 11/04/17 18:59 06:59 18:59 Intake Total 940 / 940 1700 / 1700 300 / 300 Output Total 4325 / 4325 525 / 525 850 / 850 Balance -3385 / -3385 1175 / 1175 -550 / -550 Intake: IV 300 / 300 1700 / 1700 300 / 300 Flexbumin 25% Inj 100 ML @ 60 200 / 200 100 / 100 mls/hr IV.SIG BID@ [facility] Rx# :[id number] Magnesium Sulfate 1 gm/D5W 100 100 / 100 ml Premix 100 ML @ 100 mls/hr IV.SIG Q1H [facility] Rx#:[id number] Rocephin Inj 2,000 MG In NS Inj 100 / 100 100 / 100 100 / 100 100 ML @ 200 mls/hr IV.SIG Q12H [facility] Rx#:[id number] Oral 640 / 640 Output: Urine 4300 / 4300 500 / 500 850 / 850 Wound Drainage # 2 Left Calf FLORES Drain 0 / 0 Left Thigh Other: Date of Last Bowel Movement 10/31/17 # Bowel Movements 0 Narrative: General: NAD, AAox3 Cardiac: Regular Chest: CTA bilaterally Abd: Pitting edema bilateral flanks, slightly less Ext: Left knee bandaged. flores drains Lines: right IJ cvl. Results - Labs CBC & Chem 7: 11/04/17 05:00 11/04/17 05:00 Laboratory Results - last 24 hr 11/04/17 11/04/17 05:00 05:00 WBC 6.9 RBC 3.14 L Hgb 9.4 L Hct 27.2 L MCV 86.6 MCH 29.9 MCHC 34.5 RDW 15.5 Plt Count 423 MPV 6.9 L Neut % (Auto) 66.3 Lymph % (Auto) 21.4 [place] % (Auto) 8.7 H Eos % (Auto) 2.5 Baso % (Auto) 1.1 Neut # (Auto) 4.6 Lymph # (Auto) 1.5 [place] # (Auto) 0.6 Eos # (Auto) 0.2 Baso # (Auto) 0.1 WBC Differential . Differential Comment Auto diff final Sodium 140 Potassium 3.7 Chloride 100 Carbon Dioxide 30.5 Anion Gap 10 BUN 8 Creatinine 0.52 L Estimated GFR Greater than 89 Random Glucose 99 Calcium 8.6 Magnesium 1.2 L Microbiology 10/18/17 17:35 Fluid - Synovial Fluid Gram Stain - Final 10/18/17 17:35 Fluid - Synovial Fluid Body Fluid Culture - Final Viridans streptococcus grp - Procedures Left knee arthroscopy, irrigation & debridement, synovectomy, chondroplasty Left knee arthrotomy with irrigation debridement, left calf abscess irrigation and debridement, left thigh abscess irrigation and debridement performed by Dr. Isidoro Lund (10/29/17) Assessment and Plan - Assessment (1) Effusion of left knee Code(s): M25.462 - Effusion, left knee Status: Acute Plan: This is a 52-year-old male patient with past medical history which includes hypertension, hyperlipidemia, anxiety/depression, BPH, hyperprolactinemia and chronic lower back pain, lumbar degenerative disc disease with long-term current use of opioid analgesic. Patient presents to the emergency department by EMS transport from home due to complaint of severe left lower extremity pain. Patient has been under the care of his primary care provider Dr. Walls and his pain management Dr. Bridges and sports medicine Dr. Dickson. Patient is undergone epidural injections and nerve block injections without symptom relief. Patient is on chronic Morphine ER 15 mg BID and Sundance 10-325 mg Q8H. Patient fell at his bedside 10/16/17 walking with his walker to go the bathroom and since then has had increasing pain. Strep Viridans bacteremia T7 and T8 discitis and osteo Left knee effusion Chronic lower back pain, Now with decreased mobility Lumbar degenerative disc disease with long-term current use of opioid analgesia - Venous Doppler Study 10/17/17 The study is negative for lower extremity deep venous thrombosis. - Lumbar Spine X-Ray 10/17/17 Chronic changes. - Pelvis X-Ray 10/17/17 No definite fracture is identified for technique. - Femur X-Ray 10/18/17 1. No fracture is identified. 2. Large knee joint effusion. 3. Recent MRI performed on 10/12/2017 documented severe edema in the proximal thigh. - Tibia/Fibula X-Ray 10/18/17 Large knee joint effusion. No acute osseous abnormality is visualized. - Outpatient lumbar MRI reviewed by Dr. Dolan - Pt underwent arthrocentesis on 10/18 with removal of 60cc "chocolate milk" color fluid. Culture grew out Strep viridans - On 10/19/17 pt underwent Left knee arthroscopy, irrigation & debridement, synovectomy, chondroplasty, surgical cx. grew out strep viridans - Blood cultures drawn on 10/18 with 2/4 growing out strep viridans. - MRI thoracic spine (10/20/17): 1. Discitis with osteomyelitis involving T7-T8. No paraspinal fluid collections or vertebral body collapse at this point. 2. Small bilateral pleural effusions. - MRI Lumbar spine (10/21/17): - Multilevel spinal canal stenosis most prominent at L4-L5 moderate nature. - 1.9 x 1.2 cm mass in the neural foramen on the right as seen on the prior examination characteristic of schwannoma or neurofibroma compromising the nerve root exit zone and lateral recess. The findings are similar to the prior exam. - There are no findings of osteomyelitis - On 10/[address] guided needle bx T8 --> Uncomplicated needle biopsy of the T8 superior endplate....cx's pending from needle bx. - Repeat cx's (10/21/17) with NG x 5 days - Pt was transferred from ICU on 10/23 - The source for the bacteremia is unclear. Pt with a noted broken molar which does not appear infected. Discussed the case with Dr. Jones and recommended to have a GI evaluation - coloscopy (10/26) limited due to large amount of retained stool - EGD (10/26) 1. There was esophagitis noted; likely Trish, multiple biopsies were performed 2. There was chronic gastritis in the gastric antrum; biopsy was performed 3. Duodenal inflammation was found in the bulb and second portion of the duodenum and 3rd part duodenum 4. Retroflexion was performed and was normal - Daptomycin (10/22 - 11/02) - Rocephin (10/26 - present) - IV access: IJ - Pt underwent left knee arthrotomy with irrigation debridement, left calf abscess irrigation and debridement, left thigh abscess irrigation and debridement performed by Dr. Isidoro Lund (10/29/17) - Intraoperative cultures (10/29) are negative. - On 10/30 pt was moved back to ICU for hypotension - He was given 2 units prbc on 10/31 - pt improved and was able to be transferred out of ICU on 11/01 - Pt was complaining of severe flank and low back edema, felt to be related to severe hypoalbuminemia and having received a lot of IVF resuscitation with third spacing. Pt is receiving IV albumen and IV Lasix. monitor bp and bmp. - once dc abx plan in place and ok with ortho will get pt to snf. - Pain control PRN - Cont. PT and OOB ALEXANDREA - related to sepsis and hypotension - resolved currently. Hypertension hx Hypotensive, patient asymptomatic - Hold patient's home amlodipine 10 mg p.o. daily, losartan 50 mg, triamterene hydrochlorothiazide daily - Pt had CVL IJ place 10/20 for hypotension and pressors. - Pt is off pressors and BP is stable. - IJ to be removed today and PICC line to be placed Hyperlipidemia - Continue patient's home atorvastatin Anxiety/depression - Continue patient's home fluoxetine 60 mg p.o. nightly BPH - Continue patient's home tamsulosin Hyperprolactinemia - Continue patient's home cabergoline weekly DVT prophylaxis with teds and SCDs
[2017-11-04] MEDS ORDERED: Heparin Central Flush 100 UNIT/ML 5 ML Vial IV.FLUSH PRN (13:59)
[2017-11-04] MEDS: Duloxetine 60 MG DR Capsule PO SCH (21:05)
[2017-11-05] MEDS: HYDROmorphone PF Inj 2 MG/ML Vial IV.PUSH PRN ×5 (06:34→23:45)
[2017-11-05 07:17] LABS: Baso # (Auto) 0.1 th/mm3 (0.0-0.2); Baso % (Auto) 0.9 % (0.0-2.0); Eos # (Auto) 0.2 th/mm3 (0.0-0.4); Hemoglobin 9.6 gm/dL (13.0-17.0); Lymph # (Auto) 1.2 th/mm3 (1.0-4.8); Lymph % (Auto) 16.1 % (9.0-44.0); Mean Corpuscular HGB Conc 34.3 % (32.0-36.0); Mean Corpuscular Hemoglobin 29.8 pg (27.0-34.0); Mean Corpuscular Volume 86.9 fL (80.0-100.0); Mean Platelet Volume 7.1 fL (7.0-11.0); Mono # (Auto) 0.5 th/mm3 (0.0-0.9); Neut # (Auto) 5.4 th/mm3 (1.8-7.7); Platelet Count 476 th/mm3 (150-450); Red Blood Count 3.22 mil/mm3 (4.50-5.90); Red Cell Distribution Width 15.4 % (11.6-17.2); White Blood Count 7.4 th/mm3 (4.0-11.0)
[2017-11-05 07:31] LABS: Anion Gap 6 meq/L (5-15); Blood Urea Nitrogen 11 mg/dL (7-18); Calcium 8.9 mg/dL (8.5-10.1); Carbon Dioxide 35.4 meq/L (21.0-32.0); Chloride 97 meq/L (98-107); Glomerular Filtration Rate Greater Than 89 mL/min (>89); Glucose,Random 101 mg/dL (74-106); Magnesium 1.8 mg/dL (1.5-2.5); Potassium 3.6 meq/L (3.5-5.1); Sodium 138 meq/L (136-145)
[2017-11-05] MEDS: Morphine Sulfate 15 MG SR Tablet PO SCH ×2 (09:52→20:27)
[2017-11-05] MEDS: Heparin - SQ 10,000 UNITS/ML Vial SQ SCH ×2 (09:58→20:27)
[2017-11-05] MEDS: Nystatin Liq 500,000 UNIT/5 ML UDC SWISH-SWAL SCH ×4 (10:00→20:26)
[2017-11-05] MEDS: Heparin Central Flush 100 UNIT/ML 5 ML Vial IV.FLUSH SCH (10:01)
[2017-11-05] MEDS: Albumin Human 25% Inj 100 ML IV.SIG SCH ×2 (10:49→16:22)
--- NOTE | 2017-11-05 11:30 | P.PNIM ---
Subjective Interval history: Pt feels that the swelling is slightly better today He is drinking in a lot of fluids but still with negative fluid balance Physical Exam Vital signs: Vital Signs 11/04/17 16:00 11/04/17 20:00 11/04/17 22:07 Temperature 97.9 F 98.4 F Pulse Rate 111 H 113 H Respiratory Rate 17 18 20 Blood Pressure 151/81 H 154/78 H Pulse Oximetry 93 L 96 11/04/17 22:08 11/05/17 00:43 11/05/17 01:22 Temperature 98.3 F Pulse Rate 69 Respiratory Rate 20 17 20 Blood Pressure 131/69 Pulse Oximetry 96 11/05/17 03:41 11/05/17 06:32 11/05/17 08:00 Temperature 98.1 F Pulse Rate 75 Respiratory Rate 20 20 18 Blood Pressure 171/97 H Pulse Oximetry 93 L Intake & Output 11/04/17 11/05/17 11/05/17 18:59 06:59 18:59 Intake Total 2500 / 2500 580 / 580 100 / 100 Output Total 3105 / 3105 1000 / 1000 20 / 20 Balance -605 / -605 -420 / -420 80 / 80 Weight 109 kg Intake: IV 500 / 500 100 / 100 100 / 100 Flexbumin 25% Inj 100 ML @ 60 200 / 200 mls/hr IV.SIG BID@08,17 EM[facility] Rx# :[id number] Magnesium Sulfate 1 gm/D5W 100 200 / 200 ml Premix 100 ML @ 100 mls/hr IV.SIG Q1H EM[facility] Rx#:[id number] Rocephin Inj 2,000 MG In NS Inj 100 / 100 100 / 100 100 / 100 100 ML @ 200 mls/hr IV.SIG Q12H EMILIO Rx#:[id number] Oral 1999 / 1999 480 / 480 Output: Urine 3075 / 3075 1000 / 1000 Wound Drainage 30 / 30 20 / 20 # 1 Left Knee FLORES Drain 0 / 0 # 2 Left Calf FLORES Drain 5 / 5 20 / 20 Left Thigh 25 / 25 Narrative: General: NAD, AAox3 Cardiac: Regular Chest: CTA bilaterally Abd: Pitting edema bilateral flanks, slightly less Ext: Left knee bandaged. flores drains Lines: right IJ cvl. Results - Labs CBC & Chem 7: 11/06/17 07:00 11/06/17 07:00 Laboratory Results - last 24 hr 11/05/17 11/05/17 06:30 06:30 WBC 7.4 RBC 3.22 L Hgb 9.6 L Hct 28.0 L MCV 86.9 MCH 29.8 MCHC 34.3 RDW 15.4 Plt Count 476 H MPV 7.1 Neut % (Auto) 73.0 H Lymph % (Auto) 16.1 Wetzel % (Auto) 7.0 Eos % (Auto) 3.0 Baso % (Auto) 0.9 Neut # (Auto) 5.4 Lymph # (Auto) 1.2 Wetzel # (Auto) 0.5 Eos # (Auto) 0.2 Baso # (Auto) 0.1 WBC Differential . Differential Comment Auto diff final Sodium 138 Potassium 3.6 Chloride 97 L Carbon Dioxide 35.4 H Anion Gap 6 BUN 11 Creatinine 0.59 L Estimated GFR Greater than 89 Random Glucose 101 Calcium 8.9 Magnesium 1.8 D Microbiology 10/21/17 12:33 Cerebral Spinal Fluid - Lumbar Puncture Acid Fast Bacilli Smear - Final No acid fast bacilli seen 10/21/17 12:33 Cerebral Spinal Fluid - Lumbar Puncture Mycobacterial Culture - Preliminary No growth in 2 weeks 10/21/17 12:33 Cerebral Spinal Fluid - Lumbar Puncture Fungal Smear - Final No fungal elements seen 10/21/17 12:33 Cerebral Spinal Fluid - Lumbar Puncture Fungal Culture - Preliminary No growth in 2 weeks 10/21/17 10:44 Tissue - Other Fungal Smear - Final No fungal elements seen 10/21/17 10:44 Tissue - Other Fungal Culture - Preliminary No growth in 2 weeks 10/21/17 10:44 Tissue - Other Acid Fast Bacilli Smear - Final No acid fast bacilli seen 10/21/17 10:44 Tissue - Other Mycobacterial Culture - Preliminary No growth in 2 weeks - Procedures Left knee arthroscopy, irrigation & debridement, synovectomy, chondroplasty Left knee arthrotomy with irrigation debridement, left calf abscess irrigation and debridement, left thigh abscess irrigation and debridement performed by Dr. Isidoro Lund (10/29/17) Assessment and Plan - Assessment (1) Effusion of left knee Code(s): M25.462 - Effusion, left knee Status: Acute Plan: This is a 52-year-old male patient with past medical history which includes hypertension, hyperlipidemia, anxiety/depression, BPH, hyperprolactinemia and chronic lower back pain, lumbar degenerative disc disease with long-term current use of opioid analgesic. Patient presents to the emergency department by EMS transport from home due to complaint of severe left lower extremity pain. Patient has been under the care of his primary care provider Dr. Walls and his pain management Dr. Bridges and sports medicine Dr. Dickson. Patient is undergone epidural injections and nerve block injections without symptom relief. Patient is on chronic Morphine ER 15 mg BID and Thornton 10-325 mg Q8H. Patient fell at his bedside 10/16/17 walking with his walker to go the bathroom and since then has had increasing pain. Strep Viridans bacteremia T7 and T8 discitis and osteo Left knee effusion Chronic lower back pain, Now with decreased mobility Lumbar degenerative disc disease with long-term current use of opioid analgesia - Venous Doppler Study 10/17/17 The study is negative for lower extremity deep venous thrombosis. - Lumbar Spine X-Ray 10/17/17 Chronic changes. - Pelvis X-Ray 10/17/17 No definite fracture is identified for technique. - Femur X-Ray 10/18/17 1. No fracture is identified. 2. Large knee joint effusion. 3. Recent MRI performed on 10/12/2017 documented severe edema in the proximal thigh. - Tibia/Fibula X-Ray 10/18/17 Large knee joint effusion. No acute osseous abnormality is visualized. - Outpatient lumbar MRI reviewed by Dr. Dolan - Pt underwent arthrocentesis on 10/18 with removal of 60cc "chocolate milk" color fluid. Culture grew out Strep viridans - On 10/19/17 pt underwent Left knee arthroscopy, irrigation & debridement, synovectomy, chondroplasty, surgical cx. grew out strep viridans - Blood cultures drawn on 10/18 with 2/4 growing out strep viridans. - MRI thoracic spine (10/20/17): 1. Discitis with osteomyelitis involving T7-T8. No paraspinal fluid collections or vertebral body collapse at this point. 2. Small bilateral pleural effusions. - MRI Lumbar spine (10/21/17): - Multilevel spinal canal stenosis most prominent at L4-L5 moderate nature. - 1.9 x 1.2 cm mass in the neural foramen on the right as seen on the prior examination characteristic of schwannoma or neurofibroma compromising the nerve root exit zone and lateral recess. The findings are similar to the prior exam. - There are no findings of osteomyelitis - On 10/[address] guided needle bx T8 --> Uncomplicated needle biopsy of the T8 superior endplate....cx's pending from needle bx. - Repeat cx's (10/21/17) with NG x 5 days - Pt was transferred from ICU on 10/23 - The source for the bacteremia is unclear. Pt with a noted broken molar which does not appear infected. Discussed the case with Dr. Jones and recommended to have a GI evaluation - coloscopy (10/26) limited due to large amount of retained stool - EGD (10/26) 1. There was esophagitis noted; likely Trish, multiple biopsies were performed 2. There was chronic gastritis in the gastric antrum; biopsy was performed 3. Duodenal inflammation was found in the bulb and second portion of the duodenum and 3rd part duodenum 4. Retroflexion was performed and was normal - Daptomycin (10/22 - 11/02) - Rocephin (10/26 - present) - IV access: PICC - Pt underwent left knee arthrotomy with irrigation debridement, left calf abscess irrigation and debridement, left thigh abscess irrigation and debridement performed by Dr. Isidoro Lund (10/29/17) - Intraoperative cultures (10/29) are negative. - On 10/30 pt was moved back to ICU for hypotension - He was given 2 units prbc on 10/31 - pt improved and was able to be transferred out of ICU on 11/01 - Pt was complaining of severe flank and low back edema, felt to be related to severe hypoalbuminemia and having received a lot of IVF resuscitation with third spacing. Pt is receiving IV albumen and IV Lasix. - Discussed decreasing oral fluid intake while we are diuresing. - Monitor labs daily - once dc abx plan in place and ok with ortho will get pt to snf. - Pain control PRN - Cont. PT and OOB ALEXANDREA - related to sepsis and hypotension - resolved currently. Hypertension hx Hypotensive, patient asymptomatic - Hold patient's home amlodipine 10 mg p.o. daily, losartan 50 mg, triamterene hydrochlorothiazide daily - Pt had CVL IJ place 10/20 for hypotension and pressors. - Pt is off pressors and BP is stable. - IJ removed 11/04 and PICC line placed Hyperlipidemia - Continue patient's home atorvastatin Anxiety/depression - Continue patient's home fluoxetine 60 mg p.o. nightly BPH - Continue patient's home tamsulosin Hyperprolactinemia - Continue patient's home cabergoline weekly DVT prophylaxis with teds and SCDs
[2017-11-05] MEDS: Ketorolac Inj 30 MG/ML (IVP) Vial IV.PUSH PRN (18:21)
[2017-11-05] MEDS: Duloxetine 60 MG DR Capsule PO SCH (20:27)
[2017-11-06] MEDS: HYDROmorphone PF Inj 2 MG/ML Vial IV.PUSH PRN ×5 (03:22→22:03)
[2017-11-06 07:34] LABS: Baso # (Auto) 0.1 th/mm3 (0.0-0.2); Eos # (Auto) 0.3 th/mm3 (0.0-0.4); Eos % (Auto) 4.6 % (0.0-4.0); Hemoglobin 10.3 gm/dL (13.0-17.0); Lymph # (Auto) 1.4 th/mm3 (1.0-4.8); Lymph % (Auto) 19.3 % (9.0-44.0); Mean Corpuscular HGB Conc 34.2 % (32.0-36.0); Mean Corpuscular Hemoglobin 29.4 pg (27.0-34.0); Mean Platelet Volume 7.1 fL (7.0-11.0); Mono # (Auto) 0.6 th/mm3 (0.0-0.9); Mono % (Auto) 7.6 % (0.0-8.0); Neut % (Auto) 67.5 % (16.0-70.0); Platelet Count 528 th/mm3 (150-450); Red Blood Count 3.49 mil/mm3 (4.50-5.90); Red Cell Distribution Width 15.3 % (11.6-17.2); White Blood Count 7.4 th/mm3 (4.0-11.0)
[2017-11-06 07:59] LABS: Anion Gap 9 meq/L (5-15); Blood Urea Nitrogen 18 mg/dL (7-18); Calcium 8.7 mg/dL (8.5-10.1); Carbon Dioxide 32.3 meq/L (21.0-32.0); Chloride 97 meq/L (98-107); Glomerular Filtration Rate Greater Than 89 mL/min (>89); Glucose,Random 101 mg/dL (74-106); Magnesium 1.5 mg/dL (1.5-2.5); Potassium 3.7 meq/L (3.5-5.1); Sodium 138 meq/L (136-145)
[2017-11-06] MEDS: Morphine Sulfate 15 MG SR Tablet PO SCH ×2 (08:01→20:08)
[2017-11-06] MEDS: Nystatin Liq 500,000 UNIT/5 ML UDC SWISH-SWAL SCH ×5 (08:02→20:08)
[2017-11-06] MEDS: Heparin - SQ 10,000 UNITS/ML Vial SQ SCH ×2 (08:04→20:07)
[2017-11-06] MEDS: Heparin Central Flush 100 UNIT/ML 5 ML Vial IV.FLUSH SCH (08:08)
[2017-11-06] MEDS: Albumin Human 25% Inj 100 ML IV.SIG SCH ×2 (08:52→16:00)
--- NOTE | 2017-11-06 10:11 | P.PNIM ---
Subjective Interval history: Pt feels that his swelling is improving slowly and he maintains a negative fluid balance She is eating and drinking without difficulty Pt is moving his bowels Denies any headache, abd pain, chest pain, SOB Physical Exam Vital signs: Vital Signs 11/05/17 12:00 11/05/17 16:00 11/05/17 20:00 Temperature 97.6 F 98.2 F 98.0 F Pulse Rate 66 105 H 79 Respiratory Rate 18 18 18 Blood Pressure 114/68 134/67 173/83 H Pulse Oximetry 91 L 93 L 99 11/05/17 23:30 11/06/17 03:14 11/06/17 03:15 Temperature 98.2 F Pulse Rate 62 Respiratory Rate 17 20 6 L Blood Pressure 127/79 Pulse Oximetry 97 11/06/17 08:00 Temperature 98.2 F Pulse Rate 68 Respiratory Rate 16 Blood Pressure 171/90 H Pulse Oximetry 95 Intake & Output 11/05/17 11/06/17 11/06/17 18:59 06:59 18:59 Intake Total 1282 / 1282 1000 / 1000 100 / 100 Output Total 3770 / 3770 600 / 600 20 / 20 Balance -2488 / -2488 400 / 400 80 / 80 Weight 109 kg Intake: IV 300 / 300 100 / 100 100 / 100 Flexbumin 25% Inj 100 ML @ 60 200 / 200 mls/hr IV.SIG BID@08,17 [facility] Rx# :[id number] Rocephin Inj 2,000 MG In NS Inj 100 / 100 100 / 100 100 / 100 100 ML @ 200 mls/hr IV.SIG Q12H [facility] Rx#:[id number] Oral 982 / 982 900 / 900 Output: Urine 3750 / 3750 600 / 600 Wound Drainage 20 / 20 20 / 20 # 1 Left Knee FLORES Drain 0 / 0 0 / 0 # 2 Left Calf FLORES Drain Narrative: General: NAD, AAox3 Cardiac: Regular Chest: CTA bilaterally Abd: +BS, soft ND/NT Ext: Left knee bandaged. flores drains Lines: PICC in RUE Results - Labs CBC & Chem 7: 11/06/17 07:00 11/06/17 07:00 Laboratory Results - last 24 hr 11/06/17 11/06/17 07:00 07:00 WBC 7.4 RBC 3.49 L Hgb 10.3 L Hct 30.0 L MCV 86.0 MCH 29.4 MCHC 34.2 RDW 15.3 Plt Count 528 H MPV 7.1 Neut % (Auto) 67.5 Lymph % (Auto) 19.3 Becker % (Auto) 7.6 Eos % (Auto) 4.6 H Baso % (Auto) 1.0 Neut # (Auto) 5.0 Lymph # (Auto) 1.4 Becker # (Auto) 0.6 Eos # (Auto) 0.3 Baso # (Auto) 0.1 WBC Differential . Differential Comment Auto diff final Sodium 138 Potassium 3.7 Chloride 97 L Carbon Dioxide 32.3 H Anion Gap 9 BUN 18 Creatinine 0.75 Estimated GFR Greater than 89 Random Glucose 101 Calcium 8.7 Magnesium 1.5 Microbiology 10/29/17 09:00 Tissue - Knee Fungal Smear - Final No fungal elements seen 10/29/17 09:00 Tissue - Knee Fungal Culture - Preliminary No growth in 1 week 10/29/17 09:00 Tissue - Knee Acid Fast Bacilli Smear - Final No acid fast bacilli seen 10/29/17 09:00 Tissue - Knee Mycobacterial Culture - Preliminary No growth in 1 week 10/29/17 09:00 Fluid - Other Fungal Smear - Final No fungal elements seen 10/29/17 09:00 Fluid - Other Fungal Culture - Preliminary No growth in 1 week 10/29/17 09:00 Fluid - Other Acid Fast Bacilli Smear - Final No acid fast bacilli seen 10/29/17 09:00 Fluid - Other Mycobacterial Culture - Preliminary No growth in 1 week - Procedures Left knee arthroscopy, irrigation & debridement, synovectomy, chondroplasty Left knee arthrotomy with irrigation debridement, left calf abscess irrigation and debridement, left thigh abscess irrigation and debridement performed by Dr. Isidoro Lund (10/29/17) Assessment and Plan - Assessment (1) Effusion of left knee Code(s): M25.462 - Effusion, left knee Status: Acute Plan: This is a 52-year-old male patient with past medical history which includes hypertension, hyperlipidemia, anxiety/depression, BPH, hyperprolactinemia and chronic lower back pain, lumbar degenerative disc disease with long-term current use of opioid analgesic. Patient presents to the emergency department by EMS transport from home due to complaint of severe left lower extremity pain. Patient has been under the care of his primary care provider Dr. Walls and his pain management Dr. Bridges and sports medicine Dr. Dickson. Patient is undergone epidural injections and nerve block injections without symptom relief. Patient is on chronic Morphine ER 15 mg BID and [place] 10-325 mg Q8H. Patient fell at his bedside 10/16/17 walking with his walker to go the bathroom and since then has had increasing pain. Strep Viridans bacteremia T7 and T8 discitis and osteo Left knee effusion Chronic lower back pain, Now with decreased mobility Lumbar degenerative disc disease with long-term current use of opioid analgesia - Venous Doppler Study 10/17/17 The study is negative for lower extremity deep venous thrombosis. - Lumbar Spine X-Ray 10/17/17 Chronic changes. - Pelvis X-Ray 10/17/17 No definite fracture is identified for technique. - Femur X-Ray 10/18/17 1. No fracture is identified. 2. Large knee joint effusion. 3. Recent MRI performed on 10/12/2017 documented severe edema in the proximal thigh. - Tibia/Fibula X-Ray 10/18/17 Large knee joint effusion. No acute osseous abnormality is visualized. - Outpatient lumbar MRI reviewed by Dr. Dolan - Pt underwent arthrocentesis on 10/18 with removal of 60cc "chocolate milk" color fluid. Culture grew out Strep viridans - On 10/19/17 pt underwent Left knee arthroscopy, irrigation & debridement, synovectomy, chondroplasty, surgical cx. grew out strep viridans - Blood cultures drawn on 10/18 with 2/4 growing out strep viridans. - MRI thoracic spine (10/20/17): 1. Discitis with osteomyelitis involving T7-T8. No paraspinal fluid collections or vertebral body collapse at this point. 2. Small bilateral pleural effusions. - MRI Lumbar spine (10/21/17): - Multilevel spinal canal stenosis most prominent at L4-L5 moderate nature. - 1.9 x 1.2 cm mass in the neural foramen on the right as seen on the prior examination characteristic of schwannoma or neurofibroma compromising the nerve root exit zone and lateral recess. The findings are similar to the prior exam. - There are no findings of osteomyelitis - On 10/[address] guided needle bx T8 --> Uncomplicated needle biopsy of the T8 superior endplate....cx's pending from needle bx. - Repeat cx's (10/21/17) with NG x 5 days - Pt was transferred from ICU on 10/23 - The source for the bacteremia is unclear. Pt with a noted broken molar which does not appear infected. Discussed the case with Dr. Jones and recommended to have a GI evaluation - coloscopy (10/26) limited due to large amount of retained stool - EGD (10/26) 1. There was esophagitis noted; likely Trish, multiple biopsies were performed 2. There was chronic gastritis in the gastric antrum; biopsy was performed 3. Duodenal inflammation was found in the bulb and second portion of the duodenum and 3rd part duodenum 4. Retroflexion was performed and was normal - Daptomycin (10/22 - 11/02) - Rocephin (10/26 - present) - IV access: PICC (placed on 11/04) - Pt underwent left knee arthrotomy with irrigation debridement, left calf abscess irrigation and debridement, left thigh abscess irrigation and debridement performed by Dr. Isidoro Lund (10/29/17) - Intraoperative cultures (10/29) are negative. - On 10/30 pt was moved back to ICU for hypotension - He was given 2 units prbc on 10/31 - pt improved and was able to be transferred out of ICU on 11/01 - Pt was complaining of severe flank and low back edema, felt to be related to severe hypoalbuminemia and having received a lot of IVF resuscitation with third spacing. Pt is receiving IV albumen and IV Lasix. - Discussed decreasing oral fluid intake while we are diuresing. He is diuresing well and maintaining a negative fluid balance. - Monitor labs daily - once dc abx plan in place and ok with ortho will get pt to snf. - Pain control PRN - Cont. PT and OOB ALEXANDREA - related to sepsis and hypotension - resolved currently. Hypertension hx Hypotensive, patient asymptomatic - Hold patient's home amlodipine 10 mg p.o. daily, losartan 50 mg, triamterene hydrochlorothiazide daily - Pt had CVL IJ place 10/20 for hypotension and pressors. - Pt is off pressors and BP is stable. - IJ removed on 11/04 and PICC line placed Hyperlipidemia - Continue patient's home atorvastatin Anxiety/depression - Continue patient's home fluoxetine 60 mg p.o. nightly BPH - Continue patient's home tamsulosin Hyperprolactinemia - Continue patient's home cabergoline weekly DVT prophylaxis with teds and SCDs The exam, history, and the medical decision-making described in the above note were completed with the assistance of the mid-level provider. I reviewed and agree with the findings presented. I attest that I had a [id number] encounter with the patient on the same day, and personally performed and documented my assessment and findings in the medical record. cont albumen/lasix for anasarca. monitor bmp. await drain removal from left knee. snf likely by Wednesday.
[2017-11-06] MEDS: Duloxetine 60 MG DR Capsule PO SCH (20:07)
[2017-11-07] MEDS: HYDROmorphone PF Inj 2 MG/ML Vial IV.PUSH PRN ×5 (01:01→20:16)
[2017-11-07 04:47] LABS: Anion Gap 9 meq/L (5-15); Blood Urea Nitrogen 17 mg/dL (7-18); Carbon Dioxide 33.6 meq/L (21.0-32.0); Chloride 96 meq/L (98-107); Glomerular Filtration Rate Greater Than 89 mL/min (>89); Glucose,Random 102 mg/dL (74-106); Magnesium 1.6 mg/dL (1.5-2.5); Potassium 3.9 meq/L (3.5-5.1); Sodium 139 meq/L (136-145)
[2017-11-07] MEDS: Nystatin Liq 500,000 UNIT/5 ML UDC SWISH-SWAL SCH ×4 (08:48→22:47)
[2017-11-07] MEDS: Heparin - SQ 10,000 UNITS/ML Vial SQ SCH ×2 (08:49→20:14)
[2017-11-07] MEDS: Morphine Sulfate 15 MG SR Tablet PO SCH ×2 (08:50→20:15)
[2017-11-07] MEDS: Heparin Central Flush 100 UNIT/ML 5 ML Vial IV.FLUSH SCH (08:51)
[2017-11-07] MEDS: Albumin Human 25% Inj 100 ML IV.SIG SCH ×2 (08:53→17:22)
--- NOTE | 2017-11-07 10:20 | P.PNIM ---
Subjective Interval history: Pt has been diuresing well He feels that the edema in his flanks is improving as well as the edema in the RLE Pt is having BMs without difficulty He denies any chest pain, SOB, palpitations He is very concerned about the pain with removal of his FLORES drains Physical Exam Vital signs: Vital Signs 11/06/17 12:00 11/06/17 16:00 11/06/17 20:00 Temperature 98.4 F 98.3 F 97.8 F Pulse Rate 75 83 88 Respiratory Rate 16 16 17 Blood Pressure 161/86 H 166/79 H 164/80 H Pulse Oximetry 94 L 94 L 97 11/07/17 00:00 11/07/17 08:00 Temperature 97.8 F 97.8 F Pulse Rate 73 97 H Respiratory Rate 17 17 Blood Pressure 120/63 158/81 H Pulse Oximetry 95 95 Intake & Output 11/06/17 11/07/17 11/07/17 18:59 06:59 18:59 Intake Total 1800 / 1800 680 / 680 Output Total 620 / 620 1780 / 1780 Balance 1180 / 1180 -1100 / -1100 Weight 109 kg Intake: IV 200 / 200 200 / 200 Flexbumin 25% Inj 100 ML @ 60 100 / 100 100 / 100 mls/hr IV.SIG BID@08,17 [facility] Rx# :[id number] Rocephin Inj 2,000 MG In NS Inj 100 / 100 100 / 100 100 ML @ 200 mls/hr IV.SIG Q12H [facility] Rx#:[id number] Oral 1600 / 1600 480 / 480 Output: Urine 600 / 600 1750 / 1750 Wound Drainage 20 / 20 30 / 30 # 1 Left Knee FLORES Drain 0 / 0 # 2 Left Calf FLORES Drain 20 / 20 10 / 10 Left Thigh 20 / 20 Other: # Bowel Movements 1 Narrative: General: NAD, AAox3 Cardiac: Regular Chest: CTA bilaterally Abd: +BS, soft ND/NT Ext: Left knee bandaged. flores drains Lines: PICC in RUE Results - Labs CBC & Chem 7: 11/06/17 07:00 11/07/17 04:00 Laboratory Results - last 24 hr 11/07/17 04:00 Sodium 139 Potassium 3.9 Chloride 96 L Carbon Dioxide 33.6 H Anion Gap 9 BUN 17 Creatinine 0.68 Estimated GFR Greater than 89 Random Glucose 102 Calcium 9.0 Magnesium 1.6 - Procedures Left knee arthroscopy, irrigation & debridement, synovectomy, chondroplasty Left knee arthrotomy with irrigation debridement, left calf abscess irrigation and debridement, left thigh abscess irrigation and debridement performed by Dr. Isidoro Lund (10/29/17) Assessment and Plan - Assessment (1) Effusion of left knee Code(s): M25.462 - Effusion, left knee Status: Acute Plan: This is a 52-year-old male patient with past medical history which includes hypertension, hyperlipidemia, anxiety/depression, BPH, hyperprolactinemia and chronic lower back pain, lumbar degenerative disc disease with long-term current use of opioid analgesic. Patient presents to the emergency department by EMS transport from home due to complaint of severe left lower extremity pain. Patient has been under the care of his primary care provider Dr. Walls and his pain management Dr. Bridges and sports medicine Dr. Dickson. Patient is undergone epidural injections and nerve block injections without symptom relief. Patient is on chronic Morphine ER 15 mg BID and Dixon 10-325 mg Q8H. Patient fell at his bedside 10/16/17 walking with his walker to go the bathroom and since then has had increasing pain. Strep Viridans bacteremia T7 and T8 discitis and osteo Left knee effusion Chronic lower back pain, Now with decreased mobility Lumbar degenerative disc disease with long-term current use of opioid analgesia - Venous Doppler Study 10/17/17 The study is negative for lower extremity deep venous thrombosis. - Lumbar Spine X-Ray 10/17/17 Chronic changes. - Pelvis X-Ray 10/17/17 No definite fracture is identified for technique. - Femur X-Ray 10/18/17 1. No fracture is identified. 2. Large knee joint effusion. 3. Recent MRI performed on 10/12/2017 documented severe edema in the proximal thigh. - Tibia/Fibula X-Ray 10/18/17 Large knee joint effusion. No acute osseous abnormality is visualized. - Outpatient lumbar MRI reviewed by Dr. Dolan - Pt underwent arthrocentesis on 10/18 with removal of 60cc "chocolate milk" color fluid. Culture grew out Strep viridans - On 10/19/17 pt underwent Left knee arthroscopy, irrigation & debridement, synovectomy, chondroplasty, surgical cx. grew out strep viridans - Blood cultures drawn on 10/18 with 2/4 growing out strep viridans. - MRI thoracic spine (10/20/17): 1. Discitis with osteomyelitis involving T7-T8. No paraspinal fluid collections or vertebral body collapse at this point. 2. Small bilateral pleural effusions. - MRI Lumbar spine (10/21/17): - Multilevel spinal canal stenosis most prominent at L4-L5 moderate nature. - 1.9 x 1.2 cm mass in the neural foramen on the right as seen on the prior examination characteristic of schwannoma or neurofibroma compromising the nerve root exit zone and lateral recess. The findings are similar to the prior exam. - There are no findings of osteomyelitis - On 10/[address] guided needle bx T8 --> Uncomplicated needle biopsy of the T8 superior endplate....cx's pending from needle bx. - Repeat cx's (10/21/17) with NG x 5 days - Pt was transferred from ICU on 10/23 - The source for the bacteremia is unclear. Pt with a noted broken molar which does not appear infected. Discussed the case with Dr. Jones and recommended to have a GI evaluation - coloscopy (10/26) limited due to large amount of retained stool - EGD (10/26) 1. There was esophagitis noted; likely Trish, multiple biopsies were performed 2. There was chronic gastritis in the gastric antrum; biopsy was performed 3. Duodenal inflammation was found in the bulb and second portion of the duodenum and 3rd part duodenum 4. Retroflexion was performed and was normal - Daptomycin (10/22 - 11/02) - Rocephin (10/26 - present) - IV access: PICC (placed on 11/04) - Pt underwent left knee arthrotomy with irrigation debridement, left calf abscess irrigation and debridement, left thigh abscess irrigation and debridement performed by Dr. Isidoro Lund (10/29/17) - Intraoperative cultures (10/29) are negative. - On 10/30 pt was moved back to ICU for hypotension - He was given 2 units prbc on 10/31 - pt improved and was able to be transferred out of ICU on 11/01 - Pt was complaining of severe flank and low back edema, felt to be related to severe hypoalbuminemia and having received a lot of IVF resuscitation with third spacing. Pt is receiving IV albumen and IV Lasix. - Discussed decreasing oral fluid intake while we are diuresing. He is diuresing well and maintaining a negative fluid balance overall. Yesterday he actually had a positive fluid balance but stressed the importance of decreasing the oral fluid intake while we are diuresing. - Will add Ensure with each meal. - Monitor labs daily - once dc abx plan in place and ok with ortho will get pt to snf. - Pain control PRN - Cont. PT and OOB ALEXANDREA - related to sepsis and hypotension - resolved currently. Hypertension hx Hypotensive, patient asymptomatic - Hold patient's home amlodipine 10 mg p.o. daily, losartan 50 mg, triamterene hydrochlorothiazide daily - Pt had CVL IJ place 10/20 for hypotension and pressors. - Pt is off pressors and BP is stable. - IJ removed on 11/04 and PICC line placed Hyperlipidemia - Continue patient's home atorvastatin Anxiety/depression - Continue patient's home fluoxetine 60 mg p.o. nightly BPH - Continue patient's home tamsulosin Hyperprolactinemia - Continue patient's home cabergoline weekly DVT prophylaxis with teds and SCDs The exam, history, and the medical decision-making described in the above note were completed with the assistance of the mid-level provider. I reviewed and agree with the findings presented. I attest that I had a [id number] encounter with the patient on the same day, and personally performed and documented my assessment and findings in the medical record. cont albumen/lasix for anasarca. monitor bmp. await drain removal from left knee. snf likely by Wednesday. add nutrition supplement
[2017-11-07] MEDS: Duloxetine 60 MG DR Capsule PO SCH (20:15)
[2017-11-08] MEDS: HYDROmorphone PF Inj 2 MG/ML Vial IV.PUSH PRN ×5 (00:38→19:39)
[2017-11-08 05:25] LABS: Calcium 9.2 mg/dL (8.5-10.1); Carbon Dioxide 31.4 meq/L (21.0-32.0); Magnesium 1.4 mg/dL (1.5-2.5); Potassium 3.6 meq/L (3.5-5.1)
[2017-11-08] MEDS: Albumin Human 25% Inj 100 ML IV.SIG SCH (09:00)
[2017-11-08] MEDS: Morphine Sulfate 15 MG SR Tablet PO SCH ×3 (09:49→22:19)
[2017-11-08] MEDS: Nystatin Liq 500,000 UNIT/5 ML UDC SWISH-SWAL SCH ×5 (09:50→22:19)
[2017-11-08] MEDS: Heparin - SQ 10,000 UNITS/ML Vial SQ SCH ×2 (09:50→19:45)
--- NOTE | 2017-11-08 09:59 | P.PNIM ---
Subjective Interval history: Pt has been urinating quite a bit and has a negative fluid balance of 1170 yesterday He has not had a BM in a few days but states that he has not had much of an appetite No fevers or chills No abd pain +Flatus Physical Exam Vital signs: Vital Signs 11/07/17 12:00 11/07/17 16:00 11/07/17 20:00 Temperature 97.9 F 98.2 F 98.5 F Pulse Rate 74 113 H 92 H Respiratory Rate 18 18 20 Blood Pressure 130/71 130/60 148/86 H Pulse Oximetry 100 93 L 97 11/08/17 00:00 11/08/17 08:00 Temperature 97.7 F 98.1 F Pulse Rate 82 88 Respiratory Rate 20 19 Blood Pressure 98/53 L 129/74 Pulse Oximetry 95 94 L Intake & Output 11/07/17 11/08/17 11/08/17 18:59 06:59 18:59 Intake Total 1180 / 1180 1050 / 1050 Output Total 1265 / 1265 2135 / 2135 Balance -85 / -85 -1085 / -1085 Intake: IV 200 / 200 200 / 200 Flexbumin 25% Inj 100 ML @ 60 100 / 100 100 / 100 mls/hr IV.SIG BID@08,17 [facility] Rx# :[id number] Rocephin Inj 2,000 MG In NS Inj 100 / 100 100 / 100 100 ML @ 200 mls/hr IV.SIG Q12H [facility] Rx#:[id number] Oral 980 / 980 850 / 850 Output: Urine 1200 / 1200 2100 / 2100 Wound Drainage 65 / 65 35 / 35 # 2 Left Calf FLORES Drain 5 / 5 5 / 5 Left Thigh 60 / 60 30 / 30 Narrative: General: NAD, AAox3 Cardiac: Regular Chest: CTA bilaterally Abd: +BS, soft ND/NT Ext: Left knee bandaged. flores drains Lines: PICC in RUE Results - Labs CBC & Chem 7: 11/09/17 05:50 11/09/17 05:50 Laboratory Results - last 24 hr 11/08/17 05:00 Sodium 137 Potassium 3.6 Chloride 96 L Carbon Dioxide 31.4 Anion Gap 10 BUN 21 H Creatinine 0.97 Estimated GFR 81 L Random Glucose 111 H Calcium 9.2 Magnesium 1.4 L - Imaging Venous Doppler Study 10/17/17 20:58 CONCLUSION: 1. The study is negative for lower extremity deep venous thrombosis. Lumbar Spine X-Ray 10/17/17 21:00 CONCLUSION: Chronic changes. Pelvis X-Ray 10/17/17 21:00 CONCLUSION: No definite fracture is identified for technique. Femur X-Ray 10/18/17 01:02 CONCLUSION: 1. No fracture is identified. 2. Large knee joint effusion. 3. Recent MRI performed on 10/12/2017 documented severe edema in the proximal thigh. Tibia/Fibula X-Ray 10/18/17 01:02 CONCLUSION: Large knee joint effusion. No acute osseous abnormality is visualized. Abdomen/Bladder Ultrasound 10/19/17 00:00 CONCLUSION: 1. Normal renal sonogram. Thoracic Spine MRI 10/20/17 00:00 CONCLUSION: 1. Discitis with osteomyelitis involving T7-T8. No paraspinal fluid collections or vertebral body collapse at this point. 2. Small bilateral pleural effusions. Chest X-Ray 10/20/17 15:06 CONCLUSION: 1. Right IJ central line in good position without pneumothorax. Lumbar Puncture Fluoroscopy 10/21/17 00:00 CONCLUSION: 1. Uncomplicated fluoroscopically guided lumbar puncture. Lumbar Spine MRI 10/21/17 00:00 CONCLUSION: Multilevel spinal canal stenosis most prominent at L4-L5 moderate nature. 1.9 x 1.2 cm mass in the neural foramen on the right as seen on the prior examination characteristic of schwannoma or neurofibroma compromising the nerve root exit zone and lateral recess. The findings are similar to the prior exam. There are no findings of osteomyelitis Needle Biopsy/Aspiration X-Ray 10/21/17 00:00 CONCLUSION: 1. Uncomplicated needle biopsy of the T8 superior endplate, as above. Abdomen/Pelvis CT 10/21/17 00:03 CONCLUSION: 1. No acute abnormality is identified within the abdomen or pelvis on this noncontrast examination. No abscess is visualized, as questioned. 2. Mild atherosclerotic disease. Chest CT 10/21/17 00:03 CONCLUSION: 1. Endplate irregularity and decreased disc height at T7-T8 with abnormal soft tissue in the adjacent prevertebral region on the right. Findings are consistent with a discitis and osteomyelitis documented on yesterday's thoracic spine MRI. 2. No other source for infection is identified. Venous Doppler Study 10/27/17 00:00 CONCLUSION: 1. No evidence of deep venous thrombosis. 2. Complex fluid collection in the left medial calf. This could represent a Lozada's cyst, hematoma and/or seroma. Lower Extremity MRI 10/28/17 00:00 CONCLUSION: Fluid tracking down the tissues of the leg most probably associated with known pathology in the knee. Abdomen X-Ray 10/31/17 00:00 CONCLUSION: Mildly distended stomach. Bowel gas pattern otherwise unremarkable. Chest X-Ray 10/31/17 06:00 CONCLUSION: 1. Right IJ central line in good position. 2. Lungs are clear. - Procedures Left knee arthroscopy, irrigation & debridement, synovectomy, chondroplasty Left knee arthrotomy with irrigation debridement, left calf abscess irrigation and debridement, left thigh abscess irrigation and debridement performed by Dr. Isidoro Lund (10/29/17) Assessment and Plan - Assessment (1) Effusion of left knee Code(s): M25.462 - Effusion, left knee Status: Acute Plan: This is a 52-year-old male patient with past medical history which includes hypertension, hyperlipidemia, anxiety/depression, BPH, hyperprolactinemia and chronic lower back pain, lumbar degenerative disc disease with long-term current use of opioid analgesic. Patient presents to the emergency department by EMS transport from home due to complaint of severe left lower extremity pain. Patient has been under the care of his primary care provider Dr. Walls and his pain management Dr. Bridges and sports medicine Dr. Dickson. Patient is undergone epidural injections and nerve block injections without symptom relief. Patient is on chronic Morphine ER 15 mg BID and Guinda 10-325 mg Q8H. Patient fell at his bedside 10/16/17 walking with his walker to go the bathroom and since then has had increasing pain. Strep Viridans bacteremia T7 and T8 discitis and osteo Left knee effusion Chronic lower back pain, Now with decreased mobility Lumbar degenerative disc disease with long-term current use of opioid analgesia - Venous Doppler Study 10/17/17 The study is negative for lower extremity deep venous thrombosis. - Lumbar Spine X-Ray 10/17/17 Chronic changes. - Pelvis X-Ray 10/17/17 No definite fracture is identified for technique. - Femur X-Ray 10/18/17 1. No fracture is identified. 2. Large knee joint effusion. 3. Recent MRI performed on 10/12/2017 documented severe edema in the proximal thigh. - Tibia/Fibula X-Ray 10/18/17 Large knee joint effusion. No acute osseous abnormality is visualized. - Outpatient lumbar MRI reviewed by Dr. Dolan - Pt underwent arthrocentesis on 10/18 with removal of 60cc "chocolate milk" color fluid. Culture grew out Strep viridans - On 10/19/17 pt underwent Left knee arthroscopy, irrigation & debridement, synovectomy, chondroplasty, surgical cx. grew out strep viridans - Blood cultures drawn on 10/18 with 2/4 growing out strep viridans. - MRI thoracic spine (10/20/17): 1. Discitis with osteomyelitis involving T7-T8. No paraspinal fluid collections or vertebral body collapse at this point. 2. Small bilateral pleural effusions. - MRI Lumbar spine (10/21/17): - Multilevel spinal canal stenosis most prominent at L4-L5 moderate nature. - 1.9 x 1.2 cm mass in the neural foramen on the right as seen on the prior examination characteristic of schwannoma or neurofibroma compromising the nerve root exit zone and lateral recess. The findings are similar to the prior exam. - There are no findings of osteomyelitis - On 10/[address] guided needle bx T8 --> Uncomplicated needle biopsy of the T8 superior endplate....cx's pending from needle bx. - Repeat cx's (10/21/17) with NG x 5 days - Pt was transferred from ICU on 10/23 - The source for the bacteremia is unclear. Pt with a noted broken molar which does not appear infected. Discussed the case with Dr. Jones and recommended to have a GI evaluation - coloscopy (10/26) limited due to large amount of retained stool - EGD (10/26) 1. There was esophagitis noted; likely Trish, multiple biopsies were performed 2. There was chronic gastritis in the gastric antrum; biopsy was performed 3. Duodenal inflammation was found in the bulb and second portion of the duodenum and 3rd part duodenum 4. Retroflexion was performed and was normal - Daptomycin (10/22 - 11/02) - Rocephin (10/26 - present) - IV access: PICC (placed on 11/04) - Pt underwent left knee arthrotomy with irrigation debridement, left calf abscess irrigation and debridement, left thigh abscess irrigation and debridement performed by Dr. Isidoro Lund (10/29/17) - Intraoperative cultures (10/29) are negative. - On 10/30 pt was moved back to ICU for hypotension - He was given 2 units prbc on 10/31 - pt improved and was able to be transferred out of ICU on 11/01 - Pt was complaining of severe flank and low back edema, felt to be related to severe hypoalbuminemia and having received a lot of IVF resuscitation with third spacing. Pt is receiving IV albumen and IV Lasix. - Discussed decreasing oral fluid intake while we are diuresing. He is diuresing well and maintaining a negative fluid balance overall. - His Cr bumped slightly today to 0.97, we will back off on diuretics to once daily and monitor labs - Ensure with each meal. - Monitor labs daily - once dc abx plan in place and ok with ortho will get pt to snf. - Pain control PRN - Cont. PT and OOB ALEXANDREA - related to sepsis and hypotension - resolved currently. Hypertension hx Hypotensive, patient asymptomatic - Hold patient's home amlodipine 10 mg p.o. daily, losartan 50 mg, triamterene hydrochlorothiazide daily - Pt had CVL IJ place 10/20 for hypotension and pressors. - Pt is off pressors and BP is stable. - IJ removed on 11/04 and PICC line placed Hyperlipidemia - Continue patient's home atorvastatin Anxiety/depression - Continue patient's home fluoxetine 60 mg p.o. nightly BPH - Continue patient's home tamsulosin Hyperprolactinemia - Continue patient's home cabergoline weekly DVT prophylaxis with teds and SCDs - Attending Attestation Patient examined. Assessment and plan formulated with Johanna Leong PA-C. I agree with the above.
[2017-11-08] MEDS: Heparin Central Flush 100 UNIT/ML 5 ML Vial IV.FLUSH SCH (10:01)
[2017-11-08] MEDS: Mag Sulf 1 gm/100 ml Premix 100 ML IV.SIG SCH ×2 (10:56→15:31)
[2017-11-08] MEDS: Duloxetine 60 MG DR Capsule PO SCH ×2 (19:55→22:19)
[2017-11-09] MEDS: HYDROmorphone PF Inj 2 MG/ML Vial IV.PUSH PRN ×6 (00:50→21:34)
[2017-11-09 06:02] LABS: Baso # (Auto) 0.1 th/mm3 (0.0-0.2); Baso % (Auto) 0.7 % (0.0-2.0); Eos # (Auto) 0.4 th/mm3 (0.0-0.4); Eos % (Auto) 4.5 % (0.0-4.0); Hematocrit 32.1 % (39.0-51.0); Hemoglobin 10.6 gm/dL (13.0-17.0); Lymph # (Auto) 1.4 th/mm3 (1.0-4.8); Lymph % (Auto) 16.4 % (9.0-44.0); Mean Corpuscular HGB Conc 33.2 % (32.0-36.0); Mean Corpuscular Hemoglobin 28.8 pg (27.0-34.0); Mean Corpuscular Volume 86.8 fL (80.0-100.0); Mean Platelet Volume 6.9 fL (7.0-11.0); Mono # (Auto) 0.6 th/mm3 (0.0-0.9); Neut % (Auto) 71.4 % (16.0-70.0); Platelet Count 537 th/mm3 (150-450); Red Cell Distribution Width 15.2 % (11.6-17.2); White Blood Count 8.4 th/mm3 (4.0-11.0)
[2017-11-09 06:26] LABS: Anion Gap 10 meq/L (5-15); Blood Urea Nitrogen 20 mg/dL (7-18); Calcium 9.1 mg/dL (8.5-10.1); Carbon Dioxide 30.3 meq/L (21.0-32.0); Chloride 99 meq/L (98-107); Glomerular Filtration Rate Greater Than 89 mL/min (>89); Glucose,Random 120 mg/dL (74-106); Potassium 3.9 meq/L (3.5-5.1); Sodium 139 meq/L (136-145)
--- NOTE | 2017-11-09 06:55 | P.PNOP ---
Subjective Interval history: Patient is awake and alert. He appears anxious. Complains of pain. Physical Exam Vital signs: Vital Signs 11/08/17 08:00 11/08/17 12:00 11/08/17 16:00 Temperature 98.1 F 97.9 F 98.0 F Pulse Rate 88 71 101 H Respiratory Rate 19 19 19 Blood Pressure 129/74 114/63 112/54 L Pulse Oximetry 94 L 93 L 94 L 11/08/17 20:00 11/09/17 00:00 Temperature 97.8 F 98.4 F Pulse Rate 102 H 76 Respiratory Rate 18 18 Blood Pressure 130/75 109/56 L Pulse Oximetry 97 94 L Intake & Output 11/08/17 11/08/17 11/09/17 06:59 18:59 06:59 Intake Total 1050 / 1050 1260 / 1260 580 / 580 Output Total 2135 / 2135 1260 / 1260 1200 / 1200 Balance -1085 / -1085 0 / 0 -620 / -620 Weight 109 kg Intake: IV 200 / 200 300 / 300 100 / 100 Flexbumin 25% Inj 100 ML @ 60 100 / 100 mls/hr IV.SIG BID@ [facility] Rx# :[id number] Magnesium Sulfate 1 gm/D5W 100 200 / 200 ml Premix 100 ML @ 100 mls/hr IV.SIG Q1H [facility] Rx#:[id number] Rocephin Inj 2,000 MG In NS Inj 100 / 100 100 / 100 100 / 100 100 ML @ 200 mls/hr IV.SIG Q12H [facility] Rx#:[id number] Oral 850 / 850 960 / 960 480 / 480 Output: Urine 2100 / 2100 1260 / 1260 1200 / 1200 Wound Drainage 35 / 35 # 2 Left Calf ROGER Drain 5 / 5 Left Thigh 30 / 30 Other: Date of Last Bowel Movement 10/31/17 11/04/17 Narrative: Examination of left leg reveals well-healed surgical incisions. [place] are in place. Swelling has significantly improved. No palpable knee effusion present. [address] Calf and thigh compartments are soft. Results - Labs CBC & Chem 7: 11/09/17 05:50 11/09/17 05:50 Laboratory Results - last 24 hr 11/09/17 11/09/17 05:50 05:50 WBC 8.4 RBC 3.70 L Hgb 10.6 L Hct 32.1 L MCV 86.8 MCH 28.8 MCHC 33.2 RDW 15.2 Plt Count 537 H MPV 6.9 L Neut % (Auto) 71.4 H Lymph % (Auto) 16.4 [place] % (Auto) 7.0 Eos % (Auto) 4.5 H Baso % (Auto) 0.7 Neut # (Auto) 6.0 Lymph # (Auto) 1.4 [place] # (Auto) 0.6 Eos # (Auto) 0.4 Baso # (Auto) 0.1 WBC Differential . Differential Comment Auto diff final Sodium 139 Potassium 3.9 Chloride 99 Carbon Dioxide 30.3 Anion Gap 10 BUN 20 H Creatinine 0.66 Estimated GFR Greater than 89 Random Glucose 120 H Calcium 9.1 Magnesium 2.0 D - Procedures Left knee arthroscopy, irrigation & debridement, synovectomy, chondroplasty Left knee arthrotomy with irrigation debridement, left calf abscess irrigation and debridement, left thigh abscess irrigation and debridement performed by Dr. Isidoro Lund (10/29/17) Assessment and Plan - Problem List (1) Chronic pain Code(s): G89.29 - Other chronic pain Status: Acute (2) Intractable neuropathic pain of lower extremity Code(s): G57.90 - Unspecified mononeuropathy of unspecified lower limb Status : Acute (3) Pituitary abnormality Code(s): E23.7 - Disorder of pituitary gland, unspecified Status: Acute (4) Hypertension Code(s): I10 - Essential (primary) hypertension Status: Acute (5) Septic arthritis of knee, left Code(s): M00.9 - Pyogenic arthritis, unspecified Status: Acute - Assessment and Plan 1. Left knee arthroscopy, irrigation & debridement, synovectomy 2. status post open irrigation and debridement of left thigh, left knee, and left calf Cx of synovial fluid grew out strep viridans, Abx per ID. Physical therapy, weight-bear as tolerated, left knee range of motion Begin daily dressing changes with Xeroform 4 x 4's ABDs and Brannon wrap. Drains removed today Patient cleared for discharge from orthopedic standpoint once antibiotics are arranged
[2017-11-09] MEDS: Heparin - SQ 10,000 UNITS/ML Vial SQ SCH ×2 (08:16→21:36)
[2017-11-09] MEDS: Nystatin Liq 500,000 UNIT/5 ML UDC SWISH-SWAL SCH ×6 (08:16→21:39)
[2017-11-09] MEDS: Morphine Sulfate 15 MG SR Tablet PO SCH ×2 (08:17→21:37)
[2017-11-09] MEDS: Albumin Human 25% Inj 100 ML IV.SIG SCH (08:18)
[2017-11-09] MEDS: Heparin Central Flush 100 UNIT/ML 5 ML Vial IV.FLUSH SCH (08:18)
--- NOTE | 2017-11-09 14:32 | P.PNIM ---
Subjective Interval history: Patient resting in bed reports pain from LLE drain removal site able to ambulate short distances feels ready to go to rehab in 1-2 days Physical Exam Vital signs: Vital Signs 11/08/17 16:00 11/08/17 20:00 11/09/17 00:00 Temperature 98.0 F 97.8 F 98.4 F Pulse Rate 101 H 102 H 76 Respiratory Rate 19 18 18 Blood Pressure 112/54 L 130/75 109/56 L Pulse Oximetry 94 L 97 94 L 11/09/17 08:00 11/09/17 12:00 Temperature 97.8 F 97.4 F L Pulse Rate 100 H 110 H Respiratory Rate 19 19 Blood Pressure 148/79 H 94/54 L Pulse Oximetry 94 L 97 Intake & Output 11/08/17 11/09/17 11/09/17 18:59 06:59 18:59 Intake Total 1260 / 1260 580 / 580 200 / 200 Output Total 1260 / 1260 1245 / 1245 Balance 0 / 0 -665 / -665 200 / 200 Weight 109 kg Intake: IV 300 / 300 100 / 100 200 / 200 Flexbumin 25% Inj 100 ML @ 60 100 / 100 mls/hr IV.SIG DAILY@08 EMILIO Rx#: [id number] Magnesium Sulfate 1 gm/D5W 100 200 / 200 ml Premix 100 ML @ 100 mls/hr IV.SIG Q1H EMILIO Rx#:[id number] Rocephin Inj 2,000 MG In NS Inj 100 / 100 100 / 100 100 / 100 100 ML @ 200 mls/hr IV.SIG Q12H EMILIO Rx#:[id number] Oral 960 / 960 480 / 480 Output: Urine 1260 / 1260 1200 / 1200 Wound Drainage 45 / 45 # 1 Left Knee FLORES Drain 45 / 45 Other: Date of Last Bowel Movement 10/31/17 11/04/17 11/04/17 Narrative: General: NAD, AAox3 Cardiac: Regular Chest: CTA bilaterally Abd: +BS, soft ND/NT Ext: Left knee bandaged. flores drains removed 11/09 Results - Labs CBC & Chem 7: 11/09/17 05:50 11/09/17 05:50 Laboratory Results - last 24 hr 11/09/17 11/09/17 05:50 05:50 WBC 8.4 RBC 3.70 L Hgb 10.6 L Hct 32.1 L MCV 86.8 MCH 28.8 MCHC 33.2 RDW 15.2 Plt Count 537 H MPV 6.9 L Neut % (Auto) 71.4 H Lymph % (Auto) 16.4 Fannin % (Auto) 7.0 Eos % (Auto) 4.5 H Baso % (Auto) 0.7 Neut # (Auto) 6.0 Lymph # (Auto) 1.4 Fannin # (Auto) 0.6 Eos # (Auto) 0.4 Baso # (Auto) 0.1 WBC Differential . Differential Comment Auto diff final Sodium 139 Potassium 3.9 Chloride 99 Carbon Dioxide 30.3 Anion Gap 10 BUN 20 H Creatinine 0.66 Estimated GFR Greater than 89 Random Glucose 120 H Calcium 9.1 Magnesium 2.0 D Microbiology 10/19/17 22:10 Wound - Knee Fungal Smear - Final No fungal elements seen 10/19/17 22:10 Wound - Knee Fungal Culture - Preliminary No growth in 3 weeks 10/19/17 22:10 Wound - Knee Acid Fast Bacilli Smear - Final No acid fast bacilli seen 10/19/17 22:10 Wound - Knee Mycobacterial Culture - Preliminary No growth in 3 weeks - Procedures Left knee arthroscopy, irrigation & debridement, synovectomy, chondroplasty Left knee arthrotomy with irrigation debridement, left calf abscess irrigation and debridement, left thigh abscess irrigation and debridement performed by Dr. Isidoro Lund (10/29/17) Assessment and Plan - Assessment (1) Effusion of left knee Code(s): M25.462 - Effusion, left knee Status: Acute Plan: This is a 52-year-old male patient with past medical history which includes hypertension, hyperlipidemia, anxiety/depression, BPH, hyperprolactinemia and chronic lower back pain, lumbar degenerative disc disease with long-term current use of opioid analgesic. Patient presents to the emergency department by EMS transport from home due to complaint of severe left lower extremity pain. Patient has been under the care of his primary care provider Dr. Walls and his pain management Dr. Bridges and sports medicine Dr. Dickson. Patient is undergone epidural injections and nerve block injections without symptom relief. Patient is on chronic Morphine ER 15 mg BID and [place] 10-325 mg Q8H. Patient fell at his bedside 10/16/17 walking with his walker to go the bathroom and since then has had increasing pain. Strep Viridans bacteremia T7 and T8 discitis and osteo Left knee effusion Chronic lower back pain, Now with decreased mobility Lumbar degenerative disc disease with long-term current use of opioid analgesia - Venous Doppler Study 10/17/17 The study is negative for lower extremity deep venous thrombosis. - Lumbar Spine X-Ray 10/17/17 Chronic changes. - Pelvis X-Ray 10/17/17 No definite fracture is identified for technique. - Femur X-Ray 10/18/17 1. No fracture is identified. 2. Large knee joint effusion. 3. Recent MRI performed on 10/12/2017 documented severe edema in the proximal thigh. - Tibia/Fibula X-Ray 10/18/17 Large knee joint effusion. No acute osseous abnormality is visualized. - Outpatient lumbar MRI reviewed by Dr. Dolan - Pt underwent arthrocentesis on 10/18 with removal of 60cc "chocolate milk" color fluid. Culture grew out Strep viridans - On 10/19/17 pt underwent Left knee arthroscopy, irrigation & debridement, synovectomy, chondroplasty, surgical cx. grew out strep viridans - Blood cultures drawn on 10/18 with 2/4 growing out strep viridans. - MRI thoracic spine (10/20/17): 1. Discitis with osteomyelitis involving T7-T8. No paraspinal fluid collections or vertebral body collapse at this point. 2. Small bilateral pleural effusions. - MRI Lumbar spine (10/21/17): - Multilevel spinal canal stenosis most prominent at L4-L5 moderate nature. - 1.9 x 1.2 cm mass in the neural foramen on the right as seen on the prior examination characteristic of schwannoma or neurofibroma compromising the nerve root exit zone and lateral recess. The findings are similar to the prior exam. - There are no findings of osteomyelitis - On 10/[address] guided needle bx T8 --> Uncomplicated needle biopsy of the T8 superior endplate....cx's pending from needle bx. - Repeat cx's (10/21/17) with NG x 5 days - Pt was transferred from ICU on 10/23 - The source for the bacteremia is unclear. Pt with a noted broken molar which does not appear infected. Discussed the case with Dr. Jones and recommended to have a GI evaluation - coloscopy (10/26) limited due to large amount of retained stool - EGD (10/26) 1. There was esophagitis noted; likely Trish, multiple biopsies were performed 2. There was chronic gastritis in the gastric antrum; biopsy was performed 3. Duodenal inflammation was found in the bulb and second portion of the duodenum and 3rd part duodenum 4. Retroflexion was performed and was normal - Daptomycin (10/22 - 11/02) - Rocephin (10/26 - present) - IV access: PICC (placed on 11/04) - Pt underwent left knee arthrotomy with irrigation debridement, left calf abscess irrigation and debridement, left thigh abscess irrigation and debridement performed by Dr. Isidoro Lund (10/29/17) - Intraoperative cultures (10/29) are negative. - On 10/30 pt was moved back to ICU for hypotension - He was given 2 units prbc on 10/31 - pt improved and was able to be transferred out of ICU on 11/01 - Pt was complaining of severe flank and low back edema, felt to be related to severe hypoalbuminemia and having received a lot of IVF resuscitation with third spacing. Pt is receiving IV albumen and IV Lasix. - Discussed decreasing oral fluid intake while we are diuresing. He is diuresing well and maintaining a negative fluid balance overall. - His Cr bumped slightly today to 0.97, we will back off on diuretics to once daily and monitor labs - Ensure with each meal. - Monitor labs daily - Ortho cleared for DC - Discussed with DR. Jones, awaiting DC abx DC recommendations - plan to DC to SNF - Pain control PRN - Cont. PT and OOB ALEXANDREA - related to sepsis and hypotension - resolved currently. Hypertension hx Hypotensive, patient asymptomatic - Hold patient's home amlodipine 10 mg p.o. daily, losartan 50 mg, triamterene hydrochlorothiazide daily - Pt had CVL IJ place 10/20 for hypotension and pressors. - Pt is off pressors and BP is stable. - IJ removed on 11/04 and PICC line placed Hyperlipidemia - Continue patient's home atorvastatin Anxiety/depression - Continue patient's home fluoxetine 60 mg p.o. nightly BPH - Continue patient's home tamsulosin Hyperprolactinemia - Continue patient's home cabergoline weekly DVT prophylaxis with teds and SCDs - Attending Attestation Patient examined. Assessment and plan formulated with Pura Talamantes PA-C. I agree with the above.
--- NOTE | 2017-11-09 15:22 | P.DCO ---
Post Hospital Infusion Therapy Location of Infusion Therapy: [facility] Infusion Therapy Order Patient Weight: 109 kg - Diagnosis (1) Infective discitis Code(s): M46.40 - Discitis, unspecified, site unspecified (2) Septic arthritis of knee, left Code(s): M00.9 - Pyogenic arthritis, unspecified (3) Streptococcus viridans infection Code(s): A49.1 - Streptococcal infection, unspecified site (4) Abscess of left leg Code(s): L02.416 - Cutaneous abscess of left lower limb (5) Abscess of left thigh Code(s): L02.416 - Cutaneous abscess of left lower limb - Administer Medication Ceftriaxone Dose: 2 grams IV Directions: q 12 hours Start Treatment: 11/09/17 Stop Treatment: 12/22/17 - Additional Information Venous Access: PICC Line Additional Instructions: [x] Peripheral flush and dressing changes per protocol [x] Implanted port and central online marketing specialist: * Implanted port: 10 ml Normal Saline followed by 5 ml Heparin 100 units/ml Heparin flush after each use and monthly to maintain. [] May leave port accessed during therapy. [] May leave peripheral site accessed for duration of therapy. [x] If patient has SOB or respiratory distress, check oxygen saturation. If less than 90% or clinical signs of respiratory distress, administer oxygen at 2 L/min. via nasal cannula and notify physician. [x] Anaphylaxis/Reaction orders: * Stop infusion. * Keep IV line open with saline flush. * Notify physician. * Monitor vital signs every 15 minutes until symptoms resolve. * Check Oxygen saturation; Oxygen at 2 L/min. via nasal cannula if less than 90% or clinical signs of respiratory distress. * Administer diphenhydramine (Benadryl) 25 mg IV STAT, (unless patient has received as pre-med). May repeat once, if necessary. * Solu-Cortef 250 mg IVP over 30-60 seconds, use 100 mg vials for each dissolution. * Epinephrine (1mg/1 ml) 0.3 mg subcutaneously or IVP now with any signs of respiratory distress. * Check with physician for new additional pre-med orders if patient is re- challenged or re-treated. [x] May remove PICC line when treatment complete, after confirming with Physician. [x] If the patient is admitted to the hospital, the ED, or transferred via [facility] , complete transfer form including medication reconciliation order sheet. Weekly Labs: CBC w/diff, Creatinine, CRP, LFTs (Hepatic Function Test) Case Management Consult: Yes Additional Information: SNF or Rehab to draw weekly labs and fax to Dr.Reba Romo office as well as notify primary MD at care home. Also call them with abnormal labs. Allergies penicillin G Allergy (Mild, Verified 09/30/17 03:33) Swelling of Lip/Tongue/Throat lisinopril Adverse Reaction (Mild, Verified 09/30/17 03:34) HEADACHE
[2017-11-09 16:37] VITALS: RESP 18
[2017-11-09] MEDS: Duloxetine 60 MG DR Capsule PO SCH (21:37)
[2017-11-10] MEDS: HYDROmorphone PF Inj 2 MG/ML Vial IV.PUSH PRN (04:05)
[2017-11-10 09:07] VITALS: TEMP 98
[2017-11-10] MEDS: Heparin - SQ 10,000 UNITS/ML Vial SQ SCH (09:17)
[2017-11-10] MEDS: Morphine Sulfate 15 MG SR Tablet PO SCH (09:18)
[2017-11-10] MEDS: Albumin Human 25% Inj 100 ML IV.SIG SCH (09:19)
[2017-11-10] MEDS: Heparin Central Flush 100 UNIT/ML 5 ML Vial IV.FLUSH SCH (09:19)
[2017-11-10] MEDS: Nystatin Liq 500,000 UNIT/5 ML UDC SWISH-SWAL SCH (09:20)
--- NOTE | 2017-11-10 10:58 | P.DS ---
<Pura Talamantes W - Last Filed: 11/10/17 14:59> Date of admission: 10/18/17 11:15 Primary care physician: Rell Walls MD, PhD Attending physician on discharge: Mirza Heredia Anticipated date of discharge: 11/10/17 Brief History from admission: This is a 52-year-old male patient with past medical history which includes hypertension, hyperlipidemia, anxiety/depression, BPH, hyperprolactinemia and chronic lower back pain, lumbar degenerative disc disease with long-term current use of opioid analgesic. Patient presents to the emergency department by EMS transport from home due to complaint of severe left lower extremity pain. Patient reportedly has had 3 weeks of progressively worsening back pain and left lower extremity pain. Patient has been under the care of his primary care provider Dr. Walls and his pain management Dr. Bridges and sports medicine Dr. Dickson. Patient is undergone epidural injections and nerve block injections without symptom relief. Patient is on chronic Morphine ER 15 mg BID and Clyde 10-325 mg Q8H. Patient states that in July he had a trip and fall over his dog without any known injury at the time other than some mild mid back pain. Patient was seen by his pain management doctor this week and had an injection for pain management. Patient fell at his bedside 10/16/17 walking with his walker to go the bathroom and since then has had increasing pain. Household family members helped him to stand upright and get back to the bed. Patient denies head trauma and states he did not have loss of consciousness but everything hurt since that fall. Yesterday he has been able to ambulate with his walker to the bathroom a couple different times with this evening pain was increased and decided come to the emergency room as he is not getting any relief or improvement of his symptoms. Patient denies fever, chills, nausea, vomiting or chest pain. PMH: hypertension, hyperlipidemia, anxiety/depression, BPH, hyperprolactinemia chronic lower back pain, lumbar degenerative disc disease with long-term current use of opioid analgesic. PSxH: Colonoscopy, EGD Lumbar laminectomy L1-L2 laminectomy 12/13/2015 cervical thoracic and lumbar spinal injections by sports medicine Nerve block paravertebral facet joint Tonsillectomy adenoidectomy Social history: Patient is lives with his Rare EtOH use Denies tobacco use now or in the past Family medical history: Reviewed and noncontributory Patient update on day of discharge: Patient reports feeling well looking forward to DC offers no new concerns/ complaints DS: Diagnosis - Discharge Diagnosis (1) Effusion of left knee Status: Acute (2) Bacteremia Status: Acute (3) Streptococcus viridans infection Status: Acute DS: Medications - Discharge Medications Prescriptions: hydrocodone-acetaminophen 1 tab PO Q6H PRN #90 tab PRN Reason: Pain 1-10 morphine 15 mg PO Q12H #60 tab tizanidine [Zanaflex] 4 mg PO DAILY #14 tab tizanidine 12 mg PO HS #30 tab DS: Summary Hospital Course: This is a 52-year-old male patient with past medical history which includes hypertension, hyperlipidemia, anxiety/depression, BPH, hyperprolactinemia and chronic lower back pain, lumbar degenerative disc disease with long-term current use of opioid analgesic. Patient presents to the emergency department by EMS transport from home due to complaint of severe left lower extremity pain. Patient has been under the care of his primary care provider Dr. Walls and his pain management Dr. Bridges and sports medicine Dr. Dickson. Patient is undergone epidural injections and nerve block injections without symptom relief. Patient is on chronic Morphine ER 15 mg BID and Clyde 10-325 mg Q8H. Patient fell at his bedside 10/16/17 walking with his walker to go the bathroom and since then has had increasing pain. Strep Viridans bacteremia T7 and T8 discitis and osteo Left knee effusion Chronic lower back pain, Now with decreased mobility Lumbar degenerative disc disease with long-term current use of opioid analgesia - Venous Doppler Study 10/17/17 The study is negative for lower extremity deep venous thrombosis. - Lumbar Spine X-Ray 10/17/17 Chronic changes. - Pelvis X-Ray 10/17/17 No definite fracture is identified for technique. - Femur X-Ray 10/18/17 1. No fracture is identified. 2. Large knee joint effusion. 3. Recent MRI performed on 10/12/2017 documented severe edema in the proximal thigh. - Tibia/Fibula X-Ray 10/18/17 Large knee joint effusion. No acute osseous abnormality is visualized. - Outpatient lumbar MRI reviewed by Dr. Dolan - Pt underwent arthrocentesis on 10/18 with removal of 60cc "chocolate milk" color fluid. Culture grew out Strep viridans - On 10/19/17 pt underwent Left knee arthroscopy, irrigation & debridement, synovectomy, chondroplasty, surgical cx. grew out strep viridans - Blood cultures drawn on 10/18 with 2/4 growing out strep viridans. - MRI thoracic spine (10/20/17): 1. Discitis with osteomyelitis involving T7-T8. No paraspinal fluid collections or vertebral body collapse at this point. 2. Small bilateral pleural effusions. - MRI Lumbar spine (10/21/17): - Multilevel spinal canal stenosis most prominent at L4-L5 moderate nature. - 1.9 x 1.2 cm mass in the neural foramen on the right as seen on the prior examination characteristic of schwannoma or neurofibroma compromising the nerve root exit zone and lateral recess. The findings are similar to the prior exam. - There are no findings of osteomyelitis - On 10/[address] guided needle bx T8 --> Uncomplicated needle biopsy of the T8 superior endplate....cx's pending from needle bx. - Repeat cx's (10/21/17) with NG x 5 days - Pt was transferred from ICU on 10/23 - The source for the bacteremia is unclear. Pt with a noted broken molar which does not appear infected. Discussed the case with Dr. Jones and recommended to have a GI evaluation - coloscopy (10/26) limited due to large amount of retained stool - EGD (10/26) 1. There was esophagitis noted; likely Trish, multiple biopsies were performed 2. There was chronic gastritis in the gastric antrum; biopsy was performed 3. Duodenal inflammation was found in the bulb and second portion of the duodenum and 3rd part duodenum 4. Retroflexion was performed and was normal - Daptomycin (10/22 - 11/02) - Rocephin (10/26 - present) - IV access: PICC (placed on 11/04) - Pt underwent left knee arthrotomy with irrigation debridement, left calf abscess irrigation and debridement, left thigh abscess irrigation and debridement performed by Dr. Isidoro Lund (10/29/17) - Intraoperative cultures (10/29) are negative. - On 10/30 pt was moved back to ICU for hypotension - He was given 2 units prbc on 10/31 - pt improved and was able to be transferred out of ICU on 11/01 - Pt was complaining of severe flank and low back edema, felt to be related to severe hypoalbuminemia and having received a lot of IVF resuscitation with third spacing. Pt is receiving IV albumen and IV Lasix. - Discussed decreasing oral fluid intake while we are diuresing. He is diuresing well and maintaining a negative fluid balance overall. - His Cr bumped slightly today to 0.97, we will back off on diuretics to once daily and monitor labs - Ensure with each meal. - Monitor labs daily - Ortho cleared for DC - Discussed with DR. Jones, DC abx ordered per ID Ceftriaxone 2 grams Q12H from 11/09/17 to stop date 12/22/17 - DC to SNF - Pain control PRN - Cont. PT and OOB ALEXANDREA - related to sepsis and hypotension - resolved currently. Hypertension hx Hypotensive, patient asymptomatic - Hold patient's home amlodipine 10 mg p.o. daily, losartan 50 mg, triamterene hydrochlorothiazide daily - Pt had CVL IJ place 10/20 for hypotension and pressors. - Pt is off pressors and BP is stable. - IJ removed on 11/04 and PICC line placed Hyperlipidemia - Continue patient's home atorvastatin Anxiety/depression - Continue patient's home fluoxetine 60 mg p.o. nightly BPH - Continue patient's home tamsulosin Hyperprolactinemia - Continue patient's home cabergoline weekly DVT prophylaxis with teds and SCDs - Time Spent with Patient Total time spent providing and/or coordinating discharge services: Greater than 30 minutes Exam Vital signs: Vital Signs 11/09/17 12:00 11/09/17 16:00 11/09/17 20:00 Temperature 97.4 F L 97.9 F 97.7 F Pulse Rate 110 H 93 H 91 H Respiratory Rate 19 18 18 Blood Pressure 94/54 L 128/72 146/75 H Pulse Oximetry 97 96 96 11/10/17 00:00 11/10/17 08:00 11/10/17 09:14 Temperature 97.5 F L 98.0 F Pulse Rate 80 100 H Respiratory Rate 18 18 Blood Pressure 114/69 150/88 H 112/74 Pulse Oximetry 94 L 95 11/10/17 09:15 Temperature Pulse Rate Respiratory Rate Blood Pressure 114/71 Pulse Oximetry Intake & Output 11/09/17 11/10/17 11/10/17 18:59 06:59 18:59 Intake Total 1300 / 1300 100 / 100 Output Total 900 / 900 500 / 500 Balance 400 / 400 -400 / -400 Weight 109 kg 89.9 kg Intake: IV 200 / 200 100 / 100 Flexbumin 25% Inj 100 ML @ 60 100 / 100 mls/hr IV.SIG DAILY@08 EMILIO Rx#: [id number] Rocephin Inj 2,000 MG In NS Inj 100 / 100 100 / 100 100 ML @ 200 mls/hr IV.SIG Q12H EMILIO Rx#:[id number] Oral 1100 / 1100 Output: Urine 900 / 900 500 / 500 Other: Date of Last Bowel Movement 11/04/17 11/09/17 11/09/17 # Bowel Movements 2 Results Procedures completed during hospitalization: On 10/[address] guided needle bx T8 --> Uncomplicated needle biopsy of the T8 superior endplate....cx's pending from needle bx. coloscopy (10/26) limited due to large amount of retained stool EGD (10/26) 1. There was esophagitis noted; likely Trish, multiple biopsies were performed 2. There was chronic gastritis in the gastric antrum; biopsy was performed 3. Duodenal inflammation was found in the bulb and second portion of the duodenum and 3rd part duodenum 4. Retroflexion was performed and was normal Left knee arthroscopy, irrigation & debridement, synovectomy, chondroplasty Left knee arthrotomy with irrigation debridement, left calf abscess irrigation and debridement, left thigh abscess irrigation and debridement performed by Dr. Isidoro Lund (10/29/17) Labs on day of discharge: Preliminary micro results at discharge 10/19/17 22:10 Fungal Culture - Preliminary Wound - Knee No growth in 3 weeks 10/19/17 22:10 Mycobacterial Culture - Preliminary Wound - Knee No growth in 3 weeks 10/29/17 09:00 Fungal Culture - Preliminary Tissue - Knee No growth in 1 week 10/29/17 09:00 Mycobacterial Culture - Preliminary Tissue - Knee No growth in 1 week 10/29/17 09:00 Fungal Culture - Preliminary Fluid - Other No growth in 1 week 10/29/17 09:00 Mycobacterial Culture - Preliminary Fluid - Other No growth in 1 week 10/21/17 12:33 Mycobacterial Culture - Preliminary Cerebral Spinal Fluid - Lumbar Puncture No growth in 2 weeks 10/21/17 12:33 Fungal Culture - Preliminary Cerebral Spinal Fluid - Lumbar Puncture No growth in 2 weeks 10/21/17 10:44 Fungal Culture - Preliminary Tissue - Other No growth in 2 weeks 10/21/17 10:44 Mycobacterial Culture - Preliminary Tissue - Other No growth in 2 weeks - Impressions ITS Impressions Lumbar Spine X-Ray 10/17/17 21:00 CONCLUSION: Chronic changes. Pelvis X-Ray 10/17/17 21:00 CONCLUSION: No definite fracture is identified for technique. Femur X-Ray 10/18/17 01:02 CONCLUSION: 1. No fracture is identified. 2. Large knee joint effusion. 3. Recent MRI performed on 10/12/2017 documented severe edema in the proximal thigh. Tibia/Fibula X-Ray 10/18/17 01:02 CONCLUSION: Large knee joint effusion. No acute osseous abnormality is visualized. Abdomen/Bladder Ultrasound 10/19/17 00:00 CONCLUSION: 1. Normal renal sonogram. Thoracic Spine MRI 10/20/17 00:00 CONCLUSION: 1. Discitis with osteomyelitis involving T7-T8. No paraspinal fluid collections or vertebral body collapse at this point. 2. Small bilateral pleural effusions. Lumbar Puncture Fluoroscopy 10/21/17 00:00 CONCLUSION: 1. Uncomplicated fluoroscopically guided lumbar puncture. Lumbar Spine MRI 10/21/17 00:00 CONCLUSION: Multilevel spinal canal stenosis most prominent at L4-L5 moderate nature. 1.9 x 1.2 cm mass in the neural foramen on the right as seen on the prior examination characteristic of schwannoma or neurofibroma compromising the nerve root exit zone and lateral recess. The findings are similar to the prior exam. There are no findings of osteomyelitis Needle Biopsy/Aspiration X-Ray 10/21/17 00:00 CONCLUSION: 1. Uncomplicated needle biopsy of the T8 superior endplate, as above. Abdomen/Pelvis CT 10/21/17 00:03 CONCLUSION: 1. No acute abnormality is identified within the abdomen or pelvis on this noncontrast examination. No abscess is visualized, as questioned. 2. Mild atherosclerotic disease. Chest CT 10/21/17 00:03 CONCLUSION: 1. Endplate irregularity and decreased disc height at T7-T8 with abnormal soft tissue in the adjacent prevertebral region on the right. Findings are consistent with a discitis and osteomyelitis documented on yesterday's thoracic spine MRI. 2. No other source for infection is identified. Venous Doppler Study 10/27/17 00:00 CONCLUSION: 1. No evidence of deep venous thrombosis. 2. Complex fluid collection in the left medial calf. This could represent a Lozada's cyst, hematoma and/or seroma. Lower Extremity MRI 10/28/17 00:00 CONCLUSION: Fluid tracking down the tissues of the leg most probably associated with known pathology in the knee. Abdomen X-Ray 10/31/17 00:00 CONCLUSION: Mildly distended stomach. Bowel gas pattern otherwise unremarkable. Chest X-Ray 10/31/17 06:00 CONCLUSION: 1. Right IJ central line in good position. 2. Lungs are clear. <Mirza Heredia - Last Filed: 11/20/17 19:59> Date of admission: 10/18/17 11:15 Primary care physician: Rell Walls MD, PhD DS: Diagnosis - Discharge Diagnosis (1) Effusion of left knee Status: Acute DS: Summary Hospital Course: Patient examined. Assessment and plan formulated with Pura Talamantes PA-C. I agree with the above. - Time Spent with Patient Total time spent providing and/or coordinating discharge services: Results Labs on day of discharge: Preliminary micro results at discharge 10/29/17 09:00 Fungal Culture - Preliminary Tissue - Knee No growth in 3 weeks 10/29/17 09:00 Mycobacterial Culture - Preliminary Tissue - Knee No growth in 3 weeks 10/29/17 09:00 Fungal Culture - Preliminary Fluid - Other No growth in 3 weeks 10/29/17 09:00 Mycobacterial Culture - Preliminary Fluid - Other No growth in 3 weeks 10/21/17 12:33 Mycobacterial Culture - Preliminary Cerebral Spinal Fluid - Lumbar Puncture No growth in 4 weeks 10/21/17 10:44 Mycobacterial Culture - Preliminary Tissue - Other No growth in 4 weeks 10/19/17 22:10 Mycobacterial Culture - Preliminary Wound - Knee No growth in 4 weeks - Impressions ITS Impressions Lumbar Spine X-Ray 10/17/17 21:00 CONCLUSION: Chronic changes. Pelvis X-Ray 10/17/17 21:00 CONCLUSION: No definite fracture is identified for technique. Femur X-Ray 10/18/17 01:02 CONCLUSION: 1. No fracture is identified. 2. Large knee joint effusion. 3. Recent MRI performed on 10/12/2017 documented severe edema in the proximal thigh. Tibia/Fibula X-Ray 10/18/17 01:02 CONCLUSION: Large knee joint effusion. No acute osseous abnormality is visualized. Abdomen/Bladder Ultrasound 10/19/17 00:00 CONCLUSION: 1. Normal renal sonogram. Thoracic Spine MRI 10/20/17 00:00 CONCLUSION: 1. Discitis with osteomyelitis involving T7-T8. No paraspinal fluid collections or vertebral body collapse at this point. 2. Small bilateral pleural effusions. Lumbar Puncture Fluoroscopy 10/21/17 00:00 CONCLUSION: 1. Uncomplicated fluoroscopically guided lumbar puncture. Lumbar Spine MRI 10/21/17 00:00 CONCLUSION: Multilevel spinal canal stenosis most prominent at L4-L5 moderate nature. 1.9 x 1.2 cm mass in the neural foramen on the right as seen on the prior examination characteristic of schwannoma or neurofibroma compromising the nerve root exit zone and lateral recess. The findings are similar to the prior exam. There are no findings of osteomyelitis Needle Biopsy/Aspiration X-Ray 10/21/17 00:00 CONCLUSION: 1. Uncomplicated needle biopsy of the T8 superior endplate, as above. Abdomen/Pelvis CT 10/21/17 00:03 CONCLUSION: 1. No acute abnormality is identified within the abdomen or pelvis on this noncontrast examination. No abscess is visualized, as questioned. 2. Mild atherosclerotic disease. Chest CT 10/21/17 00:03 CONCLUSION: 1. Endplate irregularity and decreased disc height at T7-T8 with abnormal soft tissue in the adjacent prevertebral region on the right. Findings are consistent with a discitis and osteomyelitis documented on yesterday's thoracic spine MRI. 2. No other source for infection is identified. Venous Doppler Study 10/27/17 00:00 CONCLUSION: 1. No evidence of deep venous thrombosis. 2. Complex fluid collection in the left medial calf. This could represent a Lozada's cyst, hematoma and/or seroma. Lower Extremity MRI 10/28/17 00:00 CONCLUSION: Fluid tracking down the tissues of the leg most probably associated with known pathology in the knee. Abdomen X-Ray 10/31/17 00:00 CONCLUSION: Mildly distended stomach. Bowel gas pattern otherwise unremarkable. Chest X-Ray 10/31/17 06:00 CONCLUSION: 1. Right IJ central line in good position. 2. Lungs are clear. Discharge Plan - Discharge Order Discharge Orders: Discharge Order (Routine); Ordered 11/10/17 Ordered By: Pura Talamantes - Physicians Team Primary Care Provider: Rell Walls Attending Provider: Mirza Heredia Other Providers: Jonathon Dolan MD ; Raymond Herrera MD ; Satish Crowley MD ; Joellen Jones MD ; Elia Jones MD ; Guerda Christensen MD ; Raymond Wood MD ; Blu Hernandez MD ; Isidoro Lund MD ; [facility] ; [facility]
[2017-11-10 12:42] VITALS: BP 98/62; PULSE 75; O2SAT 96
== END 2017-11-10 13:31 ==
LOC: NEPC 20:46 → INTOOBSV 10-18 02:11 → NEDA 10-18 02:11 → NEPFCDU 10-18 07:57 → N03 10-18 19:18 → N05 10-23 14:50 → N03 10-31 14:10 → N07 11-02 14:58
PROVIDERS: ADMIT Hospitalist; ATTEND Hospitalist
PROC: COLONOS (2017-10-26 11:37)
PROC: PANENDO (2017-10-26 11:37)